=== PATIENT | female | born 1970 | race Two or more races ===

== ENCOUNTER 2020-07-29 14:33 | Outpatient (REF) | payer MEDICARE, SELFPAY ==
--- NOTE | 2020-07-29 | US_ITS ---
EXAMINATION: ULTRASOUND PELVIS CLINICAL INFORMATION: History of fibroids. COMPARISON: Ultrasound pelvis 02/10/2020. TECHNIQUE: Transabdominal and transvaginal ultrasound pelvis is performed. FINDINGS: On transabdominal ultrasound the uterus is anteverted and bulky secondary to multiple fibroids. The uterus measures 12.0 cm in length, 6.0 cm in AP and 8.7 cm in transverse dimension. The fibroids measure as follows. 1. A 0.9 x 0.8 x 0.8 cm fibroid in the left body of uterus. Previously it measured 1.4 x 1.5 x 1.5 cm. 2. A fibroid in the mid body of uterus posteriorly measures 0.9 x 0.7 x 0.8 cm. It is new. 3. A posterior fibroid in the body of uterus measures 1.9 x 1.6 x 1.7 cm. Previously it measured 2.1 x 1.5 x 2.0 cm. 4. A posterior upper body uterus fibroid measures 1.4 x 1.0 x 1.3 cm. Previously it measured 1.2 x 0.8 x 1.0 cm. 5. Right upper body uterus largest measures 3.3 x 3.0 x 4.3 cm. Previously it measured 3.0 x 3.5 x 3.1 cm. 6. Fibroid in the left body of uterus measures 1.4 x 1.1 x 1.3 cm. It is new. The endometrial thickness measures 0.9 cm. The right ovary measures 3.3 x 2.0 x 2.1 cm and volume 6.5 mL. There is an echogenic complex lesion measuring 2.0 x 1.9 x 2.2 cm. Not seen previously. Previously right ovary measured 3.4 x 2.4 x 2.7 cm and volume 11.5 mL. The left ovary measures 3.0 x 1.8 x 2.3 cm and volume 8.85 mL. Previously left ovary measured 3.9 x 1.2 x 3.1 cm and volume 7.6 mL. There is no free fluid in the cul-de-sac. US/US pelvic complete IMPRESSION: Multiple uterine fibroids. There are 2 new fibroids seen. Rest of the fibroids are stable. Complex new cyst right ovary measuring 2.0 cm. Left ovary is unremarkable.
== END 2020-07-29 14:34 | disposition home or self-care (01) ==
LOC: HO.US 14:33
PROVIDERS: PCP Internal Medicine; Visit Provider Obstetrics & Gynecology
DX: D21.9 Benign neoplasm of connective and other soft tissue, unspecified (principal)
CPT/HCPCS: 76830; 76856

== ENCOUNTER 2020-08-19 17:25 | Outpatient (REF) | payer OTHER, SELFPAY ==
[2020-08-21 11:36] LABS: CA-125 10 U/mL (<35)
== END 2020-08-19 17:26 | disposition home or self-care (01) ==
LOC: HO.LAB 17:25
PROVIDERS: PCP Internal Medicine; Visit Provider Obstetrics & Gynecology
DX: D21.9 Benign neoplasm of connective and other soft tissue, unspecified (principal)
CPT/HCPCS: 86304

== ENCOUNTER → 2020-08-26 14:17 | Outpatient (BNVA) | payer MEDICARE, MEDICAID, SELFPAY | PROVIDERS: Visit Provider Obstetrics & Gynecology | DX: Z76.89 Persons encountering health services in other specified circumstances (principal) ==

== ENCOUNTER 2020-09-20 10:40 | Outpatient (REF) | payer OTHER, SELFPAY ==
[2020-09-20 13:25] LABS: Syphilis Screen Nonreactive (Nonreactive)
[2020-09-21 04:20] LABS: ~HepC Num1 0.06 S/CO (0.00-0.79); ~Hepatitis C Antibody Nonreactive (Nonreactive)
[2020-09-21 04:22] LABS: HBsAGNum1 0.21 S/CO (0.00-0.99); HIV AB/AG Nonreactive (Nonreactive); HIV Num 1 0.05 S/CO (0.00-0.99); Hepatitis B Surface Antigen Negative (Negative)
[2020-09-21 09:43] LABS: BV Int Neg Control Negative (Negative); BV Int Pos Control Positive (Positive)
[2020-10-16 09:12] LABS: CT PCR NOT DETECTED (Not Detect.); NG PCR NOT DETECTED (Not Detect.)
== END 2020-09-20 10:41 | disposition home or self-care (01) ==
LOC: HO.LAB 10:40
PROVIDERS: PCP Internal Medicine; Visit Provider Advanced Practice Midwife
DX: Z20.2 Contact with and (suspected) exposure to infections with a predominantly sexual mode of transmission (principal); N89.8 Other specified noninflammatory disorders of vagina
CPT/HCPCS: 86780; 86803; 87340; 87389; 87480; 87491; 87510; 87591; 87660; 99212

== ENCOUNTER → 2020-10-07 15:19 | Outpatient (BNVA) | payer OTHER, SELFPAY | PROVIDERS: PCP Internal Medicine; Visit Provider Nurse Practitioner | DX: K59.00 Constipation, unspecified (principal); K21.9 Gastro-esophageal reflux disease without esophagitis; B37.81 Candidal esophagitis; B37.0 Candidal stomatitis; L29.0 Pruritus ani | CPT/HCPCS: Q3014 ==

== ENCOUNTER → 2020-11-04 12:50 | Outpatient (BNVA) | payer OTHER, SELFPAY | PROVIDERS: PCP Internal Medicine; Visit Provider Nurse Practitioner | DX: Z13.89 Encounter for screening for other disorder (principal) | CPT/HCPCS: Q3014 ==

== ENCOUNTER 2020-11-16 14:33 | Outpatient (REF) | payer OTHER, SELFPAY ==
--- NOTE | ~2020-11-16 | US_ITS ---
EXAMINATION: PELVIC ULTRASOUND CLINICAL INFORMATION: Follow-up ovarian cyst COMPARISON: Previous pelvic ultrasound July 2020 TECHNIQUE: Transabdominal and transvaginal pelvic ultrasound was performed. Transvaginal exam was performed for better visualization of the uterus and ovaries. FINDINGS: The uterus is slightly enlarged, anteverted and measures 12.2 x 5.6 x 7.4 cm in dimension. There are multiple focal uterine lesions seen suggestive of fibroids. These measure 2.1 x 1.5 x 2.3 cm in the intramural posterior uterine body, 1.4 x 1.1 x 1.2 cm in the intramural posterior uterine body, 1.3 x 1.3 x 2.1 cm in the intramural anterior fundus and 3.3 x 3.4 x 3.2 cm in the intramural uterine fundus. Endometrial thickness is normal measuring 1.1 cm. There are nabothian cysts in the cervix. The ovaries are normal-appearing. The right ovary measures 2.7 x 2.5 x 1.8 cm and the left ovary measures 2.8 x 2.3 x 1.6 cm. The previously identified 2 cm complex right ovarian cyst on July 2020 exam is no longer seen. There is no fluid in the pelvis. US/US pelvic complete IMPRESSION: Slightly enlarged fibroid uterus. Normal-appearing ovaries. Previously identified 2 cm complex right ovarian cyst on July 2020 exam is no longer seen.
--- NOTE | ~2020-11-16 | US_ITS ---
EXAMINATION: PELVIC ULTRASOUND CLINICAL INFORMATION: Follow-up ovarian cyst COMPARISON: Previous pelvic ultrasound July 2020 TECHNIQUE: Transabdominal and transvaginal pelvic ultrasound was performed. Transvaginal exam was performed for better visualization of the uterus and ovaries. FINDINGS: The uterus is slightly enlarged, anteverted and measures 12.2 x 5.6 x 7.4 cm in dimension. There are multiple focal uterine lesions seen suggestive of fibroids. These measure 2.1 x 1.5 x 2.3 cm in the intramural posterior uterine body, 1.4 x 1.1 x 1.2 cm in the intramural posterior uterine body, 1.3 x 1.3 x 2.1 cm in the intramural anterior fundus and 3.3 x 3.4 x 3.2 cm in the intramural uterine fundus. Endometrial thickness is normal measuring 1.1 cm. There are nabothian cysts in the cervix. The ovaries are normal-appearing. The right ovary measures 2.7 x 2.5 x 1.8 cm and the left ovary measures 2.8 x 2.3 x 1.6 cm. The previously identified 2 cm complex right ovarian cyst on July 2020 exam is no longer seen. There is no fluid in the pelvis. US/US transvaginal IMPRESSION: Slightly enlarged fibroid uterus. Normal-appearing ovaries. Previously identified 2 cm complex right ovarian cyst on July 2020 exam is no longer seen.
== END 2020-11-16 14:34 | disposition home or self-care (01) ==
LOC: HO.US 14:33
PROVIDERS: Visit Provider Obstetrics & Gynecology
DX: N83.299 Other ovarian cyst, unspecified side (principal)
CPT/HCPCS: 76830; 76856

== ENCOUNTER 2020-11-17 15:02 | Outpatient (REF) | payer OTHER, SELFPAY ==
--- NOTE | ~2020-11-17 | MM_ITS ---
EXAMINATION: MM DIAGNOSTIC DIGITAL BREAST TOMOSYNTHESIS, BILATERAL CLINICAL INFORMATION: Due for yearly. Family history breast cancer, mother, age 50's. Prior bilateral benign biopsies. The lifetime risk of breast cancer based on the Tyrer-Cuzick Model is 11%. COMPARISON: Mammography: 03/12/2020, 10/22/2019, 02/07/2019, 02/08/2019, 10/04/2017, targeted right breast ultrasound and right breast biopsy 03/12/2020, MRI breasts 03/04/2020. TECHNIQUE: Digital breast tomosynthesis is performed in both the craniocaudal and mediolateral oblique views along with computer-aided detection (CAD). Synthesized 2D images are generated from the tomosynthesis. FINDINGS: The breasts are heterogeneously dense, which may obscure small masses (ACR BI-RADS breast composition Category c). There are fibrocystic changes central and upper right breast with waxing and waning smooth oval masses. Neither breast shows architectural abnormality or abnormal calcifications. Left breast has biopsy clip marker mid upper outer quadrant and there are 3 biopsy clip markers right breast, central aspect and 2 clips anteriorly. No significant changes. Results are provided to the patient at time of visit by the technologist. MM/MM tomosynthesis diagnostic BI IMPRESSION: No significant changes from prior studies. Fibrocystic changes central and upper right breast again noted. Bilateral biopsy clip markers. ASSESSMENT: BI-RADS 2: Benign RECOMMENDATION: Routine annual mammography screening. This patient's information was entered into a reminder system with a target due date for their next mammogram.
== END 2020-11-17 15:03 | disposition home or self-care (01) ==
LOC: HO.MAMMO 15:02
PROVIDERS: Visit Provider Surgery
DX: R92.8 Other abnormal and inconclusive findings on diagnostic imaging of breast (principal); Z91.89 Other specified personal risk factors, not elsewhere classified
CPT/HCPCS: 77062; 77066

== ENCOUNTER → 2020-11-18 11:28 | Outpatient (BNVA) | payer OTHER, SELFPAY | PROVIDERS: Visit Provider Obstetrics & Gynecology | DX: R35.0 Frequency of micturition (principal) ==

== ENCOUNTER 2020-11-20 08:27 | Outpatient (REF) | payer OTHER, SELFPAY ==
[2020-11-20 09:36] LABS: Glucose Urine UA NEG (NEG); Leukocyte Esterase Urine NEG (NEG); Nitrite Urine NEG (NEG); Urine Blood 1+ (NEG); Urine Ketones NEG (NEG); Urine Protein NEG (NEG-TRACE)
[2020-11-20 09:39] LABS: Appearance Urine CLEAR; Color Urine YELLOW
[2020-11-20 10:10] LABS: Squamous Epithelial Cell Urine TRACE /LPF; WBC Urine 0-2 /HPF (0-4)
== END 2020-11-20 08:28 | disposition home or self-care (01) ==
LOC: HO.LAB 08:27
PROVIDERS: PCP Internal Medicine; Visit Provider Obstetrics & Gynecology
DX: R35.0 Frequency of micturition (principal)
CPT/HCPCS: 81001

== ENCOUNTER → 2020-11-26 11:50 | Outpatient (BNVA) | payer OTHER, SELFPAY | PROVIDERS: PCP Internal Medicine; Visit Provider Surgery | DX: Z91.89 Other specified personal risk factors, not elsewhere classified (principal) | CPT/HCPCS: 99212 ==

== ENCOUNTER 2020-12-24 08:30 | Outpatient (REF) | payer OTHER, SELFPAY ==
[2020-12-24 10:58] LABS: Glucose Urine UA 100 MG/DL (NEG); Leukocyte Esterase Urine NEG (NEG); Nitrite Urine NEG (NEG); Urine Blood TRACE (NEG); Urine Ketones NEG (NEG); Urine Protein NEG (NEG-TRACE)
[2020-12-24 11:01] LABS: Appearance Urine CLEAR; Color Urine YELLOW
[2020-12-24 11:03] LABS: HBsAGNum1 0.17 S/CO (0.00-0.99); HIV AB/AG Nonreactive (Nonreactive); HIV Num 1 0.04 S/CO (0.00-0.99); Hepatitis B Surface Antigen Negative (Negative)
[2020-12-24 11:05] LABS: ~HepC Num1 0.08 S/CO (0.00-0.79); ~Hepatitis C Antibody Nonreactive (Nonreactive)
[2020-12-24 11:07] LABS: Syphilis Screen Nonreactive (Nonreactive)
[2020-12-24 11:18] LABS: Squamous Epithelial Cell Urine TRACE /LPF; WBC Urine 0 /HPF (0-4)
[2020-12-25 09:20] LABS: CT PCR NOT DETECTED (Not Detect.); NG PCR NOT DETECTED (Not Detect.)
[2020-12-25 11:28] LABS: BV Int Neg Control Negative (Negative); BV Int Pos Control Positive (Positive)
[2020-12-29 23:02] LABS: HPV mRNA E6/E7 rflx Not Detected (Not Detected)
== END 2020-12-24 08:31 | disposition home or self-care (01) ==
LOC: HO.LAB 08:30
PROVIDERS: PCP Internal Medicine; Visit Provider Obstetrics & Gynecology
DX: Z01.411 Encounter for gynecological examination (general) (routine) with abnormal findings (principal); Z11.51 Encounter for screening for human papillomavirus (HPV); Z11.3 Encounter for screening for infections with a predominantly sexual mode of transmission; D21.9 Benign neoplasm of connective and other soft tissue, unspecified; R31.29 Other microscopic hematuria; Z91.89 Other specified personal risk factors, not elsewhere classified
CPT/HCPCS: 36415; 81001; 81003; 86780; 86803; 87086; 87340; 87389; 87480; 87491; 87510; 87591; 87624; 87660; 88142

== ENCOUNTER 2020-12-30 15:30 | Outpatient (REF) | payer OTHER, SELFPAY ==
--- NOTE | ~2020-12-30 | US_ITS ---
EXAMINATION: US PELVIS COMPLETE CLINICAL INFORMATION: Benign neoplasm of connective and other soft tissues COMPARISON: Ultrasound pelvis 11/16/2020 TECHNIQUE: Transabdominal and transvaginal ultrasound the pelvis is performed. FINDINGS: The uterus is anteverted, anteflexed, enlarged measuring 11.1 cm in length, 6.9 cm in AP and 8.9 cm in transverse dimension. The endometrial thickness is 1.4 cm. There are multiple hypoechoic lesions. 1. Lesion in the posterior fundus measures 2.8 x 2.4 x 3.0 cm. Previously measured 3.3 x 3.4 x 3.2 cm. 2. Lesion in the posterior body of uterus measures 2.2 x 1.4 x 2.2 cm. Previously measured 2.1 x 1.5 x 2.3 cm. 3. Lesion in posterior upper body of uterus measures 1.2 x 0.9 x 1.6 cm. Previously it measured 1.4 x 1.1 x 1.2 cm. 4. New lesion in the posterior body of uterus, likely submucosal, measures 0.9 x 0.7 x 1.0 cm. 5. Lesion in the anterior body of uterus measures 0.8 x 0.7 x 0.9 cm. Previously measured 1.3 x 1.3 x 2.1 cm. There are small nabothian cysts seen in the cervix. Right ovary measures 2.0 x 1.9 x 1.3 cm volume 3.9 mL. It is unremarkable. Previously it measured 2.7 x 2.5 x 1.8 cm. Left ovary measures 3.4 x 2.3 x 1.4 cm and volume 5.7 mL. It is unremarkable. Previously measured 2.8 x 2.3 x 1.6 cm. There is no free fluid in the cul-de-sac. US/US pelvic complete IMPRESSION: Multiple uterine fibroids as described above. Small nabothian cyst in the cervix. The ovaries are unremarkable.
--- NOTE | ~2020-12-30 | US_ITS ---
EXAMINATION: US PELVIS COMPLETE CLINICAL INFORMATION: Benign neoplasm of connective and other soft tissues COMPARISON: Ultrasound pelvis 11/16/2020 TECHNIQUE: Transabdominal and transvaginal ultrasound the pelvis is performed. FINDINGS: The uterus is anteverted, anteflexed, enlarged measuring 11.1 cm in length, 6.9 cm in AP and 8.9 cm in transverse dimension. The endometrial thickness is 1.4 cm. There are multiple hypoechoic lesions. 1. Lesion in the posterior fundus measures 2.8 x 2.4 x 3.0 cm. Previously measured 3.3 x 3.4 x 3.2 cm. 2. Lesion in the posterior body of uterus measures 2.2 x 1.4 x 2.2 cm. Previously measured 2.1 x 1.5 x 2.3 cm. 3. Lesion in posterior upper body of uterus measures 1.2 x 0.9 x 1.6 cm. Previously it measured 1.4 x 1.1 x 1.2 cm. 4. New lesion in the posterior body of uterus, likely submucosal, measures 0.9 x 0.7 x 1.0 cm. 5. Lesion in the anterior body of uterus measures 0.8 x 0.7 x 0.9 cm. Previously measured 1.3 x 1.3 x 2.1 cm. There are small nabothian cysts seen in the cervix. Right ovary measures 2.0 x 1.9 x 1.3 cm volume 3.9 mL. It is unremarkable. Previously it measured 2.7 x 2.5 x 1.8 cm. Left ovary measures 3.4 x 2.3 x 1.4 cm and volume 5.7 mL. It is unremarkable. Previously measured 2.8 x 2.3 x 1.6 cm. There is no free fluid in the cul-de-sac. US/US transvaginal IMPRESSION: Multiple uterine fibroids as described above. Small nabothian cyst in the cervix. The ovaries are unremarkable.
== END 2020-12-30 15:31 | disposition home or self-care (01) ==
LOC: HO.US 15:30
PROVIDERS: Visit Provider Obstetrics & Gynecology
DX: D21.9 Benign neoplasm of connective and other soft tissue, unspecified (principal)
CPT/HCPCS: 76830; 76856

== ENCOUNTER 2021-01-01 10:27 | Outpatient (REF) | payer OTHER, SELFPAY ==
[2021-01-01 10:52] LABS: MANUAL DIFF FLAG NO
[2021-01-01 10:59] LABS: Basophils Percent Auto 0.2 % (0-2); Eosinophils Absolute Auto 0.1 X10*3/uL (0.0-0.4); Eosinophils Percent Auto 1.1 % (0-4); Hematocrit 37.4 % (37-47); Hemoglobin 12.4 g/dl (12.0-16.0); Imm Gran Abs Auto 0.01 X10*3/uL (0.00-0.03); Imm Gran Pct Auto 0.2 % (0.0-0.4); Lymphocytes Absolute Auto 1.3 X10*3/uL (1.2-4.9); Lymphocytes Percent Auto 24.1 % (20-40); Mean Corpuscular HGB Conc 33.2 g/dl (31.0-35.0); Mean Corpuscular Hemoglobin 28.4 pg (27.0-33.0); Mean Corpuscular Volume 85.8 fL (80-98); Mean Platelet Volume 10.8 fL (9.4-12.3); Monocytes Absolute Auto 0.5 X10*3/uL (0.1-1.2); Monocytes Percent Auto 8.8 % (2-11); Neutrophils Absolute Auto 3.6 X10*3/uL (2.0-8.3); Neutrophils Percent Auto 65.6 % (45-73); Platelet Count 225 X10*3/uL (160-400); Red Blood Count 4.36 X10*6/uL (4.20-5.50); Red Cell Distribution Width 11.1 % (11.0-16.0); White Blood Count 5.4 X10*3/uL (4.8-10.8)
[2021-01-01 11:18] LABS: Estimated Average Glucose 100 mg/dL; Glucose Urine UA NEG (NEG); Hemoglobin A1c % 5.1 %; Leukocyte Esterase Urine NEG (NEG); Nitrite Urine NEG (NEG); PH 5.5 (5.0-8.0); Specific Gravity - Urine 1.025 (1.005-1.025); Urine Blood TRACE (NEG); Urine Ketones NEG (NEG); Urine Protein NEG (NEG-TRACE)
[2021-01-01 11:23] LABS: Appearance Urine CLEAR; Color Urine YELLOW
[2021-01-01 11:28] LABS: Alanine Aminotransferase 18 U/L (0-31); Albumin Level 3.8 g/dL (3.5-5.0); Alkaline Phosphatase 79 U/L (39-117); Anion Gap 13 (12-20); Aspartate Amino Transferase 13 U/L (5-31); Bilirubin Total 0.5 mg/dL (0.0-1.0); Blood Urea Nitrogen 17 mg/dL (9-16); Calcium 8.9 mg/dL (8.4-10.2); Carbon Dioxide 24 mmol/L (22-29); Chloride 108 mmol/L (96-108); Estimated Glomerular Filt Rate > 60; Glucose Fasting 96 mg/dL (60-99); Potassium 4.3 mmol/L (3.3-5.1); Sodium 141 mmol/L (135-145); Total Protein 6.7 g/dL (6.5-8.0)
[2021-01-01 11:36] LABS: RBC Urine 0-2 /HPF (0); Squamous Epithelial Cell Urine TRACE /LPF; WBC Urine 0-2 /HPF (0-4)
== END 2021-01-01 10:28 | disposition home or self-care (01) ==
LOC: HO.LAB 10:27
PROVIDERS: Obstetrics & Gynecology; PCP Internal Medicine; Visit Provider Internal Medicine
DX: R81 Glycosuria (principal); D64.9 Anemia, unspecified; R35.0 Frequency of micturition
CPT/HCPCS: 36415; 80053; 81001; 81003; 83036; 85025

== ENCOUNTER → 2021-01-17 15:22 | Outpatient (BNVA) | payer OTHER, SELFPAY | PROVIDERS: PCP Internal Medicine; Visit Provider Obstetrics & Gynecology | DX: Z13.89 Encounter for screening for other disorder (principal) | CPT/HCPCS: Q3014 ==

== ENCOUNTER 2021-01-18 15:56 | Outpatient (REF) | payer OTHER, SELFPAY ==
--- NOTE | ~2021-01-18 | XR_ITS ---
EXAMINATION: BILATERAL SHOULDER X-RAY CLINICAL INFORMATION: Unspecified disorder of synovium COMPARISON: Previous left shoulder x-ray July 2015 TECHNIQUE: 4 views of each shoulder FINDINGS: Right: Bone alignment is normal. No fracture or dislocation is seen. The glenohumeral joint is normal. There is arthritis at the acromioclavicular joint. Soft tissues are normal. Left: Bone alignment is normal. No fracture or dislocation is seen. The glenohumeral joint is normal. There is arthritis at the acromioclavicular joint. There is a small osteophyte projecting over the lateral surface of the acromion. Soft tissues are otherwise unremarkable. 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 Small lateral left acromial osteophyte.
--- NOTE | ~2021-01-18 | XR_ITS ---
EXAMINATION: XR LUMBOSACRAL SPINE CLINICAL INFORMATION: Low back pain COMPARISON: None TECHNIQUE: Three views of the lumbosacral spine. FINDINGS: Bone alignment is normal. No fracture or dislocation is seen. Disc spaces are normal. There is lower lumbar spine facet arthritis. There is a 0.5 x 1.5 cm radiopaque density projecting over the soft tissues of the left pelvis. This is partially visualized but appears anterior to the left hip joint on the lateral view. XR/XR lumbar spine 2-3V IMPRESSION: Mild lower lumbar spine facet arthritis. 0.5 x 1.5 cm radiopaque soft tissue density in the left pelvis, question postsurgical. Clinical correlation to exclude foreign body recommended.
--- NOTE | ~2021-01-18 | XR_ITS ---
EXAMINATION: BILATERAL SHOULDER X-RAY CLINICAL INFORMATION: Unspecified disorder of synovium COMPARISON: Previous left shoulder x-ray July 2015 TECHNIQUE: 4 views of each shoulder FINDINGS: Right: Bone alignment is normal. No fracture or dislocation is seen. The glenohumeral joint is normal. There is arthritis at the acromioclavicular joint. Soft tissues are normal. Left: Bone alignment is normal. No fracture or dislocation is seen. The glenohumeral joint is normal. There is arthritis at the acromioclavicular joint. There is a small osteophyte projecting over the lateral surface of the acromion. Soft tissues are otherwise unremarkable. 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 Small lateral left acromial osteophyte.
[2021-01-18 21:25] LABS: Alanine Aminotransferase 30 U/L (0-31); Albumin Level 3.8 g/dL (3.5-5.0); Alkaline Phosphatase 93 U/L (39-117); Anion Gap 16 (12-20); Aspartate Amino Transferase 20 U/L (5-31); Bilirubin Total 0.3 mg/dL (0.0-1.0); Blood Urea Nitrogen 11 mg/dL (9-16); Calcium 8.8 mg/dL (8.4-10.2); Carbon Dioxide 24 mmol/L (22-29); Chloride 104 mmol/L (96-108); Estimated Glomerular Filt Rate > 60; Glucose Random 82 mg/dL (60-115); Potassium 4.3 mmol/L (3.3-5.1); Sodium 140 mmol/L (135-145); Total Protein 6.7 g/dL (6.5-8.0)
== END 2021-01-18 15:57 | disposition home or self-care (01) ==
LOC: HO.XRAY 15:56
PROVIDERS: PCP Internal Medicine; Visit Provider Student in an Organized Health Care Education/Training Program
DX: M75.32 Calcific tendinitis of left shoulder (principal); M67.911 Unspecified disorder of synovium and tendon, right shoulder; M54.5 Low back pain
CPT/HCPCS: 36415; 72100; 73030; 80053; 99212

== ENCOUNTER → 2021-01-27 13:48 | Outpatient (BNVA) | payer OTHER, SELFPAY | PROVIDERS: PCP Internal Medicine; Visit Provider Surgery | DX: N64.4 Mastodynia (principal); Z91.89 Other specified personal risk factors, not elsewhere classified | CPT/HCPCS: 99212 ==

== ENCOUNTER → 2021-03-03 15:16 | Outpatient (BNVA) | payer OTHER, SELFPAY | PROVIDERS: Visit Provider Nurse Practitioner ==

== ENCOUNTER 2021-03-25 16:39 | Outpatient (REF) | payer OTHER, SELFPAY ==
--- NOTE | ~2021-03-25 | MR_ITS ---
EXAMINATION: MR BREAST WITHOUT AND WITH CONTRAST, BILATERAL CLINICAL INFORMATION: Reason for Exam Z91.89 - Other specified personal risk factors, not elsewhere. History of suspicious segmental non-mass enhancement in the right breast 2 o'clock position. Biopsy under ultrasound benign. COMPARISON: MRI 03/04/2020, 01/27/2019. Biopsy 03/12/2020 TECHNIQUE: Imaging was performed with a dedicated breast coil. Prior to the administration of contrast, bilateral axial T1 and bilateral axial T2 weighted sequences were obtained. After the uneventful administration of?6.5 mL of Gadavist, dynamic contrast-enhanced VIBRANT series through the breasts in the axial plane were performed. Subtracted images were performed and reviewed. A delayed sagittal sequence through both breasts was acquired. Additionally, CAD post-processing, including maximum intensity projections, 3-D reconstructions and kinetic analysis, were performed an independent workstation and reviewed by the interpreting radiologist is a portion of this exam. FINDINGS: The patient's fibroglandular tissue demonstrates moderate background enhancement. LEFT BREAST: There is a new short segment of nonmasslike enhancement 3:00 position located 8.6 cm from the nipple measuring 0.8 cm in size in AP length (image 70, series 100). Finding demonstrates plateau or type II enhancement. MRI guided biopsy is recommended. Nonmasslike enhancement in the 9:00 position, 7.4 cm from the nipple with associated cystic change is also noted (image 71, series 100). This is a new finding as well. Recommend attention on follow-up. The imaging appearance is most suggestive of an inflammatory process such as a ruptured cyst. No other suspicious nonmasslike or masslike enhancement. Review of the T2-weighted images demonstrates innumerable high signal intensity structures. The largest is located in the 3:00 position centrally measuring up 1.6M in size. Finding is are consistent with cysts. Review of kinetic images reveals no additional findings. RIGHT BREAST: No persistent nonmasslike enhancement in the 2:00 position. No suspicious masslike or non-masslike enhancement. No abnormal skin thickening or nipple retraction. No abnormal architectural distortion. Review of the T2-weighted images demonstrates innumerable high signal intensity structures. The largest is located in the 1:00 position measuring up to 3.6 cm in size. These findings are consistent with cysts. Review of kinetic images reveals no additional findings. There is no suspicious internal mammary chain or axillary adenopathy. Limited views of the chest and abdomen are unremarkable. MR/MR breast BI wo/w con IMPRESSION: 1. Suspicious nonmasslike enhancement, left breast, 3:00. 2. Probably benign nonmasslike enhancement with associated fibrocystic changes left breast, 9:00. 3. No MR specific evidence of malignancy within the right breast. 4. Severe fibrocystic changes bilaterally. ASSESSMENT: LEFT BREAST: BI-RADS 4 - Suspicious abnormality - Biopsy should be considered. RIGHT BREAST: BI-RADS 2 - Benign Findings. RECOMMENDATIONS: MRI guided biopsy, left breast, 3:00. Recommend follow-up MRI directed at the nonmasslike enhancement at 9:00 position of the left breast in 6-12 months. The report will be called to the referring office.
== END 2021-03-25 16:40 | disposition home or self-care (01) ==
LOC: HO.MRI 16:39
PROVIDERS: Visit Provider Obstetrics & Gynecology
DX: Z91.89 Other specified personal risk factors, not elsewhere classified (principal)
CPT/HCPCS: 77049; A9585

== ENCOUNTER → 2021-04-01 11:32 | Outpatient (BNVA) | payer OTHER, SELFPAY | PROVIDERS: PCP Internal Medicine; Visit Provider Obstetrics & Gynecology | DX: R92.8 Other abnormal and inconclusive findings on diagnostic imaging of breast (principal) | CPT/HCPCS: Q3014 ==

== ENCOUNTER 2021-04-20 07:44 | Outpatient (REF) | payer OTHER, SELFPAY ==
--- NOTE | ~2021-04-20 | MR_ITS ---
EXAMINATION: MR GUIDED VACUUM-ASSISTED CORE BIOPSY BREAST, LEFT MM DIGITAL MAMMOGRAPHY POST BIOPSY, LEFT CLINICAL INFORMATION: New 9 mass enhancement 3:00 position left breast, type II kinetics. COMPARISON: MRI breasts 03/25/2021, mammography 11/17/2020. TECHNIQUE/PROCEDURE: Hospital provided metal building assembler assisted for the consent and throughout the procedure. Informed consent was obtained from the patient after discussion of the benefits, risks, and alternatives to biopsy today. Patient appeared to understand. Gave opportunity for questions. Patient signed consent form. Biopsy is performed under MRI guidance using breast surface coil. Imaging is performed without and with use of 7 mL Gadavist gadolinium contrast. [employer] introducer localization system is used with grid. LESION: None mass enhancement 3:00 position left breast residing posterior superior to prior cylinder shaped left breast biopsy clip marker. LOCAL ANESTHESIA: 7 mL 1% lidocaine; 12 mL 2% lidocaine with epinephrine. NEEDLE: TactoTek 9-gauge vacuum assisted core biopsy device. APPROACH: Lateral medial. CORES: 8. CLIP: TriMark Barbell/spool shape. POSTPROCEDURE UNILATERAL DIGITAL MAMMOGRAM: Mammography is performed using digital mammography in CC and ML views. The breasts are heterogeneously dense, which may obscure small masses (ACR BI-RADS breast composition Category c). The clip marker is in position, residing posterior superior to a prior cylinder shaped left biopsy clip marker. No gross hematoma. The patient tolerated the procedure well. No immediate complications. Home instructions reviewed with the patient. Final pathology results are pending. MR/MR guided breast biopsy LT IMPRESSION: 1. Status post MRI guided vacuum-assisted core biopsy left breast with clip placement. 2. Final pathology results pending. An addendum report will be issued.
--- NOTE | ~2021-04-20 | MM_ITS ---
EXAMINATION: MR GUIDED VACUUM-ASSISTED CORE BIOPSY BREAST, LEFT MM DIGITAL MAMMOGRAPHY POST BIOPSY, LEFT CLINICAL INFORMATION: New 9 mass enhancement 3:00 position left breast, type II kinetics. COMPARISON: MRI breasts 03/25/2021, mammography 11/17/2020. TECHNIQUE/PROCEDURE: Hospital provided paraprofessional interpreter assisted for the consent and throughout the procedure. Informed consent was obtained from the patient after discussion of the benefits, risks, and alternatives to biopsy today. Patient appeared to understand. Gave opportunity for questions. Patient signed consent form. Biopsy is performed under MRI guidance using breast surface coil. Imaging is performed without and with use of 7 mL Gadavist gadolinium contrast. [employer] introducer localization system is used with grid. LESION: None mass enhancement 3:00 position left breast residing posterior superior to prior cylinder shaped left breast biopsy clip marker. LOCAL ANESTHESIA: 7 mL 1% lidocaine; 12 mL 2% lidocaine with epinephrine. NEEDLE: MediSwipe 9-gauge vacuum assisted core biopsy device. APPROACH: Lateral medial. CORES: 8. CLIP: TriMark Barbell/spool shape. POSTPROCEDURE UNILATERAL DIGITAL MAMMOGRAM: Mammography is performed using digital mammography in CC and ML views. The breasts are heterogeneously dense, which may obscure small masses (ACR BI-RADS breast composition Category c). The clip marker is in position, residing posterior superior to a prior cylinder shaped left biopsy clip marker. No gross hematoma. The patient tolerated the procedure well. No immediate complications. Home instructions reviewed with the patient. Final pathology results are pending. MM/MM diagnostic mammo unilat LT IMPRESSION: 1. Status post MRI guided vacuum-assisted core biopsy left breast with clip placement. 2. Final pathology results pending. An addendum report will be issued.
[2021-04-20] MEDS: Lidocaine HCl 1 % MPF 5 ML VIAL SUBCUT ×2 (09:52→09:53)
== END 2021-04-20 07:45 | disposition home or self-care (01) ==
LOC: HO.MRI 07:44
PROVIDERS: Visit Provider Surgery
DX: R92.8 Other abnormal and inconclusive findings on diagnostic imaging of breast (principal)
CPT/HCPCS: 19085; 77065; 88305; A4648; A9585

== ENCOUNTER 2021-05-13 15:02 | Outpatient (REF) | payer OTHER, SELFPAY ==
[2021-05-13 17:01] LABS: Glucose Urine UA NEG (NEG); Leukocyte Esterase Urine NEG (NEG); Nitrite Urine NEG (NEG); Specific Gravity - Urine 1.025 (1.005-1.025); Urine Blood 2+ (NEG); Urine Ketones NEG (NEG); Urine Protein NEG (NEG-TRACE)
[2021-05-13 17:02] LABS: Appearance Urine CLEAR; Color Urine YELLOW
[2021-05-13 17:08] LABS: Bacteria Urine TRACE /LPF; Mucus Urine TRACE /LPF; Renal Epithelial Cells Urine TRACE /LPF; Squamous Epithelial Cell Urine TRACE /LPF; WBC Urine 0 /HPF (0-4)
== END 2021-05-13 15:03 | disposition home or self-care (01) ==
LOC: HO.LNP 15:02
PROVIDERS: Obstetrics & Gynecology; PCP Internal Medicine
DX: R31.9 Hematuria, unspecified (principal)
CPT/HCPCS: 51798; 81001; 81003; 99202

== ENCOUNTER 2021-05-17 15:28 | Outpatient (REF) | payer OTHER, SELFPAY ==
[2021-05-18 10:15] LABS: CT PCR NOT DETECTED (Not Detect.); NG PCR NOT DETECTED (Not Detect.)
== END 2021-05-17 15:29 | disposition home or self-care (01) ==
LOC: HO.LAB 15:28
PROVIDERS: PCP Internal Medicine; Visit Provider Obstetrics & Gynecology
DX: R10.2 Pelvic and perineal pain (principal); R31.9 Hematuria, unspecified
CPT/HCPCS: 87491; 87591; 99212

== ENCOUNTER → 2021-05-24 15:15 | Outpatient (BNVA) | payer OTHER, SELFPAY | PROVIDERS: PCP Internal Medicine; Visit Provider Surgery | DX: Z91.89 Other specified personal risk factors, not elsewhere classified (principal) | CPT/HCPCS: 99212 ==

== ENCOUNTER 2021-05-30 16:42 | Outpatient (REF) | payer OTHER, SELFPAY ==
--- NOTE | ~2021-05-30 | US_ITS ---
EXAMINATION: US RETROPERITONEAL LIMITED (RENAL ONLY) CLINICAL INFORMATION: Hematuria, unspecified. COMPARISON: Renal ultrasound with bladder dated 08/02/2017. Renals only ultrasound dated 07/15/2016. CT abdomen and pelvis without and with contrast dated 11/26/2014. TECHNIQUE: Real-time imaging of the kidneys. FINDINGS: RIGHT KIDNEY: 12.7 x 3.6 x 5.4 cm (SAG x AP x TRV). The kidney is normal in size, contour, and echogenicity. Renal cortical thickness is normal. No calculi or focal parenchymal lesions. No hydronephrosis. LEFT KIDNEY: 11.1 x 6.1 x 4.8 cm (SAG x AP x TRV). The kidney is normal in size, contour, and echogenicity. Renal cortical thickness is normal. No calculi or focal parenchymal lesions. No hydronephrosis. US/US renal BI IMPRESSION: No ultrasound evidence of kidney stones or hydronephrosis. No renal mass. No ultrasound explanation for patient's flank pain or hematuria..
== END 2021-05-30 16:43 | disposition home or self-care (01) ==
LOC: HO.US 16:42
DX: R31.9 Hematuria, unspecified (principal)
CPT/HCPCS: 76775

== ENCOUNTER 2021-06-02 16:08 | Outpatient (REF) | payer OTHER, SELFPAY ==
--- NOTE | ~2021-06-02 | US_ITS ---
EXAMINATION: US PELVIS CLINICAL INFORMATION: Pain COMPARISON: Previous pelvic ultrasounds most recent December 2020 TECHNIQUE: Ultrasound of the pelvis is performed using both transabdominal and transvaginal transducers along with Doppler. Transvaginal imaging is performed due to inadequate visualization transabdominally. FINDINGS: The uterus is anteverted and measures 10.8 x 6.3 x 7.8 cm in dimension. There are multiple, at least 4, uterine fibroids. The largest measures 4.2 x 3.3 3.2 cm in the uterine fundus. These do not appear appreciably changed from previous exams. Endometrial thickness is normal measuring 1.2 cm. the ovaries are normal-appearing. The right ovary measures 2.8 x 1.8 x 1.4 cm. The left ovary measures 2.1 x 1.5 x 1.3 cm. There is a small amount of fluid in the pelvis. US/US pelvic and transvaginal IMPRESSION: Fibroid uterus not appreciably changed from previous exams.
== END 2021-06-02 16:09 | disposition home or self-care (01) ==
LOC: HO.US 16:08
PROVIDERS: Visit Provider Obstetrics & Gynecology
DX: R10.2 Pelvic and perineal pain (principal)
CPT/HCPCS: 76830; 76856

== ENCOUNTER 2021-06-07 14:33 | Outpatient (REF) | payer OTHER, SELFPAY ==
[2021-06-07 17:01] LABS: Urine Cytology See Pathology rpt
== END 2021-06-07 14:34 | disposition home or self-care (01) ==
LOC: HO.LNP 14:33
PROVIDERS: PCP Internal Medicine
DX: R31.9 Hematuria, unspecified (principal)
CPT/HCPCS: 88112; 99212

== ENCOUNTER → 2021-06-16 11:57 | Outpatient (BNVA) | payer OTHER, SELFPAY | PROVIDERS: Visit Provider Obstetrics & Gynecology | DX: R10.2 Pelvic and perineal pain (principal); R31.9 Hematuria, unspecified; D21.9 Benign neoplasm of connective and other soft tissue, unspecified | CPT/HCPCS: 99212 ==

== ENCOUNTER 2021-06-21 15:37 | Outpatient (REF) | payer OTHER, SELFPAY | END 2021-06-21 15:38 | disposition home or self-care (01) | LOC: HO.LNP 15:37 | PROVIDERS: PCP Internal Medicine | DX: R31.9 Hematuria, unspecified (principal) | CPT/HCPCS: 87086; 99212 ==

== ENCOUNTER 2021-07-19 14:47 | Outpatient (REF) | payer OTHER, SELFPAY ==
[2021-07-19 15:43] LABS: MANUAL DIFF FLAG NO
[2021-07-19 16:02] LABS: Basophils Percent Auto 0.3 % (0-2); Eosinophils Absolute Auto 0.1 X10*3/uL (0.0-0.4); Eosinophils Percent Auto 0.6 % (0-4); Hematocrit 38.7 % (37-47); Hemoglobin 13.1 g/dl (12.0-16.0); Imm Gran Abs Auto 0.03 X10*3/uL (0.00-0.03); Imm Gran Pct Auto 0.4 % (0.0-0.4); Lymphocytes Absolute Auto 2.5 X10*3/uL (1.2-4.9); Lymphocytes Percent Auto 32.7 % (20-40); Mean Corpuscular HGB Conc 33.9 g/dl (31.0-35.0); Mean Corpuscular Hemoglobin 29.7 pg (27.0-33.0); Mean Corpuscular Volume 87.8 fL (80-98); Mean Platelet Volume 11.4 fL (9.4-12.3); Monocytes Absolute Auto 0.6 X10*3/uL (0.1-1.2); Monocytes Percent Auto 7.3 % (2-11); Neutrophils Absolute Auto 4.6 X10*3/uL (2.0-8.3); Neutrophils Percent Auto 58.7 % (45-73); Platelet Count 222 X10*3/uL (160-400); Red Blood Count 4.41 X10*6/uL (4.20-5.50); Red Cell Distribution Width 12.4 % (11.0-16.0); White Blood Count 7.8 X10*3/uL (4.8-10.8)
[2021-07-19 16:32] LABS: Alanine Aminotransferase 15 U/L (0-31); Albumin Level 4.1 g/dL (3.5-5.0); Alkaline Phosphatase 86 U/L (39-117); Anion Gap 11 (12-20); Aspartate Amino Transferase 16 U/L (5-31); Bilirubin Total < 0.2 mg/dL (0.0-1.0); Blood Urea Nitrogen 13 mg/dL (9-16); Carbon Dioxide 24 mmol/L (22-29); Chloride 108 mmol/L (96-108); Estimated Glomerular Filt Rate > 60; Glucose Random 88 mg/dL (60-115); Potassium 4.5 mmol/L (3.3-5.1); Sodium 138 mmol/L (135-145); Total Protein 7.5 g/dL (6.5-8.0)
== END 2021-07-19 14:48 | disposition home or self-care (01) ==
LOC: HO.LAB 14:47
PROVIDERS: Absent Provider Nurse Practitioner Family; PCP Internal Medicine; Visit Provider Nurse Practitioner Family
DX: M75.32 Calcific tendinitis of left shoulder (principal); R11.0 Nausea; M67.911 Unspecified disorder of synovium and tendon, right shoulder; M54.50 Low back pain, unspecified
CPT/HCPCS: 36415; 80053; 85025; 99212

== ENCOUNTER → 2021-07-22 13:07 | Outpatient (BNVA) | payer OTHER, SELFPAY | PROVIDERS: PCP Internal Medicine; Visit Provider Urology | DX: R31.9 Hematuria, unspecified (principal) | CPT/HCPCS: 52000; 99212 ==

== ENCOUNTER 2021-08-11 18:09 | Outpatient (REF) | payer OTHER, SELFPAY | END 2021-08-11 18:10 | disposition home or self-care (01) | LOC: HO.LNP 18:09 | PROVIDERS: Visit Provider Nurse Practitioner Family | DX: R30.0 Dysuria (principal); R10.30 Lower abdominal pain, unspecified | CPT/HCPCS: 87086 ==

== ENCOUNTER 2021-09-12 09:36 | Outpatient (REF) | payer OTHER, SELFPAY ==
[2021-09-12 10:58] LABS: Appearance Urine CLEAR; Color Urine YELLOW; Glucose Urine UA NEG (NEG); Leukocyte Esterase Urine NEG (NEG); Nitrite Urine NEG (NEG); Specific Gravity - Urine 1.025 (1.005-1.025); UACC Culture Trigger NO; Urine Blood TRACE (NEG); Urine Ketones NEG (NEG); Urine Protein NEG (NEG-TRACE)
[2021-09-12 11:07] LABS: Squamous Epithelial Cell Urine TRACE /LPF; WBC Urine 0-2 /HPF (0-4)
[2021-09-12 11:08] LABS: RBC Urine 0-2 /HPF (0)
[2021-09-12 11:27] LABS: Creatinine Urine 149.73 mg/dL; Microalbum/Creatinine Ratio Ur 11.3 ug/mg cr; Protein/Creatinine Ratio, Ur 0.07 (<0.2); Total Protein Urine Random 11 mg/dL (<12)
== END 2021-09-12 09:37 | disposition home or self-care (01) ==
LOC: HO.LAB 09:36
PROVIDERS: PCP Internal Medicine; Visit Provider Internal Medicine Nephrology
DX: N02.0 Recurrent and persistent hematuria with minor glomerular abnormality (principal)
CPT/HCPCS: 81001; 82043; 84156

== ENCOUNTER → 2021-10-25 10:09 | Outpatient (REF) | payer OTHER, SELFPAY ==
--- NOTE | 2021-10-25 10:16 | CA_ITS ---
Acquisition Time: 2021-10-25 10:23:41 Total Exercise Time: 00:06:44 Test Indications: CP, PALPITATIONS Medications: SEE CHART Protocol: GAUTAM Max HR: 206 BPM 121% of Pred: 170 BPM Max BP: 176/080 mmHG Max Work Load: 8.1 METS Exercise stress test with exercise 6 min 44 sec of Gautam protocol, without anginal symptoms or report of palpitation, with normotensive response to exercise, without arrythmia, with artifact at peak exercise, without EKG changes meeting criteria for ischemia at 38 sec of recovery and remainder of recovery. Test reviewed with Dr Quiroz. Referred By: Court Singer Overread By: MERCEDES NATHAN
--- NOTE | 2021-10-25 10:16 | HM_ITS ---
Total monitoring time 5 days and 6 hours. Underlying rhythm is sinus. Minimum heart rate 73/Min. Maximum 146/Min. Average 96/Min. No atrial fibrillation or flutter AV blocks or pauses. Very rare supraventricular and ventricular ectopy with minimal burden. No patient events. MTDD
== END ==
LOC: HO.CARD 10:09
PROVIDERS: PCP Internal Medicine; Visit Provider Nurse Practitioner Family
DX: R00.2 Palpitations (principal)
CPT/HCPCS: 93017; 93242

== ENCOUNTER → 2021-11-10 13:11 | Outpatient (BNVA) | payer OTHER, SELFPAY | PROVIDERS: PCP Internal Medicine; Referring Provider Internal Medicine; Visit Provider Surgery | DX: N63.11 Unspecified lump in the right breast, upper outer quadrant (principal); N64.4 Mastodynia; Z91.89 Other specified personal risk factors, not elsewhere classified | CPT/HCPCS: 99212 ==

== ENCOUNTER 2021-11-22 11:06 | Outpatient (REF) | payer OTHER, SELFPAY ==
--- NOTE | ~2021-11-22 | MM_ITS ---
EXAMINATION: MM DIAGNOSTIC DIGITAL BREAST TOMOSYNTHESIS, BILATERAL US DIAGNOSTIC ULTRASOUND BREAST, RIGHT CLINICAL INFORMATION: Due for yearly. Patient notes palpable fullness and tenderness anterior upper right breast. Family history breast cancer, mother age 50s. Prior bilateral benign biopsies. The lifetime risk of breast cancer based on the Tyrer-Cuzick Model is 13%. COMPARISON: Mammography: 04/20/2021, 11/17/2020, 03/12/2020, 10/22/2019, 02/07/2019, 11/11/2018; bilateral breast MRI 03/25/2021; targeted right breast ultrasound 03/12/2020. TECHNIQUE: Digital breast tomosynthesis is performed in both the craniocaudal and mediolateral oblique views along with computer-aided detection (CAD). Synthesized 2D images are generated from the tomosynthesis. Ultrasound right breast is targeted to the area of clinical concern upper right breast. Patient is able to point to the area of concern at time of imaging. Grayscale imaging and color Doppler are performed without and with harmonics. FINDINGS: The breasts are heterogeneously dense, which may obscure small masses (ACR BI-RADS breast composition Category c). Bilateral fibrocystic changes are present with waxing and waning smooth oval masses similar to prior studies. There is no interval architectural abnormality or significant dominant mass. There are no abnormal calcifications. The axilla and skin contours are unremarkable. Left breast has 2 biopsy clip markers mid upper outer quadrant. The right breast has 3 biopsy clip markers, to anterior and 1 central 1:00 position mid depth. Ultrasound right breast demonstrates dominant cyst corresponding to palpable concern 12:00 position 2 cm from nipple measuring 3.6 x 2.0 x 3.6 cm. Prior measurements are 2.3 x 1.4 cm on ultrasound 03/12/2020. There are other scattered simple cysts in the targeted area measuring under 2 cm. There is no solid mass or architectural abnormality or focal duct ectasia. Results are discussed with the patient at time of visit, using an fire extinguisher sprinkler inspector. Patient is interested in therapeutic aspiration for the tenderness in the area of dominant cyst. MM/MM tomosynthesis diagnostic BI IMPRESSION: 1. Bilateral fibrocystic changes greater on right. No significant change from prior studies. 2. Dominant cyst right breast at site of palpable concern measures 3.6 cm. ASSESSMENT: BI-RADS 2: Benign RECOMMENDATION: 1. Patient's right breast tenderness may be managed based on the clinical impression. Dominant cyst would be amenable to therapeutic ultrasound-guided aspiration if clinically indicated. 2. Routine annual screening mammography. Additional adjunct screening breast MRI as clinical risk factors warrant. This patient's information was entered into a reminder system with a target due date for their next mammogram.
== END 2021-11-22 11:07 | disposition home or self-care (01) ==
LOC: HO.MAMMO 11:06
PROVIDERS: PCP Internal Medicine; Visit Provider Surgery
DX: N64.4 Mastodynia (principal); N63.15 Unspecified lump in the right breast, overlapping quadrants
CPT/HCPCS: 76642; 77062; 77066

== ENCOUNTER 2021-11-29 09:53 | Outpatient (REF) | payer OTHER, SELFPAY ==
--- NOTE | ~2021-11-29 | US_ITS ---
EXAMINATION: US ULTRASOUND-GUIDED CYST ASPIRATION BREAST, RIGHT CLINICAL INFORMATION: Fibrocystic changes with dominant cyst and tenderness 12:00 right breast. Therapeutic aspiration. COMPARISON: Mammography and targeted right breast ultrasound 11/22/2021. FINDINGS: Proper informed consent is obtained from the patient after discussion of the procedure, potential risks and complications, and alternatives. Patient was given an opportunity for questions. The patient appeared to understand. The patient consented to the procedure and signed the consent form. LOCATION: 12:00 anterior right breast GUIDANCE: Ultrasound-guided; aseptic technique. LESION: Simple cyst 3.6 cm with 2 smaller adjacent satellite cysts. APPROACH: Lateral medial ANESTHESIA: 5 mL carbonated 1% lidocaine NEEDLE: 18-gauge straight. ASPIRATION: 14 mL watery bass transparent fluid aspirated from the dominant cyst which promptly collapsed without residual. The 2 adjacent small satellite cysts are also aspirated with recovery of the additional 3 mL between the 2 other cysts. Fluid discarded as planned. Patient tolerated procedure well and had no immediate complications. Home instructions discussed. Patient has follow-up appointment with her surgeon. US/US breast cyst asp RT IMPRESSION: Status post aspiration cysts 12:00 right breast, total 17 mL fluid. ASSESSMENT: BI-RADS 2: Benign RECOMMENDATION: Routine annual mammography screening. This patient's information was entered into a reminder system with a target due date for their next mammogram.
[2021-11-29] MEDS: Sodium Bicarbonate 8.4% 50 MEQ/50 ML VIAL SUBCUT (11:03)
[2021-11-29] MEDS: Lidocaine HCl 1 % 20 ML VIAL SUBCUT (11:04)
== END 2021-11-29 09:54 | disposition home or self-care (01) ==
LOC: HO.MAMMO 09:53
PROVIDERS: Visit Provider Surgery
DX: N63.15 Unspecified lump in the right breast, overlapping quadrants (principal)
CPT/HCPCS: 19000

== ENCOUNTER 2021-12-12 08:49 | Outpatient (REF) | payer OTHER, SELFPAY ==
[2021-12-13 00:01] LABS: CT PCR NOT DETECTED (Not Detect.); NG PCR NOT DETECTED (Not Detect.)
== END 2021-12-12 08:50 | disposition home or self-care (01) ==
LOC: HO.LAB 08:49
PROVIDERS: PCP Internal Medicine; Visit Provider Obstetrics & Gynecology
DX: Z01.419 Encounter for gynecological examination (general) (routine) without abnormal findings (principal); R10.2 Pelvic and perineal pain
CPT/HCPCS: 87491; 87591; 99212

== ENCOUNTER → 2021-12-22 13:10 | Outpatient (BNVA) | payer OTHER, SELFPAY | PROVIDERS: PCP Internal Medicine; Referring Provider Internal Medicine; Visit Provider Internal Medicine Cardiovascular Disease | DX: R06.02 Shortness of breath (principal); R00.0 Tachycardia, unspecified | CPT/HCPCS: 93005; 99202 ==

== ENCOUNTER → 2021-12-30 08:30 | Outpatient (REF) | payer OTHER, SELFPAY ==
--- NOTE | 2021-12-30 08:35 | CA_ITS ---
Transthoracic Echocardiogram Patient (Last, First, Middle): Stephani Villalobos, Gender: Female Date of : 1970 Age: 51 Procedure Date: 12/30/2021 Procedure Type: Transthoracic Echocardiogram Location: OP Height: 157.48 cm Weight: 78.47 kg BSA: 1.80 m2 Heart Rate: bpm BP: 128 / 70 mmHg Stretcher Drier Operator: YR /TO Referring MD: Leonel Serrano MD Symptoms: R06.02 - Shortness of breath Study Quality: Fair Conclusions: - Normal left ventricular size and systolic function. There is mildly increased left ventricular wall thickness. The visually estimated ejection fraction is between 60-65%. There is no evidence of regional wall motion abnormalities. Diastolic function is normal for age. - Normal right ventricular cavity size and systolic function. - There is mild dilatation of the ascending aorta measuring 3.40 cm. Findings Left Ventricle Normal left ventricular size and systolic function. There is mildly increased left ventricular wall thickness. The visually estimated ejection fraction is between 60-65%. There is no evidence of regional wall motion abnormalities. Diastolic function is normal for age. Right Ventricle Normal right ventricular cavity size and systolic function. Atria Both atria are normal in size. Aortic Valve Normal aortic valve structure and function. There is no aortic valve stenosis. There is no aortic valve regurgitation. Mitral Valve Normal mitral valve structure and function. There is trace mitral valve regurgitation. There is no mitral valve stenosis. Pulmonic Valve The pulmonic valve is likely normal. Tricuspid Valve Normal tricuspid valve structure and function. There is trace tricuspid valve regurgitation. Normal right atrial pressure. There is no evidence of pulmonary hypertension. Great Vessels There is mild dilatation of the ascending aorta measuring 3.40 cm. The visualized portions of the pulmonary artery and branches are normal. Venous The inferior vena cava is normal in size and collapses greater than 50% with inspiration. Pericardium/Pleural There is no evidence of pericardial effusion. Prior Study Comparison No prior study available for comparison. Measurements 2D Linear Measurements IVSd: 1.00 0.6-0.9/0.6-1.0 cm LVIDd: 4.13 3.9-5.3/4.2-5.9 cm LVIDd Index: 2.29 2.4-3.2/2.2-3.1 cm/m2 LVIDs: 2.95 2.0-3.6 cm LVPWd: 0.93 0.7-1.1 cm LA Diam: 3.50 2.7-3.8/3.0-4.0 cm LAIDs Index: 1.94 1.5-2.3 cm/m2 LV Mass: 158.18 67-162/88-224 g LV Mass Index: 87.88 43-95/49-115 g/m2 LVOT Diam: 2.00 3.0+(-)1.3 cm 2D Systolic Function EF 4C: 66.60 >55% EF 2C: 61.40 >55% EF BiP: 63.60 >55% Mitral Valve MV Pk E: 0.70 MV PK A: 0.73 MV Decel Time: 154.00 E/A: 1.00 E'Lateral: 11.30 E'Medial: 7.18 E/E' Med: 9.80 E/E' Lat: 6.20 PHT: 45.00 MVA PHT: 4.89 Decel Baker: 4.55 Aortic Valve AoV Pk Cheo: 1.59 AoV Mn Cheo: 1.01 AoV VTI: 0.33 AoV Pk Grad: 10.00 Aov Mn Grad: 5.00 BARRY Cont.VTI: 2.08 LVOT LVOT Pk Cheo: 1.01 LVOT Mn Cheo: 0.65 LVOT VTI: 0.22 LVOT Pk Grad: 4.00 LVOT Mn Grad: 2.00 LVOT Diam: 2.00 LVOT Area: 3.14 Diastolic Function MV Pk E: 0.70 MV Pk A: 0.73 E/A: 1.00 E'Medial: 7.18 E/E' Med: 9.80 E' Laterial: 11.30 E/E' Lat: 6.20 Right Ventricle TAPSE (mm): 20.00 TVS' Cheo: 10.20 Tricuspid Valve TR Pk Cheo: 2.61 TR Pk Grad: 27.00 RA Press: 3.00 RVSP: 30.00 Great Vessels Aorta Sinus of Valsalva: 2.88 2.0-3.[address] Ridge: 2.69 1.7-3.4 cm Ao Asc: 3.40 2.1-3.4 cm Ao Arch: 2.80 Updated in Other Vendor System with Status of Final Robles Quiroz MD electronically signed on 12/31/2021 11:03:16 PM with status of Final
== END ==
LOC: HO.CARD 08:30
PROVIDERS: PCP Internal Medicine; Visit Provider Internal Medicine Cardiovascular Disease
DX: R06.02 Shortness of breath (principal)
CPT/HCPCS: 93306

== ENCOUNTER 2022-01-05 12:59 | Outpatient (REF) | payer OTHER, SELFPAY ==
--- NOTE | ~2022-01-05 | US_ITS ---
EXAMINATION: US PELVIS CLINICAL INFORMATION: Pelvic and perineal pain. COMPARISON: 06/02/2021 TECHNIQUE: Ultrasound of the pelvis is performed using both transabdominal and transvaginal transducers along with Doppler. Transvaginal imaging is performed due to inadequate visualization transabdominally. FINDINGS: Uterus: The uterus is anteverted and measures 13.2 x 7.1 x 8 cm. The double wall endometrial thickness is 1.1 centimeter. Multiple fibroids are again noted. Some of these are not previously seen, with the others without significant change. 1. Right fundal measuring 3.8 x 4 x 5.4 cm, similar to prior. 2. Anterior fundal/body measuring 2.1 x 1.7 x 2.2 cm. This is similar to prior. 3. Left uterine body measuring 1.6 x 1.2 x 2 cm. This is not definitively seen on prior. 4. Anterior myometrial body measuring 1.1 x 0.8 x 1.6 cm. This is similar to prior. 5. Lower uterine segment anterior measuring 1.2 x 1.2 x 1.7 cm. This is not previously seen. Adnexa: Both ovaries are visualized. There is normal color flow to the adnexa. There is no ovarian torsion. There is no pelvic ascites or fluid collection. Right ovary measures 3.2 x 1.8 x 2 cm. Left ovary measures 2.1 x 1.8 x 1.8 cm. US/US pelvic and transvaginal IMPRESSION: Multiple uterine fibroids, with the previously seen fibroids not significantly changed. There are 2 small fibroids which are not previously visualized.
== END 2022-01-05 13:00 | disposition home or self-care (01) ==
LOC: HO.US 12:59
PROVIDERS: Visit Provider Obstetrics & Gynecology
DX: R10.2 Pelvic and perineal pain (principal)
CPT/HCPCS: 76830; 76856

== ENCOUNTER → 2022-01-19 12:07 | Outpatient (BNVA) | payer OTHER, SELFPAY | PROVIDERS: PCP Internal Medicine; Visit Provider Obstetrics & Gynecology | DX: R10.2 Pelvic and perineal pain (principal); D25.9 Leiomyoma of uterus, unspecified | CPT/HCPCS: 99212 ==

== ENCOUNTER → 2022-01-20 13:27 | Outpatient (BNVA) | payer OTHER, SELFPAY | PROVIDERS: PCP Internal Medicine; Visit Provider Nurse Practitioner Family | DX: M67.911 Unspecified disorder of synovium and tendon, right shoulder (principal); M75.32 Calcific tendinitis of left shoulder; M54.59 Other low back pain | CPT/HCPCS: 99212 ==

== ENCOUNTER → 2022-01-31 15:52 | Outpatient (BNVA) | payer OTHER, SELFPAY | PROVIDERS: PCP Internal Medicine; Visit Provider Urology | DX: R31.9 Hematuria, unspecified (principal); R35.0 Frequency of micturition | CPT/HCPCS: 99212 ==

== ENCOUNTER → 2022-02-21 09:29 | Outpatient (BNVA) | payer OTHER, SELFPAY | PROVIDERS: PCP Internal Medicine; Referring Provider Internal Medicine; Visit Provider Surgery | DX: N63.10 Unspecified lump in the right breast, unspecified quadrant (principal); Z91.89 Other specified personal risk factors, not elsewhere classified | CPT/HCPCS: 99212 ==

== ENCOUNTER 2022-03-01 08:51 | Day surgery (SDC) | payer OTHER, SELFPAY ==
--- NOTE | 2022-02-28 09:38 | HO.ANESPROP2 ---
Documented by User: Merced Wolfe NP 02/28/22 09:41 HPI - Anesthesia Eval Consult details Narrative: 51yo F for Right Breast Lumpectomy PMFSH Active Problems Active Problems: All Active Problems (Updated 01/03/22 @ 12:06 by SUZANNE Weber) Anxiety (Acute) Neck pain (Acute) Insomnia (Acute) Essential hypertension (Acute) Mastodynia of right breast (Acute) Breast mass, right (Acute) Intermittent palpitations (Acute) Dysuria (Acute) Nausea (Acute) Myoma (Acute) Female pelvic pain (Acute) Hematuria (Acute) Abnormal MRI, breast (Acute) Low back pain (Acute) Tendinopathy of right shoulder (Acute) Calcific tendinitis of left shoulder (Acute) Primary osteoarthritis of hands, bilateral (Acute) Glucosuria (Acute) Screen for STD (sexually transmitted disease) (Acute) Well woman exam (Acute) Microscopic hematuria (Acute) At high risk for breast cancer (Acute) Urinary frequency (Acute) Bleeding hemorrhoids (Acute) Candidiasis of mouth and esophagus (Acute) Vaginal irritation (Acute) Potential exposure to STD (Acute) Tubular adenoma of colon (Acute) Constipation (Acute) Rectal itching (Acute) GERD (gastroesophageal reflux disease) (Acute) Menorrhagia (Acute) Complex ovarian cyst (Acute) Myoma (Acute) Past Medical History Medical History At high risk for breast cancer Calcific tendinitis of left shoulder Essential hypertension Fibromyalgia GERD (gastroesophageal reflux disease) Glucosuria Hematuria HPV test positive Insomnia 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, bilateral Uterine fibroid Vitamin D deficiency Family History Family History Mother Breast cancer, Onset Age: 50 Ovarian cancer Daughter Squamous cell carcinoma of uterus History of thyroid cancer Maternal Grandmother History of stomach cancer Maternal Uncle Family history of prostate cancer, Onset Age: 60 Surgical History Surgical History History of bilateral breast biopsy (2018) History of section History of esophagogastroduodenoscopy (EGD) (08/26/19) History of hemorrhoidectomy History of removal of cyst Hx of colonoscopy Hx of tubal ligation Social History Social History Household Members: Children Housing: House Alcohol intake: current Alcohol intake frequency: holidays/special occasions only Alcohol type: beer and wine Patient Tobacco Use Status: Former Tobacco user Quit Date: 2 yrs ago Tobacco use type: Cigarette e-Cigarette/Vaping Use: Never Used Second Hand Smoke Exposure: No Use of substances other than those prescribed or required for medical reasons: No Are you DNR?: No Advance Directives: No Advance Directives Information Provided: Yes service: No Current occupational status: employed Current occupational exposures/hazards: No Sexual orientation: Straight/Heterosexual Gender identity: Female Cognitive needs: No Hearing needs: No Vision needs: Yes Meds Allergies Allergy/AdvReac Type Severity Reaction Status Date / Time No Known Allergies Allergy Verified 03/01/22 09:26 Home Medications Medication Instructions Recorded Confirmed Last Taken Type duloxetine 30 mg capsule,delayed 30 mg PO DAILY 05/13/21 03/01/22 Unknown History release trazodone 100 mg tablet 100 mg PO BEDTIME 01/03/22 03/01/22 Unknown History zolpidem 5 mg tablet 5 mg PO BEDTIME PRN 01/03/22 03/01/22 Unknown History losartan 100 mg tablet 100 mg PO DAILY 01/31/22 03/01/22 Unknown History Exam Exam Date and Time: February 28, 2022 0938 Pertinent Lab Results Pertinent Lab Results: Laboratory Tests 07/19/21 07/19/21 15:42 15:42 WBC 7.8 Hgb 13.1 Hct 38.7 Plt Count 222 Sodium 138 Potassium 4.5 Chloride 108 Carbon Dioxide 24 BUN 13 Creatinine 0.77 Narrative Narrative: EKG 12/2021 normal sinus rhythm with normal EKG with normal axis ECHO 12/2021 Conclusions: - Normal left ventricular size and systolic function. There is ? mildly increased left ventricular wall thickness.? The visually? estimated ejection fraction is between 60-65%.? There is no? ? ? evidence of regional wall motion abnormalities.? Diastolic ? ? ? function is normal for age.? - Normal right ventricular cavity size and systolic function.? ? - There is mild dilatation of the ascending aorta measuring 3.40 cm.?? Exercise Stress 10/2021 Protocol: JOSÉ LUIS ? Max HR: 206 BPM? 121% of? Pred: 170 BPM Max BP: 176/080 mmHG Max Work Load: 8.1 METS ? Exercise stress test with exercise 6 min 44 sec of José Luis protocol, without ?anginal symptoms or report of palpitation, with normotensive response to ?exercise, without arrythmia, with artifact at peak exercise, without EKG ?changes meeting criteria for ischemia at 38 sec of recovery and remainder of ?recovery. Test reviewed with Dr Quiroz. 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, bilateral Uterine fibroid Vitamin D deficiency Family History Family History Mother Breast cancer, Onset Age: 50 Ovarian cancer Daughter Squamous cell carcinoma of uterus History of thyroid cancer Maternal Grandmother History of stomach cancer Maternal Uncle Family history of prostate cancer, Onset Age: 60 Surgical History Surgical History History of bilateral breast biopsy (2018) History of section History of esophagogastroduodenoscopy (EGD) (08/26/19) History of hemorrhoidectomy History of removal of cyst Hx of colonoscopy Hx of tubal ligation History of Problems with Anesthesia: No Social History Social History Household Members: Children Housing: House Alcohol intake: current Alcohol intake frequency: holidays/special occasions only Alcohol type: beer and wine Patient Tobacco Use Status: Former Tobacco user Quit Date: 2 yrs ago Tobacco use type: Cigarette e-Cigarette/Vaping Use: Never Used Second Hand Smoke Exposure: No Use of substances other than those prescribed or required for medical reasons: No Are you DNR?: No Advance Directives: No Advance Directives Information Provided: Yes service: No Current occupational status: employed Current occupational exposures/hazards: No Sexual orientation: Straight/Heterosexual Gender identity: Female Cognitive needs: No Hearing needs: No Vision needs: Yes Meds Allergies Allergy/AdvReac Type Severity Reaction Status Date / Time No Known Allergies Allergy Verified 03/01/22 09:26 Home Medications Medication Instructions Recorded Confirmed Last Taken Type duloxetine 30 mg capsule,delayed 30 mg PO DAILY 05/13/21 03/01/22 Unknown History release trazodone 100 mg tablet 100 mg PO BEDTIME 01/03/22 03/01/22 Unknown History zolpidem 5 mg tablet 5 mg PO BEDTIME PRN 01/03/22 03/01/22 Unknown History losartan 100 mg tablet 100 mg PO DAILY 01/31/22 03/01/22 Unknown History Exam Airway Mallampati Class: II TM Dist: >3cm Neck ROM: Full Loose/Missing/Broken Teeth: No Heart: RRR Lungs: CTA Assessment and Plan Assessment Anesthesia Assessment: Anesthesia Plan Discussed Final Anesthetic Review History of Problems with Anesthesia: No NPO: Yes ASA Class: II Final Preanesthetic Review: Meds/Allgs Chart Reviewed, Consent Obtained/Reviewed and Anes Risks/Benef Reviewed Patient Risk: Low Procedure Risk: Low Anesthetic Plan Anesthetic Plan: GA Disposition: Standard PACU
[2022-03-01] VITALS (7 sets, daily range): BP systolic 108–153; BP diastolic 70–96; PULSE 65–89; RESP 16–18; TEMP 36.1–36.4; O2SAT 98–100; BMI 31.1
[2022-03-01] MEDS: Lactated Ringers 1,000 ML 100 ML IVCONT (09:51)
--- NOTE | 2022-03-01 10:19 | MHC.SHP ---
Pre-Procedural Eval Section A Date of Service: 03/01/22 The patient is an INPATIENT: No Changes since office visit: Yes Patient answered all questions; No Cold of Flu in the past 2 weeks, No New Medical Problems and No Changes in Medication The History & Physical has been completed within 30 days and I have reviewed it.: Yes Section B Chief Complaint: breast lump Allergies: Allergies Allergy/AdvReac Type Severity Reaction Status Date / Time No Known Allergies Allergy Verified 03/01/22 09:26 Plan Diagnosis/Plan: Unchanged I have reviewed the history and physical and performed a pertinent physical examination on my patient. No changes have occurred unless specified.
--- NOTE | 2022-03-01 11:28 | W.PM.OPN ---
Operative Note Operative Note Date of Service: 03/01/22 Narrative: Preoperative diagnosis:Right breast mass Postoperative diagnosis:same Procedure:Right breast lumpectomy Surgeon: Steve Cano MD Outer Diameter Technician: no physician Anesthesia:General LMA Indications for procedure:51 year old female with a high risk for breast cancer due to family history , found to have a palpable mass in the right breast in the lower inner quadrant below the areola. Patient requests excision of the palpable lesion. Operative findings:Large cystic collection in the site of the palpable breast mass Specimen:Right breast lump Estimated blood loss:5 mls Complications:none Procedure details:The patient was brought to the OR and placed in a supine position. After administering general anesthesia the patient's right breast was prepped with ChloraPrep and draped in a sterile fashion. A surgical time-out was called the consent confirmed. Patient received preoperative antibiotics and Venodyne boots were in place. Local anesthesia consisting of 0.25% Sensorcaine was then infiltrated in a curvilinear fashion below the nipple-areolar complex in the 6 to the 5 o'clock position. Incision was then made around the areola with a 15 blade and carried out through subcutaneous tissue. Superior and inferior skin flaps were then created with electrocautery. The palpable mass was then grasped with an Allis clamp electrocautery used to dissect completely around this lesion. The lesion was found to be a large cystic collection. The cyst was excised sent to pathology for further examination. Wounds were then checked for hemostasis using electrocautery. Deep breast tissue was reapproximated using interrupted 3-0 Polysorb sutures. Superficial breast tissue and dermis reapproximated using interrupted 3-0 Polysorb suture. Skin was then closed using a running subcuticular 4-0 Polysorb suture. Steri-Strips 2 x 2 gauze and Tegaderm were then applied. The patient tolerated the procedure well. Sponge, instrument, and needle counts reported as correct. The patient was transferred to PACU in stable condition.
[2022-03-01] MEDS: ondansetron HCL 4 MG/2 ML VIAL IVPUSH (11:50)
== END 2022-03-01 13:18 | disposition home or self-care (01) ==
PROVIDERS: PCP Internal Medicine; Visit Provider Surgery
PROC: (CPT 19301; principal; 2022-03-01 10:20)
DX: N60.41 Mammary duct ectasia of right breast (principal); Z80.3 Family history of malignant neoplasm of breast; N60.31 Fibrosclerosis of right breast; N60.81 Other benign mammary dysplasias of right breast; I10 Essential (primary) hypertension; M79.7 Fibromyalgia; R81 Glycosuria; E55.9 Vitamin D deficiency, unspecified; K21.9 Gastro-esophageal reflux disease without esophagitis; Z79.1 Long term (current) use of non-steroidal anti-inflammatories (NSAID); Z79.899 Other long term (current) drug therapy; Z87.891 Personal history of nicotine dependence; Z98.51 Tubal ligation status; Z98.890 Other specified postprocedural states
CPT/HCPCS: 19301; 88305; 88307; J0690; J2250; J2405; J3010

== ENCOUNTER → 2022-03-07 11:06 | Outpatient (BNVA) | payer OTHER, SELFPAY | PROVIDERS: PCP Internal Medicine; Referring Provider Internal Medicine; Visit Provider Surgery | DX: Z48.00 Encounter for change or removal of nonsurgical wound dressing (principal) | CPT/HCPCS: 99211 ==

== ENCOUNTER → 2022-03-09 13:17 | Outpatient (BNVA) | payer OTHER, SELFPAY | PROVIDERS: PCP Internal Medicine; Referring Provider Internal Medicine; Visit Provider Surgery | DX: N63.10 Unspecified lump in the right breast, unspecified quadrant (principal); Z98.890 Other specified postprocedural states | CPT/HCPCS: 99212 ==

== ENCOUNTER → 2022-04-26 12:08 | Outpatient (BNVA) | payer OTHER, SELFPAY | PROVIDERS: PCP Internal Medicine; Visit Provider Nurse Practitioner | DX: K58.9 Irritable bowel syndrome, unspecified (principal); K21.9 Gastro-esophageal reflux disease without esophagitis; K59.00 Constipation, unspecified; K64.9 Unspecified hemorrhoids; Z79.899 Other long term (current) drug therapy | CPT/HCPCS: 99212 ==

== ENCOUNTER 2022-05-19 16:40 | Outpatient (REF) | payer OTHER, SELFPAY ==
--- NOTE | ~2022-05-19 | MR_ITS ---
EXAMINATION: MR BREAST WITHOUT AND WITH CONTRAST, BILATERAL CLINICAL INFORMATION: High-risk screening. COMPARISON: MRI biopsy 04/20/2021. MRI 03/25/2021, 03/04/2020. TECHNIQUE: Imaging was performed with a dedicated breast coil. Prior to the administration of contrast, bilateral axial T1 and bilateral axial T2-weighted sequences were obtained. After the uneventful administration of?8 mL of Gadavist, dynamic contrast-enhanced VIBRANT series through the breasts in the axial plane were performed. Subtracted images were performed and reviewed. A delayed sagittal sequence through both breasts was acquired. Additionally, CAD post-processing, including maximum intensity projections, 3-D reconstructions and kinetic analysis, were performed an independent workstation and reviewed by the interpreting radiologist is a portion of this exam. FINDINGS: The patient's fibroglandular tissue demonstrates moderate background enhancement. LEFT BREAST: In the 3 o'clock position of the left breast, 9.5 cm from the nipple, there is an oval enhancing mass measuring 1.2 x 0.6 cm, previously 0.9 x 0.4 cm (image 54, series 105). This is a new finding compared to the 2019 MRI. Most of the mass is low in signal intensity on review of the T2-weighted images. There is a biopsy clip artifact along the anterior edge of the mass. Pathology in 2020 revealed benign results including fibroadenomatoid change. However, given the significant interval increase in size and indeterminate nature of this finding, consider surgical excision (barbell clip). In the 12 o'clock position, 10.5 cm from the nipple, there is a short area of non-mass enhancement measuring 0.8 cm in size which demonstrates progressive or type I enhancement (image 33, series 105). This finding is slightly more prominent on the current study and was not definitely demonstrated in the 2019 and 2020 MRI. Recommend attention on followup. There is diffuse low-level background parenchymal enhancement throughout the left breast in combination with numerous foci of enhancement. No other definite suspicious non-mass or mass enhancement. Review of the T2-weighted images demonstrates numerous high signal intensity structures consistent with cysts. The largest is located in the 12 to 1 o'clock position and measures up to 2.3 cm in size. Review of the kinetic images demonstrates no additional suspicious findings. RIGHT BREAST: In the 3 o'clock position of the right breast, 5.4 cm from the nipple, there is a small focus of enhancement measuring 5 mm in size (image 46, series 105). Finding demonstrates progressive or type I enhancement. A large inflammatory cyst was noted in this location on the prior MRI. The finding is considered probably benign. Recommend attention on followup MRI. Similar to the contralateral side, there is diffuse background parenchymal enhancement in combination with innumerable scattered foci of enhancement. No other definite suspicious non-mass or mass enhancement. Review of the T2-weighted images demonstrates multiple high signal intensity structures. The largest is located in the 9 o'clock position, mid to anterior depth measuring up to 1.6 cm. Biopsy clip artifact noted at 5 o'clock anteriorly. Review of the kinetic images demonstrates no additional suspicious findings. There is no suspicious internal mammary chain or axillary adenopathy. Limited views of the chest and abdomen are unremarkable. MR/MR breast BI wo/w con IMPRESSION: 1. Increasing size of left breast mass, 3 o'clock with associated biopsy clip. Surgical excision is recommended. 2. Probably benign non-mass enhancement, left breast, 12 o'clock. 3. Probably benign focus of enhancement, right breast, 3 o'clock. 4. [id number] fibrocystic changes bilaterally. ASSESSMENT: LEFT BREAST: BI-RADS 4 - Suspicious abnormality - Biopsy should be considered. RIGHT BREAST: BI-RADS 3 - Probably benign finding (s). Short interval followup suggested. RECOMMENDATIONS: 1. Surgical excision, left breast, 3 o'clock. Recommendation called to Naye Vicente, civil preparedness training officer at 9:18 am on 05/23/22. 2. Followup MRI in 1 year.
== END 2022-05-19 16:41 | disposition home or self-care (01) ==
LOC: HO.MRI 16:40
PROVIDERS: Visit Provider Surgery
DX: N63.25 Unspecified lump in the left breast, overlapping quadrants (principal); Z91.89 Other specified personal risk factors, not elsewhere classified
CPT/HCPCS: 77049; A9585

== ENCOUNTER 2022-06-26 08:57 | Emergency (ER) | payer OTHER, SELFPAY ==
--- NOTE | ~2022-06-26 | CT_ITS ---
EXAMINATION: CT ANGIOGRAM OF THE CHEST WITH AND WITHOUT CONTRAST (CT PULMONARY ANGIOGRAM FOR PE) CLINICAL INFORMATION: Reason for Exam pain, palpitations, dizzy, elevated d-dimer COMPARISON: None TECHNIQUE: Prior to contrast administration, noncontrast localization images were obtained. Subsequently, multidetector volumetric imaging was performed from the thoracic inlet to below the diaphragms following the administration of 65 mL Omnipaque 350 intravenous contrast. No contrast reaction reported Sagittal, coronal, and MIP oblique sagittal reformatted images were obtained on the CT workstation, uploaded to PACS, and reviewed. This CT examination was performed using dose optimization techniques as appropriate, variously including the following: *Automated exposure control *Adjustment of mA and/or kV according to patient size (this includes techniques or standardized protocols for targeted exams where dose is matched to indication/reason for exam; i.e. extremities or head) *Use of iterative reconstruction technique Total exam dose-length product 306 mGy-cm FINDINGS: QUALITY OF STUDY/CONTRAST BOLUS: Satisfactory. PULMONARY ARTERIES: No central or segmental pulmonary emboli. THORACIC AORTA: No aneurysm or dissection. LUNG: No focal consolidation or nodule identified. PLEURA: No pleural effusion or pneumothorax. MEDIASTINUM: Normal heart size. No pericardial effusion. No hilar or mediastinal lymphadenopathy by size criteria. No evidence of septal bowing or right heart strain. CHEST WALL/AXILLA: No axillary or internal mammary lymphadenopathy by size criteria. OSSEOUS STRUCTURES: No acute finding. UPPER ABDOMEN: Unremarkable. No reflux of contrast into the hepatic veins to suggest elevated right heart pressures. CT/CT angio chest PE protocol IMPRESSION: No evidence of pulmonary embolism. Essentially unremarkable CT of the chest. VTE: negative
[2022-06-26 09:07] VITALS: BP 159/100; PULSE 92; RESP 17; TEMP 36.6; O2SAT 100; BMI 29.6
--- NOTE | 2022-06-26 09:10 | ECG_ITS ---
Test Reason : cp Blood Pressure : / mmHG Vent. Rate : 081 BPM Atrial Rate : 081 BPM P-R Int : 108 ms QRS Dur : 076 ms QT Int : 360 ms P-R-T Axes : 011 020 018 degrees QTc Int : 418 ms Sinus rhythm with short [place] Otherwise normal ECG When compared with ECG of 27-MAY-2018 13:50, Heart rate has decreased Referred By: Generic ED Physician Electronically Signed By:LINDA SOTELO
[2022-06-26 09:28] LABS: MANUAL DIFF FLAG NO
[2022-06-26 09:31] LABS: Appearance Urine Clear; Color Urine Yellow; Glucose Urine UA Negative (Negative); Leukocyte Esterase Urine Negative (Negative); Nitrite Urine Negative (Negative); PH 6.5 (5.0-9.0); Specific Gravity - Urine 1.015 (1.005-1.025); Urine Blood Negative (Negative); Urine Ketones Negative (Negative); Urine Protein Negative (Neg-Trace)
[2022-06-26 09:32] LABS: UPreg QC Valid YES; Urine Pregnancy NEGATIVE (NEGATIVE)
[2022-06-26 09:34] LABS: Basophils Percent Auto 0.4 % (0-2); Eosinophils Absolute Auto 0.1 X10*3/uL (0.0-0.4); Eosinophils Percent Auto 1.2 % (0-4); Hematocrit 40.4 % (37.0-47.0); Hemoglobin 13.3 g/dl (12.0-16.0); Imm Gran Abs Auto 0.02 X10*3/uL (0.00-0.03); Imm Gran Pct Auto 0.3 % (0.0-0.4); Lymphocytes Absolute Auto 1.6 X10*3/uL (1.2-4.9); Lymphocytes Percent Auto 20.4 % (20-40); Mean Corpuscular HGB Conc 32.9 g/dl (31.0-35.0); Mean Corpuscular Hemoglobin 28.4 pg (27.0-33.0); Mean Corpuscular Volume 86.3 fL (80.0-98.0); Mean Platelet Volume 11.2 fL (9.4-12.3); Monocytes Absolute Auto 0.6 X10*3/uL (0.1-1.2); Monocytes Percent Auto 7.6 % (2-11); Neutrophils Absolute Auto 5.5 x10*3/uL (2.0-8.3); Neutrophils Percent Auto 70.1 % (45-73); Platelet Count 262 X10*3/uL (160-400); Red Blood Count 4.68 X10*6/uL (4.20-5.50); Red Cell Distribution Width 11.9 % (11.0-16.0); White Blood Count 7.8 X10*3/uL (4.8-10.8)
[2022-06-26 09:41] VITALS: BP 148/97; PULSE 82; RESP 14; O2SAT 99
[2022-06-26 09:47] LABS: Anion Gap 17 (12-20); Blood Urea Nitrogen 10 mg/dL (9-16); Calcium 9.3 mg/dL (8.4-10.2); Carbon Dioxide 21 mmol/L (22-29); Chloride 106 mmol/L (96-108); Creatinine Clr Calc Pharmacy 76.2; Estimated Glomerular Filt Rate > 60; Glucose Random 97 mg/dL (60-115); Potassium 3.8 mmol/L (3.3-5.1); Sodium 140 mmol/L (135-145)
[2022-06-26 09:55] LABS: Troponin-I High Sensitivity < 3.5 ng/L (<3.5-17.0)
[2022-06-26 09:57] LABS: Alanine Aminotransferase 11 U/L (0-31); Albumin Level 4.3 g/dL (3.5-5.0); Alkaline Phosphatase 80 U/L (39-117); Aspartate Amino Transferase 14 U/L (5-31); Bilirubin Direct < 0.2 mg/dL (0.0-0.5); Bilirubin Total 0.4 mg/dL (0.0-1.0); Lipase 14 U/L (8-78); Total Protein 7.4 g/dL (6.5-8.0)
--- NOTE | 2022-06-26 10:11 | ED.GENADULT ---
HPI - General Adult General Chief complaint: General Medical Stated complaint: Tachy/Dizzy/HBP/Neck pain Time Seen by Provider: 06/26/22 09:32 Source: patient Mode of arrival: ambulatory Limitations: language barrier (Israeli-speaking medical record retrieval specialist utilized) History of Present Illness HPI narrative: Patient presents emergency department for evaluation of intermittent dizziness, headache, and palpitations that began yesterday evening. She reports that she has had history of similar symptoms in the past, ultrasound to be related to high blood pressure as well as tachycardia. States she has been evaluated by presentation designer as well as her PCP regarding these symptoms. States that the last time she saw Cardiology they gave her a prescription, uncertain of the name, which she took for 30 days, and has not had any follow-up with their office, therefore states that she is not taking this medication currently to her knowledge. She is also reporting various body pain including her neck, back, legs. Reports a history of fibromyalgia which cause her to very similar pain, she is Cymbalta for this. She is also reporting dysuria that has been present for 1 week, denies possibility of , denies hematuria. Denies fevers, chills, chest pain, shortness of breath, difficulty breathing, nausea, vomiting, abdominal pain, abnormal vaginal discharge/bleeding, vaginal/perineal wounds/lesion. Related Data Home Medications Medication Instructions Recorded Confirmed duloxetine 30 mg capsule,delayed 30 mg PO DAILY 05/13/21 03/29/22 release trazodone 100 mg tablet 100 mg PO BEDTIME 01/03/22 03/29/22 zolpidem 5 mg tablet 5 mg PO BEDTIME PRN Insomnia 01/03/22 03/29/22 losartan 100 mg tablet 100 mg PO DAILY 01/31/22 03/29/22 Previous Rx's Medication Instructions Recorded rabeprazole 20 mg tablet,delayed 20 mg PO BID 30 days #60 tabs 02/03/21 release (AcipHex) ibuprofen 800 mg tablet 800 mg PO TID PRN fever or pain 90 10/07/21 days #270 tabs famotidine 20 mg tablet 20 mg PO BEDTIME 90 days #90 tabs 01/03/22 hydroxyzine HCl 10 mg tablet 10 mg PO BID PRN anxiety #10 tabs 01/03/22 terbinafine HCl 250 mg tablet 250 mg PO DAILY 90 days #90 tabs 03/29/22 dicyclomine 10 mg capsule 10 mg PO TID #90 caps 04/26/22 hydrocortisone 2.5 % topical cream 1 appl NE BID PRN hemorrhoids #30 04/26/22 with perineal applicator grams (Proctosol HC) varenicline 1 mg tablet 1 mg PO BID 28 days #56 tabs 04/27/22 simethicone 180 mg capsule 180 mg PO .TIDPC 30 days #90 caps 05/05/22 linaclotide 290 mcg capsule 290 mcg PO DAILY #30 caps 05/24/22 (Linzess) tramadol 50 mg tablet 50 mg PO Q8H PRN pain #90 tabs 06/20/22 cefuroxime axetil 250 mg tablet 250 mg PO Q12H 7 days #14 tabs 06/26/22 Allergies Allergy/AdvReac Type Severity Reaction Status Date / Time No Known Allergies Allergy Verified 04/26/22 12:16 Review of Systems Review of Systems: Constitutional: No weight loss. No fever. No chills. No weakness. No fatigue. Eye: No swelling. No redness. ENT: No sore throat. No rhinorrhea. No nasal congestion. No sore throat. No difficulty swallowing. Skin: No rash. No itching. Cardiovascular: No chest pain. No chest pressure. Positive palpitations. No pedal edema. Respiratory: No shortness of breath. No cough. No sputum production. Gastrointestinal: No anorexia. No nausea. No vomiting. No diarrhea. No abdominal pain. No blood in stool. Genitourinary: Positive burning micturition. No urinary frequency. No incontinence. Neurologic: Positive headache. Positive intermittent dizziness. No pre-syncope/ syncope. No unilateral weakness. No numbness. No tingling. Musculoskeletal: No muscle pain. Positive back pain. No joint pain. No stiffness. Hematologic: No bleeding. No bruising. Lymphatics: No enlarged lymph nodes. Psychiatric:No depression. No anxiety. Endocrine: No polyuria. No polydipsia. Yes all other systems are reviewed and are negative PMFSH Past Medical History Attestation statement: The following information was validated with the patient. Source: old records reviewed Medical History At high risk for breast cancer Calcific tendinitis of left shoulder Essential hypertension GERD (gastroesophageal reflux disease) Glucosuria Hematuria Hemorrhoids HPV test positive Insomnia 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, bilateral Uterine fibroid Vitamin D deficiency Surgical History History of bilateral breast biopsy (2018) History of section History of esophagogastroduodenoscopy (EGD) (08/26/19) History of hemorrhoidectomy History of lumpectomy of right breast (03/01/22) History of removal of cyst Hx of colonoscopy Hx of tubal ligation Family History Family History Mother Breast cancer, Onset Age: 50 Ovarian cancer Daughter Squamous cell carcinoma of uterus History of thyroid cancer Maternal Grandmother History of stomach cancer Maternal Uncle Family history of prostate cancer, Onset Age: 60 Social History Social History Household Members: Children Housing: House Alcohol intake: current Alcohol intake frequency: holidays/special occasions only Alcohol type: beer and wine Patient Tobacco Use Status: Former Tobacco user Quit Date: 2 yrs ago Tobacco use type: Cigarette e-Cigarette/Vaping Use: Never Used Second Hand Smoke Exposure: No Advance Directives: Yes Advance Directives Information Provided: Yes Advance Directives on File: No service: No Current occupational status: employed Current occupational exposures/hazards: No Sexual orientation: Straight/Heterosexual Gender identity: Female Cognitive needs: No Hearing needs: No Vision needs: Yes Physical Exam ED Vital Signs: Vital Signs - 24 hr 06/26/22 09:07 06/26/22 09:41 06/26/22 11:29 Temperature 98 F Pulse Rate 92 82 76 Respiratory Rate 17 14 10 L Blood Pressure 159/100 H 148/97 H 171/99 H Pulse Oximetry 100 99 98 Oxygen Delivery Method Room Air Room Air Room Air 06/26/22 13:08 Temperature Pulse Rate 70 Respiratory Rate 16 Blood Pressure 148/94 H Pulse Oximetry 100 Oxygen Delivery Method Room Air BMI result Body Mass Index 29.6 Appearance: Alert.?Oriented to person, place and time. No acute distress.?Normal affect. Eyes: Pupils equal, round and reactive to light.? EOMI. No nystagmus. ENT: Pharynx normal.?? Neck: Normal inspection.? Neck supple.??No midline cervical spine tenderness, step-offs, deformities CVS: Heart sounds normal. Normal heart rate and rhythm.? Pulses normal.?? Respiratory: No respiratory distress.? Lung sounds clear to auscultation bilaterally?? Abdomen: Soft and non-tender. Normoactive bowel sounds. No pulsatile mass.? Genitourinary: Performed with water resources technical officer; lead based paint technician. No lesions, lumps, or external masses noted. ? Skin: Skin warm and dry.? Normal skin color.? Normal skin turgor.?? Extremities: No lower extremity edema.? No calf ttp? Neuro: Moves all extremities spontaneously. Sensation intact bilaterally. No focal neuro deficits. Ambulates with normal steady gait. Course Course Course Narrative: Patient is a 51-year-old female with a past medical history of hypertension, GERD, hematuria, osteoarthritis, fibromyalgia, tachycardia who presents emergency department for evaluation of dysuria in addition to palpitations, intermittent headache, and various body aches. Patient was last evaluated by Cardiology December 2021 Holter monitor testing which revealed frequent sinus tachycardia thought to be most consistent with inappropriate sinus tachycardia or stress/anxiety driven sinus tachycardia and provided prescription for Inderal. Had echocardiogram which was unremarkable. She is currently prescribed Cymbalta for her fibromyalgia. Per pharmacy records it appears as though she is only taking losartan currently, not the previously recommended Inderal from Cardiology. Discussed this with patient, advised she should follow-up with her primary care provider, to decide whether Inderal can be added to her medication regimen as this may help with the tachycardia and palpitations. She is overall well appearing. Vital signs are overall stable, hypertensive with blood pressure 148/97. Will obtain CBC to evaluate for leukocytosis/ anemia, CMP to evaluate for abnormal electrolytes /abnormal renal function/ abnormal hepatic/biliary function, EKG and troponin to evaluate for ischemia/ACS and Urinalysis. Reevaluation(s) Reevaluation #1: Urinalysis without evidence of infection or microscopic hematuria, genitourinary exam without evidence of alternative cause for dysuria, given the presence of her symptoms over past week will treat as urinary tract infection, and send urine sample for culture. CBC is unremarkable. No evidence of leukocytosis or anemia. CMP is unremarkable. Troponin <3.5, EKG reveals sinus rhythm with short NE interval not previously noted on prior EKG's, no acute ischemic findings. No evidence of delta wave, no known history of Vwels-Dpfhzkzlc-Oqcyc, will obtain repeat EKG for comparison. Time: 10:38 Reevaluation #2: Repeat EKG reveals NE interval of 110, continues to have no presence of delta wave or acute abnormalities. Will refer patient back to cardiology for further evaluation of abnormal EKG. elevated d-dimer 282, CTA chest for PE obtained, no evidence of pulmonary embolism. Discussed all findings with patient. Advised outpatient follow-up with primary care provider within 3 days, provided contact information to follow up again with Cardiology regarding abnormal EKG. Patient is stable at the time of discharge, verbalizes understanding, reviewed worsening signs and symptoms to return back to the emergency department for. All questions were answered, patient discharged home in stable condition. Time: 13:59 Medical Decision Making Medical Records Medical records reviewed: Yes I reviewed the patient's medical records. Lab Data Lab results reviewed: Yes I reviewed the patient's lab results. Result diagrams: 06/26/22 09:24 06/26/22 09:24 Labs: Lab Results 06/26/22 06/26/22 06/26/22 Range/Units 09:24 09:24 09:24 WBC 7.8 (4.8-10.8) X10*3/uL RBC 4.68 (4.20-5.50) X10*6/uL Hgb 13.3 (12.0-16.0) g/dl Hct 40.4 (37.0-47.0) % MCV 86.3 (80.0-98.0) fL MCH 28.4 (27.0-33.0) pg MCHC 32.9 (31.0-35.0) g/dl RDW 11.9 (11.0-16.0) % Plt Count 262 (160-400) X10*3/uL MPV 11.2 (9.4-12.3) fL Immature Gran % (Auto) 0.3 (0.0-0.4) % Neut % (Auto) 70.1 (45-73) % Lymph % (Auto) 20.4 (20-40) % [place] % (Auto) 7.6 (2-11) % Eos % (Auto) 1.2 (0-4) % Baso % (Auto) 0.4 (0-2) % Lymph # (Auto) 1.6 (1.2-4.9) X10*3/uL [place] # (Auto) 0.6 (0.1-1.2) X10*3/uL Eos # (Auto) 0.1 (0.0-0.4) X10*3/uL Baso # (Auto) 0.0 (0.0-0.2) X10*3/uL Abs Immat Gran (auto) 0.02 (0.00-0.03) X10*3/uL Absolute Neuts (auto) 5.5 (2.0-8.3) x10*3/uL Absolute Nucleated RBC 0.000 (0.0-0.012) X10*3/uL Nucleated RBC % (auto) 0.0 (0.0-0.2) /100WBC D-Dimer High Sensitivty NG/ML Sodium 140 (135-145) mmol/L Potassium 3.8 (3.3-5.1) mmol/L Chloride 106 (96-108) mmol/L Carbon Dioxide 21 L (22-29) mmol/L Anion Gap 17 (12-20) BUN 10 (9-16) mg/dL Creatinine 0.82 (0.5-1.4) mg/dL Estim Creat Clear Calc 76.2 Estimated GFR > 60 Random Glucose 97 (60-115) mg/dL Calcium 9.3 (8.4-10.2) mg/dL Total Bilirubin 0.4 (0.0-1.0) mg/dL Direct Bilirubin < 0.2 (0.0-0.5) mg/dL AST 14 (5-31) U/L ALT 11 (0-31) U/L Alkaline Phosphatase 80 (39-117) U/L Troponin I High Sens < 3.5 (<3.5-17.0) ng/L Total Protein 7.4 (6.5-8.0) g/dL Albumin 4.3 (3.5-5.0) g/dL Lipase 14 (8-78) U/L Urine Color Urine Appearance Urine pH (5.0-9.0) Ur Specific [place] (1.005-1.025) Urine Protein (Neg-Trace) mg/dL Urine Glucose (UA) (Negative) mg/dL Urine Ketones (Negative) mg/dL Urine Blood (Negative) Urine Nitrite (Negative) Ur Leukocyte Esterase (Negative) Urine Test (NEGATIVE) 06/26/22 06/26/22 06/26/22 Range/Units 09:24 09:24 11:37 WBC (4.8-10.8) X10*3/uL RBC (4.20-5.50) X10*6/uL Hgb (12.0-16.0) g/dl Hct (37.0-47.0) % MCV (80.0-98.0) fL MCH (27.0-33.0) pg MCHC (31.0-35.0) g/dl RDW (11.0-16.0) % Plt Count (160-400) X10*3/uL MPV (9.4-12.3) fL Immature Gran % (Auto) (0.0-0.4) % Neut % (Auto) (45-73) % Lymph % (Auto) (20-40) % [place] % (Auto) (2-11) % Eos % (Auto) (0-4) % Baso % (Auto) (0-2) % Lymph # (Auto) (1.2-4.9) X10*3/uL [place] # (Auto) (0.1-1.2) X10*3/uL Eos # (Auto) (0.0-0.4) X10*3/uL Baso # (Auto) (0.0-0.2) X10*3/uL Abs Immat Gran (auto) (0.00-0.03) X10*3/uL Absolute Neuts (auto) (2.0-8.3) x10*3/uL Absolute Nucleated RBC (0.0-0.012) X10*3/uL Nucleated RBC % (auto) (0.0-0.2) /100WBC D-Dimer High Sensitivty 282 NG/ML Sodium (135-145) mmol/L Potassium (3.3-5.1) mmol/L Chloride (96-108) mmol/L Carbon Dioxide (22-29) mmol/L Anion Gap (12-20) BUN (9-16) mg/dL Creatinine (0.5-1.4) mg/dL Estim Creat Clear Calc Estimated GFR Random Glucose (60-115) mg/dL Calcium (8.4-10.2) mg/dL Total Bilirubin (0.0-1.0) mg/dL Direct Bilirubin (0.0-0.5) mg/dL AST (5-31) U/L ALT (0-31) U/L Alkaline Phosphatase (39-117) U/L Troponin I High Sens (<3.5-17.0) ng/L Total Protein (6.5-8.0) g/dL Albumin (3.5-5.0) g/dL Lipase (8-78) U/L Urine Color Yellow Urine Appearance Clear Urine pH 6.5 (5.0-9.0) Ur Specific [place] 1.015 (1.005-1.025) Urine Protein Negative (Neg-Trace) mg/dL Urine Glucose (UA) Negative (Negative) mg/dL Urine Ketones Negative (Negative) mg/dL Urine Blood Negative (Negative) Urine Nitrite Negative (Negative) Ur Leukocyte Esterase Negative (Negative) Urine Test NEGATIVE (NEGATIVE) Imaging Data CT scan - chest: Radiologist's impression: CT/CT angio chest PE protocol IMPRESSION: ? No evidence of pulmonary embolism. ? Essentially unremarkable CT of the chest. ECG Data Attestation: I personally reviewed and interpreted this ECG as follows: Prior ECG tracings: available for review Interpretation: Rate: 81 Rhythm:? Sinus rhythm [place]:? Normal Normal P waves.? Short [place], 108.?? Normal QRS complex.?? ST T wave :??No ST elevation, no ST depression qTC: 418 prior studies:?2018 The study has been interpreted contemporaneously by me. Discharge Plan Discharge Clinical Impression: Urinary tract infection, Fibromyalgia, Heart palpitations, Abnormal ECG Patient Disposition: Home, Self-Care Instructions: Heart Palpitations (ED), Fibromyalgia (ED) Additional Instructions: As we discussed your blood work was overall normal today. Palpitations are consistent with your prior episodes. The medication you previously received from Cardiology was propranolol/Inderal, please speak with your primary care provider regarding medication regimen, you are currently prescribed losartan for high blood pressure, but you did report improvement of symptoms while taking Inderal. Please contact cardiology office to arrange for a follow-up visit, as we discussed there is an abnormality in your EKG which should be followed up further outpatient. Since you are having pain with urination you have been given a prescription for an antibiotic to treat urinary tract infection. Please complete the entire course. Return to the emergency department with any new or worsening symptoms or concerns. Prescriptions: New cefuroxime axetil 250 mg tablet 250 mg PO Q12H 7 Days Qty: 14 0RF No Action rabeprazole [AcipHex] 20 mg tablet,delayed release (DR/EC) 20 mg PO BID 30 Days Qty: 60 0RF ibuprofen 800 mg tablet 800 mg PO TID PRN (Reason: fever or pain) 90 Days Qty: 270 3RF famotidine 20 mg tablet 20 mg PO BEDTIME 90 Days Qty: 90 1RF varenicline 1 mg tablet 1 mg PO BID 28 Days Qty: 56 2RF simethicone 180 mg capsule 180 mg PO .TIDPC 30 Days Qty: 90 3RF Rx Instructions: after meals Linzess 290 mcg capsule 290 mcg PO DAILY Qty: 30 6RF tramadol 50 mg tablet 50 mg PO Q8H PRN (Reason: pain) Qty: 90 3RF zolpidem 5 mg tablet 5 mg PO BEDTIME PRN (Reason: Insomnia) trazodone 100 mg tablet 100 mg PO BEDTIME hydroxyzine HCl 10 mg tablet 10 mg PO BID PRN (Reason: anxiety) Qty: 10 0RF terbinafine HCl 250 mg tablet 250 mg PO DAILY 90 Days Qty: 90 1RF duloxetine 30 mg capsule,delayed release(DR/EC) 30 mg PO DAILY losartan 100 mg tablet 100 mg PO DAILY dicyclomine 10 mg capsule 10 mg PO TID Qty: 90 3RF hydrocortisone [Proctosol HC] 2.5 % cream with perineal applicator 1 appl NE BID PRN (Reason: hemorrhoids) Qty: 30 3RF Referrals: Fatmata Villalobos MD [Primary Care Provider] - Leonel Serrano MD [Physician] - (prior PT, abnormal EKG, new short [place]) Stand Alone Forms: Work/School Release Interventions: ED Discharge Assessment Last Done: 06/26/22 14:25 Discharge Date/Time: 06/26/22 14:25 Print Language: Israeli
--- NOTE | 2022-06-26 10:38 | ECG_ITS ---
Test Reason : repeat Blood Pressure : / mmHG Vent. Rate : 083 BPM Atrial Rate : 083 BPM P-R Int : 110 ms QRS Dur : 092 ms QT Int : 364 ms P-R-T Axes : 056 014 021 degrees QTc Int : 427 ms Sinus rhythm with short [place] Otherwise normal ECG When compared with ECG of 26-JUN-2022 09:18, No significant change was found Referred By: Teagan Molina Electronically Signed By:LINDA SOTELO
[2022-06-26 11:29] VITALS: BP 171/99; PULSE 76; RESP 10; O2SAT 98
[2022-06-26 11:57] LABS: D Dimer High Sensitivity 282 NG/ML
[2022-06-26] MEDS: iohexoL 350 MG/ML 100 ML INFUS..BTL IV (12:36)
[2022-06-26 13:08] VITALS: BP 148/94; PULSE 70; RESP 16; O2SAT 100
== END 2022-06-26 14:25 | disposition home or self-care (01) ==
PROVIDERS: Nurse Practitioner Family; Emergency Provider Emergency Medicine; PCP Internal Medicine
DX: R00.2 Palpitations (principal); N39.0 Urinary tract infection, site not specified; M79.7 Fibromyalgia; R94.31 Abnormal electrocardiogram [ECG] [EKG]; I10 Essential (primary) hypertension; Z79.899 Other long term (current) drug therapy
CPT/HCPCS: 36415; 71275; 80048; 80076; 81003; 81025; 83690; 84484; 85025; 85379; 93005; 99284; Q9967

== ENCOUNTER → 2022-07-25 09:24 | Outpatient (BNVA) | payer OTHER, SELFPAY | PROVIDERS: PCP Internal Medicine; Visit Provider Surgery | DX: R92.8 Other abnormal and inconclusive findings on diagnostic imaging of breast (principal) | CPT/HCPCS: 99212 ==

== ENCOUNTER 2022-08-07 16:57 | Emergency (ER) | payer OTHER, SELFPAY ==
--- NOTE | ~2022-08-07 | XR_ITS ---
EXAMINATION: PORTABLE CHEST 1 VIEW CLINICAL INFORMATION: chest pain . COMPARISON: 06/26/2022 CT scan. TECHNIQUE: Portable frontal view of the chest was obtained. FINDINGS: The lungs are mildly hypoexpanded. No focal infiltrate, effusion, edema, or pneumothorax. Cardiac and mediastinal silhouettes are within normal limits for technique. No acute bony abnormality seen. XR/XR chest 1V IMPRESSION: No evidence of acute disease.
--- NOTE | 2022-08-07 17:03 | ECG_ITS ---
Test Reason : cx pain Blood Pressure : / mmHG Vent. Rate : 083 BPM Atrial Rate : 083 BPM P-R Int : 114 ms QRS Dur : 080 ms QT Int : 352 ms P-R-T Axes : 042 024 033 degrees QTc Int : 413 ms Sinus rhythm RSR' or QR pattern in V1 suggests right ventricular conduction delay Otherwise normal ECG When compared with ECG of 26-JUN-2022 11:00, No significant changes seen Referred By: Generic ED Physician Electronically Signed By:TIFFANY HOWE MD
[2022-08-07 17:17] VITALS: BP 170/101; PULSE 99; RESP 18; TEMP 36.4; O2SAT 100; BMI 28.3
[2022-08-07 17:42] LABS: MANUAL DIFF FLAG NO
[2022-08-07 17:45] LABS: Basophils Percent Auto 0.4 % (0-2); Eosinophils Absolute Auto 0.1 X10*3/uL (0.0-0.4); Hematocrit 39.2 % (37.0-47.0); Hemoglobin 12.7 g/dl (12.0-16.0); Imm Gran Abs Auto 0.02 X10*3/uL (0.00-0.03); Imm Gran Pct Auto 0.3 % (0.0-0.4); Lymphocytes Absolute Auto 1.9 X10*3/uL (1.2-4.9); Mean Corpuscular HGB Conc 32.4 g/dl (31.0-35.0); Mean Corpuscular Hemoglobin 27.9 pg (27.0-33.0); Mean Platelet Volume 10.8 fL (9.4-12.3); Monocytes Absolute Auto 0.5 X10*3/uL (0.1-1.2); Neutrophils Absolute Auto 4.5 x10*3/uL (2.0-8.3); Neutrophils Percent Auto 64.3 % (45-73); Platelet Count 274 X10*3/uL (160-400); Red Blood Count 4.56 X10*6/uL (4.20-5.50); Red Cell Distribution Width 12.6 % (11.0-16.0)
[2022-08-07 18:05] LABS: COVID-19 Test Negative (Negative); IDNOW Serial# 55D5AD1C
[2022-08-07 18:08] LABS: Anion Gap 18 (12-20); Blood Urea Nitrogen 17 mg/dL (9-16); Calcium 9.5 mg/dL (8.4-10.2); Carbon Dioxide 22 mmol/L (22-29); Chloride 105 mmol/L (96-108); Creatinine Clr Calc Pharmacy 75.4; Estimated Glomerular Filt Rate > 60; Glucose Random 101 mg/dL (60-115); Potassium 3.8 mmol/L (3.3-5.1); Sodium 141 mmol/L (135-145)
[2022-08-07 18:16] LABS: Troponin-I High Sensitivity < 3.5 ng/L (<3.5-17.0)
--- NOTE | 2022-08-07 21:42 | ED_ITS ---
HPI - Chest Pain General Chief Complaint: Chest Pain Stated Complaint: chest pain, headache , high bp Time Seen by Provider: 08/07/22 21:31 Source: patient Mode of arrival: ambulatory Limitations: no limitations History of Present Illness HPI narrative: Patient's history of recurrent headaches, fibromyalgia comes here for headache started earlier checked her blood pressure was 170/100 patient feels stressed no nausea no vomiting also complaining of mild chest pain earlier none now no diaphoresis no shortness of breath no abdominal pain no cough Related Data Home Medications Medication Instructions Recorded Confirmed duloxetine 30 mg capsule,delayed 30 mg PO DAILY 05/13/21 07/28/22 release trazodone 100 mg tablet 100 mg PO BEDTIME 01/03/22 07/28/22 zolpidem 5 mg tablet 5 mg PO BEDTIME PRN Insomnia 01/03/22 07/28/22 mirabegron 25 mg tablet,extended 25 mg PO DAILY 07/25/22 07/28/22 release 24 hr (Myrbetriq) Previous Rx's Medication Instructions Recorded rabeprazole 20 mg tablet,delayed 20 mg PO BID 30 days #60 tabs 02/03/21 release (AcipHex) ibuprofen 800 mg tablet 800 mg PO TID PRN fever or pain 90 10/07/21 days #270 tabs terbinafine HCl 250 mg tablet 250 mg PO DAILY 90 days #90 tabs 03/29/22 dicyclomine 10 mg capsule 10 mg PO TID #90 caps 04/26/22 hydrocortisone 2.5 % topical cream 1 appl [place] BID PRN hemorrhoids #30 04/26/22 with perineal applicator grams (Proctosol HC) simethicone 180 mg capsule 180 mg PO .TIDPC 30 days #90 caps 05/05/22 linaclotide 290 mcg capsule 290 mcg PO DAILY #30 caps 05/24/22 (Linzess) tramadol 50 mg tablet 50 mg PO Q8H PRN pain #90 tabs 06/20/22 famotidine 20 mg tablet 20 mg PO BEDTIME 90 days #90 tabs 06/28/22 losartan 50 mg tablet 50 mg PO DAILY 90 days #90 tabs 06/28/22 meclizine 25 mg tablet 25 mg PO BID PRN dizziness 30 days 07/13/22 #60 tabs varenicline 1 mg tablet 1 mg PO BID 28 days #56 tabs 07/22/22 dicyclomine 10 mg capsule 10 mg PO TID #270 caps 08/04/22 Allergies Allergy/AdvReac Type Severity Reaction Status Date / Time No Known Allergies Allergy Verified 08/07/22 17:16 Review of Systems Review of Systems: Yes all other systems are reviewed and are negative [facility] Past Medical History Medical History At high risk for breast cancer Calcific tendinitis of left shoulder Essential hypertension GERD (gastroesophageal reflux disease) Glucosuria Hematuria Hemorrhoids HPV test positive Insomnia 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, bilateral Uterine fibroid Vitamin D deficiency Surgical History History of bilateral breast biopsy (2017) History of section History of esophagogastroduodenoscopy (EGD) (08/26/19) History of hemorrhoidectomy History of lumpectomy of right breast (03/01/22) History of removal of cyst Hx of colonoscopy Hx of tubal ligation Family History Family History Mother Breast cancer, Onset Age: 50 Ovarian cancer Daughter Squamous cell carcinoma of uterus History of thyroid cancer Maternal Grandmother History of stomach cancer Maternal Uncle Family history of prostate cancer, Onset Age: 60 Social History Social History Household Members: Children Housing: House Alcohol intake: current Alcohol intake frequency: holidays/special occasions only Alcohol type: beer and wine Patient Tobacco Use Status: Former Tobacco user Quit Date: 2 yrs ago Tobacco use type: Cigarette e-Cigarette/Vaping Use: Never Used Second Hand Smoke Exposure: No Advance Directives: No Advance Directives Information Provided: No service: No Current occupational status: employed Current occupational exposures/hazards: No Sexual orientation: Straight/Heterosexual Gender identity: Female Cognitive needs: No Hearing needs: No Vision needs: Yes Physical Exam Vital Signs: Vital Signs: Last Vital Signs Temp 97.5 F 08/07/22 17:17 Pulse 99 08/07/22 17:17 Resp 18 08/07/22 17:17 BP 170/101 H 08/07/22 17:17 Pulse Ox 100 08/07/22 17:17 O2 Del Method 08/07/22 17:17 BMI result Body Mass Index 28.3 Appearance: Alert. Oriented X3. No acute distress. Eyes: PERRLA, No Nystagmus HEENT: Pharynx normal. Oral Mucosa moist diffuse scalp tenderness Neck: Normal inspection. Neck supple. CVS: Normal heart rate and rhythm. Pulses normal. Respiratory: No respiratory distress. Equal air entry bilateral, no wheezing/rales/rhonchi Abdomen: Soft and nontender. Bowel sounds are present, no mass palpable, no CVA tenderness Skin: Skin warm and dry. Normal skin color. Normal skin turgor. Extremities: No lower extremity edema. No calf tenderness Neuro: Oriented X 3. No motor deficit. No sensory deficit.No cerebellar signs , cranial nerves II-XII intact MDM - Chest Pain MDM Narrative Medical decision making narrative: Patient with chronic recurrent headaches blood pressure improved to 151/96 atypical chest pain normal cardiogram normally high sensitive troponin will discharge patient home Differential Diagnosis Differential diagnosis: Likely atypical chest pain Lab Data Attestation: I reviewed the patient's lab results. Result diagrams: 08/07/22 17:37 08/07/22 17:37 Labs: Lab Results 08/07/22 08/07/22 08/07/22 Range/Units 17:37 17:37 17:37 WBC 7.0 (4.8-10.8) X10*3/uL RBC 4.56 (4.20-5.50) X10*6/uL Hgb 12.7 (12.0-16.0) g/dl Hct 39.2 (37.0-47.0) % MCV 86.0 (80.0-98.0) fL MCH 27.9 (27.0-33.0) pg MCHC 32.4 (31.0-35.0) g/dl RDW 12.6 (11.0-16.0) % Plt Count 274 (160-400) X10*3/uL MPV 10.8 (9.4-12.3) fL Immature Gran % (Auto) 0.3 (0.0-0.4) % Neut % (Auto) 64.3 (45-73) % Lymph % (Auto) 27.0 (20-40) % [place] % (Auto) 7.0 (2-11) % Eos % (Auto) 1.0 (0-4) % Baso % (Auto) 0.4 (0-2) % Lymph # (Auto) 1.9 (1.2-4.9) X10*3/uL [place] # (Auto) 0.5 (0.1-1.2) X10*3/uL Eos # (Auto) 0.1 (0.0-0.4) X10*3/uL Baso # (Auto) 0.0 (0.0-0.2) X10*3/uL Abs Immat Gran (auto) 0.02 (0.00-0.03) X10*3/uL Absolute Neuts (auto) 4.5 (2.0-8.3) x10*3/uL Absolute Nucleated RBC 0.000 (0.0-0.012) X10*3/uL Nucleated RBC % (auto) 0.0 (0.0-0.2) /100WBC Sodium 141 (135-145) mmol/L Potassium 3.8 (3.3-5.1) mmol/L Chloride 105 (96-108) mmol/L Carbon Dioxide 22 (22-29) mmol/L Anion Gap 18 (12-20) BUN 17 H D (9-16) mg/dL Creatinine 0.81 (0.5-1.4) mg/dL Estim Creat Clear Calc 75.4 Estimated GFR > 60 Random Glucose 101 (60-115) mg/dL Calcium 9.5 (8.4-10.2) mg/dL Troponin I High Sens < 3.5 (<3.5-17.0) ng/L COVID-19 (JITENDRA) (Negative) COVID-19 Clin Com 08/07/22 Range/Units 17:37 WBC (4.8-10.8) X10*3/uL RBC (4.20-5.50) X10*6/uL Hgb (12.0-16.0) g/dl Hct (37.0-47.0) % MCV (80.0-98.0) fL MCH (27.0-33.0) pg MCHC (31.0-35.0) g/dl RDW (11.0-16.0) % Plt Count (160-400) X10*3/uL MPV (9.4-12.3) fL Immature Gran % (Auto) (0.0-0.4) % Neut % (Auto) (45-73) % Lymph % (Auto) (20-40) % [place] % (Auto) (2-11) % Eos % (Auto) (0-4) % Baso % (Auto) (0-2) % Lymph # (Auto) (1.2-4.9) X10*3/uL [place] # (Auto) (0.1-1.2) X10*3/uL Eos # (Auto) (0.0-0.4) X10*3/uL Baso # (Auto) (0.0-0.2) X10*3/uL Abs Immat Gran (auto) (0.00-0.03) X10*3/uL Absolute Neuts (auto) (2.0-8.3) x10*3/uL Absolute Nucleated RBC (0.0-0.012) X10*3/uL Nucleated RBC % (auto) (0.0-0.2) /100WBC Sodium (135-145) mmol/L Potassium (3.3-5.1) mmol/L Chloride (96-108) mmol/L Carbon Dioxide (22-29) mmol/L Anion Gap (12-20) BUN (9-16) mg/dL Creatinine (0.5-1.4) mg/dL Estim Creat Clear Calc Estimated GFR Random Glucose (60-115) mg/dL Calcium (8.4-10.2) mg/dL Troponin I High Sens (<3.5-17.0) ng/L COVID-19 (JITENDRA) Negative (Negative) COVID-19 Clin Com See Note ECG Data ECG #1: Attestation: I personally reviewed and interpreted this ECG as follows: Interpretation: Normal sinus rhythm heart rate 83 beats per minute PACs normal interval normal a xis no acute ST changes no acute ischemia Discharge Plan Discharge Clinical Impression: Anxiety, Chronic tension headaches Patient Disposition: Home, Self-Care Instructions: Tension Headache (ED), Anxiety (ED) Additional Instructions: Rest at home Take care anxiety and blood pressure medication Follow with PCP Report to the ER/pcp if blood pressure higher than 160/100 Prescriptions: No Action rabeprazole [AcipHex] 20 mg tablet,delayed release (DR/EC) 20 mg PO BID 30 Days Qty: 60 0RF ibuprofen 800 mg tablet 800 mg PO TID PRN (Reason: fever or pain) 90 Days Qty: 270 3RF Hold Instructions: Doctor's Order simethicone 180 mg capsule 180 mg PO .TIDPC 30 Days Qty: 90 3RF Rx Instructions: after meals Linzess 290 mcg capsule 290 mcg PO DAILY Qty: 30 6RF tramadol 50 mg tablet 50 mg PO Q8H PRN (Reason: pain) Qty: 90 3RF famotidine 20 mg tablet 20 mg PO BEDTIME 90 Days Qty: 90 1RF losartan 50 mg tablet 50 mg PO DAILY 90 Days Qty: 90 1RF varenicline 1 mg tablet 1 mg PO BID 28 Days Qty: 56 2RF dicyclomine 10 mg capsule 10 mg PO TID Qty: 270 1RF zolpidem 5 mg tablet 5 mg PO BEDTIME PRN (Reason: Insomnia) trazodone 100 mg tablet 100 mg PO BEDTIME meclizine 25 mg tablet 25 mg PO BID PRN (Reason: dizziness) 30 Days Qty: 60 0RF terbinafine HCl 250 mg tablet 250 mg PO DAILY 90 Days Qty: 90 1RF duloxetine 30 mg capsule,delayed release(DR/EC) 30 mg PO DAILY dicyclomine 10 mg capsule 10 mg PO TID Qty: 90 3RF hydrocortisone [Proctosol HC] 2.5 % cream with perineal applicator 1 appl AR BID PRN (Reason: hemorrhoids) Qty: 30 3RF Myrbetriq 25 mg tablet extended release 24 hr 25 mg PO DAILY Interventions: ED Discharge Assessment Last Done: 08/07/22 23:25 Discharge Date/Time: 08/07/22 23:25
[2022-08-07] MEDS: Ondansetron ODT 4 MG TAB.RAPDIS TRANSLINGU (22:13)
[2022-08-07] MEDS: Morphine Sulfate 4 MG/ML CARTRIDGE IM (22:13)
[2022-08-07] MEDS: Ketorolac Tromethamine 60 MG/2 ML VIAL IM (23:13)
[2022-08-07] MEDS: LORazepam 1 MG TABLET PO (23:13)
== END 2022-08-07 23:25 | disposition home or self-care (01) ==
PROVIDERS: Emergency Provider Internal Medicine; PCP Internal Medicine
DX: R51.9 Headache, unspecified (principal); R07.89 Other chest pain; F41.1 Generalized anxiety disorder; F43.0 Acute stress reaction; Z79.899 Other long term (current) drug therapy; Z20.822 Contact with and (suspected) exposure to COVID-19
CPT/HCPCS: 36415; 71045; 80048; 84484; 85025; 87635; 93005; 96372; 99283; 99284; J1885; J2270

== ENCOUNTER 2022-08-09 10:31 | Emergency (ER) | payer OTHER, SELFPAY ==
--- NOTE | 2022-08-09 | ECG_ITS ---
Test Reason : chest pain Blood Pressure : / mmHG Vent. Rate : 081 BPM Atrial Rate : 081 BPM P-R Int : 110 ms QRS Dur : 078 ms QT Int : 368 ms P-R-T Axes : 012 019 017 degrees QTc Int : 427 ms Sinus rhythm with short ID RSR' or QR pattern in V1 suggests right ventricular conduction delay Borderline ECG When compared with ECG of 07-AUG-2022 17:27, No significant change was found Referred By: Generic ED Physician Electronically Signed By:TIFFANY HOWE MD
--- NOTE | 2022-08-09 | ECG_ITS ---
Test Reason : CHEST PAIN Blood Pressure : / mmHG Vent. Rate : 070 BPM Atrial Rate : 070 BPM P-R Int : 114 ms QRS Dur : 078 ms QT Int : 394 ms P-R-T Axes : 015 013 014 degrees QTc Int : 425 ms Normal sinus rhythm RSR' or QR pattern in V1 suggests right ventricular conduction delay Otherwise normal ECG When compared with ECG of 09-AUG-2022 12:41, No significant change was found Referred By: Liam Gonzalez Electronically Signed By:TIFFANY HOWE MD
[2022-08-09 10:56] VITALS: BP 144/102; PULSE 89; RESP 18; TEMP 36.2; O2SAT 99; BMI 28.0
[2022-08-09 17:01] VITALS: BP 157/95; PULSE 86; RESP 16; TEMP 36.4; O2SAT 98
[2022-08-09 21:48] VITALS: BP 143/94; PULSE 77; RESP 16; TEMP 36.7; O2SAT 99
--- NOTE | 2022-08-09 22:28 | ED_ITS ---
HPI - Chest Pain General Chief Complaint: Headache Stated Complaint: headache chest pain l wrist pain Time Seen by Provider: 08/09/22 22:11 Source: patient Mode of arrival: ambulatory Limitations: no limitations History of Present Illness HPI narrative: 51-year-old female who presents emergency department for evaluation of chest pain, headache and elevated blood pressure. The patient states that today at 09:00 hours she got in argument with someone in this got her very upset. She states he then had a gradual onset of chest pain. She points to her mid sternum when asked to localize the pain. The pain is a burning/squeezing sensation which is constant but waxes and wanes in intensity. The pain is 8/10 at its worst and currently the pain is 7/10. She states that the pain is associated with dizziness, nausea and shortness of breath. She also had left-sided neck pain and left arm pain associated with her chest pain. She states she has had similar chest pain in the past and she gets this 4 times a week. She states she does have a history of tachycardia and palpitations. The patient was seen by Archie rm on 12/22/2021 and had a stress test which was negative for ischemia and Holter monitor which revealed frequent sinus tachycardia. Patient also is complaining of a headache. She states that the headache is often associated with an elevated blood pressure blood pressure this morning was 172/115. She describes the headache as a constant, tightness around her forehead which is 10/10. MD complaint: chest pain Onset (ago): hour(s) (13 hours prior to evaluation) Timing of current episode: constant Prior episodes: Yes (4 times a week) Onset: during rest (Occurred while she she was arguing with another person) Pain location: substernal Pain radiation: left arm and neck Severity: severe Pain scale (0-10): 8 Quality: burning (And squeezing sensation) Relieving factors: nothing Exacerbating factors: nothing Context: other (Occurred while she was arguing with another person) Associated symptoms: nausea Treatment prior to arrival: none Risk Factors Coronary artery disease risk factors: hypertension Related Data Home Medications Medication Instructions Recorded Confirmed duloxetine 30 mg capsule,delayed 30 mg PO DAILY 05/13/21 07/28/22 release trazodone 100 mg tablet 100 mg PO BEDTIME 01/03/22 07/28/22 zolpidem 5 mg tablet 5 mg PO BEDTIME PRN Insomnia 01/03/22 07/28/22 mirabegron 25 mg tablet,extended 25 mg PO DAILY 07/25/22 07/28/22 release 24 hr (Myrbetriq) Previous Rx's Medication Instructions Recorded rabeprazole 20 mg tablet,delayed 20 mg PO BID 30 days #60 tabs 02/03/21 release (AcipHex) ibuprofen 800 mg tablet 800 mg PO TID PRN fever or pain 90 10/07/21 days #270 tabs terbinafine HCl 250 mg tablet 250 mg PO DAILY 90 days #90 tabs 03/29/22 dicyclomine 10 mg capsule 10 mg PO TID #90 caps 04/26/22 hydrocortisone 2.5 % topical cream 1 appl [place] BID PRN hemorrhoids #30 04/26/22 with perineal applicator grams (Proctosol HC) simethicone 180 mg capsule 180 mg PO .TIDPC 30 days #90 caps 05/05/22 linaclotide 290 mcg capsule 290 mcg PO DAILY #30 caps 05/24/22 (Linzess) tramadol 50 mg tablet 50 mg PO Q8H PRN pain #90 tabs 06/20/22 famotidine 20 mg tablet 20 mg PO BEDTIME 90 days #90 tabs 06/28/22 losartan 50 mg tablet 50 mg PO DAILY 90 days #90 tabs 06/28/22 meclizine 25 mg tablet 25 mg PO BID PRN dizziness 30 days 07/13/22 #60 tabs varenicline 1 mg tablet 1 mg PO BID 28 days #56 tabs 07/22/22 dicyclomine 10 mg capsule 10 mg PO TID #270 caps 08/04/22 Allergies Allergy/AdvReac Type Severity Reaction Status Date / Time No Known Allergies Allergy Verified 08/07/22 17:16 Review of Systems Review of Systems: Yes all other systems are reviewed and are negative [facility] Past Medical History [facility] Narrative: Social history: She smokes 4 cigarettes per day times 10 years. She rarely drinks alcohol. She denies drug use. Medical History At high risk for breast cancer Calcific tendinitis of left shoulder Essential hypertension GERD (gastroesophageal reflux disease) Glucosuria Hematuria Hemorrhoids HPV test positive Insomnia 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, bilateral Uterine fibroid Vitamin D deficiency Surgical History History of bilateral breast biopsy (2017) History of section History of esophagogastroduodenoscopy (EGD) (08/26/19) History of hemorrhoidectomy History of lumpectomy of right breast (03/01/22) History of removal of cyst Hx of colonoscopy Hx of tubal ligation Family History Family History Mother Breast cancer, Onset Age: 50 Ovarian cancer Daughter Squamous cell carcinoma of uterus History of thyroid cancer Maternal Grandmother History of stomach cancer Maternal Uncle Family history of prostate cancer, Onset Age: 60 Social History Social History Household Members: Children Housing: House Alcohol intake: former Patient Tobacco Use Status: Former Tobacco user Quit Date: 2 yrs ago Tobacco use type: Cigarette Smoked in Last 30 Days: Yes e-Cigarette/Vaping Use: Never Used Second Hand Smoke Exposure: No Use of substances other than those prescribed or required for medical reasons: No Advance Directives: No Patient : No service: No Current occupational status: employed Current occupational exposures/hazards: No Sexual orientation: Straight/Heterosexual Gender identity: Female Cognitive needs: No Hearing needs: No Vision needs: Yes Physical Exam Vital Signs: Vital Signs: Last Vital Signs Temp 97.7 F 08/09/22 23:58 Pulse 83 08/09/22 23:58 Resp 12 08/09/22 23:58 BP 116/77 08/09/22 23:58 Pulse Ox 98 08/09/22 23:58 O2 Del Method 08/09/22 23:58 BMI result Body Mass Index 28.0 Const: General: cooperative and no acute distress Orientation/consciousness: oriented to person and oriented to place Limitations: no limitations HEENT: Head: Yes normal to inspection, Yes normocephalic and Yes atraumatic Ears: external ears normal General nose exam: Normal external nose present Face and sinus: Yes normal facial exam Mouth: Normal oral and palatal mucosa present Throat: Yes posterior oropharynx normal Eyes: General: appearance normal, both eyes and all related structures Pupils: Equal, round and reactive pupils present Neck: Neck: Yes normal visual inspection, Yes no lymphadenopathy, Yes trachea midline and Yes supple Chest: Chest palpation & inspection: normal inspection of the chest and tenderness (Mild sternal and left chest wall tenderness) Resp: Effort & Inspection: normal respiratory effort and able to speak in complete sentences Auscultation: clear to auscultation bilaterally Cardio: Rate: regular rate Rhythm: regular rhythm Heart sounds: S1 normal heart sound present, S2 normal heart sound present and no murmurs GI: Inspection: Yes normal to inspection Palpation (GI): Soft to palpation, nontender and no guarding Auscultation: normal bowel sounds : General: Yes no CVA tenderness Back/Spine/Pelvis: Back: no CVA tenderness Skin: General skin exam: no rashes or lesions noted Neuro: General: oriented to person and oriented to place Cranial nerves: Yes CN's II-XII intact bilaterally and Yes Equal, round and reactive pupils present Cognition (Neuro): normal cognition Motor exam (neuro): 5/5 motor strength present throughout Extrem: General: Yes normal to inspection Psych: Appearance: grossly normal Speech and movement: Normal speech and movement present Affect: normal affect Attitude: cooperative Thought process: Normal thought process present Thought content: Normal thought content present Course Course Course Narrative: 51-year-old female who presents emergency department for evaluation of chest pain which came on gradually while she was arguing with another person at 09:00 hours. The pain is been constant since onset but has waxed and waned in intensity. Patient was having chest pain at the time my evaluation. Patient also is complaining of a headache which she attributes to her elevated blood pressure she has had similar headaches in the past. Patient's blood pressure was elevated 144/102 otherwise vital signs were normal. Patient does have essential hypertension. Patient's physical examination did reveal some mild sternal and left-sided chest wall tenderness otherwise was unremarkable. Initial 12 EKG was unremarkable with no ST segment elevation depression. I ordered a cardiac workup to include CBC, CMP, troponin. The patient's chest pain and headache will be treated with Toradol 15 mg IV, Reglan 10 mg IV and Benadryl 50 mg IV. 0105: The patient is feeling better after the above treatment. The patient's laboratory evaluation was unremarkable and her troponin was below detectable limits. At this time I do not think the patient's chest pain is secondary to myocardial infarction and is more consistent with musculoskeletal pain triggered by her anxiety. Patient was advised to take Tylenol ibuprofen for pain she was advised to continue her medications and follow up PCP for re-evaluation. MDM - Chest Pain Lab Data Result diagrams: 08/09/22 22:31 08/09/22 22:31 Labs: Lab Results 08/09/22 08/09/22 08/09/22 Range/Units 22:31 22:31 22:31 WBC 8.6 (4.8-10.8) X10*3/uL RBC 4.73 (4.20-5.50) X10*6/uL Hgb 13.4 (12.0-16.0) g/dl Hct 41.1 (37.0-47.0) % MCV 86.9 (80.0-98.0) fL MCH 28.3 (27.0-33.0) pg MCHC 32.6 (31.0-35.0) g/dl RDW 12.7 (11.0-16.0) % Plt Count 308 (160-400) X10*3/uL MPV 10.8 (9.4-12.3) fL Immature Gran % (Auto) 0.3 (0.0-0.4) % Neut % (Auto) 60.4 (45-73) % Lymph % (Auto) 30.7 (20-40) % [place] % (Auto) 6.9 (2-11) % Eos % (Auto) 1.4 (0-4) % Baso % (Auto) 0.3 (0-2) % Lymph # (Auto) 2.6 (1.2-4.9) X10*3/uL [place] # (Auto) 0.6 (0.1-1.2) X10*3/uL Eos # (Auto) 0.1 (0.0-0.4) X10*3/uL Baso # (Auto) 0.0 (0.0-0.2) X10*3/uL Abs Immat Gran (auto) 0.03 (0.00-0.03) X10*3/uL Absolute Neuts (auto) 5.2 (2.0-8.3) x10*3/uL Absolute Nucleated RBC 0.000 (0.0-0.012) X10*3/uL Nucleated RBC % (auto) 0.0 (0.0-0.2) /100WBC Sodium 142 (135-145) mmol/L Potassium 3.8 (3.3-5.1) mmol/L Chloride 104 (96-108) mmol/L Carbon Dioxide 30 H (22-29) mmol/L Anion Gap 12 (12-20) BUN 12 (9-16) mg/dL Creatinine 0.86 (0.5-1.4) mg/dL Estim Creat Clear Calc 70.6 Estimated GFR > 60 Random Glucose 108 (60-115) mg/dL Calcium 9.9 (8.4-10.2) mg/dL Total Bilirubin 0.3 (0.0-1.0) mg/dL AST 16 (5-31) U/L ALT 14 (0-31) U/L Alkaline Phosphatase 107 D (39-117) U/L Troponin I High Sens < 3.5 (<3.5-17.0) ng/L Total Protein 8.0 (6.5-8.0) g/dL Albumin 4.5 (3.5-5.0) g/dL ECG Data ECG #1: Attestation: I personally reviewed and interpreted this ECG as follows: Interpretation: EKG 1.: 1241: Normal sinus rhythm rate of 81, normal [place] interval, QRS duration QTC interval, no ST segment elevation, no ST segment depression, inverted T-wave in lead 3 and V1, this is a normal EKG. Discharge Plan Discharge Clinical Impression: Chest pain Qualifiers: Chest pain type: unspecified Qualified Code(s): R07.9 - Chest pain, unspecified Headache Qualifiers: Headache type: unspecified Headache chronicity pattern: acute headache Patient Disposition: Home, Self-Care Instructions: Chest Wall Pain (ED) Additional Instructions: Your blood work was normal. Your EKG was unremarkable. Take ibuprofen 200 mg pills, 3 pills every 6 hours as needed for pain. Take Tylenol (acetaminophen) 500 mg pills, 2 pills every 4 to 6 hours as needed for pain. Follow-up with your doctor in 2 days. Please return to the emergency department if your symptoms get worse or if you develop any symptoms that are concerning to you. Please see the work note Prescriptions: No Action rabeprazole [AcipHex] 20 mg tablet,delayed release (DR/EC) 20 mg PO BID 30 Days Qty: 60 0RF ibuprofen 800 mg tablet 800 mg PO TID PRN (Reason: fever or pain) 90 Days Qty: 270 3RF Hold Instructions: Doctor's Order simethicone 180 mg capsule 180 mg PO .TIDPC 30 Days Qty: 90 3RF Rx Instructions: after meals Linzess 290 mcg capsule 290 mcg PO DAILY Qty: 30 6RF tramadol 50 mg tablet 50 mg PO Q8H PRN (Reason: pain) Qty: 90 3RF famotidine 20 mg tablet 20 mg PO BEDTIME 90 Days Qty: 90 1RF losartan 50 mg tablet 50 mg PO DAILY 90 Days Qty: 90 1RF varenicline 1 mg tablet 1 mg PO BID 28 Days Qty: 56 2RF dicyclomine 10 mg capsule 10 mg PO TID Qty: 270 1RF zolpidem 5 mg tablet 5 mg PO BEDTIME PRN (Reason: Insomnia) trazodone 100 mg tablet 100 mg PO BEDTIME meclizine 25 mg tablet 25 mg PO BID PRN (Reason: dizziness) 30 Days Qty: 60 0RF terbinafine HCl 250 mg tablet 250 mg PO DAILY 90 Days Qty: 90 1RF duloxetine 30 mg capsule,delayed release(DR/EC) 30 mg PO DAILY dicyclomine 10 mg capsule 10 mg PO TID Qty: 90 3RF hydrocortisone [Proctosol HC] 2.5 % cream with perineal applicator 1 appl [place] BID PRN (Reason: hemorrhoids) Qty: 30 3RF Myrbetriq 25 mg tablet extended release 24 hr 25 mg PO DAILY Stand Alone Forms: Work/School Release Interventions: LWBS Worksheet Last Done: 08/09/22 20:56
[2022-08-09] MEDS: Metoclopramide HCl 10 MG/2 ML VIAL IVPUSH (22:35)
[2022-08-09] MEDS: diphenhydrAMINE HCL 50 MG/ML VIAL IVPUSH (22:35)
[2022-08-09] MEDS: Ketorolac Tromethamine 15 MG/ML VIAL IVPUSH (22:35)
[2022-08-09 22:38] LABS: MANUAL DIFF FLAG NO
[2022-08-09 22:41] LABS: Basophils Percent Auto 0.3 % (0-2); Eosinophils Absolute Auto 0.1 X10*3/uL (0.0-0.4); Eosinophils Percent Auto 1.4 % (0-4); Hematocrit 41.1 % (37.0-47.0); Hemoglobin 13.4 g/dl (12.0-16.0); Imm Gran Abs Auto 0.03 X10*3/uL (0.00-0.03); Imm Gran Pct Auto 0.3 % (0.0-0.4); Lymphocytes Absolute Auto 2.6 X10*3/uL (1.2-4.9); Lymphocytes Percent Auto 30.7 % (20-40); Mean Corpuscular HGB Conc 32.6 g/dl (31.0-35.0); Mean Corpuscular Hemoglobin 28.3 pg (27.0-33.0); Mean Corpuscular Volume 86.9 fL (80.0-98.0); Mean Platelet Volume 10.8 fL (9.4-12.3); Monocytes Absolute Auto 0.6 X10*3/uL (0.1-1.2); Monocytes Percent Auto 6.9 % (2-11); Neutrophils Absolute Auto 5.2 x10*3/uL (2.0-8.3); Neutrophils Percent Auto 60.4 % (45-73); Platelet Count 308 X10*3/uL (160-400); Red Blood Count 4.73 X10*6/uL (4.20-5.50); Red Cell Distribution Width 12.7 % (11.0-16.0); White Blood Count 8.6 X10*3/uL (4.8-10.8)
[2022-08-09 22:56] LABS: Alanine Aminotransferase 14 U/L (0-31); Albumin Level 4.5 g/dL (3.5-5.0); Alkaline Phosphatase 107 U/L (39-117); Anion Gap 12 (12-20); Aspartate Amino Transferase 16 U/L (5-31); Bilirubin Total 0.3 mg/dL (0.0-1.0); Blood Urea Nitrogen 12 mg/dL (9-16); Calcium 9.9 mg/dL (8.4-10.2); Carbon Dioxide 30 mmol/L (22-29); Chloride 104 mmol/L (96-108); Creatinine Clr Calc Pharmacy 70.6; Estimated Glomerular Filt Rate > 60; Glucose Random 108 mg/dL (60-115); Potassium 3.8 mmol/L (3.3-5.1); Sodium 142 mmol/L (135-145)
[2022-08-09 23:01] LABS: Troponin-I High Sensitivity < 3.5 ng/L (<3.5-17.0)
[2022-08-09 23:58] VITALS: BP 116/77; PULSE 83; RESP 12; TEMP 36.5; O2SAT 98
== END 2022-08-10 02:15 | disposition home or self-care (01) ==
PROVIDERS: Emergency Provider Emergency Medicine Emergency Medical Services; PCP Internal Medicine
DX: R07.89 Other chest pain (principal); R51.9 Headache, unspecified; M25.532 Pain in left wrist; Z87.891 Personal history of nicotine dependence; Z79.899 Other long term (current) drug therapy
CPT/HCPCS: 36415; 80053; 84484; 85025; 93005; 96374; 96375; 99284; 99285; J1200; J1885; J2765

== ENCOUNTER 2022-08-23 07:01 | Day surgery (SDC) | payer OTHER, SELFPAY ==
--- NOTE | 2022-08-22 08:32 | P.CONAN_ITS ---
Documented by User: Merced Wolfe NP 08/22/22 08:35 HPI - Anesthesia Eval Consult details Narrative: 51yo F for Left Breast Lumpectomy/Needle Loc 08/09/22 [facility] - chest wall pain. All cardiac w/u negative. Also 12/2021 cardiac w/u for tachy/palps negative for ischemia PMFSH Active Problems Active Problems: All Active Problems (Updated 08/11/22 @ 00:03 by Bessie William) Fibromyalgia (Acute) Myoma (Acute) Complex ovarian cyst (Acute) Menorrhagia (Acute) GERD (gastroesophageal reflux disease) (Acute) Rectal itching (Acute) Constipation (Acute) Tubular adenoma of colon (Acute) Potential exposure to STD (Acute) Vaginal irritation (Acute) Candidiasis of mouth and esophagus (Acute) Bleeding hemorrhoids (Acute) Urinary frequency (Acute) Microscopic hematuria (Acute) Well woman exam (Acute) Screen for STD (sexually transmitted disease) (Acute) Tendinopathy of right shoulder (Acute) Low back pain (Acute) Abnormal MRI, breast (Acute) Female pelvic pain (Acute) Myoma (Acute) Nausea (Acute) Dysuria (Acute) Intermittent palpitations (Acute) Breast mass, right (Acute) Mastodynia of right breast (Acute) Neck pain (Acute) Anxiety (Acute) Spasm of bowel (Acute) Neck pain (Acute) Dizziness (Acute) Insomnia (Acute) Essential hypertension (Acute) Hematuria (Acute) Calcific tendinitis of left shoulder (Acute) Primary osteoarthritis of hands, bilateral (Acute) Glucosuria (Acute) At high risk for breast cancer (Acute) Past Medical History Medical History (Updated 08/22/22 @ 09:01 by Shiv Troncoso RN) At high risk for breast cancer Calcific tendinitis of left shoulder Essential hypertension GERD (gastroesophageal reflux disease) Glucosuria Hematuria Hemorrhoids HPV test positive Insomnia 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, bilateral Uterine fibroid Vitamin D deficiency Family History Family History Mother Breast cancer, Onset Age: 50 Ovarian cancer Daughter Squamous cell carcinoma of uterus History of thyroid cancer Maternal Grandmother History of stomach cancer Maternal Uncle Family history of prostate cancer, Onset Age: 60 Surgical History Surgical History (Updated 08/16/22 @ 10:33 by Elly Schneider RN) History of bilateral breast biopsy (2018) History of section History of esophagogastroduodenoscopy (EGD) (08/26/19) History of hemorrhoidectomy History of lumpectomy of right breast History of removal of cyst Hx of colonoscopy Hx of tubal ligation History of Problems with Anesthesia: No Social History Social History Household Members: Children Housing: House Alcohol intake: former Patient Tobacco Use Status: Current everyday Tobacco user Tobacco use type: Cigarette e-Cigarette/Vaping Use: Never Used Second Hand Smoke Exposure: No service: No Current occupational status: employed Current occupational exposures/hazards: No Sexual orientation: Straight/Heterosexual Gender identity: Female Cognitive needs: No Hearing needs: No Vision needs: Yes Meds Allergies Allergy/AdvReac Type Severity Reaction Status Date / Time No Known Allergies Allergy Verified 08/16/22 10:59 Home Medications Medication Instructions Recorded Confirmed Last Taken Type duloxetine 30 mg capsule,delayed 30 mg PO DAILY 05/13/21 08/16/22 08/23/22 History release trazodone 100 mg tablet 100 mg PO BEDTIME 01/03/22 08/16/22 Unknown History zolpidem 5 mg tablet 5 mg PO BEDTIME PRN Insomnia 01/03/22 08/16/22 Unknown History mirabegron 25 mg tablet,extended 25 mg PO DAILY 07/25/22 08/16/22 Unknown History release 24 hr (Myrbetriq) Exam Exam Date and Time: August 22, 2022 0832 Pertinent Lab Results Pertinent Lab Results: Laboratory Tests 08/09/22 08/09/22 22:31 22:31 WBC 8.6 Hgb 13.4 Hct 41.1 Plt Count 308 Sodium 142 Potassium 3.8 Chloride 104 Carbon Dioxide 30 H BUN 12 Creatinine 0.86 Narrative Narrative: EKG 08/2022 EKG 1.:? 1241:? Normal sinus rhythm rate of 81, normal OK interval, QRS duration QTC interval, no ST segment elevation, no ST segment depression, inverted T-wave in lead 3 and V1, this is a normal EKG. ECHO 12/2021 Conclusions: - Normal left ventricular size and systolic function. There is ? mildly increased left ventricular wall thickness.? The visually? estimated ejection fraction is between 60-65%.? There is no? ? ? evidence of regional wall motion abnormalities.? Diastolic ? ? ? function is normal for age.? - Normal right ventricular cavity size and systolic function.? ? - There is mild dilatation of the ascending aorta measuring 3.40 cm.? Exercise stress 12/2021 Protocol: JOSÉ LUIS ? Max HR: 206 BPM? 121% of? Pred: 170 BPM Max BP: 176/080 mmHG Max Work Load: 8.1 METS ? Exercise stress test with exercise 6 min 44 sec of José Luis protocol, without ?anginal symptoms or report of palpitation, with normotensive response to ?exercise, without arrythmia, with artifact at peak exercise, without EKG ?changes meeting criteria for ischemia at 38 sec of recovery and remainder of ?recovery. Test reviewed with Dr Quiroz. 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, bilateral Uterine fibroid Vitamin D deficiency Family History Family History Mother Breast cancer, Onset Age: 50 Ovarian cancer Daughter Squamous cell carcinoma of uterus History of thyroid cancer Maternal Grandmother History of stomach cancer Maternal Uncle Family history of prostate cancer, Onset Age: 60 Family history of problems with anesthesia: No Surgical History Surgical History (Updated 08/16/22 @ 10:33 by Elly Schneider, CHERELLE) History of bilateral breast biopsy (2018) History of section History of esophagogastroduodenoscopy (EGD) (08/26/19) History of hemorrhoidectomy History of lumpectomy of right breast History of removal of cyst Hx of colonoscopy Hx of tubal ligation Social History Social History Household Members: Children Housing: House Alcohol intake: former Patient Tobacco Use Status: Current everyday Tobacco user Tobacco use type: Cigarette e-Cigarette/Vaping Use: Never Used Second Hand Smoke Exposure: No service: No Current occupational status: employed Current occupational exposures/hazards: No Sexual orientation: Straight/Heterosexual Gender identity: Female Cognitive needs: No Hearing needs: No Vision needs: Yes Meds Allergies Allergy/AdvReac Type Severity Reaction Status Date / Time No Known Allergies Allergy Verified 08/16/22 10:59 Home Medications Medication Instructions Recorded Confirmed Last Taken Type duloxetine 30 mg capsule,delayed 30 mg PO DAILY 05/13/21 08/16/22 08/23/22 History release trazodone 100 mg tablet 100 mg PO BEDTIME 01/03/22 08/16/22 Unknown History zolpidem 5 mg tablet 5 mg PO BEDTIME PRN Insomnia 01/03/22 08/16/22 Unknown History mirabegron 25 mg tablet,extended 25 mg PO DAILY 07/25/22 08/16/22 Unknown History release 24 hr (Myrbetriq) Exam Airway Mallampati Class: III TM Dist: >3cm Neck ROM: Full Loose/Missing/Broken Teeth: Yes Heart: S1,S2 Lungs: b/l breath sounds Assessment and Plan Assessment Anesthesia Assessment: Anesthesia Plan Discussed Final Anesthetic Review Family History of Problems with Anesthesia: No NPO: Yes ASA Class: II Final Preanesthetic Review: Meds/Allgs Chart Reviewed, Consent Obtained/Reviewed and Anes Risks/Benef Reviewed Patient Risk: Intermediate Procedure Risk: Intermediate Anesthetic Plan Anesthetic Plan: GA Disposition: Standard PACU
[2022-08-23] VITALS (11 sets, daily range): BP systolic 92–143; BP diastolic 64–92; PULSE 68–93; RESP 12–18; TEMP 36.2–36.6; O2SAT 92–100; BMI 28.7
--- NOTE | ~2022-08-23 | MM_ITS ---
EXAMINATION: MM MAMMOGRAM GUIDED NEEDLE LOCALIZATION BREAST, LEFT MM NEEDLE LOCALIZATION SPECIMEN FROM THE LEFT BREAST CLINICAL INFORMATION: Oval enhancing mass on MRI in area of prior MR biopsy adjacent to barbell shaped clip. Excision recommended. Prior biopsy 04/20/2021 (Benign breast tissue with apocrine metaplasia, focal usual ductal hyperplasia, and focal fibroadenomatous change. No atypia or malignancy identified). COMPARISON: MRI knee 05/19/2022, mammography 11/22/2021 TECHNIQUE NEEDLE LOC: Proper informed consent is obtained from the patient after discussion of the procedure, potential risks and complications, and alternatives including declining the procedure today. Patient was given an opportunity for questions. The patient appeared to understand. The patient consented to the procedure and signed the consent form. GUIDANCE: Digital mammography. APPROACH: Lateral Medial. TARGET: Barbell shaped biopsy clip marker. ANESTHESIA: Carbonated lidocaine 1%: 7 mL. LOCALIZATION MARKER: [place] [employer]. 7.5 cm length. The skin is prepped and local anesthesia administered. The needle is positioned and position assessed with mammography. The wire is hooked into position. [place] needle protector placed. The patient tolerated the procedure well and had no immediate complication. Procedure results called to medical staff credentialing coordinator (Merced) for Dr. Cano. TECHNIQUE SPECIMEN RADIOGRAPH: Imaging of the excised specimen is performed using digital mammography in 1 view. FINDINGS SPECIMEN RADIOGRAPH: The specimen shows the distal needle and distal hookwire are delivered intact. Proximal needle and wire sectioned in OR prior to delivery to radiology. The barbell biopsy clip marker is identified in the specimen. Results were called to Dr. Steve Cano in the operating room at the time of imaging. MM/MM needle loc LT IMPRESSION: 1. Status post left breast needle localization with wire hooked into position. 2. Post operative specimen radiograph obtained.
--- NOTE | 2022-08-23 07:33 | MHC.SHP ---
Pre-Procedural Eval Section A Date of Service: 08/23/22 The patient is an INPATIENT: No Changes since office visit: Yes Patient answered all questions; No Cold of Flu in the past 2 weeks, No New Medical Problems and No Changes in Medication The History & Physical has been completed within 30 days and I have reviewed it.: Yes Section B Chief Complaint: Other abnormal and inconclusive findings on diagno Allergies: Allergies Allergy/AdvReac Type Severity Reaction Status Date / Time No Known Allergies Allergy Verified 08/16/22 10:59 Plan Diagnosis/Plan: Unchanged I have reviewed the history and physical and performed a pertinent physical examination on my patient. No changes have occurred unless specified.
[2022-08-23] MEDS: Lactated Ringers 1,000 ML 100 ML IVCONT (07:39)
--- NOTE | 2022-08-23 08:23 | PC.NURSE ---
pt took rad for needle loc at 804
--- NOTE | 2022-08-23 09:05 | PC.NURSE ---
pt back from rad nad
--- NOTE | 2022-08-23 11:21 | W.PM.OPN ---
Operative Note Operative Note Date of Service: 08/23/22 Narrative: Preoperative diagnosis: Enlarging fibroadenoma left breast Postoperative diagnosis: same Procedure: left breast lumpectomy with needle localization Surgeon: Steve Cano MD Customer Support Consultant: Patricia Davidson PA-C, GANGA De Luna Anesthesia: general LMA Indications for procedure: 51-year-old female found to have an enlarging mass on breast MRI previously biopsied as a fibroadenoma. This was felt to be suspicious and excision recommended. Operative findings: Marking clip noted in specimen x-ray Specimen: left breast lumpectomy Estimated blood loss: 5 mL Complications: none Procedure details: patient was brought to the OR placed in a supine position. After administering general anesthesia patient's left breast was prepped with ChloraPrep and draped in a sterile fashion. A surgical time-out was called the consent confirmed. Patient received preoperative antibiotics and Venodyne boots were in place. Local anesthesia consisting 0.5% Sensorcaine with epinephrine was then infiltrated in a circumareolar location in the upper outer quadrant. Incision was then made around the upper outer quadrant areola carried out through subcutaneous tissue. Superior inferior skin flaps were then created. Dissection was continued down to the chest wall just beyond the medial tip of the needle. Dissection was then continued posterior to the needle along the chest wall. Superior inferior margins were then created followed by a lateral margin. The specimen was then completely excised and sent to pathology for further examination. Wounds were then checked for hemostasis. Wounds were irrigated with saline solution and suctioned dry. After confirmation of the specimen x-ray and gross pathology the deep breast tissue was reapproximated using interrupted 3-0 Polysorb sutures. Dermis was also reapproximated using interrupted 3-0 Polysorb sutures. Skin was then closed using a running subcuticular 4-0 Polysorb suture. Steri-Strips and 2 x 2 gauze were then applied. This was followed by Tegaderm dressing. The patient tolerated the procedure well. Sponge, instrument, and needle counts reported as correct. She was transferred to PACU in stable condition.
[2022-08-23] MEDS: oxyCODONE HCl Immed Release 5 MG TABLET PO (11:43)
[2022-08-23] MEDS: fentaNYL citrate/PF 100 MCG/2 ML VIAL 25 MCG IVPUSH ×3 (11:46→12:01)
== END 2022-08-23 14:32 | disposition home or self-care (01) ==
PROVIDERS: PCP Internal Medicine; Visit Provider Surgery
PROC: (CPT 19301; principal; 2022-08-23 09:10)
DX: D24.2 Benign neoplasm of left breast (principal); N62 Hypertrophy of breast; N60.82 Other benign mammary dysplasias of left breast; D25.9 Leiomyoma of uterus, unspecified; E55.9 Vitamin D deficiency, unspecified; I10 Essential (primary) hypertension; Z79.899 Other long term (current) drug therapy; Z98.51 Tubal ligation status; Z98.890 Other specified postprocedural states; Z87.891 Personal history of nicotine dependence
CPT/HCPCS: 19301; 19281; 88307; A4648; J0690; J1100; J2250; J2405; J2795; J3010

== ENCOUNTER → 2022-10-19 13:54 | Outpatient (BNVA) | payer OTHER, SELFPAY | PROVIDERS: PCP Internal Medicine; Referring Provider Internal Medicine; Visit Provider Internal Medicine Cardiovascular Disease | DX: I10 Essential (primary) hypertension (principal); R00.0 Tachycardia, unspecified; Z79.899 Other long term (current) drug therapy | CPT/HCPCS: 99212 ==

== ENCOUNTER → 2022-11-01 14:47 | Outpatient (BNVA) | payer OTHER, SELFPAY | PROVIDERS: PCP Internal Medicine; Visit Provider Nurse Practitioner | DX: K21.9 Gastro-esophageal reflux disease without esophagitis (principal); K59.04 Chronic idiopathic constipation; R11.2 Nausea with vomiting, unspecified; R10.9 Unspecified abdominal pain | CPT/HCPCS: 99212 ==

== ENCOUNTER 2022-11-13 14:46 | Outpatient (REF) | payer OTHER, SELFPAY ==
[2022-11-13 16:34] LABS: Appearance Urine Turbid; Color Urine Yellow; Glucose Urine UA Negative (Negative); Leukocyte Esterase Urine Negative (Negative); Nitrite Urine Negative (Negative); PH 5.5 (5.0-9.0); Specific Gravity - Urine 1.025 (1.005-1.025); Urine Blood Negative (Negative); Urine Ketones Negative (Negative); Urine Protein Negative (Neg-Trace)
[2022-11-13 18:04] LABS: CT PCR NOT DETECTED (Not Detect.); NG PCR NOT DETECTED (Not Detect.)
== END 2022-11-13 14:47 | disposition home or self-care (01) ==
LOC: HO.LNP 14:46
PROVIDERS: Nurse Practitioner Family; PCP Internal Medicine; Visit Provider Obstetrics & Gynecology
DX: R10.2 Pelvic and perineal pain (principal); R30.0 Dysuria; R31.9 Hematuria, unspecified
CPT/HCPCS: 0353U; 81003; 87086; 99212

== ENCOUNTER 2022-11-24 14:32 | Outpatient (REF) | payer OTHER, SELFPAY ==
--- NOTE | ~2022-11-24 | MM_ITS ---
EXAMINATION: MM DIAGNOSTIC DIGITAL BREAST TOMOSYNTHESIS, BILATERAL US DIAGNOSTIC ULTRASOUND BREAST, RIGHT CLINICAL INFORMATION: Due for yearly. Upper right breast pain. Prior history benign bilateral breast biopsies. Benign right excisional biopsy February 2022 and benign left excisional biopsy 08/23/2022. Family history breast cancer, mother. The lifetime risk of breast cancer based on the Tyrer-Cuzick Model is 8%. COMPARISON: Mammography: 08/23/2022, 11/22/2021, 04/20/2021, 11/17/2020, 05/12/2020, 03/22/2020, bilateral breast MR 05/19/2022. TECHNIQUE: Digital breast tomosynthesis is performed in both the craniocaudal and mediolateral oblique views along with computer-aided detection (CAD). Synthesized 2D images are generated from the tomosynthesis. Additional spot right CC and spot right ML x2 views are obtained. Ultrasound right breast is targeted to the areas of clinical concern 9:00 through 3:00 position. Grayscale imaging and color Doppler are performed without and with harmonics. FINDINGS: The breasts are heterogeneously dense, which may obscure small masses (ACR BI-RADS breast composition Category c). There are no suspicious changes from prior studies. No significant mass. No abnormal calcifications. The axilla are unremarkable. Left breast has a single biopsy clip marker mid upper outer quadrant. There is new interval scarring upper outer left breast corresponding to the benign excisional biopsy, August,. The right breast has 2 biopsy clip markers mid central 3:00 position and anterior lower inner quadrant. There is new interval scarring anterior lower inner breast corresponding to the benign excisional biopsy, Feb, 2022. Again, there are fibrocystic changes in the right breast greatest upper quadrants. The fibrocystic changes are decreased from prior mammography. Ultrasound right breast demonstrates no focal skin thickening or edema tracking in soft tissue planes. No focal hyperemia. No solid mass or architectural abnormality. There are multiple simple cysts scattered throughout the upper quadrants, under 2 cm. Results are discussed with the patient at time of visit, using an wood tank builder. Preliminary findings also discussed with Dr. Cano at time of visit. MM/MM tomosynthesis diagnostic BI IMPRESSION: -No mammographic evidence of malignancy or inflammatory changes. -Bilateral post surgical changes since prior mammography. -Chronic fibrocystic changes on right, decreased since prior exam. ASSESSMENT: BI-RADS 2: Benign RECOMMENDATION: 1. Patient's right mastodynia should be managed based on the clinical impression. 2. Routine annual screening mammography. 3. Additional adjunct breast MR screening as per clinical risk factors. This patient's information was entered into a reminder system with a target due date for their next mammogram.
== END 2022-11-24 14:33 | disposition home or self-care (01) ==
LOC: HO.MAMMO 14:32
PROVIDERS: PCP Internal Medicine; Visit Provider Surgery
DX: N64.4 Mastodynia (principal)
CPT/HCPCS: 76642; 77062; 77066

== ENCOUNTER 2022-11-27 06:04 | Emergency (ER) | payer OTHER, SELFPAY ==
--- NOTE | 2022-11-27 | ECG_ITS ---
Test Reason : GENERAL Blood Pressure : / mmHG Vent. Rate : 088 BPM Atrial Rate : 088 BPM P-R Int : 118 ms QRS Dur : 078 ms QT Int : 354 ms P-R-T Axes : 053 022 017 degrees QTc Int : 428 ms Normal sinus rhythm Normal ECG When compared with ECG of 09-AUG-2022 22:38, No significant change was found Referred By: Generic ED Physician Electronically Signed By:SARAH LOPEZ
[2022-11-27 06:22] VITALS: BP 149/97; PULSE 101; RESP 16; TEMP 36.7; O2SAT 100; BMI 28.0
[2022-11-27 06:46] VITALS: BP 146/95; PULSE 87; RESP 16; TEMP 36.7; O2SAT 97
[2022-11-27 06:59] LABS: MANUAL DIFF FLAG NO
[2022-11-27 07:03] LABS: Basophils Percent Auto 0.4 % (0-2); Eosinophils Percent Auto 0.6 % (0-4); Hematocrit 39.4 % (37.0-47.0); Imm Gran Abs Auto 0.02 X10*3/uL (0.00-0.03); Imm Gran Pct Auto 0.3 % (0.0-0.4); Lymphocytes Absolute Auto 1.2 X10*3/uL (1.2-4.9); Lymphocytes Percent Auto 17.9 % (20-40); Mean Corpuscular Hemoglobin 28.8 pg (27.0-33.0); Mean Corpuscular Volume 87.2 fL (80.0-98.0); Mean Platelet Volume 10.8 fL (9.4-12.3); Monocytes Absolute Auto 0.5 X10*3/uL (0.1-1.2); Monocytes Percent Auto 7.3 % (2-11); Neutrophils Absolute Auto 5.1 x10*3/uL (2.0-8.3); Neutrophils Percent Auto 73.5 % (45-73); Platelet Count 229 X10*3/uL (160-400); Red Blood Count 4.52 X10*6/uL (4.20-5.50); Red Cell Distribution Width 12.3 % (11.0-16.0); White Blood Count 6.9 X10*3/uL (4.8-10.8)
[2022-11-27 07:20] LABS: Alanine Aminotransferase 11 U/L (0-31); Alkaline Phosphatase 79 U/L (39-117); Anion Gap 14 (12-20); Aspartate Amino Transferase 12 U/L (5-31); Bilirubin Total 0.2 mg/dL (0.0-1.0); Blood Urea Nitrogen 20 mg/dL (9-16); Calcium 9.1 mg/dL (8.4-10.2); Carbon Dioxide 24 mmol/L (22-29); Chloride 106 mmol/L (96-108); Creatinine Clr Calc Pharmacy 68.3; Estimated Glomerular Filt Rate > 60; Glucose Fasting 96 mg/dL (60-99); Potassium 3.9 mmol/L (3.3-5.1); Sodium 140 mmol/L (135-145); Total Protein 6.9 g/dL (6.5-8.0)
[2022-11-27 07:27] LABS: Troponin-I High Sensitivity < 3.5 ng/L (<3.5-17.0)
--- NOTE | 2022-11-27 07:48 | ED.GENADULT ---
HPI - General Adult General Chief complaint: General Medical Stated complaint: ?High Blood Pressure Time Seen by Provider: 11/27/22 07:37 Source: patient Mode of arrival: ambulatory Limitations: no limitations History of Present Illness HPI narrative: Patient took her blood pressure at 4am and she got 185/112. she has been running high for the past week. She is only on losartan 100mg. In addition patient feeling anxious over the of her nephew Onset (ago): week(s) Related Data Home Medications Medication Instructions Recorded Confirmed duloxetine 30 mg capsule,delayed 30 mg PO DAILY 05/13/21 10/19/22 release trazodone 100 mg tablet 100 mg PO BEDTIME 01/03/22 10/19/22 zolpidem 5 mg tablet 5 mg PO BEDTIME PRN Insomnia 01/03/22 10/19/22 mirabegron 25 mg tablet,extended 25 mg PO DAILY 07/25/22 10/19/22 release 24 hr (Myrbetriq) Previous Rx's Medication Instructions Recorded hydrocortisone 2.5 % topical cream 1 appl [place] BID PRN hemorrhoids #30 04/26/22 with perineal applicator grams (Proctosol HC) linaclotide 290 mcg capsule 290 mcg PO DAILY #30 caps 05/24/22 (Linzess) tramadol 50 mg tablet 50 mg PO Q8H PRN pain #90 tabs 06/20/22 losartan 100 mg tablet 100 mg PO DAILY 90 days #90 tabs 09/26/22 ibuprofen 800 mg tablet 800 mg PO TID PRN fever or pain 90 10/09/22 days #270 tabs varenicline 1 mg tablet 1 mg PO BID 28 days #56 tabs 10/19/22 metoclopramide HCl 5 mg tablet 5 mg PO TID #90 tabs 11/01/22 (Reglan) pantoprazole 40 mg tablet,delayed 40 mg PO BID 30 days #60 tabs 11/01/22 release (Protonix) meclizine 25 mg tablet 25 mg PO BID PRN dizziness 30 days 11/19/22 #60 tabs terbinafine HCl 250 mg tablet 250 mg PO DAILY 90 days #90 tabs 11/20/22 Allergies Allergy/AdvReac Type Severity Reaction Status Date / Time No Known Allergies Allergy Verified 11/13/22 14:53 [facility] Past Medical History Medical History At high risk for breast cancer Calcific tendinitis of left shoulder Essential hypertension GERD (gastroesophageal reflux disease) Glucosuria Hematuria Hemorrhoids HPV test positive Insomnia 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, bilateral Uterine fibroid Vitamin D deficiency Surgical History History of bilateral breast biopsy (2017) History of section History of esophagogastroduodenoscopy (EGD) (08/26/19) History of hemorrhoidectomy History of lumpectomy of left breast (08/23/22) History of lumpectomy of right breast History of removal of cyst Hx of colonoscopy Hx of tubal ligation Family History Family History Mother Breast cancer, Onset Age: 50 Ovarian cancer Daughter Squamous cell carcinoma of uterus History of thyroid cancer Maternal Grandmother History of stomach cancer Maternal Uncle Family history of prostate cancer, Onset Age: 60 Social History Social History Household Members: Children Housing: House Alcohol intake: never Patient Tobacco Use Status: Current everyday Tobacco user Tobacco use type: Cigarette Cigarettes Per Day: 4 Smoked in Last 30 Days: Yes e-Cigarette/Vaping Use: Never Used Second Hand Smoke Exposure: No Use of substances other than those prescribed or required for medical reasons: No Advance Directives: No Advance Directives Information Provided: Yes service: No Current occupational status: employed Current occupational exposures/hazards: No Sexual orientation: Straight/Heterosexual Gender identity: Female Cognitive needs: No Hearing needs: No Vision needs: Yes Physical Exam ED Vital Signs: Vital Signs - 24 hr 11/27/22 06:22 11/27/22 06:46 11/27/22 07:59 Temperature 98.1 F 98.1 F Pulse Rate 101 H 87 90 Respiratory Rate 16 16 16 Blood Pressure 149/97 H 146/95 H 146/95 H Pulse Oximetry 100 97 Oxygen Delivery Method Room Air Room Air BMI result Body Mass Index 28.0 Const Other: anxious General: healthy appearing Nutritional Appearance: average body habitus Orientation/consciousness: oriented to person and patient oriented x3 Limitations: no limitations HENMT Head: Yes normal to inspection Ears: external ears normal General nose exam: Normal external nose present Mouth: Normal oral and palatal mucosa present and oropharynx normal Throat: Yes posterior oropharynx normal Eyes General: appearance normal, both eyes and all related structures Neck Neck: Yes normal visual inspection Chest Chest palpation & inspection: normal inspection of the chest Resp Auscultation: clear to auscultation bilaterally Cardio Jugular venous distension: no JVD Rate: regular rate Rhythm: regular rhythm Heart sounds: S1 normal heart sound present and S2 normal heart sound present GI Inspection: Yes normal to inspection Palpation (GI): Soft to palpation, nontender and No hepatosplenomegaly present Auscultation: normal bowel sounds General: Yes no CVA tenderness Back/Spine/Pelvis Back: no CVA tenderness Skin General skin exam: no rashes or lesions noted Neuro General: oriented to person and patient oriented x3 Cranial nerves: Yes CN's II-XII intact bilaterally Motor exam (neuro): 5/5 motor strength present throughout Extrem General: Yes normal to inspection Psych Other: anxious Course Reevaluation(s) Reevaluation #1: No evidence of HTN urgency, or renal failure will dc home last BP 145/90 Time: 09:27 Medical Decision Making Differential Diagnosis Differential Diagnoses: The differential diagnosis associated with the presentation includes (HTN, HTN urgency, renal failure) Admission/Observation Consideration of admission/observation: Escalation of care including admission/observation considered (Admission was considered in this patient with HTN, and HTN urgency) Lab Data MDM Lab Attestation statement: I reviewed the patient's lab results. 11/27/22 06:52 11/27/22 06:52 Labs: Lab Results 11/27/22 11/27/22 11/27/22 Range/Units 06:52 06:52 06:52 WBC 6.9 (4.8-10.8) X10*3/uL RBC 4.52 (4.20-5.50) X10*6/uL Hgb 13.0 (12.0-16.0) g/dl Hct 39.4 (37.0-47.0) % MCV 87.2 (80.0-98.0) fL MCH 28.8 (27.0-33.0) pg MCHC 33.0 (31.0-35.0) g/dl RDW 12.3 (11.0-16.0) % Plt Count 229 D (160-400) X10*3/uL MPV 10.8 (9.4-12.3) fL Immature Gran % (Auto) 0.3 (0.0-0.4) % Neut % (Auto) 73.5 H (45-73) % Lymph % (Auto) 17.9 L (20-40) % [place] % (Auto) 7.3 (2-11) % Eos % (Auto) 0.6 (0-4) % Baso % (Auto) 0.4 (0-2) % Lymph # (Auto) 1.2 (1.2-4.9) X10*3/uL [place] # (Auto) 0.5 (0.1-1.2) X10*3/uL Eos # (Auto) 0.0 (0.0-0.4) X10*3/uL Baso # (Auto) 0.0 (0.0-0.2) X10*3/uL Abs Immat Gran (auto) 0.02 (0.00-0.03) X10*3/uL Absolute Neuts (auto) 5.1 (2.0-8.3) x10*3/uL Absolute Nucleated RBC 0.000 (0.0-0.012) X10*3/uL Nucleated RBC % (auto) 0.0 (0.0-0.2) /100WBC Sodium 140 (135-145) mmol/L Potassium 3.9 (3.3-5.1) mmol/L Chloride 106 (96-108) mmol/L Carbon Dioxide 24 (22-29) mmol/L Anion Gap 14 (12-20) BUN 20 H (9-16) mg/dL Creatinine 0.88 (0.5-1.4) mg/dL Estim Creat Clear Calc 68.3 Estimated GFR > 60 Fasting Glucose 96 (60-99) mg/dL Calcium 9.1 D (8.4-10.2) mg/dL Total Bilirubin 0.2 (0.0-1.0) mg/dL AST 12 (5-31) U/L ALT 11 (0-31) U/L Alkaline Phosphatase 79 (39-117) U/L Troponin I High Sens < 3.5 (<3.5-17.0) ng/L Total Protein 6.9 (6.5-8.0) g/dL Albumin 4.0 (3.5-5.0) g/dL Urine Color Urine Appearance Urine pH (5.0-9.0) Ur Specific [place] (1.005-1.025) Urine Protein (Neg-Trace) mg/dL Urine Glucose (UA) (Negative) mg/dL Urine Ketones (Negative) mg/dL Urine Blood (Negative) Urine Nitrite (Negative) Ur Leukocyte Esterase (Negative) 11/27/22 Range/Units 09:06 WBC (4.8-10.8) X10*3/uL RBC (4.20-5.50) X10*6/uL Hgb (12.0-16.0) g/dl Hct (37.0-47.0) % MCV (80.0-98.0) fL MCH (27.0-33.0) pg MCHC (31.0-35.0) g/dl RDW (11.0-16.0) % Plt Count (160-400) X10*3/uL MPV (9.4-12.3) fL Immature Gran % (Auto) (0.0-0.4) % Neut % (Auto) (45-73) % Lymph % (Auto) (20-40) % [place] % (Auto) (2-11) % Eos % (Auto) (0-4) % Baso % (Auto) (0-2) % Lymph # (Auto) (1.2-4.9) X10*3/uL [place] # (Auto) (0.1-1.2) X10*3/uL Eos # (Auto) (0.0-0.4) X10*3/uL Baso # (Auto) (0.0-0.2) X10*3/uL Abs Immat Gran (auto) (0.00-0.03) X10*3/uL Absolute Neuts (auto) (2.0-8.3) x10*3/uL Absolute Nucleated RBC (0.0-0.012) X10*3/uL Nucleated RBC % (auto) (0.0-0.2) /100WBC Sodium (135-145) mmol/L Potassium (3.3-5.1) mmol/L Chloride (96-108) mmol/L Carbon Dioxide (22-29) mmol/L Anion Gap (12-20) BUN (9-16) mg/dL Creatinine (0.5-1.4) mg/dL Estim Creat Clear Calc Estimated GFR Fasting Glucose (60-99) mg/dL Calcium (8.4-10.2) mg/dL Total Bilirubin (0.0-1.0) mg/dL AST (5-31) U/L ALT (0-31) U/L Alkaline Phosphatase (39-117) U/L Troponin I High Sens (<3.5-17.0) ng/L Total Protein (6.5-8.0) g/dL Albumin (3.5-5.0) g/dL Urine Color Yellow Urine Appearance Clear Urine pH 6.5 (5.0-9.0) Ur Specific [place] 1.020 (1.005-1.025) Urine Protein Negative (Neg-Trace) mg/dL Urine Glucose (UA) Negative (Negative) mg/dL Urine Ketones Negative (Negative) mg/dL Urine Blood Negative (Negative) Urine Nitrite Negative (Negative) Ur Leukocyte Esterase Negative (Negative) Independent Interpretation I performed an independent interpretation of an: EKG (sinus 86, no st or twave changes) 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 Patient?s care impacted by: Hypertension Discharge Plan Discharge Clinical Impression: Hypertension, Anxiety Patient Disposition: Home, Self-Care Instructions: Hypertension (ED), Anxiety (ED) Prescriptions: No Action Linzess 290 mcg capsule 290 mcg PO DAILY Qty: 30 6RF Hold Instructions: Doctor's Order tramadol 50 mg tablet 50 mg PO Q8H PRN (Reason: pain) Qty: 90 3RF losartan 100 mg tablet 100 mg PO DAILY 90 Days Qty: 90 1RF ibuprofen 800 mg tablet 800 mg PO TID PRN (Reason: fever or pain) 90 Days Qty: 270 3RF Hold Instructions: Doctor's Order varenicline 1 mg tablet 1 mg PO BID 28 Days Qty: 56 2RF meclizine 25 mg tablet 25 mg PO BID PRN (Reason: dizziness) 30 Days Qty: 60 0RF terbinafine HCl 250 mg tablet 250 mg PO DAILY 90 Days Qty: 90 0RF zolpidem 5 mg tablet 5 mg PO BEDTIME PRN (Reason: Insomnia) trazodone 100 mg tablet 100 mg PO BEDTIME duloxetine 30 mg capsule,delayed release(DR/EC) 30 mg PO DAILY hydrocortisone [Proctosol HC] 2.5 % cream with perineal applicator 1 appl [place] BID PRN (Reason: hemorrhoids) Qty: 30 3RF pantoprazole [Protonix] 40 mg tablet,delayed release (DR/EC) 40 mg PO BID 30 Days Qty: 60 6RF metoclopramide HCl [Reglan] 5 mg tablet 5 mg PO TID Qty: 90 3RF Rx Instructions: provider aware of possible interaction with cymbalta and is monitoring Myrbetriq 25 mg tablet extended release 24 hr 25 mg PO DAILY
[2022-11-27 07:59] VITALS: BP 146/95; PULSE 90; RESP 16
--- NOTE | 2022-11-27 07:59 | PC.NURSE ---
Pt reports increasing BP over past week. States early this AM when getting up for work approx 0400 received SBP 190 and yesterday BP high all day. Did not take BP meds today because instructed to take with food and unable. Skin PWD. NSR on tele. Breathing even/unlabored. Plan for UA at this time.
[2022-11-27 09:15] LABS: Appearance Urine Clear; Color Urine Yellow; Glucose Urine UA Negative (Negative); Leukocyte Esterase Urine Negative (Negative); Nitrite Urine Negative (Negative); PH 6.5 (5.0-9.0); Urine Blood Negative (Negative); Urine Ketones Negative (Negative); Urine Protein Negative (Neg-Trace)
== END 2022-11-27 09:57 | disposition home or self-care (01) ==
PROVIDERS: Emergency Provider Emergency Medicine; PCP Internal Medicine
DX: F41.1 Generalized anxiety disorder (principal); I10 Essential (primary) hypertension; F17.210 Nicotine dependence, cigarettes, uncomplicated; Z71.6 Tobacco abuse counseling; Z79.899 Other long term (current) drug therapy
CPT/HCPCS: 36415; 80053; 81003; 84484; 85025; 93005; 99283; 99284

== ENCOUNTER 2022-11-29 14:43 | Outpatient (REF) | payer OTHER, SELFPAY ==
--- NOTE | ~2022-11-29 | US_ITS ---
EXAMINATION: US PELVIS CLINICAL INFORMATION: Myoma; the last menstrual period was one week prior. COMPARISON: Pelvic ultrasound dated 01/05/2022. TECHNIQUE: Ultrasound of the pelvis is performed using both transabdominal and transvaginal transducers along with Doppler. Transvaginal imaging is performed due to inadequate visualization transabdominally. FINDINGS: Uterus: The uterus is anteverted and anteflexed. A regular, homogeneous endometrium is identified measuring 1.2 cm. Nabothian cysts are seen within the cervix. FIBROIDS: There are 5 fibroids seen. 1. Location: Anterior fundus, myometrial. Size: 4.5 x 3.9 x 4.4 cm. Prior: 3.8 x 4.0 x 5.4 cm. Fibroid characteristics: Heterogeneous echotexture. 2. Location: Mid fundus, subendometrial. Size: 1.6 x 1.3 x 1.6 cm. Prior: 1.8 x 1.9 x 1.7 cm. Fibroid characteristics: Heterogeneous echotexture. 3. Location: Leftward mid body, myometrial. Size: 2.4 x 1.8 x 2.3 cm. Prior: 2.4 x 1.6 x 1.8 cm. Fibroid characteristics: Heterogeneously hypoechoic. 4. Location: Posterior lower body myometrial,. Size: 1.2 x 1.1 x 1.2 cm. Prior: 1.4 x 1.3 x 1.4 cm. Fibroid characteristics: Heterogeneously hypoechoic 5. Location: Posterior upper body, subendometrial. Size: 1.4 x 1.1 x 1.2 cm. Prior: Not seen. Fibroid characteristics: Allergies echotexture. Adnexa: Both ovaries are visualized. There is normal color flow to the adnexa. There is no ovarian torsion. There is no pelvic ascites or fluid collection. Right ovary measures 1.7 x 1.2 x 1.2 cm, volume 1.3 mL. Left ovary measures 2.9 x 2.5 x 2.2 cm, volume 8.4 mL. The left ovary contains a 1.8 x 2.2 x 1.9 cm simple cyst. This is a benign finding, for which no imaging follow-up is recommended. US/US pelvic and transvaginal IMPRESSION: 1. Multiple uterine fibroids are seen, as detailed. 2. Nabothian cysts are seen within the cervix. 3. A 2.2 cm in maximal diameter benign, simple left ovarian cyst is seen, for which no imaging follow-up is recommended.
== END 2022-11-29 14:44 | disposition home or self-care (01) ==
LOC: HO.US 14:43
PROVIDERS: PCP Internal Medicine; Visit Provider Obstetrics & Gynecology
DX: D21.9 Benign neoplasm of connective and other soft tissue, unspecified (principal)
CPT/HCPCS: 76830; 76856

== ENCOUNTER → 2022-12-13 14:48 | Outpatient (BNVA) | payer OTHER, SELFPAY | PROVIDERS: PCP Internal Medicine; Visit Provider Obstetrics & Gynecology | DX: Z13.89 Encounter for screening for other disorder (principal) ==

== ENCOUNTER 2023-01-02 14:33 | Outpatient (REF) | payer OTHER, SELFPAY ==
[2023-01-02 15:27] LABS: Alanine Aminotransferase 10 U/L (0-31); Alkaline Phosphatase 73 U/L (39-117); Anion Gap 12 (12-20); Aspartate Amino Transferase 12 U/L (5-31); Bilirubin Total 0.2 mg/dL (0.0-1.0); Blood Urea Nitrogen 19 mg/dL (9-16); Calcium 9.3 mg/dL (8.4-10.2); Carbon Dioxide 26 mmol/L (22-29); Chloride 109 mmol/L (96-108); Estimated Glomerular Filt Rate 51; Glucose Random 84 mg/dL (60-115); Potassium 4.7 mmol/L (3.3-5.1); Sodium 142 mmol/L (135-145); Total Protein 6.7 g/dL (6.5-8.0)
== END 2023-01-02 14:34 | disposition home or self-care (01) ==
LOC: HO.LAB 14:33
PROVIDERS: PCP Internal Medicine; Visit Provider Nurse Practitioner Family
DX: M54.50 Low back pain, unspecified (principal)
CPT/HCPCS: 36415; 80053

== ENCOUNTER → 2023-01-03 16:08 | Outpatient (BNVA) | payer OTHER, SELFPAY | PROVIDERS: PCP Internal Medicine; Visit Provider Nurse Practitioner Family | DX: M54.59 Other low back pain (principal); M19.041 Primary osteoarthritis, right hand; M19.042 Primary osteoarthritis, left hand | CPT/HCPCS: 99212 ==

== ENCOUNTER 2023-01-12 08:37 | Outpatient (REF) | payer OTHER, SELFPAY ==
--- NOTE | ~2023-01-12 | US_ITS ---
EXAMINATION: US ABDOMEN COMPLETE CLINICAL INFORMATION: Nausea with vomiting, unspecified. COMPARISON: Renal ultrasound 05/30/2021 and 08/02/2017. CT abdomen and pelvis 11/26/2014. TECHNIQUE: Real-time imaging of the abdominal viscera. FINDINGS: PANCREAS: Normal. ABDOMINAL AORTA: The proximal, mid, and distal segments are normal in caliber. INFERIOR VENA CAVA: Visualized portions are normal. LIVER: Normal. The liver is normal in size. The liver contour is normal. Parenchymal echogenicity is normal. No focal hepatic lesion. There is no intrahepatic biliary duct dilatation seen. GALLBLADDER: Normal. The gallbladder is physiologically distended without evidence of stones, sludge, polyps, wall thickening or pericholecystic fluid. COMMON BILE DUCT: Normal in caliber measuring 0.4 cm in diameter. RIGHT KIDNEY: Normal. No hydronephrosis. No renal calculi or focal parenchymal lesions. The kidney measures 13.0 cm in maximum dimension. LEFT KIDNEY: Normal. No hydronephrosis. No renal calculi or focal parenchymal lesions. The kidney measures 10.4 cm in maximum dimension. SPLEEN: Normal. The spleen measures 8.2 cm in maximum dimension. FREE FLUID: None. US/US abdomen complete IMPRESSION: Unremarkable exam.
== END 2023-01-12 08:38 | disposition home or self-care (01) ==
LOC: HO.US 08:37
PROVIDERS: PCP Internal Medicine; Visit Provider Nurse Practitioner
DX: R11.12 Projectile vomiting (principal); R10.9 Unspecified abdominal pain
CPT/HCPCS: 76700

== ENCOUNTER → 2023-01-24 15:26 | Outpatient (BNVA) | payer OTHER, SELFPAY | PROVIDERS: PCP Internal Medicine; Visit Provider Nurse Practitioner | DX: K21.9 Gastro-esophageal reflux disease without esophagitis (principal); K59.04 Chronic idiopathic constipation; R11.2 Nausea with vomiting, unspecified; R10.33 Periumbilical pain | CPT/HCPCS: 99212 ==

== ENCOUNTER → 2023-02-14 07:37 | Outpatient (REF) | payer OTHER, SELFPAY ==
--- NOTE | ~2023-02-14 | NM_ITS ---
EXAMINATION: RADIONUCLIDE SOLID FOOD GASTRIC EMPTYING 4-HOUR STUDY CLINICAL INFORMATION: Nausea with vomiting, unspecified. COMPARISON: No previous gastric emptying study is available for comparison. TECHNIQUE: A standard meal consisting of 4 oz of Egg Beaters brand tagged with 930 microcuries Tc-99m Sulfur Colloid, 8 oz water and 2 slices of toast with jelly was administered orally to the patient. Images were obtained using a dual head gamma camera in the anterior and posterior projections over of the stomach immediately post ingestion and at hourly intervals up to 3 hours post ingestion. Images were not obtained at 4 hours due to the minimal retention at 3 hours. The anterior and posterior counts at each time interval were averaged using the geometric mean and expressed as percentage of the immediate post ingestion counts. FINDINGS: There is good visualization of activity in the stomach immediately post ingestion. As the study progresses, there is good clearance of activity from the stomach and visualization of progressively increasing small bowel activity. By the end of the study, there is almost no retention noted in the stomach. Retention in the stomach at each time interval was: 1 hour 77% (normal 37%-90%) 2 hours 34% (normal 30%-60%) 3 hours 4% 4 hours (Not Obtained) (normal 0%-10%) NM/NM gastric emptying study IMPRESSION: Normal solid food gastric emptying study.
== END ==
LOC: HO.NUCMED 07:37
PROVIDERS: PCP Internal Medicine; Visit Provider Nurse Practitioner
DX: R10.9 Unspecified abdominal pain (principal); R11.2 Nausea with vomiting, unspecified
CPT/HCPCS: 78264; A9541

== ENCOUNTER → 2023-02-27 13:04 | Outpatient (BNVA) | payer OTHER, SELFPAY | PROVIDERS: PCP Internal Medicine; Visit Provider Urology | DX: R31.9 Hematuria, unspecified (principal); N30.10 Interstitial cystitis (chronic) without hematuria; R35.0 Frequency of micturition; R39.15 Urgency of urination | CPT/HCPCS: 51798; 99212 ==

== ENCOUNTER → 2023-03-01 13:34 | Outpatient (BNVA) | payer OTHER, SELFPAY | PROVIDERS: PCP Internal Medicine; Referring Provider Internal Medicine; Visit Provider Surgery | DX: N64.4 Mastodynia (principal); R92.8 Other abnormal and inconclusive findings on diagnostic imaging of breast; Z91.89 Other specified personal risk factors, not elsewhere classified; F17.210 Nicotine dependence, cigarettes, uncomplicated | CPT/HCPCS: 99212 ==

== ENCOUNTER → 2023-03-07 15:31 | Outpatient (BNVA) | payer OTHER, SELFPAY | PROVIDERS: PCP Internal Medicine; Visit Provider Nurse Practitioner | DX: K59.04 Chronic idiopathic constipation (principal); K21.9 Gastro-esophageal reflux disease without esophagitis; M54.6 Pain in thoracic spine | CPT/HCPCS: 99212 ==

== ENCOUNTER 2023-04-02 08:14 | Outpatient (REF) | payer OTHER, SELFPAY ==
--- NOTE | ~2023-04-02 | XR_ITS ---
EXAMINATION: XR THORACIC SPINE XR CLAVICLE, RIGHT CLINICAL INFORMATION: Pain in thoracic spine and right clavicle, no injury. COMPARISON: Chest x-ray 08/07/2022. TECHNIQUE: 2 views of the right clavicle. 3 views of the thoracic spine. FINDINGS: Right Clavicle: Moderate degenerative changes with joint space narrowing and hypertrophic change acromioclavicular joint. Prominent bony exostosis along the superior lateral aspect of the acromion. Thoracic Spine: Moderate levoscoliosis of the thoracic spine. No thoracic vertebral body compression fractures are appreciated. Multilevel degenerative changes in the thoracic spine with hypertrophic change most notable in the midthoracic spine. XR/XR thoracic spine 2V IMPRESSION: 1. Moderate degenerative changes right acromioclavicular joint. 2. No displaced fracture of the right clavicle appreciated. 3. Multilevel degenerative changes in the thoracic spine. Additional imaging with CT scan or MRI should be considered for better visualization as these modalities are much more sensitive for detection of fracture or other underlying pathology.
--- NOTE | ~2023-04-02 | XR_ITS ---
EXAMINATION: XR THORACIC SPINE XR CLAVICLE, RIGHT CLINICAL INFORMATION: Pain in thoracic spine and right clavicle, no injury. COMPARISON: Chest x-ray 08/07/2022. TECHNIQUE: 2 views of the right clavicle. 3 views of the thoracic spine. FINDINGS: Right Clavicle: Moderate degenerative changes with joint space narrowing and hypertrophic change acromioclavicular joint. Prominent bony exostosis along the superior lateral aspect of the acromion. Thoracic Spine: Moderate levoscoliosis of the thoracic spine. No thoracic vertebral body compression fractures are appreciated. Multilevel degenerative changes in the thoracic spine with hypertrophic change most notable in the midthoracic spine. XR/XR clavicle RT IMPRESSION: 1. Moderate degenerative changes right acromioclavicular joint. 2. No displaced fracture of the right clavicle appreciated. 3. Multilevel degenerative changes in the thoracic spine. Additional imaging with CT scan or MRI should be considered for better visualization as these modalities are much more sensitive for detection of fracture or other underlying pathology.
[2023-04-02 10:10] LABS: Alanine Aminotransferase 9 U/L (0-31); Albumin Level 3.9 g/dL (3.5-5.0); Alkaline Phosphatase 66 U/L (39-117); Anion Gap 13 (12-20); Aspartate Amino Transferase 13 U/L (5-31); Bilirubin Total 0.3 mg/dL (0.0-1.0); Blood Urea Nitrogen 16 mg/dL (9-16); Calcium 9.4 mg/dL (8.4-10.2); Carbon Dioxide 22 mmol/L (22-29); Chloride 109 mmol/L (96-108); Cholesterol 141 mg/dL; Estimated Glomerular Filt Rate > 60; Glucose Fasting 90 mg/dL (60-99); HDL Cholesterol 47 mg/dL; LDL Cholesterol Calculated 80 mg/dl; Potassium 3.7 mmol/L (3.3-5.1); Sodium 140 mmol/L (135-145); Triglycerides 70 mg/dL
[2023-04-02 10:24] LABS: Amphetamine Screen Urine Not Detected (Not Detect); Barbiturates, Urine Not Detected (Not Detect); Benzodiazepines Screen Urine Not Detected (Not Detect); Cannabinoid Screen Urine Not Detected (Not Detect); Cocaine Screen Urine Not Detected (Not Detect); Fentanyl, urine Not Detected (Not Detect); Opiate Screen Urine Not Detected (Not Detect); Phencyclidine Screen Urine Not Detected (Not Detect)
[2023-04-17 08:30] LABS: Desmethyltramadol, Ur NEGATIVE; Tramadol, Ur NEGATIVE
== END 2023-04-02 08:15 | disposition home or self-care (01) ==
LOC: HO.LAB 08:14
PROVIDERS: Absent Provider Nurse Practitioner Family; PCP Internal Medicine; Visit Provider Internal Medicine
DX: I10 Essential (primary) hypertension (principal); R30.0 Dysuria; M54.6 Pain in thoracic spine; M89.8X1 Other specified disorders of bone, shoulder; Z79.899 Other long term (current) drug therapy
CPT/HCPCS: 36415; 72070; 73000; 80053; 80061; 80307; 80373; 87086; 87147

== ENCOUNTER 2023-04-24 14:05 | Outpatient (AMB) | payer OTHER, SELFPAY ==
--- NOTE | 2023-04-24 14:08 | A.OFFVIS_ITS ---
Intake Vital Signs 04/24/23 14:16 Height 5 ft 2 in Weight 154 lb 2 oz BMI 28.2 BP 123/78 Blood Pressure Location Lt brachial Position Sitting Pulse 77 Intake Visit Reasons: skin lesion Intake Note: Patient is seen in office for evaluation of skin lesion. Patient c/o; back mass, onset one year, has increase in size, discomfort specia lly when lining back, has a black dot, denies discharge, redness or other concerns Injury Prevention Coordinator Required: Yes Injury Prevention Coordinator Language: Formula Room Worker Name: Adeola YUAN Accompanied by: Self / Same As Patient Allergies No Known Allergies Allergy (Verified 04/02/23 08:04) Medication List - Last Reconciled 04/24/23 by Steve Cano MD buspirone 5 mg PO TID dicyclomine 10 mg PO TID duloxetine 20 mg PO BID famotidine 40 mg PO BEDTIME 30 days hydrocortisone 2.5% (Proctosol HC) 1 appl FL BID PRN hydroxyzine HCl 10 mg PO TID ibuprofen 800 mg PO TID PRN 90 days linaclotide (Linzess) 290 mcg PO DAILY losartan 100 mg PO DAILY 90 days meclizine 25 mg PO BID PRN 30 days metoclopramide HCl (Reglan) 10 mg PO .qacsupper and qhs mirabegron ER (Myrbetriq) 25 mg PO DAILY nitrofurantoin macrocrystal 100 mg PO BID 7 days pantoprazole (Protonix) 40 mg PO BID 30 days peg 3350-electrolytes 236-22.74-6.74 -5.86 gram (Golytely) 240 mL PO Q10M 1 day phenazopyridine (Pyridium) 200 mg PO TID PRN 2 days tadalafil 5 mg PO DAILY 30 days terbinafine HCl 250 mg PO DAILY 90 days tramadol 50 mg PO Q8H PRN trazodone 50 mg PO BEDTIME varenicline 1 mg PO BID zolpidem 5 mg PO BEDTIME PRN HPI HPI Comments History of Present Illness Details 52-year-old female returning for high risk breast cancer evaluation. She was determined to be at high risk for breast cancer with Emily model lifetime risk of breast cancer 24% and placed on a high risk protocol including twice yearly breast examinations, yearly mammogram and MRIs. MR guided biopsy was performed on 03/27/2019 which revealed intraductal papilloma.? Subsequent mammogram and ultrasound on 10/22/2019 revealed no suspicious changes only bilateral cyst.? Follow-up MRI of 01/26/2020 revealed a non mass enhancement in the 2 o'clock position this was identified by focused ultrasound of the right breast.? She subsequently underwent an ultrasound-guided core biopsy on 03/12/2020.? Pathology revealed benign breast tissue with no evidence of malignancy. MRI of 03/25/2021 revealed a suspicious non-mass enhancement in the left breast in the 3 o'clock position felt to be suspicious for malignancy; biopsy was recommended.? MR guided core biopsy on 04/20/2021 revealed? benign breast tissue with apocrine metaplasia, focal usual ductal hyperplasia, and focal fibroadenomatous change.? No atypia or malignancy was identified. A mammogram of 11/22/2021 revealed bilateral fibrocystic changes greater on the right with no significant change from the prior study. A dominant cyst in the right breast at the site of palpable concern measures 3.6 cm. Findings were considered benign ( BI-RADS 2) and yearly mammography recommended. MRI of 05/19/2022 revealed an increasing left breast mass, 03:00 o'clock with associated biopsy clip. The surgical excision was recommended. She underwent excision of this mass on 08/23/2022. Pathology revealed benign breast tissue with fibrocystic changes, stromal fibrosis, usual ductal hyperplasia, apocrine metaplasia and ductal ectasia. No atypia or malignancy was identified. Her latest mammogram of 11/24/2022 revealed no mammographic evidence of malignancy (BI-RADS 2). Her Tyrer-Cuzick remaining lifetime risk of breast cancer was calculated at 8%. A density score was determined to be category C. patient is due for a breast MRI in May 2023. She returns today for evaluation of a skin cyst in the mid back which has gradually increased in size and is now causing discomfort especially when she leans back against a chair. She denies any history of bleeding or discharge denies a previous infection at the site. She is requesting excision of this lesion. [facility] Medical History At high risk for breast cancer Calcific tendinitis of left shoulder Essential hypertension GERD (gastroesophageal reflux disease) Glucosuria Hematuria Hemorrhoids HPV test positive Insomnia 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, bilateral Uterine fibroid Vitamin D deficiency Surgical History History of bilateral breast biopsy (2018) History of section History of esophagogastroduodenoscopy (EGD) (08/26/19) History of hemorrhoidectomy History of lumpectomy of left breast (08/23/22) History of lumpectomy of right breast History of removal of cyst Hx of colonoscopy Hx of tubal ligation Family History Mother Breast cancer, Onset Age: 50 Ovarian cancer Daughter Squamous cell carcinoma of uterus History of thyroid cancer Maternal Grandmother History of stomach cancer Maternal Uncle Family history of prostate cancer, Onset Age: 60 Social History Household Members: Children Housing: House Alcohol intake: current Alcohol intake frequency: holidays/special occasions only Alcohol type: beer and wine Patient Tobacco Use Status: Current everyday Tobacco user Tobacco use type: Cigarette Cigarettes Per Day: 4 e-Cigarette/Vaping Use: Never Used Second Hand Smoke Exposure: No service: No Current occupational status: employed Current occupational exposures/hazards: No Sexual orientation: Straight/Heterosexual Gender identity: Female Cognitive needs: No Hearing needs: No Vision needs: Yes Female Reproductive History Menstrual Age of Menarche: 12 Review of Systems Const All systems reviewed & are unremarkable except as noted in HPI and below Denies body aches, Denies chills, Denies fatigue and Denies fever(s) Eyes Denies change in vision Card Reports as per HPI, Denies chest pain, Reports chest pain with activity (Intermittent), Reports rapid heart rate (Intermittent), Denies leg edema, Denies lightheadedness and Denies dyspnea Resp Denies chest congestion, Denies cough, Denies dyspnea and Denies wheezing GI Denies abdominal pain, Denies constipation, Denies diarrhea, Reports nausea (Intermittent) and Denies vomiting Denies nipple discharge and Denies dysuria Musc Denies myalgias, Denies numbness and Denies tingling Skin/Breast Reports as per HPI, Denies breast swelling, Denies breast skin changes, Reports breast pain, Denies breast mass, Denies lesions, Denies nipple discharge and Denies rash Neuro Denies numbness and Denies tingling Endo Denies fatigue Aller/Immun Denies wheezing Physical Exam Const General: no acute distress Nutritional Appearance: well nourished Orientation/consciousness: patient oriented x3 Limitations: no limitations Eyes Sclerae: sclerae normal EOM: EOMs intact bilaterally Chest Other: Left breast: Well-healed incision in the upper inner quadrant left breast. No skin change, no nipple retraction, no nipple discharge, no palpable mass, no enlarged lymph nodes. Breast is diffusely tender especially in the upper outer quadrant but also the lower outer quadrant and lower inner quadrant. No corresponding density is palpable. Right breast: No skin change, no nipple retraction, no nipple discharge, no palpable mass, no enlarged lymph nodes. Diffuse tenderness is also noted in multiple quadrants with no corresponding density palpable. Breast/axilla palpation: axillary lymphadenopathy not noted Resp Effort & Inspection: normal respiratory effort Back/Spine/Pelvis Back/spine/pelvis image: 1. 2 cm epidermal inclusion cyst/sebaceous cyst of the midback. Lesion is mildly tender to palpation but no fluctuance or erythema is identified. Skin General skin exam: no rashes or lesions noted Neuro General: patient oriented x3 Extrem General: Yes no clubbing, cyanosis or edema Assessment & Plan Assessment & Plan (1) At high risk for breast cancer: Code(s): Z91.89 - Other specified personal risk factors, not elsewhere classified (2) Epidermal inclusion cyst: Code(s): L72.0 - Epidermal cyst Plan 52-year-old female patient determined to be a high risk for breast cancer presenting with a palpable mass in the mid back. Lesion is been gradually increasing in size and causing discomfort. On examination the patient has a 2 cm round epidermal inclusion cyst without evidence of infection. I recommended an excision under local anesthesia as a minor surgery. After discussion of the procedure, risks, and alternatives, she consents to the surgery. Coding Level of Care Code Est Pt Level 4 (08278) Diagnoses At high risk for breast cancer Z91.89 Epidermal inclusion cyst L72.0
[2023-04-24 14:16] VITALS: BP 123/78; PULSE 77; BMI 28.2
== END 2023-04-24 14:25 | disposition home or self-care (01) ==
PROVIDERS: PCP Internal Medicine; Visit Provider Surgery
DX: L72.0 Epidermal cyst (principal); Z91.89 Other specified personal risk factors, not elsewhere classified
CPT/HCPCS: 99214

== ENCOUNTER → 2023-04-24 14:05 | Outpatient (BNVA) | payer OTHER, SELFPAY | PROVIDERS: PCP Internal Medicine; Visit Provider Surgery | DX: L72.0 Epidermal cyst (principal); N64.4 Mastodynia; Z91.89 Other specified personal risk factors, not elsewhere classified | CPT/HCPCS: 99212 ==

== ENCOUNTER 2023-05-03 15:27 | Outpatient (AMB) | payer OTHER, SELFPAY ==
--- NOTE | 2023-05-03 15:34 | MHC.OFFVIS ---
Intake Intake Visit Reasons: 2m follow up Intake Note: Patient presents for follow up interstitial cystitis, urinary frequency Urology Medications: tadalafil, famotidine, myrbetriq Blood Thinner: none PVR:10ml's Weed Science Research Technician Required: Yes Weed Science Research Technician Name: parker Accompanied by: Self / Same As Patient Allergies No Known Allergies Allergy (Verified 05/03/23 22:25) Medication List - Last Reconciled 05/03/23 by DEYSI CarreonP- buspirone 5 mg PO TID dicyclomine 10 mg PO TID duloxetine 20 mg PO BID famotidine 40 mg PO BEDTIME 30 days hydrocortisone 2.5% (Proctosol HC) 1 appl HI BID PRN hydroxyzine HCl 10 mg PO TID ibuprofen 800 mg PO TID PRN 90 days linaclotide (Linzess) 290 mcg PO DAILY losartan 100 mg PO DAILY 90 days meclizine 25 mg PO BID PRN 30 days metoclopramide HCl (Reglan) 10 mg PO .qacsupper and qhs mirabegron ER (Myrbetriq) 25 mg PO DAILY nitrofurantoin macrocrystal 50 mg PO BEDTIME 90 days pantoprazole (Protonix) 40 mg PO BID 30 days tadalafil 5 mg PO DAILY 30 days terbinafine HCl 250 mg PO DAILY 90 days tramadol 50 mg PO Q8H PRN trazodone 50 mg PO BEDTIME varenicline 1 mg PO BID zolpidem 5 mg PO BEDTIME PRN HPI HPI Comments History of Present Illness Details Stephani is a very pleasant 52 year old female patient of Dr. Espinosa. she has a past medical history of hypertension, GERD, hematuria, hemorrhoids, insomnia, uterine fibroids, Fibromyalgia, and vitamin-D deficiency. She presents to the office today for follow-up of her hematuria and interstitial cystitis. In discussion with the patient today she reports ongoing lower bladder pressure and episodes of dysuria at times. She does report urinary urgency and frequency however states symptoms are intermittent. she discusses following up with her PCP at which time recommendations were made for Pyridium. She does report relief of urinary symptoms with p.r.n. Pyridium. Discussed at length interstitial cystitis, bladder triggers/ irritants, and potential causes for interstitial cystitis. She reports low-dose Cialis 5 mg daily to have had no improvement in urinary symptoms. Dietary information provided. She otherwise offers no issues or concerns at this time. In office urinalysis results reviewed with the patient today. PVR 10 mLs. 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, bilateral Uterine fibroid Vitamin D deficiency Surgical History History of bilateral breast biopsy (2017) History of section History of esophagogastroduodenoscopy (EGD) (08/26/19) History of hemorrhoidectomy History of lumpectomy of left breast (08/23/22) History of lumpectomy of right breast History of removal of cyst Hx of colonoscopy Hx of tubal ligation Family History Mother Breast cancer, Onset Age: 50 Ovarian cancer Daughter Squamous cell carcinoma of uterus History of thyroid cancer Maternal Grandmother History of stomach cancer Maternal Uncle Family history of prostate cancer, Onset Age: 60 Social History Household Members: Children Housing: House Alcohol intake: current Alcohol intake frequency: holidays/special occasions only Alcohol type: beer and wine Patient Tobacco Use Status: Current everyday Tobacco user Tobacco use type: Cigarette Cigarettes Per Day: 4 e-Cigarette/Vaping Use: Never Used Second Hand Smoke Exposure: No service: No Current occupational status: employed Current occupational exposures/hazards: No Sexual orientation: Straight/Heterosexual Gender identity: Female Cognitive needs: No Hearing needs: No Vision needs: Yes Female Reproductive History Menstrual Age of Menarche: 12 Review of Systems Const Reports as per HPI Eyes Reports no additional complaints ENT Reports no additional complaints Card Reports as per HPI Resp Reports no additional complaints GI Reports as per HPI Reports as per HPI Musc Reports as per HPI Neuro Reports no additional complaints Psych Reports as per HPI Physical Exam Const General: cooperative, healthy appearing, comfortable, no acute distress, well developed, alert and awake Orientation/consciousness: patient oriented x3 Limitations: no limitations HEENT Head: Yes normal to inspection, Yes normocephalic and Yes atraumatic Ears: hearing grossly normal bilaterally Eyes General: appearance normal, both eyes and all related structures Neck Neck: Yes normal visual inspection and Yes trachea midline Chest Chest palpation & inspection: normal inspection of the chest Resp Effort & Inspection: normal respiratory effort and able to speak in complete sentences Cardio Rate: regular rate GI Inspection: Yes normal to inspection General: Yes no CVA tenderness Back/Spine/Pelvis Back: no CVA tenderness Skin General skin exam: no rashes or lesions noted Neuro General: patient oriented x3 Extrem General: Yes normal to inspection Psych Appearance: grossly normal and well kempt Mental Status: mental status grossly normal Speech and movement: Normal speech and movement present and Clear speech present Affect: normal affect Attitude: cooperative Thought process: Normal thought process present Thought content: Normal thought content present Insight: Good insight present (Psych) Judgement: Good judgement present (Psych) Office Procedures Post Void Residual Post Residual Void Post Void Residual (PVR): 10 [id number] Void Residual by ultrasound Results AMB Urinalysis, Automated UA Leukoctes 0 Venita/uL Last Edit by [employer] on 05/03/23 16:09 UA Nitrite Last Edit by [employer] on 05/03/23 16:09 UA Urobilinogen 0.2 mg/dL Last Edit by [employer] on 05/03/23 16:09 UA Protein 15 mg/dL Last Edit by [employer] on 05/03/23 16:09 UA pH 6.0 Last Edit by [employer] on 05/03/23 16:09 UA Blood 25 Vernon/uL Last Edit by [employer] on 05/03/23 16:09 UA Specific Leo 1.025 Last Edit by [employer] on 05/03/23 16:09 UA Ketone Negative Last Edit by [employer] on 05/03/23 16:09 UA Bilirubin 0 mg/dL Last Edit by [employer] on 05/03/23 16:09 UA Glucose 0 mg/dL Last Edit by [employer] on 05/03/23 16:09 Results Reviewed Results Reviewed: Laboratory Last Values Urine pH (Auto) 6.0 05/03/23 15:37 Specific Leo (Auto) 1.025 05/03/23 15:37 Urine Protein (Auto) 15 mg/dL 05/03/23 15:37 Glucose (UA)(Auto) 0 mg/dL 05/03/23 15:37 Urine Ketones (Auto) Negative 05/03/23 15:37 Urine Blood (Auto) 25 Vernon/uL 05/03/23 15:37 Urine Bilirubin (Auto) 0 mg/dL 05/03/23 15:37 Urine Urobilinogen (Auto) 0.2 mg/dL 05/03/23 15:37 Leukocyte Esterase (Auto) 0 Venita/uL 05/03/23 15:37 Assessment & Plan Assessment & Plan (1) Microscopic hematuria: Code(s): R31.29 - Other microscopic hematuria (2) Interstitial cystitis: Code(s): N30.10 - Interstitial cystitis (chronic) without hematuria (3) Lower urinary tract symptoms (LUTS): Code(s): R39.9 - Unspecified symptoms and signs involving the genitourinary system Plan In office urinalysis results reviewed with the patient today; as noted above. PVR 10 mL. Discussed at length treatment options for interstitial cystitis as well as rescue treatment options. Will trial low-dose antibiotic at this time. Stop Cialis. Continue Myrbetriq as discussed and prescribed Discussed bladder triggers/irritants at length. Educated at length importance of drinking plenty of water daily Follow up in 3 months if not sooner with any questions, concerns, and or issues. Orders: Orders AMB Urinalysis Automated Today Z13.9 - Encounter for screening, unspecified AMB Post Void Residual by ultrasound Today R35.0 - Frequency of micturition Medications: New nitrofurantoin macrocrystal must administer with a meal/food 50 mg PO BEDTIME 90 days 90 caps 1RF N39.0 - Urinary tract infection, site not specified Discontinued nitrofurantoin macrocrystal must administer with a meal/food Discontinued Reason: Patient Completed Course 100 mg PO BID 7 days 14 caps 0RF Coding Level of Care Code Est Pt Level 4 (90909) Diagnoses Microscopic hematuria R31.29 Interstitial cystitis N30.10 Lower urinary tract symptoms (LUTS) R39.9 CPT Codes Post Residual Void - PVR CPT Code: 73739-Swyt Void Residual by ultrasound ([id number])
== END 2023-05-03 16:20 | disposition home or self-care (01) ==
PROVIDERS: Visit Provider Nurse Practitioner Family
DX: R31.29 Other microscopic hematuria (principal); N30.10 Interstitial cystitis (chronic) without hematuria; R39.9 Unspecified symptoms and signs involving the genitourinary system
CPT/HCPCS: 99214

== ENCOUNTER → 2023-05-03 15:27 | Outpatient (BNVA) | payer OTHER, SELFPAY | PROVIDERS: Visit Provider Nurse Practitioner Family | DX: R31.29 Other microscopic hematuria (principal); R39.9 Unspecified symptoms and signs involving the genitourinary system; N30.10 Interstitial cystitis (chronic) without hematuria | CPT/HCPCS: 51798; 99212 ==

== ENCOUNTER 2023-05-07 07:16 | Day surgery (SDC) | payer OTHER, SELFPAY ==
[2023-05-02 15:14] VITALS: BMI 27.8
--- NOTE | 2023-05-04 10:34 | P.CONAN_ITS ---
Documented by User: Merced Wolfe NP 05/04/23 10:35 HPI - Anesthesia Eval Consult details Narrative: 52yo F for Upper Endoscopy and Colonoscopy [facility] Active Problems Active Problems: All Active Problems (Updated 05/03/23 @ 22:37 by JOHNNIE Carreon) Lower urinary tract symptoms (LUTS) (Acute) Fibromyalgia (Acute) Myoma (Acute) Complex ovarian cyst (Acute) Menorrhagia (Acute) GERD (gastroesophageal reflux disease) (Acute) Rectal itching (Acute) Tubular adenoma of colon (Acute) Potential exposure to STD (Acute) Vaginal irritation (Acute) Candidiasis of mouth and esophagus (Acute) Bleeding hemorrhoids (Acute) Urinary frequency (Acute) Microscopic hematuria (Acute) Well woman exam (Acute) Screen for STD (sexually transmitted disease) (Acute) Tendinopathy of right shoulder (Acute) Low back pain (Acute) Abnormal MRI, breast (Acute) Female pelvic pain (Acute) Myoma (Acute) Nausea (Acute) Dysuria (Acute) Intermittent palpitations (Acute) Breast mass, right (Acute) Mastodynia of right breast (Acute) Neck pain (Acute) Anxiety (Acute) Spasm of bowel (Acute) Neck pain (Acute) Dizziness (Acute) Breast mass, left (Acute) Chronic idiopathic constipation (Acute) Nausea and vomiting in adult (Acute) Abdominal pain (Acute) Medication monitoring encounter (Acute) Periumbilical abdominal cramping (Acute) Pre-op examination (Acute) Interstitial cystitis (Acute) Mastodynia of left breast (Acute) Thoracic back pain (Acute) Pain of right clavicle (Acute) Skin lesion (Acute) Epidermal inclusion cyst (Acute) Insomnia (Acute) Essential hypertension (Acute) Hematuria (Acute) Calcific tendinitis of left shoulder (Acute) Primary osteoarthritis of hands, bilateral (Acute) Glucosuria (Acute) At high risk for breast cancer (Acute) Past Medical History Medical History At high risk for breast cancer Calcific tendinitis of left shoulder Essential hypertension GERD (gastroesophageal reflux disease) Glucosuria Hematuria Hemorrhoids HPV test positive Insomnia 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, bilateral Uterine fibroid Vitamin D deficiency Family History Family History Mother Breast cancer, Onset Age: 50 Ovarian cancer Daughter Squamous cell carcinoma of uterus History of thyroid cancer Maternal Grandmother History of stomach cancer Maternal Uncle Family history of prostate cancer, Onset Age: 60 Family history of problems with anesthesia: No Surgical History Surgical History History of bilateral breast biopsy (2018) History of section History of esophagogastroduodenoscopy (EGD) (08/26/19) History of hemorrhoidectomy History of lumpectomy of left breast (08/23/22) History of lumpectomy of right breast History of removal of cyst Hx of colonoscopy Hx of tubal ligation History of Problems with Anesthesia: No Social History Social History Household Members: Children Housing: House Alcohol intake: current Alcohol intake frequency: holidays/special occasions only Alcohol type: beer and wine Patient Tobacco Use Status: Current everyday Tobacco user Tobacco use type: Cigarette Cigarettes Per Day: 4 Smoked in Last 30 Days: Yes e-Cigarette/Vaping Use: Never Used Patient Interested in Nicotine Replacement: No Second Hand Smoke Exposure: No Are you DNR?: No Advance Directives: No Advance Directives Information Provided: Yes Nutrition Risks: No Nutritional Risk service: No Current occupational status: employed Current occupational exposures/hazards: No Sexual orientation: Straight/Heterosexual Gender identity: Female Cognitive needs: No Hearing needs: No Vision needs: Yes Meds Allergies Allergy/AdvReac Type Severity Reaction Status Date / Time No Known Allergies Allergy Verified 05/07/23 07:47 Home Medications Medication Instructions Recorded Confirmed Last Taken Type zolpidem 5 mg tablet 5 mg PO BEDTIME PRN Insomnia 01/03/22 05/02/23 Unknown History mirabegron 25 mg tablet,extended 25 mg PO DAILY 07/25/22 05/02/23 Unknown History release 24 hr (Myrbetriq) varenicline 1 mg tablet 1 mg PO BID 01/24/23 05/02/23 Unknown History buspirone 5 mg tablet 5 mg PO TID 03/07/23 05/02/23 Unknown History duloxetine 20 mg capsule,delayed 20 mg PO BID 03/07/23 05/02/23 Unknown History release hydroxyzine HCl 10 mg tablet 10 mg PO TID 03/07/23 05/02/23 Unknown History trazodone 50 mg tablet 50 mg PO BEDTIME 03/07/23 05/02/23 Unknown History Exam Exam Date and Time: May 04, 2023 1034 Height,Weight and Vital Signs: Height 5 ft 2 in Weight 68.946 kg Pertinent Lab Results Pertinent Lab Results: Laboratory Tests 11/27/22 04/02/23 06:52 08:48 WBC 6.9 Hgb 13.0 Hct 39.4 Plt Count 229 D Sodium 140 Potassium 3.7 D Chloride 109 H Carbon Dioxide 22 BUN 16 Creatinine 0.88 Narrative Narrative: EKG 11/2022 Vent. Rate : 088 BPM ? ? Atrial Rate : 088 BPM ?? P-R Int : 118 ms? QRS Dur : 078 ms ? ? QT Int : 354 ms ? ? ? P-R-T Axes : 053 022 017 degrees ?? QTc Int : 428 ms ? Normal sinus rhythm Normal ECG When compared with ECG of 09-AUG-2022 22:38, No significant change was found Assessment and Plan Assessment Anesthesia Assessment: Chart Reviewed Final Anesthetic Review Family History of Problems with Anesthesia: No History of Problems with Anesthesia: No Documented by User: Saray Arndt MD 05/07/23 09:21 [facility] Past Medical History Medical History At high risk for breast cancer Calcific tendinitis of left shoulder Essential hypertension GERD (gastroesophageal reflux disease) Glucosuria Hematuria Hemorrhoids HPV test positive Insomnia 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, bilateral Uterine fibroid Vitamin D deficiency Family History Family History Mother Breast cancer, Onset Age: 50 Ovarian cancer Daughter Squamous cell carcinoma of uterus History of thyroid cancer Maternal Grandmother History of stomach cancer Maternal Uncle Family history of prostate cancer, Onset Age: 60 Surgical History Surgical History History of bilateral breast biopsy (2018) History of section History of esophagogastroduodenoscopy (EGD) (08/26/19) History of hemorrhoidectomy History of lumpectomy of left breast (08/23/22) History of lumpectomy of right breast History of removal of cyst Hx of colonoscopy Hx of tubal ligation Social History Social History Household Members: Children Housing: House Alcohol intake: current Alcohol intake frequency: holidays/special occasions only Alcohol type: beer and wine Patient Tobacco Use Status: Current everyday Tobacco user Tobacco use type: Cigarette Cigarettes Per Day: 4 Smoked in Last 30 Days: Yes e-Cigarette/Vaping Use: Never Used Patient Interested in Nicotine Replacement: No Second Hand Smoke Exposure: No Are you DNR?: No Advance Directives: No Advance Directives Information Provided: Yes Nutrition Risks: No Nutritional Risk service: No Current occupational status: employed Current occupational exposures/hazards: No Sexual orientation: Straight/Heterosexual Gender identity: Female Cognitive needs: No Hearing needs: No Vision needs: Yes Meds Allergies Allergy/AdvReac Type Severity Reaction Status Date / Time No Known Allergies Allergy Verified 05/07/23 07:47 Home Medications Medication Instructions Recorded Confirmed Last Taken Type zolpidem 5 mg tablet 5 mg PO BEDTIME PRN Insomnia 01/03/22 05/02/23 Unknown History mirabegron 25 mg tablet,extended 25 mg PO DAILY 07/25/22 05/02/23 Unknown History release 24 hr (Myrbetriq) varenicline 1 mg tablet 1 mg PO BID 01/24/23 05/02/23 Unknown History buspirone 5 mg tablet 5 mg PO TID 03/07/23 05/02/23 Unknown History duloxetine 20 mg capsule,delayed 20 mg PO BID 03/07/23 05/02/23 Unknown History release hydroxyzine HCl 10 mg tablet 10 mg PO TID 03/07/23 05/02/23 Unknown History trazodone 50 mg tablet 50 mg PO BEDTIME 03/07/23 05/02/23 Unknown History Exam Airway Mallampati Class: II TM Dist: >3cm Neck ROM: Full Heart: rrr Lungs: cta Assessment and Plan Assessment Anesthesia Assessment: Anesthesia Plan Discussed Final Anesthetic Review NPO: Yes ASA Class: II Final Preanesthetic Review: No Changes in Pt Med Stat, Meds/Allgs Chart Reviewed and Consent Obtained/Reviewed Patient Risk: Intermediate Procedure Risk: Intermediate Anesthetic Plan Anesthetic Plan: MAC: Disposition: Standard PACU
[2023-05-07] MEDS: Lactated Ringers 1,000 ML 100 ML IVCONT (07:58)
[2023-05-07 08:08] VITALS: BP 120/83; PULSE 73; RESP 18; TEMP 36.6; O2SAT 98
--- NOTE | 2023-05-07 08:29 | MHC.SHP ---
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, bilateral Uterine fibroid Vitamin D deficiency) History of Previous Operations: Relevant previous surgery/procedure and date(s) (History of section History of esophagogastroduodenoscopy (EGD) (08/26/19) History of hemorrhoidectomy History of lumpectomy of left breast (08/23/22) History of lumpectomy of right breast History of removal of cyst Hx of colonoscopy Hx of tubal ligation) Allergies: Allergies Allergy/AdvReac Type Severity Reaction Status Date / Time No Known Allergies Allergy Verified 05/07/23 07:47 Review of Systems Sugical H&P ROS: Negative: Constitution, Cardiovascular, Respiratory and Gastrointestinal Exam Surgical H&P Exam: Normal: Heart, Normal: Lungs, Normal: Extremities and Normal: Abdomen Plan Diagnosis/Plan: Unchanged I have reviewed the history and physical and performed a pertinent physical examination on my patient. No changes have occurred unless specified. Time Spent With Patient Time: Total time managing care of this patient today ____ minutes.
--- NOTE | 2023-05-07 09:18 | P.OP_ITS ---
Operative Note Operative Note Date of Service: 05/07/23 Narrative: FLEXIBLE TRANSORAL UPPER GASTROINTESTINAL ENDOSCOPY WITH BIOPSIES AND COLONOSCOPY TILL CECUM WITH Pre-op diagnosis: screening, hx of colon polyps, GERD, nausea, abd bloating Post-op diagnosis: GERD, Gastritis, diverticulosis, hemorrhoids Endoscopist:Preet Abraham MD Anesthesia:?MAC UPPER ENDOSCOPY Consent: Indications for the procedure and potential complications of bleeding, perforation, reaction to medications and missed diagnosis were discussed with the patient with the help of a [place] vice president marketing & development and informed consent was obtained. Instrument: Olympus GIF H 190 mid size upper endoscope Monitoring: Vital signs and clinical assessment, continuous EKG monitoring, Pulse oximetry, Carbon Dioxide monitoring and blood pressure monitoring were done throughout the procedure. Procedure: The patient was placed in the left lateral decubitis position and pre-procedure medications were administered and a bite block was placed. The endoscope was inserted into the mouth and advanced under direct vision to the third part of duodenum. A careful inspection was made as the upper endoscope was withdrawn including a retroflexed examination of the proximal stomach; Findings and interventions are described below. Findings: Larynx: Normal Esophagus: GE junction at 35 cms. A 10-12 mm nodule/?[place] - biopsied. No esophagitis. Stomach: Mild diffuse gastric erythema. Biopsies were obtained from the antrum and gastric body. Grade 2 flap valve on retroflexed examination of the cardia. Duodenum: Normal bulb and descending duodenum. Biopsies were obtained from 3rd part of the duodenum to check for celiac sprue. Intervention: Biopsies as noted above COLONOSCOPY PROCEDURE NOTE Consent: Indications for the procedure and potential complications of bleeding, perforation, reaction to medications and missed diagnosis were discussed with the patient and informed consent was obtained. Instrument: Olympus PCF H 190 L variable stiffness pediatric colonoscope Monitoring: Vital signs and clinical assessment, intermittent blood pressure monitoring, continuous EKG monitoring, Pulse oximetry and Carbon Dioxide monitoring were done throughout the procedure. Colon withdrawl time was 14 minutes. Procedure: The patient was placed in the left lateral decubitis position and pre-procedure medications were administered. After a digital rectal examination of the ano-rectum, the video colonoscope was inserted into the rectum and advanced through the colon to the cecum. The colonoscope was slowly withdrawn in a retrograde panoramic fashion and the colon mucosa was carefully examined including a retroflexed view of the rectum. Findings and interventions are described below. Procedure Difficulty: : Without difficulty Findings: Terminal Ileum: Not evaluated Cecum: Normal Ascending Colon: Normal Transverse Colon: Normal Descending Colon: Normal Sigmoid Colon: Moderate diverticulosis Rectum: Normal Ano-rectum: Moderate internal hemorrhoids Colon preparation: Excellent Impression and Post Procedure Diagnosis: Endoscopy Findings: ESOPHAGUS: GE junction at 35 cms. A 10-12 mm nodule/?[place] - biopsied. STOMACH: Mild diffuse gastric erythema. Biopsies were obtained from the antrum and gastric body. DUODENUM: Normal - biopsied to check for celiac sprue Colonoscopy Findings: No polyps were detected Moderate diverticulosis seen in the sigmoid colon Moderate hemorrhoids on retroflexed exam. Plan: Await pathology results Patient has an appointment on 05/22/23 in the GI [facility] with Wendy Duckworth NP. Repeat Colonoscopy interval based on path results - in 5 years (due to a hx of adenomatous colon polyps). GERD and diverticulosis handouts were given in the discharge area
[2023-05-07 10:15] VITALS: BP 110/63; PULSE 75; RESP 16; TEMP 36.2; O2SAT 98
[2023-05-07 10:30] VITALS: BP 120/83; PULSE 77; RESP 16; TEMP 36.2; O2SAT 99
== END 2023-05-07 10:59 | disposition home or self-care (01) ==
PROVIDERS: PCP Internal Medicine; Visit Provider Internal Medicine Gastroenterology
PROC: (CPT 43239; principal; 2023-05-07 09:20)
DX: K57.30 Diverticulosis of large intestine without perforation or abscess without bleeding (principal); K64.8 Other hemorrhoids; K29.70 Gastritis, unspecified, without bleeding; K21.9 Gastro-esophageal reflux disease without esophagitis; K22.89 Other specified disease of esophagus; Z86.010 Personal history of colon polyps; K59.04 Chronic idiopathic constipation; R10.30 Lower abdominal pain, unspecified; I10 Essential (primary) hypertension; F17.210 Nicotine dependence, cigarettes, uncomplicated
CPT/HCPCS: 43239; G0105; 88305; 88342

== ENCOUNTER → 2023-05-07 07:16 | Outpatient (BNV) | payer OTHER, SELFPAY | PROVIDERS: PCP Internal Medicine; Visit Provider Internal Medicine Gastroenterology | DX: Z12.11 Encounter for screening for malignant neoplasm of colon (principal); Z86.010 Personal history of colon polyps; K29.70 Gastritis, unspecified, without bleeding; K57.30 Diverticulosis of large intestine without perforation or abscess without bleeding; K64.8 Other hemorrhoids; K21.9 Gastro-esophageal reflux disease without esophagitis | CPT/HCPCS: 43239; G0105 ==

== ENCOUNTER 2023-05-21 15:11 | Outpatient (REF) | payer OTHER, SELFPAY ==
--- NOTE | ~2023-05-21 | MR_ITS ---
EXAMINATION: MR BREAST WITHOUT AND WITH CONTRAST, BILATERAL CLINICAL INFORMATION: High-risk screening. Family history of breast cancer, mother. Dense breast parenchyma. Bilateral benign excisional biopsies 2021. COMPARISON: 05/23/2022 and selected images from priors. Mammography from 11/24/2022. TECHNIQUE: Imaging was performed with a dedicated breast coil. Prior to the administration of contrast, bilateral axial T1 and bilateral axial T2 weighted sequences were obtained. After the uneventful administration of?7 mL of Gadavist, dynamic contrast-enhanced VIBRANT series through the breasts in the axial plane were performed. Subtracted images were performed and reviewed. A delayed sagittal sequence through both breasts was acquired. Additionally, CAD post-processing, including maximum intensity projections, 3-D reconstructions and kinetic analysis, were performed an independent workstation and reviewed by the interpreting radiologist is a portion of this exam. FINDINGS: The breasts are comprised of heterogeneous, dense fibroglandular parenchyma. The tissue undergoes mild background enhancement. LEFT BREAST: An oval 12 mm heterogeneously enhancing solid mass is present at 3:00 (series 100 image 53/108) projecting 7.5 cm from the nipple. It is unclear whether this represents a new left breast mass or residual/recurrent lesion following prior biopsy and subsequent excision. Tissue characterization is advised. Recommend MR directed diagnostic second look ultrasound and biopsy under ultrasound or MR guidance as indicated. Scattered foci of nonmass enhancement throughout the remainder of the left breast are otherwise unchanged. Dominant, central T2 bright nonenhancing cyst again noted. There is architectural distortion in the left breast 2/3 o'clock posterior position from prior excision. Correlate with surgical pathology following localization and resection of barbell clip. Bar clip artifact at 3:00 (series 8 image 24/100) without associated enhancement. RIGHT BREAST: No suspicious mass, dominant nonmass enhancement or architectural distortion. Multiple small similar scattered foci of nonmass enhancement unchanged. Multiple T2 bright nonenhancing cysts again noted. Clip artifact and postoperative architectural distortion in the 6:00 retroareolar right breast. No abnormal associated enhancement. There is no suspicious internal mammary chain or axillary adenopathy. Limited views of the chest and abdomen are unremarkable. MR/MR breast BI wo/w con IMPRESSION: 1. A 12 mm left breast mass at 3:00, 7.5 cm from the nipple. 2. Postsurgical changes in both breasts. ASSESSMENT: LEFT BREAST: BI-RADS 4, suspicious finding. RIGHT BREAST: BI-RADS 2, benign finding. RECOMMENDATIONS: Recommend left breast biopsy 3:00. MR directed diagnostic second look ultrasound followed by ultrasound or MR biopsy as indicated.
[2023-05-21] MEDS: gadobutroL 7.5 ML VIAL IVPUSH (16:29)
== END 2023-05-21 15:12 | disposition home or self-care (01) ==
LOC: HO.MRI 15:11
PROVIDERS: PCP Internal Medicine; Visit Provider Surgery
DX: N64.4 Mastodynia (principal); Z91.89 Other specified personal risk factors, not elsewhere classified
CPT/HCPCS: 77049; A9585

== ENCOUNTER 2023-05-22 12:55 | Outpatient (REF) | payer OTHER, SELFPAY ==
[2023-05-22 13:01] VITALS: BP 132/81; PULSE 72; RESP 16; TEMP 36.3; O2SAT 98
[2023-05-22 13:02] VITALS: BMI 27.8
[2023-05-22 13:40] VITALS: BP 156/88; PULSE 65; RESP 16
--- NOTE | 2023-05-22 13:54 | W.PM.OPN ---
Operative Note Operative Note Date of Service: 05/22/23 Narrative: Preoperative diagnosis: Epidermal inclusion cyst midback Postoperative diagnosis: Same Procedure: Excision of epidermal inclusion cyst midback Surgeon: Steve Cano MD Field Support Representative: None Anesthesia: Local Indications for procedure: 52-year-old female patient with a epidermal inclusion cyst midback measuring approximately 2 cm in diameter Operative findings: Epidermal inclusion cyst Specimen: Epidermal inclusion cyst midback Estimated blood loss: 5 mL Complications: None Procedure details: Patient was brought to the minor surgery suite placed in a prone position. The site of surgery was confirmed by the patient in the mid back. After assuring informed consent, the skin was prepped with Betadine and draped in a sterile fashion. Local anesthesia was then infiltrated around the lesion oriented in a longitudinal fashion. A longitudinal elliptical incision was then created with a scalpel. This was carried out through subcutaneous tissue and around the cyst wall. The lesion was completely excised and sent to pathology for further examination. Hemostasis was assured using light pressure and suture of 3-0 Polysorb. The dermis was reapproximated using interrupted 3-0 Polysorb sutures. Skin was then closed using interrupted 3-0 nylon sutures. Sterile dressings consisting of 2 x 2 gauze and Tegaderm were then applied. The patient tolerated the procedure well. The patient was discharged home in stable condition.
== END 2023-05-22 12:56 | disposition home or self-care (01) ==
LOC: HO.MS 12:55
PROVIDERS: PCP Internal Medicine; Visit Provider Surgery
PROC: (CPT 11402; principal; 2023-05-22 13:00)
DX: L72.0 Epidermal cyst (principal)
CPT/HCPCS: 11402; 88304; 99212

== ENCOUNTER → 2023-05-22 12:55 | Outpatient (BNV) | payer OTHER, SELFPAY | PROVIDERS: PCP Internal Medicine; Visit Provider Surgery | DX: L72.0 Epidermal cyst (principal) | CPT/HCPCS: 11402 ==

== ENCOUNTER 2023-05-22 14:23 | Outpatient (AMB) | payer OTHER, SELFPAY ==
--- NOTE | 2023-05-22 14:26 | MHC.OFFVIS ---
Intake Vital Signs 05/22/23 14:30 Height 5 ft 2 in Weight 152 lb BMI 27.8 BP 135/88 Blood Pressure Location Rt brachial Position Sitting Intake Visit Reasons: S/p Egd/colon-Jarad Intake Note: Stephani presents in office today in follow up of colonoscopy and endoscopy. CC: Pt continues to experience epigastric pain,burning, bloating, nausea, constipation, blood in stool, and lower abdominal pain. Denies other GI symptoms. Community Development Aide Required: Yes Community Development Aide Name: Lenin vazquez dictaphone transcriber Accompanied by: Self / Same As Patient Allergies No Known Allergies Allergy (Verified 06/06/23 11:10) HPI S/p Egd/colon-Jarad HPI Details Assessment & Plan (1) Chronic idiopathic constipation: ?Code(s): K59.04 - Chronic idiopathic constipation ?Plan: I review the US and GES which are unremarkable. She received the reglan at 10mg and the bentyl, but she has a pain just above the umbilicus midline. This is worse with eating both foods and liquids. At times the pain is unbearable, and I have to change how I sleep. It happens more in the afternoon but will last through the night. It is described as burning, and it occurs nearly every day. At times she holds or rubs it to help, and I suggest that she try heat (? muscular). She DOES have chronic back OA and some radiation to her shoulders. I think an XR of the thoracic spine is worthwhile to see if there is any reason to suspect racicular thoracic pain. The relgan has helped with the nausea. She is moving her bowels well on Linzess and daily. Her SAMPLE COORDINATOR suggested she try TUMS. She also continues on protonix bid. We may need to await EGD for further dx/tx. ROV 4 weeks. (2) GERD (gastroesophageal reflux disease): ?Code(s): K21.9 - Gastro-esophageal reflux disease without esophagitis (3) Thoracic back pain: ?Code(s): M54.6 - Pain in thoracic spine ? ? ? Orders: Orders XR thoracic spine 2V 03/07/23 M54.6 - Pain in th oracic spine ? EGD/COLONOSCOPY 04/17/23? Findings: Larynx:? Normal Esophagus:?GE junction at 35 cms.? A 10-12 mm nodule/?[place] - biopsied. No esophagitis. Stomach:?Mild diffuse gastric erythema. Biopsies were obtained from the antrum and gastric body. Grade 2 flap valve on retroflexed examination of the cardia. Duodenum:?Normal bulb and descending duodenum.? Biopsies were obtained from 3rd part of the duodenum to check for celiac sprue THE Findings: Terminal Ileum: Not evaluated Cecum:? Normal Ascending Colon:??Normal Transverse Colon:??Normal Descending Colon:? Normal Sigmoid Colon:??Moderate diverticulosis Rectum:??Normal Ano-rectum:??Moderate internal hemorrhoids Colon preparation: Excellent ? Impression and Post Procedure Diagnosis: Endoscopy Findings: ESOPHAGUS:? GE junction at 35 cms.? A 10-12 mm nodule/?[place] - biopsied. STOMACH: Mild diffuse gastric erythema. Biopsies were obtained from the antrum and gastric body. DUODENUM: Normal - biopsied to check for celiac sprue Colonoscopy Findings: No polyps were detected Moderate diverticulosis seen in the sigmoid colon Moderate hemorrhoids on retroflexed exam. Plan: Await pathology results Patient has an appointment on 05/22/23 in the GI Clinic with? Wendy Duckworth NP. Repeat Colonoscopy interval based on path results - in 5 years (due to a hx of adenomatous colon polyps). BIOPSY Received: 05/07/23 Diagnosis A.? Small bowel, biopsy:? Small intestinal mucosa within normal limits. B.? Stomach, antrum, biopsy:? Antral-type mucosa within normal limits; no Helicobacter organisms seen. C.? Stomach, body, biopsy:? Oxyntic mucosa within normal limits; no Helicobacter organisms seen. D.? Esophagus, distal, biopsy:? Squamocolumnar junction mucosa within normal limits; negative for intestinal metaplasia. X-RAY OF THORACIC SPINE 04/17/23? FINDINGS: Right Clavicle: Moderate degenerative changes with joint space narrowing and hypertrophic change acromioclavicular joint. Prominent bony exostosis along the superior lateral aspect of the acromion. Thoracic Spine: Moderate levoscoliosis of the thoracic spine. No thoracic vertebral body compression fractures are appreciated. Multilevel degenerative changes in the thoracic spine with hypertrophic change most notable in the midthoracic spine. XR/XR thoracic spine 2V IMPRESSION: 1. Moderate degenerative changes right acromioclavicular joint. 2. No displaced fracture of the right clavicle appreciated. 3. Multilevel degenerative changes in the thoracic spine. ? Additional imaging with CT scan or MRI should be considered for better visualization as these modalities are much more sensitive for detection of fracture or other underlying pathology. TODAYS VISIT .[place] #Lenin Vazquez . With the EGD fairly unremarkable, oleg when considering biopsies, we have not real good GI indication for her pain. BUT she has significant OA of the thoracic spine and of the rt ac joint. I will order MRI of these. THe colonoscopy needs to be repeated in 5 years. The procedure was well tolerated. The results were explained and the patient is agreeable to the follow-up interval as stated. The bowel pattern has returned to normal. Education was provided to tell any 1st degree relatives about their findings to be sure that they are screened by age 45. Educated that they will be put on a recall list when it is time for their repeat scope but should they move out of state or away from the hospital they will need to remember along with their primary to repeat the procedure in a timely fashion to avoid any adverse complications. ROV 6 mos. 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, bilateral Uterine fibroid Vitamin D deficiency Surgical History H/O excision of epidermal inclusion cyst (05/22/23) History of bilateral breast biopsy (2018) History of section History of esophagogastroduodenoscopy (EGD) (08/26/19) History of hemorrhoidectomy History of lumpectomy of left breast (08/23/22) History of lumpectomy of right breast History of removal of cyst Hx of colonoscopy Hx of tubal ligation Family History Mother Breast cancer, Onset Age: 50 Ovarian cancer Daughter Squamous cell carcinoma of uterus History of thyroid cancer Maternal Grandmother History of stomach cancer Maternal Uncle Family history of prostate cancer, Onset Age: 60 Social History Household Members: Children Housing: House Alcohol intake: current Alcohol intake frequency: holidays/special occasions only Alcohol type: beer and wine Patient Tobacco Use Status: Current everyday Tobacco user Tobacco use type: Cigarette Cigarettes Per Day: 4 e-Cigarette/Vaping Use: Never Used Second Hand Smoke Exposure: No service: No Current occupational status: employed Current occupational exposures/hazards: No Sexual orientation: Straight/Heterosexual Gender identity: Female Cognitive needs: No Hearing needs: No Vision needs: Yes Female Reproductive History Menstrual Age of Menarche: 12 Review of Systems Const Denies fatigue, Denies fever(s), Denies night sweats, Denies poor appetite and Denies weight loss Eyes Details: glasses Reports requires corrective lenses ENT Reports Normal hearing present, Denies dental pain, Denies dysphagia, Denies hearing loss, Denies mouth pain, Denies odynophagia, Denies throat swelling, Denies tongue swelling and Reports other (Dentition adequate) Card Reports no additional complaints Resp Reports no additional complaints GI Denies abdominal pain, Denies melena, Denies bloating, Denies hematochezia, Reports constipation, Denies GI cramping, Denies dysphagia, Denies excessive flatus, Denies early satiety, Reports heartburn, Denies diarrhea, Reports nausea, Denies odynophagia, Denies vomiting and Denies hematemesis Musc Reports back pain and Reports arthralgias Skin/Breast Denies pruritus, Denies lesions, Denies rash and Denies jaundice Neuro Reports Normal hearing present and Denies Abnormal speech present Endo Denies fatigue Aller/Immun Denies throat swelling and Denies tongue swelling Physical Exam Vital Signs: Last Vital Signs BP 135/88 05/22/23 14:30 BMI result Body Mass Index 27.8 Const General: cooperative, no acute distress, well developed and well groomed Nutritional Appearance: average body habitus and well nourished Orientation/consciousness: oriented to person, oriented to place and oriented to time Limitations: No language barrier HEENT Head: Yes normocephalic and Yes atraumatic Eyes General: appearance normal, both eyes and all related structures Pupils: Equal, round and reactive pupils present Neck Neck: Yes normal visual inspection and Yes no lymphadenopathy Thyroid: Thyroid normal Resp Effort & Inspection: normal respiratory effort and able to speak in complete sentences Auscultation: clear to auscultation bilaterally Cardio Rate: regular rate Rhythm: regular rhythm Heart sounds: Normal, physiologic split S2 sound present Peripheral pulses: radial pulses present and posterior tibial pulses present GI Inspection: No distended and No Abdominal panniculus present Palpation (GI): Soft to palpation, nontender, no guarding, not rigid and No hepatosplenomegaly present Percussion: Yes normal to percussion Auscultation: normal bowel sounds Rectal Exam - Female: deferred Skin General skin exam: no rashes or lesions noted, turgor normal, skin not dry, no jaundice, No spider nevi and no striae Rashes: no rashes Nails: normal Neuro General: oriented to person, oriented to place and oriented to time Cranial nerves: Yes Equal, round and reactive pupils present and Yes Normal hearing present Speech: No Abnormal speech present Extrem General: Yes normal to inspection, No clubbing, No cyanosis and No edema Psych Appearance: grossly normal and well kempt Mental Status: mental status grossly normal Speech and movement: Normal speech and movement present Affect: normal affect Attitude: cooperative Thought process: Normal thought process present and not confabulating Thought content: Normal thought content present Insight: Limited insight present (Psych) Judgement: Limited judgement present (Psych) Assessment & Plan Assessment & Plan (1) GERD (gastroesophageal reflux disease): Code(s): K21.9 - Gastro-esophageal reflux disease without esophagitis Plan: [place] #Lenin Vazquez . With the EGD fairly unremarkable, oleg when considering biopsies, we have not real good GI indication for her pain. BUT she has significant OA of the thoracic spine and of the rt ac joint. I will order MRI of these. THe colonoscopy needs to be repeated in 5 years. The procedure was well tolerated. The results were explained and the patient is agreeable to the follow-up interval as stated. The bowel pattern has returned to normal. Education was provided to tell any 1st degree relatives about their findings to be sure that they are screened by age 45. Educated that they will be put on a recall list when it is time for their repeat scope but should they move out of state or away from the hospital they will need to remember along with their primary to repeat the procedure in a timely fashion to avoid any adverse complications. She continues on her Reglan, Linzess, and pantoprazole and is now satisfied with her GI regimen. ROV 6 mos. AFTER mri'S ORDERED TODAY (2) Tubular adenoma of colon: Comment: 08/27/2019 last scope Code(s): D12.6 - Benign neoplasm of colon, unspecified (3) Bleeding hemorrhoids: Code(s): K64.9 - Unspecified hemorrhoids (4) Chronic idiopathic constipation: Code(s): K59.04 - Chronic idiopathic constipation (5) Thoracic back pain: Comment: multi level OA on xray Code(s): M54.6 - Pain in thoracic spine (6) Pain of right clavicle: Comment: OA of AC joint on xray Code(s): M89.8X1 - Other specified disorders of bone, shoulder Orders: Orders MR shoulder RT wo con 05/22/23 M54.6 - Pain in thoracic spine, M89.8X1 - Other specified disorders of bone, shoulder MR thoracic spine wo con 05/22/23 M54.6 - Pain in thoracic spine, M89.8X1 - Other specified disorders of bone, shoulder Coding Level of Care Code Est Pt Level 4 (64157) Diagnoses GERD (gastroesophageal reflux disease) K21.9 Tubular adenoma of colon D12.6 Bleeding hemorrhoids K64.9 Chronic idiopathic constipation K59.04 Thoracic back pain M54.6 Pain of right clavicle M89.8X1
[2023-05-22 14:30] VITALS: BP 135/88; BMI 27.8
== END 2023-05-22 14:47 | disposition home or self-care (01) ==
PROVIDERS: PCP Internal Medicine; Visit Provider Nurse Practitioner
DX: K21.9 Gastro-esophageal reflux disease without esophagitis (principal); D12.6 Benign neoplasm of colon, unspecified; K64.9 Unspecified hemorrhoids; K59.04 Chronic idiopathic constipation; M89.8X1 Other specified disorders of bone, shoulder; M54.6 Pain in thoracic spine
CPT/HCPCS: 99214

== ENCOUNTER 2023-05-31 15:30 | Outpatient (AMB) | payer OTHER, SELFPAY ==
--- NOTE | 2023-05-31 15:35 | A.OFFVIS_ITS ---
Intake Intake Visit Reasons: S/P excision sebaceous cyst mid back Intake Note: Patient is seen in office for post op assessment post sebaceous cyst of the mid back. Patient c/o: admits to fever for the past 2 days usually during the night time, incision is healing as expected Workforce Specialist Required: Yes Workforce Specialist Language: Serbian Accompanied by: Self / Same As Patient Allergies No Known Allergies Allergy (Verified 05/31/23 15:50) Medication List - Last Reconciled 06/01/23 by Steve Cano MD buspirone 5 mg PO TID dicyclomine 10 mg PO TID duloxetine 20 mg PO BID famotidine 40 mg PO BEDTIME 30 days hydrocortisone 2.5% (Proctosol HC) 1 appl RI BID PRN hydroxyzine HCl 10 mg PO TID ibuprofen 800 mg PO TID PRN 90 days linaclotide (Linzess) 290 mcg PO DAILY losartan 100 mg PO DAILY 90 days meclizine 25 mg PO BID PRN 30 days metoclopramide HCl (Reglan) 10 mg PO .qacsupper and qhs mirabegron ER (Myrbetriq) 25 mg PO DAILY pantoprazole 40 mg PO BID tadalafil 5 mg PO DAILY 30 days terbinafine HCl 250 mg PO DAILY 90 days tramadol 50 mg PO Q8H PRN trazodone 50 mg PO BEDTIME varenicline 1 mg PO BID zolpidem 5 mg PO BEDTIME PRN HPI HPI Comments History of Present Illness Details 52-year-old female returning for high risk breast cancer evaluation. She was determined to be at high risk for breast cancer with Emily model lifetime risk of breast cancer 24% and placed on a high risk protocol including twice yearly breast examinations, yearly mammogram and MRIs. MR guided biopsy was performed on 03/27/2019 which revealed intraductal papilloma.? Subsequent mammogram and ultrasound on 10/22/2019 revealed no suspicious changes only bilateral cyst.? Follow-up MRI of 01/26/2020 revealed a non mass enhancement in the 2 o'clock position this was identified by focused ultrasound of the right breast.? She subsequently underwent an ultrasound-guided core biopsy on 03/12/2020.? Pathology revealed benign breast tissue with no evidence of malignan cy. MRI of 03/25/2021 revealed a suspicious non-mass enhancement in the left breast in the 3 o'clock position felt to be suspicious for malignancy and MR guided core biopsy on 04/20/2021 revealed? benign breast tissue with apocrine metaplasia, focal usual ductal hyperplasia, and focal fibroadenomatous change.? No atypia or malignancy was identified. A mammogram of 11/22/2021 revealed bilateral fibrocystic changes greater on the right with no significant change from the prior study. A dominant cyst in the right breast at the site of palpable concern measures 3.6 cm. Findings were considered benign ( BI-RADS 2) and yearly mammography recommended. MRI of 05/19/2022 revealed an increasing left breast mass, 03:00 o'clock with associated biopsy clip. The surgical excision was recommended. She underwent excision of this mass on 08/23/2022. Pathology revealed benign breast tissue with fibrocystic changes, stromal fibrosis, usual ductal hyperplasia, apocrine metaplasia and ductal ectasia. No atypia or malignancy was identified. Her latest mammogram of 11/24/2022 revealed no mammographic evidence of malignancy (BI-RADS 2). Her Tyrer-Cuzick remaining lifetime risk of breast cancer was calculated at 8%. A density score was determined to be category C. patient is due for a breast MRI in May 2023. She returns today for evaluation of a skin cyst in the mid back which has gradu ally increased in size and is now causing discomfort especially when she leans back against a chair. She underwent excision 1 week ago and tolerated the procedure well. She returns today for suture removal. She also underwent MRI on 05/21/2023. This revealed a 12 mm mass on the left breast at 03:00 o'clock position 7.5 cm from the nipple. An MR guided ultrasound of the left breast was recommended with possible biopsy. If no explanation is noted by ultrasound then MR guided biopsy is recommended. Findings were discussed in detail with the patient today. 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, bilateral Uterine fibroid Vitamin D deficiency Surgical History H/O excision of epidermal inclusion cyst (05/22/23) History of bilateral breast biopsy (2018) History of section History of esophagogastroduodenoscopy (EGD) (08/26/19) History of hemorrhoidectomy History of lumpectomy of left breast (08/23/22) History of lumpectomy of right breast History of removal of cyst Hx of colonoscopy Hx of tubal ligation Family History Mother Breast cancer, Onset Age: 50 Ovarian cancer Daughter Squamous cell carcinoma of uterus History of thyroid cancer Maternal Grandmother History of stomach cancer Maternal Uncle Family history of prostate cancer, Onset Age: 60 Social History Household Members: Children Housing: House Alcohol intake: current Alcohol intake frequency: holidays/special occasions only Alcohol type: beer and wine Patient Tobacco Use Status: Current everyday Tobacco user Tobacco use type: Cigarette Cigarettes Per Day: 4 e-Cigarette/Vaping Use: Never Used Second Hand Smoke Exposure: No service: No Current occupational status: employed Current occupational exposures/hazards: No Sexual orientation: Straight/Heterosexual Gender identity: Female Cognitive needs: No Hearing needs: No Vision needs: Yes Female Reproductive History Menstrual Age of Menarche: 12 Review of Systems Const All systems reviewed & are unremarkable except as noted in HPI and below Denies body aches, Denies chills, Denies fatigue and Denies fever(s) Eyes Denies change in vision Card Reports as per HPI, Denies chest pain, Reports chest pain with activity (Intermittent), Reports rapid heart rate (Intermittent), Denies leg edema, Denies lightheadedness and Denies dyspnea Resp Denies chest congestion, Denies cough, Denies dyspnea and Denies wheezing GI Denies abdominal pain, Denies constipation, Denies diarrhea, Reports nausea (Intermittent) and Denies vomiting Denies nipple discharge and Denies dysuria Musc Denies myalgias, Denies numbness and Denies tingling Skin/Breast Reports as per HPI, Denies breast swelling, Denies breast skin changes, Reports breast pain, Denies breast mass, Denies lesions, Denies nipple discharge and Denies rash Neuro Denies numbness and Denies tingling Endo Denies fatigue Aller/Immun Denies wheezing Physical Exam Const General: no acute distress Nutritional Appearance: well nourished Orientation/consciousness: patient oriented x3 Limitations: no limitations Eyes Sclerae: sclerae normal EOM: EOMs intact bilaterally Chest Other: Left breast: Well-healed incision in the upper inner quadrant left breast. No skin change, no nipple retraction, no nipple discharge, no palpable mass, no enlarged lymph nodes. Breast is diffusely tender especially in the upper outer quadrant but also the lower outer quadrant and lower inner quadrant. No corresponding density is palpable. Right breast: No skin change, no nipple retraction, no nipple discharge, no palpable mass, no enlarged lymph nodes. Diffuse tenderness is also noted in multiple quadrants with no corresponding density palpable. Breast/axilla palpation: axillary lymphadenopathy not noted Resp Effort & Inspection: normal respiratory effort Back/Spine/Pelvis Other: Excision site in the posterior right shoulder is clean, dry, and intact. Sutures removed and wounds found to be well healed. Skin General skin exam: no rashes or lesions noted Neuro General: patient oriented x3 Extrem General: Yes no clubbing, cyanosis or edema Assessment & Plan Assessment & Plan (1) Abnormal magnetic resonance imaging of left breast: Code(s): R92.8 - Other abnormal and inconclusive findings on diagnostic imaging of breast Plan: Results of the MRI of the breast were reviewed with the patient. Ultrasound with possible biopsy was recommended. Has been requested. Patient will return following this procedure to review the results. (2) Epidermal inclusion cyst: Code(s): L72.0 - Epidermal cyst Plan: Patient tolerated the procedure well and returns today for suture removal. Wounds were found to be well healed. Coding Level of Care Code Global (63319) Diagnoses Abnormal magnetic resonance imaging of left breast R92.8 Epidermal inclusion cyst L72.0
== END 2023-05-31 15:54 | disposition home or self-care (01) ==
PROVIDERS: PCP Internal Medicine; Visit Provider Surgery
DX: R92.8 Other abnormal and inconclusive findings on diagnostic imaging of breast (principal); L72.0 Epidermal cyst
CPT/HCPCS: 99024

== ENCOUNTER → 2023-05-31 15:30 | Outpatient (BNVA) | payer OTHER, SELFPAY | PROVIDERS: PCP Internal Medicine; Visit Provider Surgery ==

== ENCOUNTER 2023-06-05 12:42 | Outpatient (REF) | payer OTHER, SELFPAY ==
--- NOTE | ~2023-06-05 | MM_ITS ---
PROCEDURE: US GUIDED BREAST BIOPSY, LEFT CLINICAL INFORMATION: Suspicious hypoechoic mass identified in the left breast at 2:00 axis, 7 cm from the nipple, believed to correlate with a focus of abnormal enhancement on patient's breast MRI dated 05/21/2023. COMPARISON: Left breast ultrasound 06/05/2023. MRI of the breasts dated 05/21/2023. PROCEDURAL DETAILS: The details of the procedure, as well as the risks, benefits, and alternatives to the procedure were explained to the patient in detail and all of her questions were answered, after which written informed consent was obtained. Site and side were confirmed. Prior to the procedure, sonography revealed a lobular hypoechoic mass in the left breast at the 2:00 axis, 7 cm from the nipple, with no internal color Doppler flow, and good through transmission, measuring 1.1 x 0.5 x 1.2 cm.. A time-out was performed, the lesion intended for biopsy was targeted, and the overlying skin of the left breast was then prepped and draped in the usual sterile fashion. Using sonographic guidance, sterile technique, and 1% lidocaine without epinephrine for local anesthesia, multiple automated core biopsies were obtained through the targeted area with a 14G spring loaded Achieve core biopsy device. There was real-time confirmation of appropriate needle passage. Sampling was documented. At the completion of tissue sampling, a single butterfly-shaped metallic clip was deposited at the biopsy site. There was no evidence of immediate complication. SPECIMEN: 3 appropriate core samples were obtained. DIGITAL POST-PROCEDURE MAMMOGRAPHY: Breast density: The tissue is heterogeneously dense which may obscure small masses. BI-RADS version 5, category C. There are no new mammographic findings demonstrated. The postprocedure 2-view direct digital mammogram reveals expected positioning of the biopsy clip. The patient tolerated the procedure well and, after assuring adequate hemostasis, was discharged in good condition after reviewing postbiopsy breast care instructions. Final pathology results are pending. MM/MM tomosynthesis diagnostic LT IMPRESSION: 1. No immediate complication from ultrasound-guided percutaneous biopsy left breast. 2. Ultrasound was used to localize and guide marker clip placement. 3. The 2-view direct digital postprocedure mammogram reveals satisfactory and expected positioning of the biopsy clip. 4. Final pathology results are pending. A separate report with final recommendations will be issued once these results are made available.
--- NOTE | ~2023-06-05 | US_ITS ---
EXAMINATION: US DIAGNOSTIC ULTRASOUND BREAST, LEFT CLINICAL INFORMATION: Suspicious masslike enhancement (measuring approximately 12 mm) seen on MRI 05/21/2023 within the left breast at the 3:00 axis, approximately 7.5 cm from the nipple, for which biopsy is recommended.. COMPARISON: Mammography dated 11/24/2022. MRI breast dated 05/21/2023. TECHNIQUE: Ultrasound of the left breast is performed with real-time osei scale imaging and color Doppler. FINDINGS: Within the approximate 2:00 axis of the left breast, 7 cm from the nipple, there is a 1.2 x 1.1 x 0.5 cm oval hypoechoic mass, without internal color Doppler flow, with good through transmission, and slightly lobulated margins. This likely represents the masslike enhancement seen on the recent MRI, and decision to proceed with biopsy was made. US/US breast LT limited IMPRESSION: 1.2 x 1.1 x 0.5 cm oval hypoechoic mass within the 2:00 axis of the left breast, 7 cm from the nipple, likely correlating with the masslike enhancement seen on MRI 05/11/2023 within the left breast. Decision to proceed with biopsy was made. ASSESSMENT: BI-RADS 4: Suspicious RECOMMENDATION: Ultrasound-guided biopsy with clip placement left breast. This patient's information was entered into a reminder system with a target due date for their next mammogram.
[2023-06-05] MEDS: Sodium Bicarbonate 8.4% 50 MEQ/50 ML VIAL SUBCUT (14:42)
[2023-06-05] MEDS: Lidocaine HCl 1 % 20 ML VIAL 9 ML SUBCUT (14:43)
== END 2023-06-05 12:43 | disposition home or self-care (01) ==
LOC: HO.MAMMO 12:42
PROVIDERS: PCP Internal Medicine; Visit Provider Surgery
DX: R92.8 Other abnormal and inconclusive findings on diagnostic imaging of breast (principal)
CPT/HCPCS: 19083; 76642; 77061; 77065; 88305

== ENCOUNTER → 2023-06-05 13:30 | Outpatient (BNV) | payer OTHER, SELFPAY | PROVIDERS: PCP Internal Medicine; Visit Provider Radiology Diagnostic Radiology | DX: N63.21 Unspecified lump in the left breast, upper outer quadrant (principal) | CPT/HCPCS: 19083; 77061; 77065 ==

== ENCOUNTER 2023-06-06 10:57 | Outpatient (REF) | payer OTHER, SELFPAY ==
[2023-06-06 13:19] LABS: Syphilis Screen Nonreactive (Nonreactive)
[2023-06-06 17:59] LABS: CT PCR NOT DETECTED (Not Detect.); NG PCR NOT DETECTED (Not Detect.)
[2023-06-07 08:07] LABS: HBc Num1 0.07 S/CO (0.00-0.79); HIV AB/AG Nonreactive (Nonreactive); HIV Num 1 0.05 S/CO (0.00-0.99); Hepatitis B Core Antibody Nonreactive (Nonreactive); ~HepC Num1 0.04 S/CO (0.00-0.79); ~Hepatitis C Antibody Nonreactive (Nonreactive)
[2023-06-07 13:09] LABS: BV Int Neg Control Negative (Negative); BV Int Pos Control Positive (Positive)
== END 2023-06-06 10:58 | disposition home or self-care (01) ==
LOC: HO.LAB 10:57
PROVIDERS: PCP Internal Medicine; Visit Provider Advanced Practice Midwife
DX: R10.2 Pelvic and perineal pain (principal); D21.9 Benign neoplasm of connective and other soft tissue, unspecified; R31.9 Hematuria, unspecified; R10.9 Unspecified abdominal pain; Z20.2 Contact with and (suspected) exposure to infections with a predominantly sexual mode of transmission
CPT/HCPCS: 0353U; 81003; 86704; 86780; 86803; 87086; 87389; 87480; 87510; 87660; 99212

== ENCOUNTER 2023-06-06 10:57 | Outpatient (AMB) | payer OTHER, SELFPAY ==
[2023-06-06 11:08] VITALS: BP 128/74; BMI 27.2
--- NOTE | 2023-06-06 11:08 | A.OFFVIS_ITS ---
Intake Vital Signs 06/06/23 11:08 Height 5 ft 2 in Weight 149 lb BMI 27.2 BP 128/74 Intake Visit Reasons: Pelvic pain Intake Note: having pain in lower left abdomin The patient agreed to use of a director of graduate medical education during this encounter. Scribed for SAMREEN Tamayo by Kaia Partida director of graduate medical education, on 06/06/2023 at 11:17 am EST. Breast Buffer Required: Yes Breast Buffer Language: Woodworking Machine Feeder Name: Marlene YUAN Information Interpreted: non-clinical & clinical Machine Farmworker: Machine Farmworker Present (Marlene) Allergies No Known Allergies Allergy (Verified 06/06/23 11:10) Is last menstrual period known: Yes Last menstrual period: 05/13/23 Post menopausal: No HPI HPI Comments History of Present Illness Details She is here today with complaints of low pelvic pain left sided for two months. Reports regular monthly menses. Currently sexually active; denies pain with intimacy. History of bladder issues, hematuria. She denies any GI changes, no constipation/diarrhea. She request STD testing and blood work. Hx of fibroids. [facility] Medical History At high risk for breast cancer Calcific tendinitis of left shoulder Essential hypertension GERD (gastroesophageal reflux disease) Glucosuria Hematuria Hemorrhoids HPV test positive Insomnia 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, bilateral Uterine fibroid Vitamin D deficiency Surgical History H/O excision of epidermal inclusion cyst (05/22/23) History of bilateral breast biopsy (2017) History of section History of esophagogastroduodenoscopy (EGD) (08/26/19) History of hemorrhoidectomy History of lumpectomy of left breast (08/23/22) History of lumpectomy of right breast History of removal of cyst Hx of colonoscopy Hx of tubal ligation Family History Mother Breast cancer, Onset Age: 50 Ovarian cancer Daughter Squamous cell carcinoma of uterus History of thyroid cancer Maternal Grandmother History of stomach cancer Maternal Uncle Family history of prostate cancer, Onset Age: 60 Social History Household Members: Children Housing: House Alcohol intake: current Alcohol intake frequency: holidays/special occasions only Alcohol type: beer and wine Patient Tobacco Use Status: Current everyday Tobacco user Tobacco use type: Cigarette Cigarettes Per Day: 4 e-Cigarette/Vaping Use: Never Used Second Hand Smoke Exposure: No service: No Current occupational status: employed Current occupational exposures/hazards: No Sexual orientation: Straight/Heterosexual Gender identity: Female Cognitive needs: No Hearing needs: No Vision needs: Yes Female Reproductive History Menstrual Age of Menarche: 12 Duration of menses: 6-7 days Date of last menstrual period: 05/13/23 control method: permanent sterilization Total pregnancies: 6 Full term: 6 Number of Living Children: 6 Date of last pap smear: 12/27/20 (negative) Date of Mammogram: 06/05/23 (negative) Physical Exam Vital Signs: Last Vital Signs BP 128/74 06/06/23 11:08 BMI result Body Mass Index 27.2 Const General: cooperative, healthy appearing, comfortable, no acute distress, well developed, alert and awake Other: left sided tenderness General: Yes bladder normal to palpation External Female Exam: normal external appearance and normal appearance of the urethra Speculum Exam - Vagina: normal appearance of the vagina, normal palpation and normal vaginal discharge Speculum Exam - Cervix: normal appearance of the cervix and normal palpation Bimanual exam- vagina & uterus: normal bimanual exam, normal palpation, bladder normal to palpation, normal palpation and enlarged Bimanual Exam- Adnexa, other: normal adnexae and no masses Results AMB Urinalysis, Automated UA Leukoctes 0 Venita/uL Last Edit by LISSY Dawson on 06/06/23 11:19 UA Nitrite Negative Last Edit by LISSY Dawson on 06/06/23 11:19 UA Urobilinogen 0 mg/dL Last Edit by LISSY Dawson on 06/06/23 11:19 UA Protein 0 mg/dL Last Edit by LISSY Dawson on 06/06/23 11:19 UA pH 6 Last Edit by LISSY Dawson on 06/06/23 11:19 UA Blood 0.5 Vernon/uL Last Edit by Pepe Alexandre LISSY on 06/06/23 11:19 UA Specific [place] 1.010 Last Edit by LISSY Dawson on 06/06/23 11: 19 UA Ketone Negative Last Edit by LISSY Dawson on 06/06/23 11:19 UA Bilirubin 0 mg/dL Last Edit by LISSY Dawson on 06/06/23 11:19 UA Glucose 0 mg/dL Last Edit by Pepe Alexandre LISSY on 06/06/23 11:19 Results Reviewed Results Reviewed: Laboratory Last Values Urine pH (Auto) 6 06/06/23 11:15 Specific [place] (Auto) 1.010 06/06/23 11:15 Urine Protein (Auto) 0 mg/dL 06/06/23 11:15 Glucose (UA)(Auto) 0 mg/dL 06/06/23 11:15 Urine Ketones (Auto) Negative 06/06/23 11:15 Urine Blood (Auto) 0.5 Vernon/uL 06/06/23 11:15 Urine Nitrite (Auto) Negative 06/06/23 11:15 Urine Bilirubin (Auto) 0 mg/dL 06/06/23 11:15 Urine Urobilinogen (Auto) 0 mg/dL 06/06/23 11:15 Leukocyte Esterase (Auto) 0 Venita/uL 06/06/23 11:15 EXAMINATION:? US PELVIS CLINICAL INFORMATION:? Myoma; the last menstrual period was one week prior. COMPARISON: Pelvic ultrasound dated 01/05/2022. TECHNIQUE: Ultrasound of the pelvis is performed using both transabdominal and transvaginal transducers along with Doppler. Transvaginal imaging is performed due to inadequate visualization transabdominally. FINDINGS: Uterus: The uterus is anteverted and anteflexed. A regular, homogeneous endometrium is identified measuring 1.2 cm. Nabothian cysts are seen within the cervix. FIBROIDS: There are 5 fibroids seen. ?1. Location: Anterior fundus, myometrial. ?? ? Size: 4.5 x 3.9 x 4.4 cm. Prior: 3.8 x 4.0 x 5.4 cm. ?? ? Fibroid characteristics: Heterogeneous echotexture. ?2. Location: Mid fundus, subendometrial. ?? ? Size: 1.6 x 1.3 x 1.6 cm. Prior: 1.8 x 1.9 x 1.7 cm. ?? ? Fibroid characteristics: Heterogeneous echotexture. ?3. Location: Leftward mid body, myometrial. ?? ? Size: 2.4 x 1.8 x 2.3 cm. Prior: 2.4 x 1.6 x 1.8 cm. ?? ? Fibroid characteristics: Heterogeneously hypoechoic. ?4. Location: Posterior lower body myometrial,. ?? ? Size: 1.2 x 1.1 x 1.2 cm. Prior: 1.4 x 1.3 x 1.4 cm. ?? ? Fibroid characteristics: Heterogeneously hypoechoic ?5. Location: Posterior upper body, subendometrial. ?? ? Size: 1.4 x 1.1 x 1.2 cm. Prior: Not seen. ?? ? Fibroid characteristics: Allergies echotexture. Adnexa: Both ovaries are visualized. There is normal color flow to the adnexa. There is no ovarian torsion. There is no pelvic ascites or fluid collection. Right ovary measures 1.7 x 1.2 x 1.2 cm, volume 1.3 mL. Left ovary measures 2.9 x 2.5 x 2.2 cm, volume 8.4 mL. The left ovary contains a 1.8 x 2.2 x 1.9 cm simple cyst. This is a benign finding, for which no imaging follow-up is recommended. US/US pelvic and transvaginal IMPRESSION: ? 1. Multiple uterine fibroids are seen, as detailed. ? 2. Nabothian cysts are seen within the cervix. ? 3. A 2.2 cm in maximal diameter benign, simple left ovarian cyst is seen, for which no imaging follow-up is recommended. Assessment & Plan Assessment & Plan (1) Pelvic pain: Code(s): R10.2 - Pelvic and perineal pain Plan: Discussed: Pelvic US ordered. Follow up in person for results. BV testing and GC/CT panel today. STD blood work ordered. Await results and treat accordingly. Monitor periods, report any unscheduled bleeding, bleeding episodes less than 21 days apart or heavy prolonged menstrual bleeding. Advised to use ibuprofen or Tylenol with food or heating pad for pain management. If experience severe pain report to ED. All of her questions and concerns were addressed to the best of my ability and shared decision making. She is agreeable to plan of care. Orders: Orders Urine Culture Today D21.9 - Benign neoplasm of connective and other soft tissue, unspecified, R10.2 - Pelvic and perineal pain, R31.9 - Hematuria, unspecified US pelvic and transvaginal Today D21.9 - Benign neoplasm of connective and other soft tissue, unspecified, R10.2 - Pelvic and perineal pain Hepatitis B Core Antibody Today Z20.2 - Contact with and (suspected) exposure to infections with a predominantly sexual mode of transmission Hepatitis C Antibody Today Z20.2 - Contact with and (suspected) exposure to infections with a predominantly sexual mode of transmission HIV Ab/Ag Today Z20.2 - Contact with and (suspected) exposure to infections with a predominantly sexual mode of transmission Syphilis Screen Today Z20.2 - Contact with and (suspected) exposure to infections with a predominantly sexual mode of transmission Bacterial Vaginosis Panel Today R10.2 - Pelvic and perineal pain CT NG by PCR Today R10.2 - Pelvic and perineal pain AMB Urinalysis Automated Today R10.2 - Pelvic and perineal pain Coding Level of Care Code Est Pt Level 4 (54650) Diagnoses Pelvic pain R10.2
== END 2023-06-06 12:41 | disposition home or self-care (01) ==
PROVIDERS: PCP Internal Medicine; Visit Provider Advanced Practice Midwife
DX: R10.2 Pelvic and perineal pain (principal)
CPT/HCPCS: 99214

== ENCOUNTER 2023-06-28 15:45 | Outpatient (AMB) | payer OTHER, SELFPAY ==
--- NOTE | 2023-06-28 15:46 | A.OFFVIS_ITS ---
Intake Vital Signs 06/28/23 15:48 Height 5 ft 2 in Weight 145 lb 15.136 oz BMI 26.7 BP 122/82 Blood Pressure Location Lt brachial Position Sitting Pulse 62 Intake Visit Reasons: results lt breast us & usbx for 3 0'clock mass Intake Note: Patient is seen in office for ultrasound and us bx results, following left breast 3 o'clock mass. Patient c/o: no concerns at the time of visit her for results. Still Cleaner Tube Required: Yes Still Cleaner Tube Language: Hazardous Waste Remover Name: Adeola YUAN Information Interpreted: non-clinical & clinical Professor Of Vegetable Science: Professor Of Vegetable Science Present Accompanied by: Self / Same As Patient Allergies No Known Allergies Allergy (Verified 06/28/23 15:53) Medication List - Last Reconciled 06/29/23 by Steve Cano MD buspirone 5 mg PO TID dicyclomine 10 mg PO TID duloxetine 20 mg PO BID famotidine 40 mg PO BEDTIME 30 days hydrocortisone 2.5% (Proctosol HC) 1 appl ID BID PRN hydroxyzine HCl 10 mg PO TID ibuprofen 800 mg PO TID PRN 90 days linaclotide (Linzess) 290 mcg PO DAILY losartan 100 mg PO DAILY 90 days meclizine 25 mg PO BID PRN 30 days metoclopramide HCl (Reglan) 10 mg PO .qacsupper and qhs mirabegron ER (Myrbetriq) 25 mg PO DAILY nirmatrelvir-ritonavir 300 mg (150 mg x 2)-100 mg (Paxlovid) 3 ea PO PER PKG DIR 5 days pantoprazole 40 mg PO BID tadalafil 5 mg PO DAILY 30 days terbinafine HCl 250 mg PO DAILY 90 days tramadol 50 mg PO Q8H PRN trazodone 50 mg PO BEDTIME varenicline 1 mg PO BID zolpidem 5 mg PO BEDTIME PRN HPI HPI Comments History of Present Illness Details 52-year-old female returns reviewed resu lts of a recent. She was determined to be at high risk for breast cancer with Emily model lifetime risk of breast cancer 24% and placed on a high risk protocol including twice yearly breast examinations, yearly mammogram and MRIs. MR guided biopsy was performed on 03/27/2019 which revealed intraductal papilloma.? Subsequent mammogram and ultrasound on 10/22/2019 revealed no suspicious changes only bilateral cyst.? Follow-up MRI of 01/26/2020 revealed a non mass enhancement in the 2 o'clock position this was identified by focused ultrasound of the right breast.? She subsequently underwent an ultrasound-guided core biopsy on 03/12/2020.? Pathology revealed benign breast tissue with no evidence of malignancy. MRI of 03/25/2021 revealed a suspicious non-mass enhancement in the left breast in the 3 o'clock position felt to be suspicious for malignancy and MR guided core biopsy on 04/20/2021 revealed? benign breast tissue with apocrine metaplasia, focal usual ductal hyperplasia, and focal fibroadenomatous change.? No atypia or malignancy was identified. A mammogram of 11/22/2021 revealed bilateral fibrocystic changes greater on the right with no significant change from the prior study. A dominant cyst in the right breast at the site of palpable concern measures 3.6 cm. Findings were considered benign ( BI-RADS 2) and yearly mammography recommended. MRI of 05/19/2022 revealed an increasing left breast mass, 03:00 o'clock with associated biopsy clip. The surgical excision was recommended. She underwent excision of this mass on 08/23/2022. Pathology revealed benign breast tissue with fibrocystic changes, stromal fibrosis, usual ductal hyperplasia, apocrine metaplasia and ductal ectasia. No atypia or malignancy was identified. Her latest mammogram of 11/24/2022 revealed no mammographic evidence of malignancy (BI-RADS 2). Her Tyrer-Cuzick remaining lifetime risk of breast cancer was calculated at 8%. A density score was determined to be category C. Breast MRI performed on 05/21/2023 revealed a 12 mm left breast mass at 3:00, 7.5 cm from the nipple. This was felt to be high suspicion for malignancy and subsequent focused ultrasound revealed a suspicious density. She underwent ultrasound-guided core biopsy on 06/05/2023. She tolerated the procedure well and returns today to review the pathology results. Pathology revealed a fibroadenoma without evidence of atypia or malignancy. 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, bilateral Glucosuria HPV test positive At high risk for breast cancer Insomnia secondary to situational depression GERD (gastroesophageal reflux disease) Vitamin D deficiency Surgical History H/O excision of epidermal inclusion cyst (05/22/23) History of lumpectomy of left breast (08/23/22) History of lumpectomy of right breast Hx of tubal ligation History of bilateral breast biopsy (2018) History of section History of removal of cyst History of hemorrhoidectomy History of esophagogastroduodenoscopy (EGD) (08/26/19) Hx of colonoscopy Family History Mother Breast cancer, Onset Age: 50 Ovarian cancer Daughter Squamous cell carcinoma of uterus History of thyroid cancer Maternal Grandmother History of stomach cancer Maternal Uncle Family history of prostate cancer, Onset Age: 60 Social History Household Members: Children Housing: House Alcohol intake: current Alcohol intake frequency: holidays/special occasions only Alcohol type: beer and wine Patient Tobacco Use Status: Current everyday Tobacco user Tobacco use type: Cigarette Cigarettes Per Day: 4 e-Cigarette/Vaping Use: Never Used Second Hand Smoke Exposure: No service: No Current occupational status: employed Current occupational exposures/hazards: No Sexual orientation: Straight/Heterosexual Gender identity: Female Cognitive needs: No Hearing needs: No Vision needs: Yes Female Reproductive History Menstrual Age of Menarche: 12 Review of Systems Const All systems reviewed & are unremarkable except as noted in HPI and below Denies body aches, Denies chills, Denies fatigue and Denies fever(s) Eyes Denies change in vision Card Reports as per HPI, Denies chest pain, Reports chest pain with activity (Intermittent), Reports rapid heart rate (Intermittent), Denies leg edema, Denies lightheadedness and Denies dyspnea Resp Denies chest congestion, Denies cough, Denies dyspnea and Denies wheezing GI Denies abdominal pain, Denies constipation, Denies diarrhea, Reports nausea (Intermittent) and Denies vomiting Denies nipple discharge and Denies dysuria Musc Denies myalgias, Denies numbness and Denies tingling Skin/Breast Reports as per HPI, Denies breast swelling, Denies breast skin changes, Reports breast pain, Denies breast mass, Denies lesions, Denies nipple discharge and Denies rash Neuro Denies numbness and Denies tingling Endo Denies fatigue Aller/Immun Denies wheezing Physical Exam Vital Signs: Last Vital Signs Pulse 62 06/28/23 15:48 BP 122/82 06/28/23 15:48 BMI result Body Mass Index 26.7 Const General: no acute distress Nutritional Appearance: well nourished Orientation/consciousness: patient oriented x3 Limitations: no limitations Eyes Sclerae: sclerae normal EOM: EOMs intact bilaterally Chest Other: Exam deferred Breast/axilla palpation: axillary lymphadenopathy not noted Resp Effort & Inspection: normal respiratory effort Back/Spine/Pelvis Other: Excision site in the posterior right shoulder is clean, dry, and intact. Sutures removed and wounds found to be well healed. Skin General skin exam: no rashes or lesions noted Neuro General: patient oriented x3 Extrem General: Yes no clubbing, cyanosis or edema Assessment & Plan Assessment & Plan (1) Abnormal magnetic resonance imaging of left breast: Code(s): R92.8 - Other abnormal and inconclusive findings on diagnostic imaging of breast Plan: Results of the MRI of the breast were reviewed with the patient. Ultrasound with possible biopsy was recommended. Has been requested. Patient will return following this procedure to review the results. (2) Epidermal inclusion cyst: Code(s): L72.0 - Epidermal cyst Plan: Patient tolerated the procedure well and returns today for suture removal. Wounds were found to be well healed. Plan 52-year-old female patient determined to be at high risk for breast cancer returning today following an ultrasound-guided core biopsy for lesion identified by breast MRI on 05/21/2023. Pathology revealed a fibroadenoma with no evidence of atypia or malignancy. She tolerated the procedure well and her wounds are healing nicely. She will follow-up on 09/04/2023 for routine breast examination. She is welcome to call sooner for any new concerns. Coding Level of Care Code Est Pt Level 3 (51638) Diagnoses Abnormal magnetic resonance imaging of left breast R92.8 Epidermal inclusion cyst L72.0
[2023-06-28 15:48] VITALS: BP 122/82; PULSE 62; BMI 26.7
== END 2023-06-28 15:58 | disposition home or self-care (01) ==
PROVIDERS: PCP Internal Medicine; Visit Provider Surgery
DX: R92.8 Other abnormal and inconclusive findings on diagnostic imaging of breast (principal); L72.0 Epidermal cyst; Z48.02 Encounter for removal of sutures
CPT/HCPCS: 99213

== ENCOUNTER → 2023-06-28 15:45 | Outpatient (BNVA) | payer OTHER, SELFPAY | PROVIDERS: PCP Internal Medicine; Visit Provider Surgery | DX: R92.8 Other abnormal and inconclusive findings on diagnostic imaging of breast (principal); L72.0 Epidermal cyst | CPT/HCPCS: 99212 ==

== ENCOUNTER 2023-06-29 15:41 | Outpatient (REF) | payer OTHER, SELFPAY ==
--- NOTE | ~2023-06-29 | US_ITS ---
EXAMINATION: ULTRASOUND PELVIC, COMPLETE CLINICAL INFORMATION: Left-sided pelvic pain. COMPARISON: Pelvic ultrasound 11/29/2022. TECHNIQUE: Pelvic ultrasound was performed using transvaginal and transabdominal technique without spectral doppler. FINDINGS: Uterus is enlarged measuring 12.5 x 6.1 x 8.0 cm, 320 mL. The uterus is anteverted and anteflexed. Multiple uterine fibroids are seen measuring 4.2 x 4.3 x 4.1 cm in the right fundus, 2.1 x 1.8 x 2.1 cm in the right fundus,, 1.1 x 0.8 x 1.0 cm in the posterior body, 2.4 x 1.9 x 1.7 cm in the left uterine body, 1.3 x 1.0 x 1.2 cm in the left posterior uterine body. There has been no significant change in size allowing for differences in technique when compared to the prior study. A regular homogeneous endometrium is identified measuring 0.8 cm in thickness. The right ovary measures 2.1 x 1.2 x 1.0 cm, volume 1.3 mL. The right ovary appears normal. The left ovary measures 1.7 x 1.5 x 1.7 cm, volume 2.3 mL. The left ovary appears normal. There is no pelvic free fluid. US/US pelvic and transvaginal IMPRESSION: Stable fibroid uterus.
== END 2023-06-29 15:42 | disposition home or self-care (01) ==
LOC: HO.US 15:41
PROVIDERS: PCP Internal Medicine; Visit Provider Advanced Practice Midwife
DX: D21.9 Benign neoplasm of connective and other soft tissue, unspecified (principal); R10.2 Pelvic and perineal pain
CPT/HCPCS: 76830; 76856

== ENCOUNTER 2023-07-09 08:46 | Outpatient (AMB) | payer OTHER, SELFPAY ==
--- NOTE | 2023-07-09 08:50 | MHC.OFFVIS ---
Intake Vital Signs 07/09/23 08:59 Height 5 ft 2 in Weight 146 lb 9.718 oz BMI 26.8 BP 96/64 Blood Pressure Location Lt brachial Position Sitting Pulse 68 Pulse Source Pulse Oximeter Temp 97.7 F Temp Source Skin Pulse Oximetry (%) 98 Oxygen Delivery Method Room Air Intake Visit Reasons: osteoarthritis Intake Note: Patient presents today to follow up on OA. c/o left great toe pain x 2 weeks, right shoulder limited ROM x 3+ months Terra Cotta Setter Required: Yes Terra Cotta Setter Language: Visual Manager Name: Jero [id number] Information Interpreted: clinical only Accompanied by: Self / Same As Patient Allergies No Known Allergies Allergy (Verified 07/09/23 08:58) Medication List - Last Reconciled 07/09/23 by Salo Yates MD buspirone 5 mg PO TID dicyclomine 10 mg PO TID duloxetine 20 mg PO BID famotidine 40 mg PO BEDTIME 30 days hydrocortisone 2.5% (Proctosol HC) 1 appl NM BID PRN hydroxyzine HCl 10 mg PO TID ibuprofen 800 mg PO TID PRN 90 days linaclotide (Linzess) 290 mcg PO DAILY losartan 100 mg PO DAILY 90 days meclizine 25 mg PO BID PRN 30 days metoclopramide HCl (Reglan) 10 mg PO .qacsupper and qhs mirabegron ER (Myrbetriq) 25 mg PO DAILY pantoprazole 40 mg PO BID tadalafil 5 mg PO DAILY 30 days terbinafine HCl 250 mg PO DAILY 90 days tramadol 50 mg PO Q8H PRN trazodone 50 mg PO BEDTIME varenicline 1 mg PO BID zolpidem 5 mg PO BEDTIME PRN HPI HPI Comments History of Present Illness Details The patient returns today for evaluation of her osteoarthritis and fibromyalgia. She was last seen back in December. She seems to be having a bit more pain in the left 1st toe, the bases of the thumbs, and in the shoulders. The chronic back pain continues. She remains on ibuprofen 800 t.i.d., tramadol 50 mg 3 times a day, duloxetine 20 mg b.i.d., bupropion p.r.n., and trazodone at night. She does not seem to have any daytime sedation with her medications. The right shoulder has been painful in the past. It is more painful for her frequently at night. She recalls that physical therapy was not helpful for the shoulder pain and an MRI has been scheduled. [facility] Medical History (Updated 07/09/23 @ 19:36 by Salo Yates MD) Hemorrhoids Uterine fibroid Insomnia Essential hypertension Hematuria Calcific tendinitis of left shoulder Primary osteoarthritis of hands, bilateral Glucosuria HPV test positive At high risk for breast cancer Insomnia secondary to situational depression GERD (gastroesophageal reflux disease) Vitamin D deficiency Surgical History H/O excision of epidermal inclusion cyst (05/22/23) History of lumpectomy of left breast (08/23/22) History of lumpectomy of right breast Hx of tubal ligation History of bilateral breast biopsy (2017) History of section History of removal of cyst History of hemorrhoidectomy History of esophagogastroduodenoscopy (EGD) (08/26/19) Hx of colonoscopy Family History Mother Breast cancer, Onset Age: 50 Ovarian cancer Daughter Squamous cell carcinoma of uterus History of thyroid cancer Maternal Grandmother History of stomach cancer Maternal Uncle Family history of prostate cancer, Onset Age: 60 Social History (Updated 07/09/23 @ 08:58 by LISSY Krause) Household Members: Children Housing: House Alcohol intake: current Alcohol intake frequency: holidays/special occasions only Alcohol type: beer and wine Patient Tobacco Use Status: Current everyday Tobacco user Tobacco use type: Cigarette Cigarettes Per Day: 6 e-Cigarette/Vaping Use: Never Used Second Hand Smoke Exposure: No service: No Current occupational status: employed Current occupational exposures/hazards: No Sexual orientation: Straight/Heterosexual Gender identity: Female Cognitive needs: No Hearing needs: No Vision needs: Yes Female Reproductive History Menstrual Age of Menarche: 12 Review of Systems Const Details: low energy during the daytime. Some disruption of sleep. Negative for appetite change, weight change, fever, chills , malaise Eyes Details: Occasional headaches.Negative for vision change, dry eyes, and dizziness Skin/Breast Details: Negative for itching, rash, hives, Raynaud's symptoms, sun sensitivity, and skin cancer Psych Details: Negative for anxiety, depression and stress Endo Details: Negative for polyuria and polydypsia Lavell/Lymph Details: Negative for excessive bruising or bleeding. Physical Exam Vital Signs: Last Vital Signs Temp 97.7 F 07/09/23 08:59 Pulse 68 07/09/23 08:59 BP 96/64 07/09/23 08:59 Pulse Ox 98 07/09/23 08:59 Oxygen Delivery Method Room Air 07/09/23 08:59 BMI result Body Mass Index 26.8 APPEARANCE: Patient in no acute distress EYES no redness, pupils equal and reactive to light, eyelids normal . No temporal artery tenderness, redness or swelling. EXTREMITIES: No edema, no calf tenderness, normal peripheral pulses. SKIN: No inflammatory or neoplastic lesions. Normal color and turgor JOINT EXAM: Cervical Spine: Full range of motion with Mild pain at the extremes. There is some cervical muscle tenderness. Thoracic Spine:No scoliosis.? No tenderness on palpation. Lumbar Spine: Alignment normal.? mild to moderate pain with full flexion, tenderness to palpation of the lumbar spine. The Froilan test normal. Hands:? Normal pain-free range of motion with mild to moderate bony enlargement and tenderness at the base of the thumbs. There is some slight tenderness without swelling at the 2nd and 3rd MCP joints. Elsewhere there is no tenderness, swelling, increased warmth or erythema. Able to make a full fist and has a good vp customer development strength. Wrists:? Normal pain-free range of motion without tenderness, swelling, increased warmth or erythema. Elbows: Normal pain-free range of motion without tenderness, swelling, increased warmth or erythema. Shoulders:?? right: There is pain with abduction at 100 degrees or with extremes of internal or external rotation. There is adwo-gw-vxpyouib anterior tenderness without swelling. No abductor weakness or adenopathy. Left: Full range of motion with Slight pains at the extremes of normal range of motion. There is some minimal anterior tenderness without adenopathy, weakness, increased warmth or erythema. Hips: Full range of motion without pain. Hip bursa: No tenderness. Knees: Normal pain-free range of motion without tenderness, swelling, increased warmth or erythema.? There is no effusion or crepitation Ankles:? Normal pain-free range of motion without tenderness, swelling, increased warmth or erythema. Feet: left: Mild 1st MTP bony enlargement and tenderness. Elsewhere there is slight tenderness in the instep but no soft tissue swelling. Right: Normal pain-free range of motion without tenderness, swelling, increased warmth or erythema. Tender points: Tenderness to digital palpation at the occiput, trapezius, second rib,greater trochanter and gluteal area bilaterally. Results Reviewed Results Reviewed: [address] [address] XRay Report Signed Patient: Stephani Villalobos MR#: [id number] : 1970 Acct:[id number] Age/Sex: 50 / F ADM Date: 01/18/[address]: Leslie Cabrera MD Ordering Physician: Leslie Cabrera MD Date of Service: 01/18/21 Procedure(s): XR shoulder RT min 2V Accession Number(s): [id number] cc: Leslie Cabrera MD~ EXAMINATION: BILATERAL SHOULDER X-RAY CLINICAL INFORMATION: Unspecified disorder of synovium COMPARISON: Previous left shoulder x-ray July 2015 TECHNIQUE: 4 views of each shoulder FINDINGS: Right: Bone alignment is normal. No fracture or dislocation is seen. The glenohumeral joint is normal. There is arthritis at the acromioclavicular joint. Soft tissues are normal. Left: Bone alignment is normal. No fracture or dislocation is seen. The glenohumeral joint is normal. There is arthritis at the acromioclavicular joint. There is a small osteophyte projecting over the lateral surface of the acromion. Soft tissues are otherwise unremarkable. 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 Small lateral left acromial osteophyte. Dictated By: ASHUTOSH BROWNE MD Signed By: <Electronically signed by ASHUTOSH BROWNE MD in OV> 01/19/21 0802 Assessment & Plan Assessment & Plan (1) Fibromyalgia: Code(s): M79.7 - Fibromyalgia (2) Bilateral foot pain: Code(s): M79.671 - Pain in right foot; M79.672 - Pain in left foot (3) Tendinitis of left rotator cuff: Code(s): M75.82 - Other shoulder lesions, left shoulder (4) Osteoarthritis of hands, bilateral: Code(s): M19.041 - Primary osteoarthritis, right hand; M19.042 - Primary osteoarthritis, left hand Plan The patient has many tender points so probably does have some underlying fibromyalgia. I do not see any signs of an active inflammatory arthritis but she has signs of osteoarthritis in the thumbs, left foot, cervical spine and lumbar spine. I would assume she has also some rotator cuff tendinitis, rotator cuff impingement or rotator cuff attrition so MRI scanning for that is appropriate. She will probably need orthopedic evaluation subsequent to that. Xrays of the hands and feet are ordered. She seems to be using the tramadol in a responsible fashion so it can be continued. We will plan follow-up in 6 months. Orders: Orders XR hand LT min 3V Today M19.041 - Primary osteoarthritis, right hand, M19.042 - Primary osteoarthritis, left hand XR foot LT min 3V Today M79.671 - Pain in right foot, M79.672 - Pain in left foot XR foot RT min 3V Today M79.671 - Pain in right foot, M79.672 - Pain in left foot XR hand RT min 3V Today M19.041 - Primary osteoarthritis, right hand, M19.042 - Primary osteoarthritis, left hand Coding Level of Care Code Est Pt Level 4 (59917) Diagnoses Fibromyalgia M79.7 Bilateral foot pain M79.671; M79.672 Tendinitis of left rotator cuff M75.82 Osteoarthritis of hands, bilateral M19.041; M19.042
[2023-07-09 08:59] VITALS: BP 96/64; PULSE 68; TEMP 36.5; O2SAT 98; BMI 26.8
== END 2023-07-09 09:30 | disposition home or self-care (01) ==
PROVIDERS: PCP Internal Medicine; Visit Provider Internal Medicine Rheumatology
DX: M79.7 Fibromyalgia (principal); M79.671 Pain in right foot; M79.672 Pain in left foot; M75.82 Other shoulder lesions, left shoulder; M19.041 Primary osteoarthritis, right hand; M19.042 Primary osteoarthritis, left hand
CPT/HCPCS: 99214

== ENCOUNTER 2023-07-09 08:46 | Outpatient (REF) | payer OTHER, SELFPAY ==
--- NOTE | ~2023-07-09 | XR_ITS ---
EXAMINATION: XR foot RT min 3V, XR foot LT min 3V CLINICAL INFORMATION: Pain COMPARISON: None TECHNIQUE: 3 views of the bilateral feet FINDINGS: RIGHT FOOT: No acute fracture or dislocation. Minimal degenerative changes of the first metatarsophalangeal and the first tarsometatarsal joint with degenerative spurring. No cortical erosion. No joint effusion. Soft tissues are unremarkable. LEFT FOOT: No fracture or dislocation. Moderate degenerative changes of the first metacarpophalangeal joint with loss of joint space and degenerative spurring. Achilles tendon enthesopathy. No cortical erosion. No joint effusion. Soft tissues are unremarkable. XR/XR foot RT min 3V IMPRESSION: RIGHT FOOT: Mild degenerative changes of the first metatarsophalangeal joint with degenerative spurring. LEFT FOOT: Moderate degenerative changes of the first metacarpophalangeal joint with loss of joint space and degenerative spurring.
--- NOTE | ~2023-07-09 | XR_ITS ---
EXAMINATION: XR foot RT min 3V, XR foot LT min 3V CLINICAL INFORMATION: Pain COMPARISON: None TECHNIQUE: 3 views of the bilateral feet FINDINGS: RIGHT FOOT: No acute fracture or dislocation. Minimal degenerative changes of the first metatarsophalangeal and the first tarsometatarsal joint with degenerative spurring. No cortical erosion. No joint effusion. Soft tissues are unremarkable. LEFT FOOT: No fracture or dislocation. Moderate degenerative changes of the first metacarpophalangeal joint with loss of joint space and degenerative spurring. Achilles tendon enthesopathy. No cortical erosion. No joint effusion. Soft tissues are unremarkable. XR/XR foot LT min 3V IMPRESSION: RIGHT FOOT: Mild degenerative changes of the first metatarsophalangeal joint with degenerative spurring. LEFT FOOT: Moderate degenerative changes of the first metacarpophalangeal joint with loss of joint space and degenerative spurring.
--- NOTE | ~2023-07-09 | XR_ITS ---
EXAMINATION: XR hand RT min 3V, XR hand LT min 3V CLINICAL INFORMATION: Osteoarthritis COMPARISON: Radiographs 11/13/2014 and 11/13/2014 TECHNIQUE: 3 views of the bilateral hands FINDINGS: RIGHT HAND: No fracture or dislocation. Degenerative changes of the hand and wrist worst involving the and wrist progressed from prior with advanced loss of first carpometacarpal joint space and bulky osteophytes and to a lesser extent involving the distal interphalangeal joints where there is minimal degenerative spurring progressed from prior. No cortical erosion. Soft tissues are unremarkable. LEFT HAND: No fracture or dislocation. Degenerative changes of the hand and wrist similar to prior worst involving the first carpometacarpal joint where there is advanced loss of joint space and bulky osteophytes and to a lesser extent involving the distal interphalangeal joints where there is minimal degenerative spurring progressed from prior. No cortical erosion. Soft tissues are unremarkable. XR/XR hand RT min 3V IMPRESSION: 1. Degenerative changes of the hands and wrists progressed from prior worst involving the first carpometacarpal joints bilaterally where it is advanced.
--- NOTE | ~2023-07-09 | XR_ITS ---
EXAMINATION: XR hand RT min 3V, XR hand LT min 3V CLINICAL INFORMATION: Osteoarthritis COMPARISON: Radiographs 11/13/2014 and 11/13/2014 TECHNIQUE: 3 views of the bilateral hands FINDINGS: RIGHT HAND: No fracture or dislocation. Degenerative changes of the hand and wrist worst involving the and wrist progressed from prior with advanced loss of first carpometacarpal joint space and bulky osteophytes and to a lesser extent involving the distal interphalangeal joints where there is minimal degenerative spurring progressed from prior. No cortical erosion. Soft tissues are unremarkable. LEFT HAND: No fracture or dislocation. Degenerative changes of the hand and wrist similar to prior worst involving the first carpometacarpal joint where there is advanced loss of joint space and bulky osteophytes and to a lesser extent involving the distal interphalangeal joints where there is minimal degenerative spurring progressed from prior. No cortical erosion. Soft tissues are unremarkable. XR/XR hand LT min 3V IMPRESSION: 1. Degenerative changes of the hands and wrists progressed from prior worst involving the first carpometacarpal joints bilaterally where it is advanced.
== END 2023-07-09 08:47 | disposition home or self-care (01) ==
LOC: HO.XRAY 08:46
PROVIDERS: PCP Internal Medicine; Visit Provider Internal Medicine Rheumatology
DX: M79.671 Pain in right foot (principal); M79.672 Pain in left foot; M19.041 Primary osteoarthritis, right hand; M19.042 Primary osteoarthritis, left hand; M79.641 Pain in right hand; M79.7 Fibromyalgia; M75.82 Other shoulder lesions, left shoulder
CPT/HCPCS: 73130; 73630; 99212

== ENCOUNTER 2023-07-12 15:48 | Outpatient (AMB) | payer OTHER, SELFPAY ==
[2023-07-12 15:52] VITALS: BP 116/66; BMI 26.7
--- NOTE | 2023-07-12 15:52 | MHC.OFFVIS ---
Intake Vital Signs 07/12/23 15:52 Height 5 ft 2 in Weight 146 lb BMI 26.7 BP 116/66 Intake Visit Reasons: US Follow up/30 mins Intake Note: The patient agreed to use of a medical librarian during this encounter. Scribed for SAMREEN Tamayo by Kaia Partida medical librarian, on 07/12/2023. Flood Control Engineer Required: Yes Flood Control Engineer Language: Sheet Metal Layout Mechanic Name: Marlene Lewis Information Interpreted: non-clinical & clinical Dehydrogenation Supervisor: Dehydrogenation Supervisor Present (Marlene) Allergies No Known Allergies Allergy (Verified 07/12/23 15:56) Is last menstrual period known: Yes Last menstrual period: 06/13/23 Post menopausal: No HPI HPI Comments History of Present Illness Details She is here to discuss US results regarding; hx of multiple fibroids. She reports she is still experiencing pelvic pain. She completed treated for BV in May. [facility], [facility] Medical History Uterine fibroid Hemorrhoids Uterine fibroid Insomnia Essential hypertension Hematuria Calcific tendinitis of left shoulder Primary osteoarthritis of hands, bilateral Glucosuria HPV test positive At high risk for breast cancer Insomnia secondary to situational depression GERD (gastroesophageal reflux disease) Vitamin D deficiency Surgical History H/O excision of epidermal inclusion cyst (05/22/23) History of lumpectomy of left breast (08/23/22) History of lumpectomy of right breast Hx of tubal ligation History of bilateral breast biopsy (2017) History of section History of removal of cyst History of hemorrhoidectomy History of esophagogastroduodenoscopy (EGD) (08/26/19) Hx of colonoscopy Family History Mother Breast cancer, Onset Age: 50 Ovarian cancer Daughter Squamous cell carcinoma of uterus History of thyroid cancer Maternal Grandmother History of stomach cancer Maternal Uncle Family history of prostate cancer, Onset Age: 60 Social History Household Members: Children Housing: House Alcohol intake: current Alcohol intake frequency: holidays/special occasions only Alcohol type: beer and wine Patient Tobacco Use Status: Current everyday Tobacco user Tobacco use type: Cigarette Cigarettes Per Day: 6 e-Cigarette/Vaping Use: Never Used Second Hand Smoke Exposure: No service: No Current occupational status: employed Current occupational exposures/hazards: No Sexual orientation: Straight/Heterosexual Gender identity: Female Cognitive needs: No Hearing needs: No Vision needs: Yes Female Reproductive History Menstrual Age of Menarche: 12 Date of last menstrual period: 06/13/23 Date of last pap smear: 12/27/20 (negative) Physical Exam Vital Signs: Last Vital Signs BP 116/66 07/12/23 15:52 BMI result Body Mass Index 26.7 Const General: cooperative, healthy appearing, comfortable, no acute distress, well developed, alert and awake Results Reviewed Results Reviewed: EXAMINATION: ULTRASOUND PELVIC, COMPLETE CLINICAL INFORMATION: Left-sided pelvic pain. COMPARISON: Pelvic ultrasound 11/29/2022. TECHNIQUE: Pelvic ultrasound was performed using transvaginal and transabdominal technique without spectral doppler. FINDINGS: Uterus is enlarged measuring 12.5 x 6.1 x 8.0 cm, 320 mL. The uterus is anteverted and anteflexed. Multiple uterine fibroids are seen measuring 4.2 x 4.3 x 4.1 cm in the right fundus, 2.1 x 1.8 x 2.1 cm in the right fundus,, 1.1 x 0.8 x 1.0 cm in the posterior body, 2.4 x 1.9 x 1.7 cm in the left uterine body, 1.3 x 1.0 x 1.2 cm in the left posterior uterine body. There has been no significant change in size allowing for differences in technique when compared to the prior study. A regular homogeneous endometrium is identified measuring 0.8 cm in thickness. The right ovary measures 2.1 x 1.2 x 1.0 cm, volume 1.3 mL. The right ovary appears normal. The left ovary measures 1.7 x 1.5 x 1.7 cm, volume 2.3 mL. The left ovary appears normal. There is no pelvic free fluid. US/US pelvic and transvaginal IMPRESSION: Stable fibroid uterus. Laboratory Tests 06/06/23 06/06/23 11:48 11:50 Chlam trachomat DNA PCR NOT DETECTED Hep B Core Total Ab Nonreactive Hepatitis C Ab (EIA) Nonreactive HIV 1&2 Ab/P24 Ag 4thGn Nonreactive N.gonorrhoeae DNA (PCR) NOT DETECTED Assessment & Plan Assessment & Plan (1) Encounter to discuss test results: Code(s): Z71.2 - Person consulting for explanation of examination or test findings Plan: Discussed: Us findings of: Stable fibroid uterus. All of her questions and concerns were addressed to the best of my ability and shared decision making. She is agreeable to plan of care. (2) Uterine fibroid: Comment: multiple Code(s): D25.9 - Leiomyoma of uterus, unspecified Plan: Leiomyoma: common pelvic neoplasm. Differential diagnosis-may include leiomyosarcoma which is a rare uterine sarcoma 3-7/100,000, difficult to distinguish from fibroids on ultrasound from uterine sarcoma's. Unlikely any single test will have a highly positive predictive value. Hysterectomy is not recommended for sole purpose of excluding malignant neoplasm. Report any PMB. Consult for surgical exploration verses expectant management offered. Patient prefers surgical exploration/removal of fibroid. Referral to DIRECTOR OF INSTITUTIONAL RESEARCH at [facility]. (3) Pelvic pain: Code(s): R10.2 - Pelvic and perineal pain Plan: Referral to specialist sent. Orders: Referrals AGILE PROJECT MANAGER Referral D21.9 - Benign neoplasm of connective and other soft tissue, unspecified, R10.2 - Pelvic and perineal pain Coding Level of Care Code Est Pt Level 3 (19722) Diagnoses Encounter to discuss test results Z71.2 Uterine fibroid D25.9 Pelvic pain R10.2
== END 2023-07-12 16:24 | disposition home or self-care (01) ==
PROVIDERS: PCP Internal Medicine; Visit Provider Advanced Practice Midwife
DX: Z71.2 Person consulting for explanation of examination or test findings (principal); D25.9 Leiomyoma of uterus, unspecified; R10.2 Pelvic and perineal pain
CPT/HCPCS: 99213

== ENCOUNTER → 2023-07-12 15:48 | Outpatient (BNVA) | payer OTHER, SELFPAY | PROVIDERS: PCP Internal Medicine; Visit Provider Advanced Practice Midwife | DX: Z71.2 Person consulting for explanation of examination or test findings (principal); D25.9 Leiomyoma of uterus, unspecified; R10.2 Pelvic and perineal pain | CPT/HCPCS: 99212 ==

== ENCOUNTER 2023-07-23 17:15 | Outpatient (REF) | payer OTHER, SELFPAY ==
--- NOTE | ~2023-07-23 | MR_ITS ---
EXAMINATION: MR SHOULDER WITHOUT CONTRAST, RIGHT CLINICAL INFORMATION: Right shoulder pain and decreased range of motion. COMPARISON: Right clavicle radiographs dated 04/02/2023 and right shoulder radiographs dated 01/18/2021. TECHNIQUE: MRI of the shoulder without contrast was performed on a high-field scanner. FINDINGS: ROTATOR CUFF: Mild supraspinatus tendinosis with minimal insertional intrasubstance partial tearing measuring up to 0.3 cm. Subscapularis tendinosis with distal articular surface partial tearing measuring up to 2.3 cm in ML dimension. No full-thickness rotator cuff tendon tear. No muscle atrophy or fatty infiltration. BICEPS: Fluid within the proximal long head biceps tendon sheath, consistent with mild tenosynovitis. No transverse tendon tear or tendon retraction. CORACOACROMIAL ARCH: The undersurface of the acromion is flat with no subacromial spur. Mild acromioclavicular osteoarthritis. LABRUM/CAPSULE: No displaced labral tear. Intact inferior joint capsule. GLENOHUMERAL JOINT/MARROW: Unremarkable. MR/MR shoulder RT wo con IMPRESSION: 1. Mild supraspinatus tendinosis with minimal insertional intrasubstance partial tearing. Subscapularis tendinosis with distal articular surface partial tearing measuring 2.3 cm in ML dimension. No full-thickness rotator cuff tendon tear. 2. Mild proximal long head biceps tenosynovitis without a measurable tendon tear. 3. Mild acromioclavicular osteoarthritis.
== END 2023-07-23 17:16 | disposition home or self-care (01) ==
LOC: HO.MRI 17:15
PROVIDERS: PCP Internal Medicine; Visit Provider Nurse Practitioner
DX: M54.6 Pain in thoracic spine (principal); M89.8X1 Other specified disorders of bone, shoulder
CPT/HCPCS: 73221

== ENCOUNTER 2023-07-31 13:05 | Outpatient (AMB) | payer OTHER, SELFPAY ==
--- NOTE | 2023-07-31 13:24 | A.OFFVIS_ITS ---
Intake Intake Visit Reasons: 3m/PVR Intake Note: Patient presents for follow up interstitial cystitis, urinary frequency Urology Medications: D/C tadalafil, myrbetriq Blood Thinner: none PVR: 86ml's Sewer Builder Required: Yes Accompanied by: Self / Same As Patient Allergies No Known Allergies Allergy (Verified 07/31/23 20:35) Medication List - Last Reconciled 07/31/23 by DEYSI CarreonP- amitriptyline 25 mg PO BEDTIME 30 days buspirone 5 mg PO TID dicyclomine 10 mg PO TID duloxetine 20 mg PO BID famotidine 40 mg PO BEDTIME 30 days hydrocortisone 2.5% (Proctosol HC) 1 appl [place] BID PRN hydroxyzine HCl 10 mg PO TID ibuprofen 800 mg PO TID PRN 90 days linaclotide (Linzess) 290 mcg PO DAILY losartan 100 mg PO DAILY 90 days meclizine 25 mg PO BID PRN 30 days metoclopramide HCl (Reglan) 10 mg PO .qacsupper and qhs mirabegron ER (Myrbetriq) 25 mg PO DAILY pantoprazole 40 mg PO BID terbinafine HCl 250 mg PO DAILY 90 days tramadol 50 mg PO Q8H PRN trazodone 50 mg PO BEDTIME varenicline 1 mg PO BID zolpidem 5 mg PO BEDTIME PRN HPI HPI Comments History of Present Illness Details Stephani is a very pleasant 52 year old female patient of Dr. Espinosa. She has a past medical history of hypertension, GERD, hematuria, hemorrhoids, insomnia, uterine fibroids, fibromyalgia, and vitamin-D deficiency. She presents to the office today for follow-up of her hematuria and interstitial cystitis. In discussion with the patient today she reports ongoing lower bladder pressure and episodes of nocturia. She does report urinary urgency and frequency however states symptoms are intermittent. During patient's last office visit here approximately 3 months ago she was started on low-dose antibiotic therapy. She does report symptoms slightly improved however continues with lower urinary tract symptoms. Discussed at length interstitial cystitis, bladder triggers/ irritants, and potential causes for interstitial cystitis. She has also previously trialed low-dose Cialis with no improvement in lower urinary tract symptoms. Dietary information provided. She otherwise offers no issues or concerns at this time. In office urinalysis results reviewed with the patient today. PVR 86mLs. Discussed at length trial of rescue bladder instillations. However, patient feels most bothersome issue is nocturia. When asked she does endorse to not be drinking water daily. Discussed, educated, encouraged on the importance drinking plenty of water daily. 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, bilateral Glucosuria HPV test positive At high risk for breast cancer Insomnia secondary to situational depression GERD (gastroesophageal reflux disease) Vitamin D deficiency Surgical History H/O excision of epidermal inclusion cyst (05/22/23) History of lumpectomy of left breast (08/23/22) History of lumpectomy of right breast Hx of tubal ligation History of bilateral breast biopsy (2017) History of section History of removal of cyst History of hemorrhoidectomy History of esophagogastroduodenoscopy (EGD) (08/26/19) Hx of colonoscopy Family History Mother Breast cancer, Onset Age: 50 Ovarian cancer Daughter Squamous cell carcinoma of uterus History of thyroid cancer Maternal Grandmother History of stomach cancer Maternal Uncle Family history of prostate cancer, Onset Age: 60 Social History Household Members: Children Housing: House Alcohol intake: current Alcohol intake frequency: holidays/special occasions only Alcohol type: beer and wine Patient Tobacco Use Status: Current everyday Tobacco user Tobacco use type: Cigarette Cigarettes Per Day: 6 e-Cigarette/Vaping Use: Never Used Second Hand Smoke Exposure: No service: No Current occupational status: employed Current occupational exposures/hazards: No Sexual orientation: Straight/Heterosexual Gender identity: Female Cognitive needs: No Hearing needs: No Vision needs: Yes Female Reproductive History Menstrual Age of Menarche: 12 Review of Systems Const Reports as per HPI Eyes Reports no additional complaints ENT Reports no additional complaints Card Reports as per [facility] Resp Reports no additional complaints GI Reports as per [facility] Reports as per [facility] Musc Reports as per [facility] Neuro Reports no additional complaints Psych Reports as per [facility] Physical Exam Const General: cooperative, healthy appearing, comfortable, no acute distress, well developed, alert, awake and tired appearing Orientation/consciousness: patient oriented x3 Limitations: no limitations HEENT Head: Yes normal to inspection, Yes normocephalic and Yes atraumatic Ears: hearing grossly normal bilaterally Eyes General: appearance normal, both eyes and all related structures Neck Neck: Yes normal visual inspection and Yes trachea midline Chest Chest palpation & inspection: normal inspection of the chest Resp Effort & Inspection: normal respiratory effort and able to speak in complete sentences Cardio Rate: regular rate GI Inspection: Yes normal to inspection General: Yes no CVA tenderness Back/Spine/Pelvis Back: no CVA tenderness Skin General skin exam: no rashes or lesions noted Neuro General: patient oriented x3 Extrem General: Yes normal to inspection Psych Appearance: grossly normal and well kempt Mental Status: mental status grossly normal Speech and movement: Normal speech and movement present and Clear speech present Affect: normal affect Attitude: cooperative Thought process: Normal thought process present Thought content: Normal thought content present Insight: Fair insight present (Psych) Judgement: Fair judgement present (Psych) Office Procedures Post Void Residual Post Residual Void Post Void Residual (PVR): 86 [id number] Void Residual by ultrasound Results AMB Urinalysis, Automated UA Leukoctes 0 Venita/uL Last Edit by [employer] on 07/31/23 13:43 UA Nitrite Negative Last Edit by [employer] on 07/31/23 13:43 UA Urobilinogen 0.2 mg/dL Last Edit by [employer] on 07/31/23 13:43 UA Protein 0 mg/dL Last Edit by [employer] on 07/31/23 13:43 UA pH 6.0 Last Edit by [employer] on 07/31/23 13:43 UA Blood 80 Vernon/uL Last Edit by [employer] on 07/31/23 13:43 UA Specific Bowlegs 1.025 Last Edit by [employer] on 07/31/23 13:43 UA Ketone Negative Last Edit by [employer] on 07/31/23 13:43 UA Bilirubin 0 mg/dL Last Edit by Andrew Solorio on 07/31/23 13:43 UA Glucose 0 mg/dL Last Edit by Andrew Solorio on 07/31/23 13:43 Results Reviewed Results Reviewed: Laboratory Last Values Urine pH (Auto) 6.0 07/31/23 13:34 Specific Bowlegs (Auto) 1.025 07/31/23 13:34 Urine Protein (Auto) 0 mg/dL 07/31/23 13:34 Glucose (UA)(Auto) 0 mg/dL 07/31/23 13:34 Urine Ketones (Auto) Negative 07/31/23 13:34 Urine Blood (Auto) 80 Vernon/uL 07/31/23 13:34 Urine Nitrite (Auto) Negative 07/31/23 13:34 Urine Bilirubin (Auto) 0 mg/dL 07/31/23 13:34 Urine Urobilinogen (Auto) 0.2 mg/dL 07/31/23 13:34 Leukocyte Esterase (Auto) 0 Venita/uL 07/31/23 13:34 Assessment & Plan Assessment & Plan (1) Microscopic hematuria: Code(s): R31.29 - Other microscopic hematuria (2) Interstitial cystitis: Code(s): N30.10 - Interstitial cystitis (chronic) without hematuria (3) Lower urinary tract symptoms (LUTS): Code(s): R39.9 - Unspecified symptoms and signs involving the genitourinary system Plan In office urinalysis results reviewed with the patient today; as noted above. PVR 86 mL. Discussed at length treatment options for interstitial cystitis as well as rescue treatment options. Continue Myrbetriq as discussed and prescribed Discussed bladder triggers/irritants at length. Will trial amitriptylin and gabapentin at bedtime. Patient is currently already on ibuprofen. Educated at length importance of drinking plenty of water daily. Discussed possible repeat in office cystoscopy for further assessment evaluation. Follow up in 3 months if not sooner with any questions, concerns, and or issues. Orders: Orders AMB Urinalysis Automated Today Z13.9 - Encounter for screening, unspecified AMB Post Void Residual by ultrasound Today R35.0 - Frequency of micturition Medications: New amitriptyline 25 mg PO BEDTIME 30 days 30 tabs 3RF N30.10 - Interstitial cystitis (chronic) without hematuria gabapentin 300 mg PO BEDTIME 30 caps 0RF 30 days R23.2 - Flushing, T50.905A - Adverse effect of unspecified drugs, medicaments and biological substances, initial encounter Patient Instructions: The patient had an opportunity to ask questions regarding the treatment plan. All questions were answered. Physical exam, labs, and imaging were discussed and reviewed in detail. As well as risks, benefits, and discussion of treatment choices. No major barriers to understanding were identified. The patient expressed understanding and agreement with the above treatment plan. The patient was made aware they should contact our office by phone for worsening of their current condition, the appearance of new symptoms, or with any questions or concerns. Compliance is encouraged with any medications and follow up testing that is ordered. It is a privilege to be allowed the opportunity to participate in? your urological care.? Again, if you have any questions or concerns If you have any questions or concerns please do not hesitate to contact me. The office is [phone]. This note is constructed using voice recognition software. While every effort has been made to ensure accuracy rubber mold maker errors may have been included. Yours sincerely, CRISTELA Carreon Coding Level of Care Code Est Pt Level 4 (26316) Diagnoses Microscopic hematuria R31.29 Interstitial cystitis N30.10 Lower urinary tract symptoms (LUTS) R39.9 CPT Codes Post Residual Void - PVR CPT Code: 03936-[id number] Void Residual by ultrasound ([id number])
== END 2023-07-31 15:20 | disposition home or self-care (01) ==
PROVIDERS: PCP Internal Medicine; Visit Provider Nurse Practitioner Family
DX: R31.29 Other microscopic hematuria (principal); N30.10 Interstitial cystitis (chronic) without hematuria; R39.9 Unspecified symptoms and signs involving the genitourinary system
CPT/HCPCS: 99214

== ENCOUNTER → 2023-07-31 13:05 | Outpatient (BNVA) | payer OTHER, SELFPAY | PROVIDERS: PCP Internal Medicine; Visit Provider Nurse Practitioner Family | DX: N30.10 Interstitial cystitis (chronic) without hematuria (principal); R31.29 Other microscopic hematuria; R39.9 Unspecified symptoms and signs involving the genitourinary system | CPT/HCPCS: 51798; 81003; 99212 ==

== ENCOUNTER 2023-09-04 13:45 | Outpatient (AMB) | payer OTHER, SELFPAY ==
--- NOTE | 2023-09-04 13:47 | MHC.OFFVIS ---
Intake Vital Signs 09/04/23 13:54 BP 130/80 Blood Pressure Location Lt brachial Position Sitting Intake Visit Reasons: 6 mth breast exam Intake Note: Patient is seen in office for 6 month follow up visit, breast exam. Patient c/o: admits to bilateral breast pain near the axilla for the past week, denies any other concerns or changes mm: 06/05/23 Chemical Laboratory Assistant Required: Yes Chemical Laboratory Assistant Language: Real Estate Office Supervisor Name: Adeola YUAN Information Interpreted: non-clinical & clinical Human Resource Professional: Human Resource Professional Present Accompanied by: Self / Same As Patient Allergies No Known Allergies Allergy (Verified 09/04/23 13:48) HPI HPI Comments History of Present Illness Details 52-year-old female returns reviewed results of a recent. She was determined to be at high risk for breast cancer with Emily model lifetime risk of breast cancer 24% and placed on a high risk protocol including twice yearly breast examinations, yearly mammogram and MRIs. MR guided biopsy was performed on 03/27/2019 which revealed intraductal papilloma.? Subsequent mammogram and ultrasound on 10/22/2019 revealed no suspicious changes only bilateral cyst.? Follow-up MRI of 01/26/2020 revealed a non mass enhancement in the 2 o'clock position this was identified by focused ultrasound of the right breast.? She subsequently underwent an ultrasound-guided core biopsy on 03/12/2020.? Pathology revealed benign breast tissue with no evidence of malignancy. MRI of 03/25/2021 revealed a suspicious non-mass enhancement in the left breast in the 3 o'clock position felt to be suspicious for malignancy and MR guided core biopsy on 04/20/2021 revealed? benign breast tissue with apocrine metaplasia, focal usual ductal hyperplasia, and focal fibroadenomatous change.? No atypia or malignancy was identified. A mammogram of 11/22/2021 revealed bilateral fibrocystic changes greater on the right with no significant change from the prior study. A dominant cyst in the right breast at the site of palpable concern measures 3.6 cm. Findings were considered benign ( BI-RADS 2) and yearly mammography recommended. MRI of 05/19/2022 revealed an increasing left breast mass, 03:00 o'clock with associated biopsy clip. The surgical excision was recommended. She underwent excision of this mass on 08/23/2022. Pathology revealed benign breast tissue with fibrocystic changes, stromal fibrosis, usual ductal hyperplasia, apocrine metaplasia and ductal ectasia. No atypia or malignancy was identified. Her latest mammogram of 11/24/2022 revealed no mammographic evidence of malignancy (BI-RADS 2). Her Tyrer-Cuzick remaining lifetime risk of breast cancer was calculated at 8%. A density score was determined to be category C. Breast MRI performed on 05/21/2023 revealed a 12 mm left breast mass at 3:00, 7.5 cm from the nipple. This was felt to be high suspicion for malignancy and subsequent focused ultrasound revealed a suspicious density. She underwent ultrasound-guided core biopsy on 06/05/2023. She tolerated the procedure well and returns today to review the pathology results. Pathology revealed a fibroadenoma without evidence of atypia or malignancy. She returns today for 6 month follow-up examination. She reports some tenderness in the upper outer quadrants bilaterally. She denies any palpable mass. 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, bilateral Glucosuria HPV test positive At high risk for breast cancer Insomnia secondary to situational depression GERD (gastroesophageal reflux disease) Vitamin D deficiency Surgical History H/O excision of epidermal inclusion cyst (05/22/23) History of lumpectomy of left breast (08/23/22) History of lumpectomy of right breast Hx of tubal ligation History of bilateral breast biopsy (2017) History of section History of removal of cyst History of hemorrhoidectomy History of esophagogastroduodenoscopy (EGD) (08/26/19) Hx of colonoscopy Family History Mother Breast cancer, Onset Age: 50 Ovarian cancer Daughter Squamous cell carcinoma of uterus History of thyroid cancer Maternal Grandmother History of stomach cancer Maternal Uncle Family history of prostate cancer, Onset Age: 60 Social History Household Members: Children Housing: House Alcohol intake: current Alcohol intake frequency: holidays/special occasions only Alcohol type: beer and wine Patient Tobacco Use Status: Current everyday Tobacco user Tobacco use type: Cigarette Cigarettes Per Day: 6 e-Cigarette/Vaping Use: Never Used Second Hand Smoke Exposure: No service: No Current occupational status: employed Current occupational exposures/hazards: No Sexual orientation: Straight/Heterosexual Gender identity: Female Cognitive needs: No Hearing needs: No Vision needs: Yes Female Reproductive History Menstrual Age of Menarche: 12 Review of Systems Const All systems reviewed & are unremarkable except as noted in HPI and below Denies body aches, Denies chills, Denies fatigue and Denies fever(s) Eyes Denies change in vision Card Reports as per HPI, Denies chest pain, Reports chest pain with activity (Intermittent), Reports rapid heart rate (Intermittent), Denies leg edema, Denies lightheadedness and Denies dyspnea Resp Denies chest congestion, Denies cough, Denies dyspnea and Denies wheezing GI Denies abdominal pain, Denies constipation, Denies diarrhea, Reports nausea (Intermittent) and Denies vomiting Denies nipple discharge and Denies dysuria Musc Denies myalgias, Denies numbness and Denies tingling Skin/Breast Reports as per HPI, Denies breast swelling, Denies breast skin changes, Reports breast pain, Denies breast mass, Denies lesions, Denies nipple discharge and Denies rash Neuro Denies numbness and Denies tingling Endo Denies fatigue Aller/Immun Denies wheezing Physical Exam Vital Signs: Last Vital Signs BP 130/80 09/04/23 13:54 Const General: no acute distress Nutritional Appearance: well nourished Orientation/consciousness: patient oriented x3 Limitations: no limitations Eyes Sclerae: sclerae normal EOM: EOMs intact bilaterally Chest Other: Left breast: No skin change, no nipple retraction, no nipple discharge, no palpable mass, tender in the upper outer quadrant, and no enlarged lymph nodes. Right breast: No skin change, no nipple retraction, no nipple discharge, no palpable mass, tender in the upper outer quadrant, and no enlarged lymph nodes Chest/axillae images: 1. Incision right breast 2. Incision left breast Resp Effort & Inspection: normal respiratory effort Skin General skin exam: no rashes or lesions noted Neuro General: patient oriented x3 Extrem General: Yes no clubbing, cyanosis or edema Assessment & Plan Assessment & Plan (1) At high risk for breast cancer: Code(s): Z91.89 - Other specified personal risk factors, not elsewhere classified (2) Abnormal magnetic resonance imaging of left breast: Code(s): R92.8 - Other abnormal and inconclusive findings on diagnostic imaging of breast Plan: Results of the MRI of the breast were reviewed with the patient. Ultrasound with possible biopsy was recommended. Has been requested. Patient will return following this procedure to review the results. Plan 52-year-old female patient determined to be at high risk for breast cancer returning for a high risk breast assessment. Examination today revealed no suspicious findings in either breast with well-healed incisions and mild fibrocystic change in the upper outer quadrant. She will be due for bilateral screening mammography in November 2022. I have asked her to return approximately 6 months for follow-up examination. She is welcome to call sooner for any new concerns. Orders: Orders MM screening mammo BI 11/26/23 Z91.89 - Other specified personal risk factors, not elsewhere classified Coding Level of Care Code Est Pt Level 3 (60091) Diagnoses At high risk for breast cancer Z91.89 Abnormal magnetic resonance imaging of left breast R92.8
[2023-09-04 13:54] VITALS: BP 130/80
== END 2023-09-04 14:05 | disposition home or self-care (01) ==
PROVIDERS: PCP Internal Medicine; Visit Provider Surgery
DX: R92.8 Other abnormal and inconclusive findings on diagnostic imaging of breast (principal); Z91.89 Other specified personal risk factors, not elsewhere classified
CPT/HCPCS: 99213

== ENCOUNTER → 2023-09-04 13:45 | Outpatient (BNVA) | payer OTHER, SELFPAY | PROVIDERS: PCP Internal Medicine; Visit Provider Surgery | DX: R92.8 Other abnormal and inconclusive findings on diagnostic imaging of breast (principal); Z91.89 Other specified personal risk factors, not elsewhere classified | CPT/HCPCS: 99212 ==

== ENCOUNTER 2023-09-06 13:39 | Outpatient (AMB) | payer OTHER, SELFPAY ==
[2023-09-06 14:32] VITALS: BP 150/90; PULSE 76; TEMP 36.4; O2SAT 98; BMI 26.7
--- NOTE | 2023-09-06 14:32 | AM.OFFWIN_ITS ---
Intake Vital Signs 09/06/23 14:32 Height 5 ft 2 in Weight 146 lb BMI 26.7 BP 150/90 H Blood Pressure Location Lt brachial Position Sitting Pulse 76 Pulse Source Pulse Oximeter Temp 97.6 F Temp Source Temporal Artery Scan Pulse Oximetry (%) 98 Oxygen Delivery Method Room Air Intake Visit Reasons: EP, cough, congestion, body aches (masked) Intake Note: pt is here today for cough,congestion,body aches started Patient Tobacco Use Status: Current everyday Tobacco user Allergies No Known Allergies Allergy (Verified 09/06/23 14:32) Do you need a note to return to daycare/school/sports/work: No HPI HPI Comments History of Present Illness Details The patient presents to urgent care for evaluation of cold symptoms starting on Sunday. She has sore throat cough congestion and fever and chills. Patient also reports eye redness and itchiness and stinging to both eyes. As a secondary complaint, patient complains of pain to the top of her left foot with swelling from the great toe up the dorsum of the foot and into the ankle. It has been going on for about 2 weeks or so. Patient has a history of osteoporosis and osteoarthritis. She has been intermittently using ibuprofen for this without much help. 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, bilateral Glucosuria HPV test positive At high risk for breast cancer Insomnia secondary to situational depression GERD (gastroesophageal reflux disease) Vitamin D deficiency Surgical History H/O excision of epidermal inclusion cyst (05/22/23) History of lumpectomy of left breast (08/23/22) History of lumpectomy of right breast Hx of tubal ligation History of bilateral breast biopsy (2018) History of section History of removal of cyst History of hemorrhoidectomy History of esophagogastroduodenoscopy (EGD) (08/26/19) Hx of colonoscopy Family History Mother Breast cancer, Onset Age: 50 Ovarian cancer Daughter Squamous cell carcinoma of uterus History of thyroid cancer Maternal Grandmother History of stomach cancer Maternal Uncle Family history of prostate cancer, Onset Age: 60 Social History Household Members: Children Housing: House Alcohol intake: current Alcohol intake frequency: holidays/special occasions only Alcohol type: beer and wine Patient Tobacco Use Status: Current everyday Tobacco user Tobacco use type: Cigarette Cigarettes Per Day: 6 e-Cigarette/Vaping Use: Never Used Second Hand Smoke Exposure: No service: No Current occupational status: employed Current occupational exposures/hazards: No Sexual orientation: Straight/Heterosexual Gender identity: Female Cognitive needs: No Hearing needs: No Vision needs: Yes Female Reproductive History Menstrual Age of Menarche: 12 Review of Systems Const Reports body aches, Reports chills, Reports fatigue, Reports fever(s), Reports headache(s) and Reports malaise ENT Denies dizziness, Reports headache(s), Reports nasal congestion and Reports sore throat Card Denies rapid heart rate, Denies dyspnea and Denies dyspnea on exertion Resp Denies dyspnea and Denies dyspnea on exertion GI Denies dyspepsia and Denies heartburn Musc Denies arthralgias and Denies muscle cramps Neuro Denies dizziness, Reports headache(s), Denies focal weakness and Denies Other visual disturbances Endo Reports fatigue Physical Exam Vital Signs: Last Vital Signs Temp 97.6 F 09/06/23 14:32 Pulse 76 09/06/23 14:32 BP 150/90 H 09/06/23 14:32 Pulse Ox 98 09/06/23 14:32 Oxygen Delivery Method Room Air 09/06/23 14:32 BMI result Body Mass Index 26.7 Const General: healthy appearing and no acute distress HEENT Mouth: Normal oral and palatal mucosa present Eyes Other: Bilateral conjunctival injection no discharge no lid edema Resp Effort & Inspection: normal respiratory effort and able to speak in complete sentences Auscultation: clear to auscultation bilaterally Cardio Rate: regular rate Rhythm: regular rhythm Extrem Other: Left foot: Mild swelling appreciated to the dorsum of the cutting machine tender to palpation at the dorsal aspect of the great toe dorsum of the foot overlying the 1st metatarsal and proximal ankle. No erythema induration or abrasions Assessment & Plan Assessment & Plan (1) Left foot pain: Code(s): M79.672 - Pain in left foot (2) URI (upper respiratory infection): Code(s): J06.9 - Acute upper respiratory infection, unspecified Plan 1. Viral syndrome.-recommend OTC medications patient interested in eyedrops for her itchy red eyes. Recommended antihistamine eye drops for symptomatic relief. 2. Foot pain-there is some mild swelling to the dorsum of the foot is tenderness to palpation patient with underlying history of arthritis. This could be an arthritis flare . No sign of infection. Patient reports no improvement after 2 weeks of intermittent use of ibuprofen. Will give short course steroids. Medications: New prednisone Take 4 tabs p.o. daily x 3 days, take 2 tab x 2 days 10 mg PO DAILY 16 tabs 0RF Coding Level of Care Code Est Pt Level 3 (85323) Diagnoses Left foot pain M79.672 URI (upper respiratory infection) J06.9
== END 2023-09-06 15:55 | disposition home or self-care (01) ==
PROVIDERS: PCP Internal Medicine; Visit Provider Emergency Medicine
DX: M79.672 Pain in left foot (principal); J06.9 Acute upper respiratory infection, unspecified
CPT/HCPCS: 99213

== ENCOUNTER 2023-09-11 08:40 | Outpatient (AMB) | payer OTHER, SELFPAY ==
--- NOTE | 2023-09-11 08:46 | MHC.OFFVIS ---
Intake Vital Signs 09/11/23 08:56 Height 5 ft 2 in Weight 149 lb 11.102 oz BMI 27.4 BP 118/84 Blood Pressure Location Rt brachial Position Sitting Pulse 89 Pulse Source Pulse Oximeter Temp 97.6 F Temp Source Skin Pulse Oximetry (%) 98 Oxygen Delivery Method Room Air Intake Visit Reasons: Left Foot Pain Intake Note: Patient presents today for left foot pain. Reports pain and swelling x 3 weeks. Would like script for shoe. Composition Tile Layer Required: Yes Composition Tile Layer Language: University Demonstrator Name: Charity [id number] Information Interpreted: clinical only Allergies No Known Allergies Allergy (Verified 09/11/23 08:47) Medication List - Last Reconciled 09/11/23 by Salo Yates MD amitriptyline 25 mg PO BEDTIME 30 days buspirone 5 mg PO TID dicyclomine 10 mg PO TID duloxetine 20 mg PO BID famotidine 40 mg PO BEDTIME 30 days gabapentin 300 mg PO BEDTIME 30 days hydrocortisone 2.5% (Proctosol HC) 1 appl AR BID PRN hydroxyzine HCl 10 mg PO TID ibuprofen 800 mg PO TID PRN 90 days linaclotide (Linzess) 290 mcg PO DAILY losartan 100 mg PO DAILY 90 days meclizine 25 mg PO BID PRN 30 days metoclopramide HCl (Reglan) 10 mg PO .qacsupper and qhs mirabegron ER (Myrbetriq) 25 mg PO DAILY pantoprazole 40 mg PO BID terbinafine HCl 250 mg PO DAILY 90 days tramadol 50 mg PO Q8H PRN trazodone 50 mg PO BEDTIME varenicline 1 mg PO BID zolpidem 5 mg PO BEDTIME PRN HPI HPI Comments History of Present Illness Details The patient returns for evaluation of her joint pains. The visit is facilitated through the use of the [employer] translating system. She complains of pain in the left foot and left 1st toe. She thinks there is occasional swelling at the end of the day. This is worse with more weight-bearing activities. She also still has pain in the right shoulder. She had her MRI done a few months ago but there has not been any follow-up. She does recall physical therapy for the shoulders in the past that was not helpful. Her other less severe pains include the lower back, lateral hips, knees and hands. Her record with Dr. Cabrera was reviewed. She had normal sed rate, rheumatoid factor and CCP antibody studies about 5 years ago. 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, bilateral Glucosuria HPV test positive At high risk for breast cancer Insomnia secondary to situational depression GERD (gastroesophageal reflux disease) Vitamin D deficiency Surgical History H/O excision of epidermal inclusion cyst (05/22/23) History of lumpectomy of left breast (08/23/22) History of lumpectomy of right breast Hx of tubal ligation History of bilateral breast biopsy (2017) History of section History of removal of cyst History of hemorrhoidectomy History of esophagogastroduodenoscopy (EGD) (08/26/19) Hx of colonoscopy Family History Mother Breast cancer, Onset Age: 50 Ovarian cancer Daughter Squamous cell carcinoma of uterus History of thyroid cancer Maternal Grandmother History of stomach cancer Maternal Uncle Family history of prostate cancer, Onset Age: 60 Social History Household Members: Children Housing: House Alcohol intake: current Alcohol intake frequency: holidays/special occasions only Alcohol type: beer and wine Patient Tobacco Use Status: Current everyday Tobacco user Tobacco use type: Cigarette Cigarettes Per Day: 6 e-Cigarette/Vaping Use: Never Used Second Hand Smoke Exposure: No service: No Current occupational status: employed Current occupational exposures/hazards: No Sexual orientation: Straight/Heterosexual Gender identity: Female Cognitive needs: No Hearing needs: No Vision needs: Yes Female Reproductive History Menstrual Age of Menarche: 12 Review of Systems Const Details: Negative for appetite change, weight change, fever, chills, malaise and fatigue Eyes Details: Negative for vision change, dry eyes,headaches and dizziness GI Details: Negative indigestion/heartburn, nausea, abdominal pain, bowel changes, diarrhea, constipation and bloody stool. Skin/Breast Details: Negative for itching, rash, hives, Raynaud's symptoms, sun sensitivity, and skin cancer Psych Details: anxiety, depression stable on current medications Endo Details: Negative for polyuria and polydypsia Lavell/Lymph Details: Negative for excessive bruising or bleeding. Physical Exam Vital Signs: Last Vital Signs Temp 97.6 F 09/11/23 08:56 Pulse 89 09/11/23 08:56 BP 118/84 09/11/23 08:56 Pulse Ox 98 09/11/23 08:56 Oxygen Delivery Method Room Air 09/11/23 08:56 BMI result Body Mass Index 27.4 APPEARANCE: Patient in no acute distress EYES no redness, pupils equal and reactive to light, eyelids normal EXTREMITIES: No edema, no calf tenderness, normal peripheral pulses. SKIN: No inflammatory or neoplastic lesions. Normal color and turgor JOINT EXAM: Cervical Spine: Full range of motion with Mild pain at the extremes. There is some cervical muscle tenderness. Thoracic Spine:No scoliosis.? No tenderness on palpation. Lumbar Spine: Alignment normal.? mild pain with full flexion, tenderness to palpation of the lumbar spine. The Froilan test normal. Hands:? Normal pain-free range of motion with mild to moderate bony enlargement and tenderness at the base of the thumbs. There is some slight nontender thickening at the thumb IP and 2nd PIP on the right. In other joints there is no tenderness, swelling, increased warmth or erythema. There is no flexor tendon triggering, thenar atrophy or sensory loss. Wrists:? Normal pain-free range of motion without tenderness, swelling, increased warmth or erythema. Elbows: Normal pain-free range of motion without tenderness, swelling, increased warmth or erythema. Shoulders:?? right: There is pain with abduction at 120 degrees or with extremes of internal or external rotation. There is mild anterior tenderness without swelling. No abductor weakness or adenopathy. Left: Full range of motion with Slight pains at the extremes of normal range of motion. There is some minimal anterior tenderness without adenopathy, weakness, increased warmth or erythema. Hips: Full range of motion without pain. Hip bursa: No tenderness. Knees: Normal pain-free range of motion without tenderness, swelling, increased warmth or erythema.? There is no effusion or crepitation Ankles:? Left: There is normal, pain-free range of motion but she does have some tenderness anteriorly along the tibia. No redness or swelling is appreciated. Right: Normal pain-free range of motion without tenderness, swelling, increased warmth or erythema. Feet: left: Mild 1st MTP bony enlargement and mild to moderate tenderness. There is some tenderness in the instep with some bony prominence. No redness or warmth. The toes are not painful pressure. Other MTP joints are not tender. Right: Normal pain-free range of motion without tenderness, swelling, increased warmth or erythema. Tender points: Tenderness to digital palpation at the occiput, trapezius, second rib,greater trochanter and gluteal area bilaterally. Results Reviewed Results Reviewed: [address] [address] Magnetic Resonance Report Signed Patient: Stephani Villalobos MR#: [id number] : 1970 Acct:[id number] Age/Sex: 52 / F Date: 07/23/23 Ordering Physician: Wendy DuckworthC Date of Service: 07/23/23 Procedure(s): MR shoulder RT wo con Accession Number(s): [id number] cc: Wendy Duckworth; Fatmata Villalobos MD~ EXAMINATION: MR SHOULDER WITHOUT CONTRAST, RIGHT CLINICAL INFORMATION: Right shoulder pain and decreased range of motion. COMPARISON: Right clavicle radiographs dated 04/02/2023 and right shoulder radiographs dated 01/18/2021. TECHNIQUE: MRI of the shoulder without contrast was performed on a high-field scanner. FINDINGS: ROTATOR CUFF: Mild supraspinatus tendinosis with minimal insertional intrasubstance partial tearing measuring up to 0.3 cm. Subscapularis tendinosis with distal articular surface partial tearing measuring up to 2.3 cm in ML dimension. No full-thickness rotator cuff tendon tear. No muscle atrophy or fatty infiltration. BICEPS: Fluid within the proximal long head biceps tendon sheath, consistent with mild tenosynovitis. No transverse tendon tear or tendon retraction. CORACOACROMIAL ARCH: The undersurface of the acromion is flat with no subacromial spur. Mild acromioclavicular osteoarthritis. LABRUM/CAPSULE: No displaced labral tear. Intact inferior joint capsule. GLENOHUMERAL JOINT/MARROW: Unremarkable. MR/MR shoulder RT wo con IMPRESSION: 1. Mild supraspinatus tendinosis with minimal insertional intrasubstance partial tearing. Subscapularis tendinosis with distal articular surface partial tearing measuring 2.3 cm in ML dimension. No full-thickness rotator cuff tendon tear. 2. Mild proximal long head biceps tenosynovitis without a measurable tendon tear. 3. Mild acromioclavicular osteoarthritis. Dictated By: Ritesh Horne MD Signed By: <Electronically signed by Ritesh Horne MD in OV> 07/25/[address] [address] XRay Report Signed Patient: Stephani Villalobos MR#: [id number] : 1970 Acct:[id number] Age/Sex: 52 / F ADM Date: 07/09/23 Ordering Physician: Salo Yates MD Date of Service: 07/09/23 Procedure(s): XR hand LT min 3V Accession Number(s): [id number] cc: Fatmata Villalobos MD; Salo Yates MD~ EXAMINATION: XR hand RT min 3V, XR hand LT min 3V CLINICAL INFORMATION: Osteoarthritis COMPARISON: Radiographs 11/13/2014 and 11/13/2014 TECHNIQUE: 3 views of the bilateral hands FINDINGS: RIGHT HAND: No fracture or dislocation. Degenerative changes of the hand and wrist worst involving the and wrist progressed from prior with advanced loss of first carpometacarpal joint space and bulky osteophytes and to a lesser extent involving the distal interphalangeal joints where there is minimal degenerative spurring progressed from prior. No cortical erosion. Soft tissues are unremarkable. LEFT HAND: No fracture or dislocation. Degenerative changes of the hand and wrist similar to prior worst involving the first carpometacarpal joint where there is advanced loss of joint space and bulky osteophytes and to a lesser extent involving the distal interphalangeal joints where there is minimal degenerative spurring progressed from prior. No cortical erosion. Soft tissues are unremarkable. XR/XR hand LT min 3V IMPRESSION: 1. Degenerative changes of the hands and wrists progressed from prior worst involving the first carpometacarpal joints bilaterally where it is advanced. Dictated By: Joceline Olguin MD [address] [address] XRay Report Signed Patient: Stephani Villalobos MR#: [id number] : 1970 Acct:[id number] Age/Sex: 52 / F ADM Date: 07/09/23 Ordering Physician: Salo Yates MD Date of Service: 07/09/23 Procedure(s): XR foot RT min 3V Accession Number(s): [id number] cc: Famtata Villalobos MD; Salo Yates MD~ EXAMINATION: XR foot RT min 3V, XR foot LT min 3V CLINICAL INFORMATION: Pain COMPARISON: None TECHNIQUE: 3 views of the bilateral feet FINDINGS: RIGHT FOOT: No acute fracture or dislocation. Minimal degenerative changes of the first metatarsophalangeal and the first tarsometatarsal joint with degenerative spurring. No cortical erosion. No joint effusion. Soft tissues are unremarkable. LEFT FOOT: No fracture or dislocation. Moderate degenerative changes of the first metacarpophalangeal joint with loss of joint space and degenerative spurring. Achilles tendon enthesopathy. No cortical erosion. No joint effusion. Soft tissues are unremarkable. XR/XR foot RT min 3V IMPRESSION: RIGHT FOOT: Mild degenerative changes of the first metatarsophalangeal joint with degenerative spurring. LEFT FOOT: Moderate degenerative changes of the first metacarpophalangeal joint with loss of joint space and degenerative spurring. Dictated By: Joceline Olguin MD Today's labs: Laboratory Tests 09/11/23 10:31 WBC 8.4 Hgb 13.6 ESR 19 C-Reactive Protein 0.19 Rheumatoid Factor < 13.0 Assessment & Plan Assessment & Plan (1) Right rotator cuff tendonitis: Code(s): M75.81 - Other shoulder lesions, right shoulder (2) Osteoarthritis of left foot: Code(s): M19.072 - Primary osteoarthritis, left ankle and foot (3) Osteoarthritis of hands, bilateral: Code(s): M19.041 - Primary osteoarthritis, right hand; M19.042 - Primary osteoarthritis, left hand (4) Fibromyalgia: Code(s): M79.7 - Fibromyalgia Plan The patient has many areas of pain but the left foot and right shoulder seem to be the area of greatest concern. Radiographs of the left foot do document some osteoarthritis at the area where she is tender so I think mostly that is the cause of her pain there. There is some instep pain as well which could be a secondary symptom. I think we need further input from Podiatry about this. We will try to set up a consultation. I did today recheck some inflammatory markers, CBC and rheumatoid factor to try to evaluate for potential inflammatory disease but those remain normal. They were done years ago and were negative. The right shoulder pain continues. She has had physical therapy for it. The MRI shows a questionable partial tear. I think that should be further evaluated in Orthopedics and I will request a consultation. She was given the refill on the tramadol since it does seem to help her pain. She also takes the ibuprofen for the foot pain at times and that seems to be tolerable and she takes it intermittently. Follow-up in 3 months seems reasonable. Review of her old chart, today's history, the x-rays and lab work took 33 minutes. Orders: Orders Rheumatoid Factor Today M79.672 - Pain in left foot Erythrocyte Sedimentation Rate Today M79.672 - Pain in left foot Complete Blood Count Auto Diff Today M79.672 - Pain in left foot C Reactive Protein Today M79.672 - Pain in left foot Cyclic Citrullinated Peptide Today M79.672 - Pain in left foot Referrals Orthopedics Referral M75.81 - Other shoulder lesions, right shoulder Podiatry Referral M19.072 - Primary osteoarthritis, left ankle and foot, M79.672 - Pain in left foot Medications: Refilled tramadol 50 mg PO Q8H PRN 90 tabs 3RF pain M19.072 - Primary osteoarthritis, left ankle and foot Coding Level of Care Code Est Pt Level 4 (36541) Diagnoses Right rotator cuff tendonitis M75.81 Osteoarthritis of left foot M19.072 Osteoarthritis of hands, bilateral M19.041; M19.042 Fibromyalgia M79.7
[2023-09-11 08:56] VITALS: BP 118/84; PULSE 89; TEMP 36.4; O2SAT 98; BMI 27.4
== END 2023-09-11 09:29 | disposition home or self-care (01) ==
PROVIDERS: PCP Internal Medicine; Visit Provider Internal Medicine Rheumatology
DX: M75.81 Other shoulder lesions, right shoulder (principal); M19.072 Primary osteoarthritis, left ankle and foot; M19.041 Primary osteoarthritis, right hand; M19.042 Primary osteoarthritis, left hand; M79.7 Fibromyalgia
CPT/HCPCS: 99214

== ENCOUNTER 2023-09-11 08:40 | Outpatient (REF) | payer OTHER, SELFPAY ==
[2023-09-11 10:33] LABS: MANUAL DIFF FLAG NO
[2023-09-11 11:33] LABS: Basophils Percent Auto 0.4 % (0-2); Eosinophils Absolute Auto 0.1 X10*3/uL (0.0-0.4); Eosinophils Percent Auto 1.3 % (0-4); Hematocrit 41.2 % (37.0-47.0); Hemoglobin 13.6 g/dl (12.0-16.0); Imm Gran Abs Auto 0.03 X10*3/uL (0.00-0.03); Imm Gran Pct Auto 0.4 % (0.0-0.4); Lymphocytes Absolute Auto 2.1 X10*3/uL (1.2-4.9); Lymphocytes Percent Auto 25.1 % (20-40); Mean Corpuscular Hemoglobin 29.6 pg (27.0-33.0); Mean Corpuscular Volume 89.6 fL (80.0-98.0); Mean Platelet Volume 11.5 fL (9.4-12.3); Monocytes Absolute Auto 0.6 X10*3/uL (0.1-1.2); Monocytes Percent Auto 7.5 % (2-11); Neutrophils Absolute Auto 5.5 x10*3/uL (2.0-8.3); Neutrophils Percent Auto 65.3 % (45-73); Platelet Count 260 X10*3/uL (160-400); Red Cell Distribution Width 12.6 % (11.0-16.0); White Blood Count 8.4 X10*3/uL (4.8-10.8)
[2023-09-11 12:05] LABS: Erythrocyte Sedimentation Rate 19 MM/HR (0-20)
[2023-09-11 12:28] LABS: Rheumatoid Factor < 13.0 IU/mL (<15.0)
[2023-09-11 13:09] LABS: C Reactive Protein 0.19 mg/dL (< or = 0.50)
[2023-09-13 15:04] LABS: Cyclic Citrullinated Peptide <16 UNITS
== END 2023-09-11 08:41 | disposition home or self-care (01) ==
LOC: HO.LAB 08:40
PROVIDERS: PCP Internal Medicine; Visit Provider Internal Medicine Rheumatology
DX: M75.81 Other shoulder lesions, right shoulder (principal); M19.072 Primary osteoarthritis, left ankle and foot; M79.7 Fibromyalgia; M19.041 Primary osteoarthritis, right hand; M19.042 Primary osteoarthritis, left hand
CPT/HCPCS: 36415; 85025; 85652; 86140; 86200; 86431; 99212

== ENCOUNTER 2023-09-17 14:53 | Outpatient (AMB) | payer OTHER, SELFPAY ==
[2023-09-17 14:54] VITALS: BMI 27.2
--- NOTE | 2023-09-17 14:54 | A.OFFVIS_ITS ---
Intake Vital Signs 09/17/23 14:54 Height 5 ft 2 in Weight 149 lb BMI 27.2 Intake Visit Reasons: ECHOCARDIOLOGIST- RT Rotator cuff tear Intake Note: Stephani is a 52 year old right hand dominant female who presents today as a new patient with complaints of right shoulder pain. Patient reports that she has had pain ongoing for about 1 year now. Has tried PT with no relief. No injection history. Allergies No Known Allergies Allergy (Verified 09/11/23 08:47) HPI ECHOCARDIOLOGIST- RT Rotator cuff tear HPI Details Stephani is a 52 year old woman who presents for an MRI review of her right shoulder pain. She reports having shoulder pain for ~1 year now, worse with overhead & lifting activities. She found some relief from PT in the past, and denies any prior injections. She follows with Rheumatology for Fibromyalgia. [facility] Medical History (Updated 09/11/23 @ 10:25 by Salo Yates MD) Uterine fibroid Hemorrhoids Uterine fibroid Insomnia Essential hypertension Hematuria Calcific tendinitis of left shoulder Primary osteoarthritis of hands, bilateral Glucosuria HPV test positive At high risk for breast cancer Insomnia secondary to situational depression GERD (gastroesophageal reflux disease) Vitamin D deficiency Surgical History H/O excision of epidermal inclusion cyst (05/22/23) History of lumpectomy of left breast (08/23/22) History of lumpectomy of right breast Hx of tubal ligation History of bilateral breast biopsy (2017) History of section History of removal of cyst History of hemorrhoidectomy History of esophagogastroduodenoscopy (EGD) (08/26/19) Hx of colonoscopy Family History Mother Breast cancer, Onset Age: 50 Ovarian cancer Daughter Squamous cell carcinoma of uterus History of thyroid cancer Maternal Grandmother History of stomach cancer Maternal Uncle Family history of prostate cancer, Onset Age: 60 Social History Household Members: Children Housing: House Alcohol intake: current Alcohol intake frequency: holidays/special occasions only Alcohol type: beer and wine Patient Tobacco Use Status: Current everyday Tobacco user Tobacco use type: Cigarette Cigarettes Per Day: 6 e-Cigarette/Vaping Use: Never Used Second Hand Smoke Exposure: No service: No Current occupational status: employed Current occupational exposures/hazards: No Sexual orientation: Straight/Heterosexual Gender identity: Female Cognitive needs: No Hearing needs: No Vision needs: Yes Female Reproductive History Menstrual Age of Menarche: 12 Review of Systems Const All systems reviewed & are unremarkable except as noted in HPI and below Physical Exam Vital Signs: BMI result Body Mass Index 27.2 Const General: no acute distress, alert and awake Orientation/consciousness: patient oriented x3 HEENT Head: Yes normocephalic and Yes atraumatic Eyes EOM: EOMs intact bilaterally Resp Effort & Inspection: normal respiratory effort and able to speak in complete sentences Cardio Jugular venous distension: no JVD Skin General skin exam: turgor normal Rashes: no rashes Neuro General: patient oriented x3 Extrem Other: Right shoulder with full ROM ( rafael julio mid arc of abdcution). 40/90/130/L5 neg lift off 4+/5 EC bilaterally +H/N Psych Appearance: grossly normal Affect: normal affect Attitude: cooperative Results Reviewed Results Reviewed: I personally reviewed relevant MR images 1. Mild supraspinatus tendinosis with minimal insertional intrasubstance partial tearing. Subscapularis tendinosis with distal articular surface partial tearing measuring 2.3 cm in ML dimension. No full-thickness rotator cuff tendon tear. 2. Mild proximal long head biceps tenosynovitis without a measurable tendon tear. 3. Mild acromioclavicular osteoarthritis. Assessment & Plan Assessment & Plan (1) Right rotator cuff tendonitis: Code(s): M75.81 - Other shoulder lesions, right shoulder Plan: Partial thickness rtc tear with intermittant pain. Reviewed MRI findings No intervetion at this time. Injections and/or PT is pain worsens. Plan Scribed for Suraj Lara MD by Noé Calixto certified medical transcriptionist, on 09/17/23 at 3:15 PM, EST. Coding Level of Care Code New Pt Level 4 (88805) Diagnoses Right rotator cuff tendonitis M75.81
== END 2023-09-17 15:12 | disposition home or self-care (01) ==
PROVIDERS: PCP Internal Medicine; Visit Provider Orthopaedic Surgery
DX: M75.81 Other shoulder lesions, right shoulder (principal)
CPT/HCPCS: 99204

== ENCOUNTER → 2023-09-17 14:53 | Outpatient (BNVA) | payer OTHER, SELFPAY | PROVIDERS: PCP Internal Medicine; Visit Provider Orthopaedic Surgery | DX: M75.81 Other shoulder lesions, right shoulder (principal) | CPT/HCPCS: 99202 ==

== ENCOUNTER 2023-10-09 14:29 | Outpatient (AMB) | payer OTHER, SELFPAY ==
--- NOTE | 2023-10-09 14:46 | MHC.OFFVIS ---
Intake Vital Signs 10/09/23 15:06 Height 5 ft 2 in Weight 149 lb 6 oz BMI 27.3 BP 137/85 Blood Pressure Location Lt brachial Position Sitting Pulse 78 Intake Visit Reasons: large left breast mass Intake Note: Patient is seen in office for evaluation of a left breast mass. Pt c/o: upper left breast lump, onset 2 weeks, painful when breathing, denies discharge, redness or discoloration Building Certifier Required: Yes Building Certifier Language: Department Clinician Name: Adeola YUAN Information Interpreted: non-clinical & clinical Marketing Assistant Manager: Marketing Assistant Manager Present Accompanied by: Self / Same As Patient Allergies No Known Allergies Allergy (Verified 10/09/23 15:07) Medication List - Last Reconciled 10/09/23 by Steve Cano MD amitriptyline 25 mg PO BEDTIME 30 days buspirone 5 mg PO TID dicyclomine 10 mg PO TID duloxetine 20 mg PO BID famotidine 40 mg PO BEDTIME 30 days gabapentin 300 mg PO BEDTIME 30 days hydrocortisone 2.5% (Proctosol HC) 1 appl [place] BID PRN hydroxyzine HCl 10 mg PO TID ibuprofen 800 mg PO TID PRN 90 days linaclotide (Linzess) 290 mcg PO DAILY losartan 100 mg PO DAILY 90 days meclizine 25 mg PO BID PRN 30 days metoclopramide HCl (Reglan) 10 mg PO .qacsupper and qhs mirabegron ER (Myrbetriq) 25 mg PO DAILY pantoprazole 40 mg PO BID terbinafine HCl 250 mg PO DAILY 90 days tramadol 50 mg PO Q8H PRN trazodone 50 mg PO BEDTIME varenicline 1 mg PO BID zolpidem 5 mg PO BEDTIME PRN HPI HPI Comments History of Present Illness Details 52-year-old female returns reviewed results of a recent. She was determined to be at high risk for breast cancer with Emily model lifetime risk of breast cancer 24% and placed on a high risk protocol including twice yearly breast examinations, yearly mammogram and MRIs. MR guided biopsy was performed on 03/27/2019 which revealed intraductal papilloma.? Subsequent mammogram and ultrasound on 10/22/2019 revealed no suspicious changes only bilateral cyst.? Follow-up MRI of 01/26/2020 revealed a non mass enhancement in the 2 o'clock position this was identified by focused ultrasound of the right breast.? She subsequently underwent an ultrasound-guided core biopsy on 03/12/2020.? Pathology revealed benign breast tissue with no evidence of malignancy. MRI of 03/25/2021 revealed a suspicious non-mass enhancement in the left breast in the 3 o'clock position felt to be suspicious for malignancy and MR guided core biopsy on 04/20/2021 revealed? benign breast tissue with apocrine metaplasia, focal usual ductal hyperplasia, and focal fibroadenomatous change.? No atypia or malignancy was identified. A mammogram of 11/22/2021 revealed bilateral fibrocystic changes greater on the right with no significant change from the prior study. A dominant cyst in the right breast at the site of palpable concern measures 3.6 cm. Findings were considered benign ( BI-RADS 2) and yearly mammography recommended. MRI of 05/19/2022 revealed an increasing left breast mass, 03:00 o'clock with associated biopsy clip. The surgical excision was recommended. She underwent excision of this mass on 08/23/2022. Pathology revealed benign breast tissue with fibrocystic changes, stromal fibrosis, usual ductal hyperplasia, apocrine metaplasia and ductal ectasia. No atypia or malignancy was identified. Her latest mammogram of 11/24/2022 revealed no mammographic evidence of malignancy (BI-RADS 2). Her Tyrer-Cuzick remaining lifetime risk of breast cancer was calculated at 8%. A density score was determined to be category C. Breast MRI performed on 05/21/2023 revealed a 12 mm left breast mass at 3:00, 7.5 cm from the nipple. This was felt to be high suspicion for malignancy and subsequent focused ultrasound revealed a suspicious density. She underwent ultrasound-guided core biopsy on 06/05/2023. Pathology revealed a fibroadenoma without evidence of atypia or malignancy. She now feels the lump in the upper outer quadrant left breast has increased in size as become more noticeable in the standing position. She also reports pain across the chest on the left side. 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, bilateral Glucosuria HPV test positive At high risk for breast cancer Insomnia secondary to situational depression GERD (gastroesophageal reflux disease) Vitamin D deficiency Surgical History H/O excision of epidermal inclusion cyst (05/22/23) History of lumpectomy of left breast (08/23/22) History of lumpectomy of right breast Hx of tubal ligation History of bilateral breast biopsy (2018) History of section History of removal of cyst History of hemorrhoidectomy History of esophagogastroduodenoscopy (EGD) (08/26/19) Hx of colonoscopy Family History Mother Breast cancer, Onset Age: 50 Ovarian cancer Daughter Squamous cell carcinoma of uterus History of thyroid cancer Maternal Grandmother History of stomach cancer Maternal Uncle Family history of prostate cancer, Onset Age: 60 Social History Household Members: Children Housing: House Alcohol intake: current Alcohol intake frequency: holidays/special occasions only Alcohol type: beer and wine Patient Tobacco Use Status: Current everyday Tobacco user Tobacco use type: Cigarette Cigarettes Per Day: 6 e-Cigarette/Vaping Use: Never Used Second Hand Smoke Exposure: No service: No Current occupational status: employed Current occupational exposures/hazards: No Sexual orientation: Straight/Heterosexual Gender identity: Female Cognitive needs: No Hearing needs: No Vision needs: Yes Female Reproductive History Menstrual Age of Menarche: 12 Review of Systems Const All systems reviewed & are unremarkable except as noted in HPI and below Denies body aches, Denies chills, Denies fatigue and Denies fever(s) Eyes Denies change in vision Card Reports as per HPI, Denies chest pain, Reports chest pain with activity (Intermittent), Reports rapid heart rate (Intermittent), Denies leg edema, Denies lightheadedness and Denies dyspnea Resp Denies chest congestion, Denies cough, Denies dyspnea and Denies wheezing GI Denies abdominal pain, Denies constipation, Denies diarrhea, Reports nausea (Intermittent) and Denies vomiting Denies nipple discharge and Denies dysuria Musc Denies myalgias, Denies numbness and Denies tingling Skin/Breast Reports as per HPI, Denies breast swelling, Denies breast skin changes, Reports breast pain, Denies breast mass, Denies lesions, Denies nipple discharge and Denies rash Neuro Denies numbness and Denies tingling Endo Denies fatigue Aller/Immun Denies wheezing Physical Exam Vital Signs: Last Vital Signs Pulse 78 10/09/23 15:06 BP 137/85 10/09/23 15:06 BMI result Body Mass Index 27.3 Const General: no acute distress Nutritional Appearance: well nourished Orientation/consciousness: patient oriented x3 Limitations: no limitations Eyes Sclerae: sclerae normal EOM: EOMs intact bilaterally Chest Other: Left breast: No skin change, no nipple retraction, no nipple discharge, palpable mass noted in the sitting position below the previous incision in the upper outer quadrant, nontender to palpation, not definitely fluctuant, and no enlarged lymph nodes. Right breast: No skin change, no nipple retraction, no nipple discharge, palpable fibroadenoma noted in the central portion of the breast towards the upper outer quadrant, tender in the upper outer quadrant, and no enlarged lymph nodes Chest/axillae images: 1. Previous incision upper outer quadrant with underlying palpable mass Resp Effort & Inspection: normal respiratory effort Skin General skin exam: no rashes or lesions noted Neuro General: patient oriented x3 Extrem General: Yes no clubbing, cyanosis or edema Assessment & Plan Assessment & Plan (1) Breast mass, left: Code(s): N63.20 - Unspecified lump in the left breast, unspecified quadrant (2) At high risk for breast cancer: Code(s): Z91.89 - Other specified personal risk factors, not elsewhere classified Plan Patient returns with an increasing mass in the left breast as noted above. This may be residual fibroadenoma, seroma or hematoma. I recommended repeating the ultrasound in this location and if seroma, aspiration will be performed. She will return following the ultrasound to review the results. Orders: Orders US breast LT limited Today N63.20 - Unspecified lump in the left breast, unspecified quadrant, Z91.89 - Other specified personal risk factors, not elsewhere classified Coding Level of Care Code Est Pt Level 3 (45167) Diagnoses Breast mass, left N63.20 At high risk for breast cancer Z91.89
[2023-10-09 15:06] VITALS: BP 137/85; PULSE 78; BMI 27.3
== END 2023-10-09 15:41 | disposition home or self-care (01) ==
PROVIDERS: PCP Internal Medicine; Visit Provider Surgery
DX: N63.20 Unspecified lump in the left breast, unspecified quadrant (principal); Z80.3 Family history of malignant neoplasm of breast
CPT/HCPCS: 99213

== ENCOUNTER → 2023-10-09 14:29 | Outpatient (BNVA) | payer OTHER, SELFPAY | PROVIDERS: PCP Internal Medicine; Visit Provider Surgery | DX: N63.25 Unspecified lump in the left breast, overlapping quadrants (principal); Z91.89 Other specified personal risk factors, not elsewhere classified | CPT/HCPCS: 99212 ==

== ENCOUNTER → 2023-10-11 14:03 | Outpatient (BNVA) | payer OTHER, SELFPAY | PROVIDERS: PCP Internal Medicine; Visit Provider Surgery | DX: N63.20 Unspecified lump in the left breast, unspecified quadrant (principal) | CPT/HCPCS: 10160; 99212 ==

== ENCOUNTER 2023-10-25 10:58 | Outpatient (REF) | payer OTHER, SELFPAY ==
--- NOTE | ~2023-10-25 | US_ITS ---
EXAMINATION: MM DIAGNOSTIC DIGITAL BREAST TOMOSYNTHESIS, BILATERAL US BREAST LIMITED, LEFT MAMMOGRAPHY: CLINICAL INFORMATION: High risk patient, complaining of palpable lump 11:00 axis left breast in the region of excisional biopsy 08/23/2022. Patient has history of bilateral benign excisional biopsies and bilateral benign needle biopsies. COMPARISON: Mammography: 06/05/2023 left, 11/24/2022 bilateral, 11/22/2021 bilateral, to 07/09/2021 bilateral, 10/22/2019 bilateral. MRI: 05/21/2023, 05/19/2022, 03/25/2021. Recent benign left ultrasound guided biopsy 06/05/2023. TECHNIQUE: Digital breast tomosynthesis is performed in both the craniocaudal and mediolateral oblique views along with computer-aided detection (CAD). Synthesized 2D images are generated from the tomosynthesis. In addition a full-field left mediolateral view was added. FINDINGS: There are scattered areas of fibroglandular density (ACR BI-RADS breast composition Category b). There are bilateral post benign biopsy clips, 2 in each breast, and one abutting the right lower axillary lymph node. Right breast demonstrates multiple circumscribed masses, in keeping with waxing and waning cysts, which are known from prior ultrasounds. No suspicious masses or areas of architectural distortion. No suspicious calcifications. Left breast demonstrates stable and evolving post excisional biopsy scarring in the upper outer region, less pronounced than previously. Redemonstration of the small mass at 2:00 which was consistent with a fibroadenoma with abutting butterfly shaped biopsy clip. No definite mammographic correlate to the region of palpable concern 11:00 left breast, although given the complexity of the appearance of the postoperative left breast, mass could easily be obscured. No suspicious calcifications noted. 2 lateral and upper post benign biopsy clips present. ULTRASOUND: CLINICAL INFORMATION: High risk patient, complaining of palpable lump 11:00 axis left breast in the region of excisional biopsy 08/23/2022. Patient has history of bilateral benign excisional biopsies and bilateral benign needle biopsies. COMPARISON: Most recently 06/05/2023. TECHNIQUE: Targeted sonographic evaluation was performed using a high frequency linear transducer. Attention was given to the 11:00 to 2:00 axis left breast, to cover the 11:00 region of palpable concern. Selected archived documentation. FINDINGS: LEFT BREAST: The patient's palpable focus of concern appears to lie directly on the biopsy scar, where there are 2 simple cysts at the 11:00 axis, 3 cm from the nipple, the larger cyst measuring 1.8 cm and the smaller measuring 0.7 cm. These are benign findings. There are numerous additional cysts within the left breast in the areas scanned consistent with fibrocystic changes. There is a scar at the 11:00 to 12:00 axis II cm from the nipple, with an abutting oval-shaped hypoechoic possible fibroadenoma or complex seroma just medial to the scar measuring 0.7 x 0.3 x 0.7 cm. This is indeterminate although likely benign, and six-month interval follow-up targeted left breast ultrasound recommended to ensure stability. US/US breast LT limited mamm only IMPRESSION: There are no findings in either breast suspicious for malignancy. Palpable focus of concern left breast 11:00 axis appears related to be 2 abutting simple cysts just adjacent to the 12:00 scar at the 11:00 axis. These are benign. There are waxing and waning cysts in both breasts, in particular the right breast. There are post benign needle biopsy and excisional biopsy changes bilaterally, evolving in the left breast. There is a mildly complex seroma or possibly solid oval mass just medial to the scar in the left breast at the 12:00 axis, 2 cm from the nipple, as detailed measuring up to 7 mm. Dedicated six-month interval follow-up targeted left breast ultrasound recommended to ensure stability. Alternatively, this could be assessed on upcoming screening MRI. OVERALL ASSESSMENT: Mammography: BI-RADS 3 - Probably benign finding(s) - 6 month follow-up suggested Ultrasound: BI-RADS 3 - Probably benign finding(s) - 6 month follow-up suggested RECOMMENDATION: 6 Month F/U This patient's information was entered into a reminder system with a target due date for their next mammogram.
== END 2023-10-25 10:59 | disposition home or self-care (01) ==
LOC: HO.MAMMO 10:58
PROVIDERS: PCP Internal Medicine; Visit Provider Surgery
DX: R92.8 Other abnormal and inconclusive findings on diagnostic imaging of breast (principal)
CPT/HCPCS: 76642; 77062; 77066

== ENCOUNTER → 2023-10-25 11:01 | Outpatient (BNV) | payer OTHER, SELFPAY | PROVIDERS: PCP Internal Medicine; Visit Provider Radiology Diagnostic Radiology | DX: D24.2 Benign neoplasm of left breast (principal); N60.01 Solitary cyst of right breast; N60.02 Solitary cyst of left breast | CPT/HCPCS: 76642; 77062; 77066 ==

== ENCOUNTER 2023-11-01 14:45 | Outpatient (AMB) | payer OTHER, SELFPAY ==
--- NOTE | 2023-11-01 14:48 | A.OFFVIS_ITS ---
Intake Vital Signs 11/01/23 14:58 Height 5 ft 2 in Weight 150 lb BMI 27.4 BP 127/75 Blood Pressure Location Lt brachial Position Sitting Pulse 80 Intake Visit Reasons: Left breast palpable lump, US/Mammo results Intake Note: Patient is seen in office for ultrasound & mammogram results, following left breast mass. Pt c/o: denies any changes continued pain in the left breast when taking a deep breath, here for results u/s & mm: 10/25/23 Chief Controller Center Required: Yes Chief Controller Center Language: Microfabrication Engineer Manager Name: Adeola YUAN Information Interpreted: non-clinical & clinical Dye Boarding Machine Operator: Dye Boarding Machine Operator Present Accompanied by: Self / Same As Patient Allergies No Known Allergies Allergy (Verified 11/01/23 14:58) HPI HPI Comments History of Present Illness Details 52-year-old female patient with a high r isk for breast cancer, placed on high risk breast protocol due to a Emily model lifetime risk of breast cancer of 24%. A previous MR guided biopsy on 03/27/2019 revealed intraductal papilloma. Subsequent mammogram and ultrasound on 10/22/2019 revealed no suspicious changes only bilateral cysts. A follow-up MRI of 01/26/2020 revealed a non mass enhancement and 2 o'clock position of the right breast. She subsequently underwent ultrasound-guided core biopsy on 03/12/2020. Pathology revealed benign breast tissue with no evidence of malignancy. MRI of 03/25/2021 revealed a suspicious non-mass enhancement of the left breast at the 3 o'clock position felt to be suspicious for malignancy. An MR guided core biopsy on 04/20/2021 revealed benign breast tissue with no malignancy. Apocrine metaplasia, focal usual ductal hyperplasia and focal fibroadenomatoid change was identified. Her most recent Tyrer-Cuzick remaining lifetime risk of breast cancer was calculated 8%. Breast MRI obtained 05/21/2023 revealed a 12 mm left breast mass in the 3 o'clock position, 7.5 cm from the nipple. She subsequently underwent an ultrasound-guided core biopsy on 06/05/2023. Pathology revealed a fibroadenoma without evidence of atypia or malignancy. She reported a painful lump in the left breast in the region of the previous biopsy. Subsequent mammogram and ultrasound was performed on 10/25/2023. She returns today to review the results. This revealed no findings suspicious for malignancy in either breast. Palpable focus of concern in the 11:00 o'clock axis of the left breast appeared consistent with 2 abutting cysts adjacent to the 12:00 o'clock scar. These were felt to be benign. Waxing and waning cysts were noted in the right breast as well. Findings were felt to be low suspicion for malignancy and a six-month follow-up left breast ultrasound was recommended (BI-RADS 3). Patient continues to report pain in the left chest with pain on deep inspiration. The pain is mainly on the left side. 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, bilateral Glucosuria HPV test positive At high risk for breast cancer Insomnia secondary to situational depression GERD (gastroesophageal reflux disease) Vitamin D deficiency Surgical History H/O excision of epidermal inclusion cyst (05/22/23) History of lumpectomy of left breast (08/23/22) History of lumpectomy of right breast Hx of tubal ligation History of bilateral breast biopsy (2017) History of section History of removal of cyst History of hemorrhoidectomy History of esophagogastroduodenoscopy (EGD) (08/26/19) Hx of colonoscopy Family History Mother Breast cancer, Onset Age: 50 Ovarian cancer Daughter Squamous cell carcinoma of uterus History of thyroid cancer Maternal Grandmother History of stomach cancer Maternal Uncle Family history of prostate cancer, Onset Age: 60 Social History Household Members: Children Housing: House Alcohol intake: current Alcohol intake frequency: holidays/special occasions only Alcohol type: beer and wine Patient Tobacco Use Status: Current everyday Tobacco user Tobacco use type: Cigarette Cigarettes Per Day: 6 e-Cigarette/Vaping Use: Never Used Second Hand Smoke Exposure: No service: No Current occupational status: employed Current occupational exposures/hazards: No Sexual orientation: Straight/Heterosexual Gender identity: Female Cognitive needs: No Hearing needs: No Vision needs: Yes Female Reproductive History Menstrual Age of Menarche: 12 Review of Systems Const All systems reviewed & are unremarkable except as noted in HPI and below Denies body aches, Denies chills, Denies fatigue and Denies fever(s) Eyes Denies change in vision Card Reports as per HPI, Denies chest pain, Reports chest pain with activity (Intermittent), Reports rapid heart rate (Intermittent), Denies leg edema, Denies lightheadedness and Denies dyspnea Resp Denies chest congestion, Denies cough, Reports pain on inspiration, Reports pain with cough, Denies dyspnea and Denies wheezing GI Denies abdominal pain, Denies constipation, Denies diarrhea, Reports nausea ( Intermittent) and Denies vomiting Denies nipple discharge and Denies dysuria Musc Denies myalgias, Denies numbness and Denies tingling Skin/Breast Reports as per HPI, Denies breast swelling, Denies breast skin changes, Reports breast pain, Denies breast mass, Denies lesions, Denies nipple discharge and Denies rash Neuro Denies numbness and Denies tingling Endo Denies fatigue Aller/Immun Denies wheezing Physical Exam Vital Signs: Last Vital Signs Pulse 80 11/01/23 14:58 BP 127/75 11/01/23 14:58 BMI result Body Mass Index 27.4 Const General: no acute distress Nutritional Appearance: well nourished Orientation/consciousness: patient oriented x3 Limitations: no limitations Eyes Sclerae: sclerae normal EOM: EOMs intact bilaterally Chest Other: Exam deferred Resp Effort & Inspection: normal respiratory effort Skin General skin exam: no rashes or lesions noted Neuro General: patient oriented x3 Extrem General: Yes no clubbing, cyanosis or edema Assessment & Plan Assessment & Plan (1) Pleuritic chest pain: Code(s): R07.81 - Pleurodynia (2) At high risk for breast cancer: Code(s): Z91.89 - Other specified personal risk factors, not elsewhere classified (3) Breast mass, left: Code(s): N63.20 - Unspecified lump in the left breast, unspecified quadrant Plan Patient is palpable lump appears to be associated with 2 adjacent cysts in the left breast at the 12 to 11 o'clock position. Mammogram and ultrasound were low suspicion (BI-RADS 3) and six-month follow-up study has been ordered. Patient also complains of pleuritic pain which I can not explain by the breast lesion. I recommended further evaluation with chest CT. She will return following the study to review the results. Orders: Orders CT chest wo IV con Today R07.81 - Pleurodynia, Z91.89 - Other specified personal risk factors, not elsewhere classified US breast LT complete 04/25/24 N63.20 - Unspecified lump in the left breast, unspecified quadrant, Z91.89 - Other specified personal risk factors, not elsewhere classified Coding Level of Care Code Est Pt Level 3 (41832) Diagnoses Pleuritic chest pain R07.81 At high risk for breast cancer Z91.89 Breast mass, left N63.20
[2023-11-01 14:58] VITALS: BP 127/75; PULSE 80; BMI 27.4
== END 2023-11-01 15:01 | disposition home or self-care (01) ==
PROVIDERS: PCP Internal Medicine; Visit Provider Surgery
DX: R07.81 Pleurodynia (principal); Z91.89 Other specified personal risk factors, not elsewhere classified; N63.20 Unspecified lump in the left breast, unspecified quadrant
CPT/HCPCS: 99213

== ENCOUNTER → 2023-11-01 14:45 | Outpatient (BNVA) | payer OTHER, SELFPAY | PROVIDERS: PCP Internal Medicine; Visit Provider Surgery | DX: R07.81 Pleurodynia (principal); N63.20 Unspecified lump in the left breast, unspecified quadrant; Z91.89 Other specified personal risk factors, not elsewhere classified | CPT/HCPCS: 99212 ==

== ENCOUNTER 2023-11-29 14:36 | Outpatient (AMB) | payer MEDICARE, SELFPAY ==
--- NOTE | 2023-11-29 14:46 | A.OFFVIS_ITS ---
Intake Vital Signs 3 11/29/23 14:49 Height 5 ft 2 in Weight 153 lb 2 oz BMI 28.0 BP 115/72 Blood Pressure Location Lt brachial Position Sitting Pulse 87 Intake Visit Reasons: right breast mass Intake Note: Patient is seen in office for evaluation of a right breast cyst. 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 Name: Adeola YUAN Information Interpreted: non-clinical & clinical Case Coordinator: Case Coordinator Present Accompanied by: Self / Same As Patient Allergies No Known Allergies Allergy (Verified 11/29/23 14:49) Medication List - Last Reconciled 11/29/23 by Steve Cano MD amitriptyline 25 mg PO BEDTIME 30 days buspirone 5 mg PO TID dicyclomine 10 mg PO TID duloxetine 20 mg PO BID famotidine 40 mg PO BEDTIME 30 days gabapentin 300 mg PO BEDTIME 30 days hydrocortisone 2.5% (Proctosol HC) 1 appl [place] BID PRN hydroxyzine HCl 10 mg PO TID ibuprofen 800 mg PO TID PRN 90 days linaclotide (Linzess) 290 mcg PO DAILY losartan 100 mg PO DAILY 90 days meclizine 25 mg PO BID PRN 30 days metoclopramide HCl (Reglan) 10 mg PO .qacsupper and qhs mirabegron ER (Myrbetriq) 25 mg PO DAILY pantoprazole 40 mg PO BID terbinafine HCl 250 mg PO DAILY 90 days tramadol 50 mg PO Q8H PRN trazodone 50 mg PO BEDTIME varenicline 1 mg PO BID 30 days zolpidem 5 mg PO BEDTIME PRN HPI HPI Comments 2 History of Present Illness0 Details 52-year-old female patient with a high r isk for breast cancer, placed on high risk breast protocol due to a Emily model lifetime risk of breast cancer of 24%. A previous MR guided biopsy on 03/27/2019 revealed intraductal papilloma. Subsequent mammogram and ultrasound on 10/22/2019 revealed no suspicious changes only bilateral cysts. A follow-up MRI of 01/26/2020 revealed a non mass enhancement and 2 o'clock position of the right breast. She subsequently underwent ultrasound-guided core biopsy on 03/12/2020. Pathology revealed benign breast tissue with no evidence of malignancy. MRI of 03/25/2021 revealed a suspicious non-mass enhancement of the left breast at the 3 o'clock position felt to be suspicious for malignancy. An MR guided core biopsy on 04/20/2021 revealed benign breast tissue with no malignancy. Apocrine metaplasia, focal usual ductal hyperplasia and focal fibroadenomatoid change was identified. Her most recent Tyrer-Cuzick remaining lifetime risk of breast cancer was calculated 8%. Breast MRI obtained 05/21/2023 revealed a 12 mm left breast mass in the 3 o'clock position, 7.5 cm from the nipple. She subsequently underwent an ultrasound-guided core biopsy on 06/05/2023. Pathology revealed a fibroadenoma without evidence of atypia or malignancy. She reported a painful lump in the left breast in the region of the previous biopsy. Subsequent mammogram and ultrasound was performed on 10/25/2023. She returns today to review the results. This revealed no findings suspicious for malignancy in either breast. Palpable focus of concern in the 11:00 o'clock axis of the left breast appeared consistent with 2 abutting cysts adjacent to the 12:00 o'clock scar. These were felt to be benign. Waxing and waning cysts were noted in the right breast as well. Findings were felt to be low suspicion for malignancy and a six-month follow-up left breast ultrasound was recommended (BI-RADS 3). Patient continues to report pain in the left chest with pain on deep inspiration. The pain is mainly on the left side. She has awaiting a chest CT on 12/07/2023. Since her last visit she noted a painful lump in the right breast and presents today for further evaluation. This began approximately 10 days ago and has remained painful to the touch. 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, bilateral Glucosuria HPV test positive At high risk for breast cancer Insomnia secondary to situational depression GERD (gastroesophageal reflux disease) Vitamin D deficiency Surgical History H/O excision of epidermal inclusion cyst (05/22/23) History of lumpectomy of left breast (08/23/22) History of lumpectomy of right breast Hx of tubal ligation History of bilateral breast biopsy (2018) History of section History of removal of cyst History of hemorrhoidectomy History of esophagogastroduodenoscopy (EGD) (08/26/19) Hx of colonoscopy Family History Mother Breast cancer, Onset Age: 50 Ovarian cancer Daughter Squamous cell carcinoma of uterus History of thyroid cancer Maternal Grandmother History of stomach cancer Maternal Uncle Family history of prostate cancer, Onset Age: 60 Social History Household Members: Children Housing: House Alcohol intake: current Alcohol intake frequency: holidays/special occasions only Alcohol type: beer and wine Patient Tobacco Use Status: Current everyday Tobacco user Tobacco use type: Cigarette Cigarettes Per Day: 6 e-Cigarette/Vaping Use: Never Used Second Hand Smoke Exposure: No service: No Current occupational status: employed Current occupational exposures/hazards: No Sexual orientation: Straight/Heterosexual Gender identity: Female Cognitive needs: No Hearing needs: No Vision needs: Yes Female Reproductive History Menstrual Age of Menarche: 12 Review of Systems Const All systems reviewed & are unremarkable except as noted in HPI and below Denies body aches, Denies chills, Denies fatigue and Denies fever(s) Eyes Denies change in vision Card Reports as per HPI, Denies chest pain, Reports chest pain with activity (Intermittent), Reports rapid heart rate (Intermittent), Denies leg edema, Denies lightheadedness and Denies dyspnea Resp Denies chest congestion, Denies cough, Reports pain on inspiration, Reports pain with cough, Denies dyspnea and Denies wheezing GI Denies abdominal pain, Denies constipation, Denies diarrhea, Reports nausea (Intermittent) and Denies vomiting Denies nipple discharge and Denies dysuria Musc Denies myalgias, Denies numbness and Denies tingling Skin/Breast Reports as per HPI, Denies breast swelling, Denies breast skin changes, Reports breast pain, Denies breast mass, Denies lesions, Denies nipple discharge and Denies rash Neuro Denies numbness and Denies tingling Endo Denies fatigue Aller/Immun Denies wheezing Physical Exam Vital Signs: Last Vital Signs Pulse 87 11/29/23 14:49 BP 115/72 11/29/23 14:49 BMI result Body Mass Index 28.0 Const General: no acute distress Nutritional Appearance: well nourished Orientation/consciousness: patient oriented x3 Limitations: no limitations Eyes Sclerae: sclerae normal EOM: EOMs intact bilaterally Chest Other: New palpable masses noted below, no lymphadenopathy, no skin change. Chest/axillae images: 2 1. New palpable mass in the right breast at the 9 o'clock position lateral breast, tender to palpation, mobile within the breast tissue, suggestive of a new breast cyst Resp Effort & Inspection: normal respiratory effort Skin General skin exam: no rashes or lesions noted Neuro General: patient oriented x3 Extrem General: Yes no clubbing, cyanosis or edema Assessment & Plan Assessment & Plan (1) Breast mass, right: Code(s): N63.10 - Unspecified lump in the right breast, unspecified quadrant Qualifiers: Breast mass location: upper outer quadrant Qualified Code(s): N63.11 - Unspecified lump in the right breast, upper outer quadrant Plan 53-year-old female patient determined to be at high risk for breast cancer now with a new palpable mass in the right breast at the 9 o'clock position which developed recently. She has awaiting a CT chest evaluate her pleuritic chest pain. I recommended adding an ultrasound of the right breast to further evaluate this new palpable mass which may actually be a cyst. She expressed understanding and agrees with the plan. Orders: Orders 2 US breast RT limited Today N63.10 - Unspecified lump in the right breast, unspecified quadrant Coding Level of Care Code Est Pt Level 3 (42638) Diagnoses Mass of upper outer quadrant of right breast N63.11 Breast mass location: upper outer quadrant
[2023-11-29 14:49] VITALS: BP 115/72; PULSE 87; BMI 28.0
== END 2023-11-29 15:08 | disposition home or self-care (01) ==
PROVIDERS: PCP Internal Medicine; Visit Provider Surgery
DX: N63.11 Unspecified lump in the right breast, upper outer quadrant (principal)
CPT/HCPCS: 99213

== ENCOUNTER → 2023-11-29 14:36 | Outpatient (BNVA) | payer MEDICARE, MEDICAID, SELFPAY | PROVIDERS: PCP Internal Medicine; Visit Provider Surgery | DX: N63.11 Unspecified lump in the right breast, upper outer quadrant (principal) | CPT/HCPCS: 99212 ==

== ENCOUNTER 2023-12-03 13:19 | Outpatient (REF) | payer MEDICARE, MEDICAID, SELFPAY ==
--- NOTE | ~2023-12-03 | US_ITS ---
EXAMINATION: US DIAGNOSTIC ULTRASOUND BREAST, RIGHT CLINICAL INFORMATION: Patient complaining of palpable focus of concern right breast 9:00 axis, approximately 9 cm from the nipple.. COMPARISON: Mammography 10/25/2023, and left breast ultrasound 10/25/2023. TECHNIQUE: Ultrasound of the right breast is performed with real-time osei scale imaging and color Doppler. FINDINGS: There is no focal suspicious finding. There is no solid mass, architectural abnormality, duct ectasia, or edema in the soft tissue planes. Comparison 3 abutting simple cysts at the 9:00 axis, 9 cm from the nipple, the largest measuring 1.0 x 0.6 x 1.0 cm. This correlates well with the foci of palpable concern. Results are provided to the patient at time of visit by the technologist. US/US breast RT limited mamm only IMPRESSION: Right breast palpable foci relate to 3 abutting simple cysts at the 9:00 axis, largest measuring 1.0 x 0.6 x 1.0 cm. Findings are benign. There are no findings suspicious for malignancy. ASSESSMENT: BI-RADS 2 - Benign Findings RECOMMENDATION: 1 year F/U This patient's information was entered into a reminder system with a target due date for their next mammogram.
== END 2023-12-03 13:20 | disposition home or self-care (01) ==
LOC: HO.MAMMO 13:19
PROVIDERS: PCP Internal Medicine; Visit Provider Surgery
DX: N63.15 Unspecified lump in the right breast, overlapping quadrants (principal)
CPT/HCPCS: 76642

== ENCOUNTER → 2023-12-03 13:30 | Outpatient (BNV) | payer MEDICARE, MEDICAID, SELFPAY | PROVIDERS: PCP Internal Medicine; Visit Provider Radiology Diagnostic Radiology | DX: N63.15 Unspecified lump in the right breast, overlapping quadrants (principal) | CPT/HCPCS: 76642 ==

== ENCOUNTER 2023-12-07 14:04 | Outpatient (REF) | payer OTHER, SELFPAY ==
--- NOTE | ~2023-12-07 | CT_ITS ---
EXAMINATION: CT CHEST WITHOUT CONTRAST CLINICAL INFORMATION: Pleurodynia COMPARISON: Chest CTA from 06/26/2022 TECHNIQUE: Multidetector volumetric CT imaging of the chest was done. Axial MIP volume rendering provided. Sagittal and coronal reformatted images were obtained. This CT examination was performed using dose optimization techniques as appropriate, variously including the following: *Automated exposure control *Adjustment of mA and/or kV according to patient size (this includes techniques or standardized protocols for targeted exams where dose is matched to indication/reason for exam; i.e. 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 MEDIASTINUM: The mediastinum is normal. CORONARY ARTERY CALCIFICATION: None visualized on this study. PLEURA: There is no pleural effusion. No pleural mass or thickening. AXILLA: No lymphadenopathy. UPPER ABDOMEN: Unremarkable. OSSEOUS STRUCTURES: Unremarkable. CT/CT chest wo IV con IMPRESSION: Unremarkable examination. Fleischner guidelines were followed.
== END 2023-12-07 14:05 | disposition home or self-care (01) ==
LOC: HO.CT 14:04
PROVIDERS: PCP Internal Medicine; Visit Provider Surgery
DX: R07.81 Pleurodynia (principal); Z91.89 Other specified personal risk factors, not elsewhere classified
CPT/HCPCS: 71250

== ENCOUNTER 2023-12-13 13:57 | Outpatient (AMB) | payer OTHER, SELFPAY ==
--- NOTE | 2023-12-13 14:05 | MHC.OFFVIS ---
Intake Vital Signs 12/13/23 14:10 Height 5 ft 2 in Weight 154 lb BMI 28.2 BP 134/78 Blood Pressure Location Rt brachial Position Sitting Pulse 74 Intake Visit Reasons: Pleuritic chest pain, R Br pain, CT and US results Intake Note: Patient is seen in office for CT scan results, following right breast and chest pain. Pt c/o: reports no changes. 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 Builder Language: Coagulant Dipper Name: Maria Elena Information Interpreted: non-clinical & clinical Accompanied by: Self / Same As Patient Allergies No Known Allergies Allergy (Verified 12/14/23 14:19) Medication List - Last Reconciled 12/17/23 by Steve Cano MD amitriptyline 25 mg PO BEDTIME 30 days buspirone 5 mg PO TID colchicine 0.6 mg PO DAILY dicyclomine 10 mg PO TID duloxetine 20 mg PO BID famotidine 40 mg PO BEDTIME 30 days gabapentin 300 mg PO BEDTIME 30 days hydrocortisone 2.5% (Proctosol HC) 1 appl [place] BID PRN hydroxyzine HCl 10 mg PO TID ibuprofen 800 mg PO TID PRN 90 days linaclotide (Linzess) 290 mcg PO DAILY losartan 100 mg PO DAILY 90 days meclizine 25 mg PO BID PRN 30 days metoclopramide HCl (Reglan) 10 mg PO .qacsupper and qhs mirabegron ER (Myrbetriq) 25 mg PO DAILY pantoprazole 40 mg PO BID terbinafine HCl 250 mg PO DAILY 90 days tramadol 50 mg PO Q8H PRN trazodone 50 mg PO BEDTIME varenicline 1 mg PO BID 30 days zolpidem 5 mg PO BEDTIME PRN HPI HPI Comments History of Present Illness Details 52-year-old female patient with a high risk for breast cancer, placed on high risk breast protocol due to a Emily model lifetime risk of breast cancer of 24%. A previous MR guided biopsy on 03/27/2019 revealed intraductal papilloma. Subsequent mammogram and ultrasound on 10/22/2019 revealed no suspicious changes only bilateral cysts. A follow-up MRI of 01/26/2020 revealed a non mass enhancement and 2 o'clock position of the right breast. She subsequently underwent ultrasound-guided core biopsy on 03/12/2020. Pathology revealed benign breast tissue with no evidence of malignancy. MRI of 03/25/2021 revealed a suspicious non-mass enhancement of the left breast at the 3 o'clock position felt to be suspicious for malignancy. An MR guided core biopsy on 04/20/2021 revealed benign breast tissue with no malignancy. Apocrine metaplasia, focal usual ductal hyperplasia and focal fibroadenomatoid change was identified. Her most recent Tyrer-Cuzick remaining lifetime risk of breast cancer was calculated 8%. Breast MRI obtained 05/21/2023 revealed a 12 mm left breast mass in the 3 o'clock position, 7.5 cm from the nipple. She subsequently underwent an ultrasound-guided core biopsy on 06/05/2023. Pathology revealed a fibroadenoma without evidence of atypia or malignancy. She reported a painful lump in the left breast in the region of the previous biopsy. Subsequent mammogram and ultrasound was performed on 10/25/2023 which revealed no findings suspicious for malignancy in either breast. Palpable focus of concern in the 11:00 o'clock axis of the left breast appeared consistent with 2 abutting cysts adjacent to the 12:00 o'clock scar. These were felt to be benign. Waxing and waning cysts were noted in the right breast as well. Findings were felt to be low suspicion for malignancy and a six-month follow-up left breast ultrasound was recommended (BI-RADS 3). Ultrasound of the right breast performed on 12/03/2023 revealed adjacent cysts at the site of a palpable focus felt to be benign in appearance (BI-RADS 2). Patient continues to report pain in the left chest with pain on deep inspiration. The pain is mainly on the left side. CT of the chest on 12/07/2023 revealed an unremarkable examination. 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, bilateral Glucosuria HPV test positive At high risk for breast cancer Insomnia secondary to situational depression GERD (gastroesophageal reflux disease) Vitamin D deficiency Surgical History H/O excision of epidermal inclusion cyst (05/22/23) History of lumpectomy of left breast (08/23/22) History of lumpectomy of right breast Hx of tubal ligation History of bilateral breast biopsy (2018) History of section History of removal of cyst History of hemorrhoidectomy History of esophagogastroduodenoscopy (EGD) (08/26/19) Hx of colonoscopy Family History Mother Breast cancer, Onset Age: 50 Ovarian cancer Daughter Squamous cell carcinoma of uterus History of thyroid cancer Maternal Grandmother History of stomach cancer Maternal Uncle Family history of prostate cancer, Onset Age: 60 Social History Household Members: Children Housing: House Alcohol intake: current Alcohol intake frequency: holidays/special occasions only Alcohol type: beer and wine Patient Tobacco Use Status: Current everyday Tobacco user Tobacco use type: Cigarette Cigarettes Per Day: 6 e-Cigarette/Vaping Use: Never Used Second Hand Smoke Exposure: No service: No Current occupational status: employed Current occupational exposures/hazards: No Sexual orientation: Straight/Heterosexual Gender identity: Female Cognitive needs: No Hearing needs: No Vision needs: Yes Female Reproductive History Menstrual Age of Menarche: 12 Review of Systems Const All systems reviewed & are unremarkable except as noted in HPI and below Denies body aches, Denies chills, Denies fatigue and Denies fever(s) Eyes Denies change in vision Card Reports as per HPI, Denies chest pain, Reports chest pain with activity (Intermittent), Reports rapid heart rate (Intermittent), Denies leg edema, Denies lightheadedness and Denies dyspnea Resp Denies chest congestion, Denies cough, Reports pain on inspiration, Reports pain with cough, Denies dyspnea and Denies wheezing GI Denies abdominal pain, Denies constipation, Denies diarrhea, Reports nausea (Intermittent) and Denies vomiting Denies nipple discharge and Denies dysuria Musc Denies myalgias, Denies numbness and Denies tingling Skin/Breast Reports as per HPI, Denies breast swelling, Denies breast skin changes, Reports breast pain, Denies breast mass, Denies lesions, Denies nipple discharge and Denies rash Neuro Denies numbness and Denies tingling Endo Denies fatigue Aller/Immun Denies wheezing Physical Exam Vital Signs: Last Vital Signs Pulse 74 12/13/23 14:10 BP 134/78 12/13/23 14:10 BMI result Body Mass Index 28.2 Const General: no acute distress Nutritional Appearance: well nourished Orientation/consciousness: patient oriented x3 Limitations: no limitations Eyes Sclerae: sclerae normal EOM: EOMs intact bilaterally Chest Other: Exam deferred Resp Effort & Inspection: normal respiratory effort Skin General skin exam: no rashes or lesions noted Neuro General: patient oriented x3 Extrem General: Yes no clubbing, cyanosis or edema Assessment & Plan Assessment & Plan (1) Breast mass, left: Code(s): N63.20 - Unspecified lump in the left breast, unspecified quadrant Qualifiers: Breast mass location: overlapping quadrants Qualified Code(s): N63.25 - Unspecified lump in the left breast, overlapping quadrants (2) At high risk for breast cancer: Code(s): Z91.89 - Other specified personal risk factors, not elsewhere classified Plan 53-year-old female felt to be high risk for breast cancer returning to review the CT chest and ultrasound right breast. Both studies revealed benign findings and no new suspicious findings were identified. Patient will continue with self examination on a monthly basis and return approximately 6 months for follow-up examination. Six-month follow-up ultrasound of the left breast is scheduled for 04/25/2024. Bilateral mammogram will be due in November 2024. Orders: Orders US breast LT complete 04/24/24 N63.20 - Unspecified lump in the left breast, unspecified quadrant, Z91.89 - Other specified personal risk factors, not elsewhere classified Coding Level of Care Code Est Pt Level 3 (44843) Diagnoses Mass overlapping multiple quadrants of left breast N63.25 Breast mass location: overlapping quadrants At high risk for breast cancer Z91.89
[2023-12-13 14:10] VITALS: BP 134/78; PULSE 74; BMI 28.2
== END 2023-12-13 14:20 | disposition home or self-care (01) ==
PROVIDERS: PCP Internal Medicine; Visit Provider Surgery
DX: N63.25 Unspecified lump in the left breast, overlapping quadrants (principal); Z91.89 Other specified personal risk factors, not elsewhere classified
CPT/HCPCS: 99213

== ENCOUNTER → 2023-12-13 13:57 | Outpatient (BNVA) | payer OTHER, SELFPAY | PROVIDERS: PCP Internal Medicine; Visit Provider Surgery | DX: N63.25 Unspecified lump in the left breast, overlapping quadrants (principal); Z71.89 Other specified counseling | CPT/HCPCS: 99212 ==

== ENCOUNTER 2023-12-14 14:10 | Outpatient (AMB) | payer OTHER, SELFPAY ==
--- NOTE | 2023-12-14 14:11 | MHC.OFFVIS ---
Intake Intake Visit Reasons: OA Intake Note: Pt presents today for OA follow up. 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 Styles 53 yoF returns for follow-up of her joint pains, OA and FM. The visit is facilitated through the use of the iPad translating system. She continues to complain of pain in the left foot and left 1st toe that has been bothering her for over 6 months. This is worse with more weight-bearing activities. She also continues with pain in the right shoulder. She had Right shoulder MRI done a few months ago which showed OA and Tendinitis with partial tear.. She does recall physical therapy for the shoulders in the past that was not helpful. Her other pains include the lower back, lateral hips, knees and hands. Prior Visit Assessment 07/2023 Dr. Mcgrath The patient has many areas of pain but the left foot and right shoulder seem to be the area of greatest concern. Radiographs of the left foot do document some osteoarthritis at the area where she is tender so I think mostly that is the cause of her pain there. There is some instep pain as well which could be a secondary symptom. I think we need further input from Podiatry about this. We will try to set up a consultation. I did today recheck some inflammatory markers, CBC and rheumatoid factor to try to evaluate for potential inflammatory disease but those remain normal. They were done years ago and were negative. The right shoulder pain continues. She has had physical therapy for it. The MRI shows a questionable partial tear. I think that should be further evaluated in Orthopedics and I will request a consultation. She was given the refill on the tramadol since it does seem to help her pain. She also takes the ibuprofen for the foot pain at times and that seems to be tolerable and she takes it intermittently. Follow-up in 3 months seems reasonable. Review of her old chart, today's history, the x-rays and lab work took 33 minutes [facility] Medical History (Updated 12/19/23 @ 08:59 by SUZANNE Briseno-ADAM) Achilles tendinosis of both lower extremities CMC (carpometacarpal) synovitis Localized swelling of toe of left foot Breast mass, right Uterine fibroid Hemorrhoids Uterine fibroid Insomnia Essential hypertension Hematuria Calcific tendinitis of left shoulder Primary osteoarthritis of hands, bilateral Glucosuria HPV test positive At high risk for breast cancer Insomnia secondary to situational depression GERD (gastroesophageal reflux disease) Vitamin D deficiency Surgical History H/O excision of epidermal inclusion cyst (05/22/23) History of lumpectomy of left breast (08/23/22) History of lumpectomy of right breast Hx of tubal ligation History of bilateral breast biopsy (2018) History of section History of removal of cyst History of hemorrhoidectomy History of esophagogastroduodenoscopy (EGD) (08/26/19) Hx of colonoscopy Family History Mother Breast cancer, Onset Age: 50 Ovarian cancer Daughter Squamous cell carcinoma of uterus History of thyroid cancer Maternal Grandmother History of stomach cancer Maternal Uncle Family history of prostate cancer, Onset Age: 60 Social History Household Members: Children Housing: House Alcohol intake: current Alcohol intake frequency: holidays/special occasions only Alcohol type: beer and wine Patient Tobacco Use Status: Current everyday Tobacco user Tobacco use type: Cigarette Cigarettes Per Day: 6 e-Cigarette/Vaping Use: Never Used Second Hand Smoke Exposure: No service: No Current occupational status: employed Current occupational exposures/hazards: No Sexual orientation: Straight/Heterosexual Gender identity: Female Cognitive needs: No Hearing needs: No Vision needs: Yes Female Reproductive History Menstrual Age of Menarche: 12 Review of Systems Const All systems reviewed & are unremarkable except as noted in HPI and below Physical Exam APPEARANCE: Patient in no acute distress, groomed, nourished EYES no redness, eyelids normal HEART:? Regular rhythm, S1-S2 heard, no murmurs, rubs or gallops. LUNG:? Clear to percussion and auscultation EXTREMITIES: No edema, no calf tenderness, normal peripheral pulses. SKIN: No inflammatory or neoplastic lesions. Normal color and turgor JOINT EXAM: Cervical Spine: Full range of motion with Mild pain at the extremes. There is some cervical muscle tenderness. Thoracic Spine:No scoliosis.? No tenderness on palpation. Lumbar Spine: Alignment normal.? mild pain with full flexion, tenderness to palpation of the lumbar spine. The Froilan test normal. Hands:? Normal range of motion with mild to moderate bony enlargement and moderate tenderness and swelling at the bases of the thumbs. Tenderness and redness at the 2nd and 3rd MCP R>L. There is some nontender thickening at the thumb IP and 2nd PIP on the right. In other joints there is no tenderness, swelling, increased warmth or erythema. There is no flexor tendon triggering, thenar atrophy or sensory loss. Wrists:? Normal pain-free range of motion without tenderness, swelling, increased warmth or erythema. Elbows: Normal pain-free range of motion without tenderness, swelling, increased warmth or erythema. Shoulders:?? right: There is pain with abduction at 120 degrees or with extremes of internal or external rotation. There is mild anterior tenderness without swelling. No abductor weakness or adenopathy. Left: Full range of motion with mild pains at the extremes of normal range of motion. There is some minimal anterior tenderness without adenopathy, weakness, increased warmth or erythema. Hips: Full range of motion without pain. Hip bursa: No tenderness. Knees: Normal pain-free range of motion without tenderness, swelling, increased warmth or erythema.? There is no effusion or crepitation Ankles:? Left: There is normal, pain-free range of motion but she does have some tenderness anteriorly along the tibia. No redness or swelling is appreciated. Right: Normal pain-free range of motion without tenderness, swelling, increased warmth or erythema. Feet: left: Mild 1st MTP and 2nd toe bony enlargement and mild to moderate tenderness, erythema and swelling. There is some tenderness in the instep with some bony prominence. No redness or warmth. The toes are not painful to pressure. Other MTP joints are not tender. Right: Normal pain-free range of motion without tenderness, swelling, increased warmth or erythema. Tender points: Tenderness to digital palpation at the occiput, trapezius, second rib,greater trochanter and gluteal area bilaterally. Results Reviewed Results Reviewed: 01/08/2021 XR/XR lumbar spine 2-3V IMPRESSION: Mild lower lumbar spine facet arthritis. 0.5 x 1.5 cm radiopaque soft tissue density in the left pelvis, question postsurgical. Clinical correlation to exclude foreign body recommended. 07/2023 RIGHT HAND: No fracture or dislocation. Degenerative changes of the hand and wrist worst involving the and wrist progressed from prior with advanced loss of first carpometacarpal joint space and bulky osteophytes and to a lesser extent involving the distal interphalangeal joints where there is minimal degenerative spurring progressed from prior. No cortical erosion. Soft tissues are unremarkable. LEFT HAND: No fracture or dislocation. Degenerative changes of the hand and wrist similar to prior worst involving the first carpometacarpal joint where there is advanced loss of joint space and bulky osteophytes and to a lesser extent involving the distal interphalangeal joints where there is minimal degenerative spurring progressed from prior. No cortical erosion. Soft tissues are unremarkable. XR/XR hand LT min 3V IMPRESSION: 1. Degenerative changes of the hands and wrists progressed from prior worst involving the first carpometacarpal joints bilaterally where it is advanced. XR/XR foot RT min 3V IMPRESSION: RIGHT FOOT: Mild degenerative changes of the first metatarsophalangeal joint with degenerative spurring. LEFT FOOT: Moderate degenerative changes of the first metacarpophalangeal joint with loss of joint space and degenerative spurring. I personally reviewed relevant 2022 Right Shoulder MRI images 1. Mild supraspinatus tendinosis with minimal insertional intrasubstance partial tearing. Subscapularis tendinosis with distal articular surface partial tearing measuring 2.3 cm in ML dimension. No full-thickness rotator cuff tendon tear. 2. Mild proximal long head biceps tenosynovitis without a measurable tendon tear. 3. Mild acromioclavicular osteoarthritis. Assessment & Plan Assessment & Plan (1) Right rotator cuff tendonitis: Code(s): M75.81 - Other shoulder lesions, right shoulder (2) Osteoarthritis of left foot: Code(s): M19.072 - Primary osteoarthritis, left ankle and foot Qualifiers: Osteoarthritis type: primary Qualified Code(s): M19.072 - Primary osteoarthritis, left ankle and foot (3) Osteoarthritis of hands, bilateral: Code(s): M19.041 - Primary osteoarthritis, right hand; M19.042 - Primary osteoarthritis, left hand Qualifiers: Osteoarthritis type: primary Qualified Code(s): M19.041 - Primary osteoarthritis, right hand; M19.042 - Primary osteoarthritis, left hand (4) Localized swelling of toe of left foot: Code(s): R22.42 - Localized swelling, mass and lump, left lower limb (5) Achilles tendinosis of both lower extremities: Code(s): M67.88 - Other specified disorders of synovium and tendon, other site Plan #Left Great Toe/OA/Tendonitis: Ms. Villalobos, 53 yoF is continues with pain and swelling to the left great toe MTP and 2nd toe. I suspect the patient may have gout in this area. I will prescribe colchicine for 10 days and reassess. I discussed with patient that if this is not resolved with colchicine we will try prednisone . I do think it is an inflammatory process but because prednisone is non-specific we will try colchicne first. On PE, there are other areas of moderate tenderness and joint remodeling such as to her hands. We will see what colchicine will address. There is tendinopathy to her shoulders and a 07/30/2023 xray shows achilles enthesopthy. This picture of Tenidinitis and enthesopathy, swelling and tenderness to the DIP and CMC joints can be seen in the context of AxSpa which would require immunomodulator therapy. Let us see first what colchicine will address and then proceed from there as the patient may have a new diagnosis for gout. I spent 40 minutes reviewing history, evaluating patient and evaluating patient. f/u 1 month Orders: Orders Erythrocyte Sedimentation Rate 12/14/23 M65.9 - Synovitis and tenosynovitis, unspecified, R22.42 - Localized swelling, mass and lump, left lower limb C Reactive Protein 12/14/23 M65.9 - Synovitis and tenosynovitis, unspecified, R22.42 - Localized swelling, mass and lump, left lower limb Comprehensive Met. Panel 12/14/23 M65.9 - Synovitis and tenosynovitis, unspecified, R22.42 - Localized swelling, mass and lump, left lower limb Complete Blood Count Auto Diff 12/14/23 M65.9 - Synovitis and tenosynovitis, unspecified, R22.42 - Localized swelling, mass and lump, left lower limb Uric Acid 12/14/23 M65.9 - Synovitis and tenosynovitis, unspecified, R22.42 - Localized swelling, mass and lump, left lower limb Immunoglobulins,IgG IgA IgM 12/14/23 M65.9 - Synovitis and tenosynovitis, unspecified, R22.42 - Localized swelling, mass and lump, left lower limb Medications: New colchicine 0.6 mg PO DAILY 10 tabs 0RF R22.42 - Localized swelling, mass and lump, left lower limb Coding Level of Care Code Est Pt Level 4 (57816) Diagnoses Right rotator cuff tendonitis M75.81 Primary osteoarthritis of left foot M19.072 Osteoarthritis type: primary Primary osteoarthritis of both hands M19.041; M19.042 Osteoarthritis type: primary Localized swelling of toe of left foot R22.42 Achilles tendinosis of both lower extremities M67.88
== END 2023-12-14 14:56 | disposition home or self-care (01) ==
PROVIDERS: PCP Internal Medicine; Visit Provider Nurse Practitioner Family
DX: M75.81 Other shoulder lesions, right shoulder (principal); M19.072 Primary osteoarthritis, left ankle and foot; M19.041 Primary osteoarthritis, right hand; M19.042 Primary osteoarthritis, left hand; R22.42 Localized swelling, mass and lump, left lower limb; M67.88 Other specified disorders of synovium and tendon, other site
CPT/HCPCS: 99214

== ENCOUNTER → 2023-12-14 14:10 | Outpatient (BNVA) | payer OTHER, SELFPAY | PROVIDERS: PCP Internal Medicine; Visit Provider Nurse Practitioner Family | DX: M75.81 Other shoulder lesions, right shoulder (principal); M19.072 Primary osteoarthritis, left ankle and foot; M19.041 Primary osteoarthritis, right hand; M19.042 Primary osteoarthritis, left hand; M67.88 Other specified disorders of synovium and tendon, other site; R22.42 Localized swelling, mass and lump, left lower limb | CPT/HCPCS: 99212 ==

== ENCOUNTER 2023-12-18 13:26 | Outpatient (AMB) | payer OTHER, SELFPAY ==
--- NOTE | 2023-12-18 13:52 | A.OFFVIS_ITS ---
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 No complaints. Last Pap/HPV was negative in 12/26 Last Mammogram was BI-RADS 3 in 10/31, the recommendation was to repeat in six- months Last Colonoscopy in 04/29, the recommendation was to repeat in 5 years [facility] Medical History CMC (carpometacarpal) synovitis Localized swelling of toe of left foot Breast mass, right Uterine fibroid Hemorrhoids Uterine fibroid Insomnia Essential hypertension Hematuria Calcific tendinitis of left shoulder Primary osteoarthritis of hands, bilateral Glucosuria HPV test positive At high risk for breast cancer Insomnia secondary to situational depression GERD (gastroesophageal reflux disease) Vitamin D deficiency Surgical History H/O excision of epidermal inclusion cyst (05/22/23) History of lumpectomy of left breast (08/23/22) History of lumpectomy of right breast Hx of tubal ligation History of bilateral breast biopsy (2017) History of section History of removal of cyst History of hemorrhoidectomy History of esophagogastroduodenoscopy (EGD) (08/26/19) Hx of colonoscopy Family History Mother Breast cancer, Onset Age: 50 Ovarian cancer Daughter Squamous cell carcinoma of uterus History of thyroid cancer Maternal Grandmother History of stomach cancer Maternal Uncle Family history of prostate cancer, Onset Age: 60 Social History Household Members: Children Housing: House Alcohol intake: current Alcohol intake frequency: holidays/special occasions only Alcohol type: beer and wine Patient Tobacco Use Status: Current everyday Tobacco user Tobacco use type: Cigarette Cigarettes Per Day: 6 e-Cigarette/Vaping Use: Never Used Second Hand Smoke Exposure: No service: No Current occupational status: employed Current occupational exposures/hazards: No Sexual orientation: Straight/Heterosexual Gender identity: Female Cognitive needs: No Hearing needs: No Vision needs: Yes Female Reproductive History Menstrual Age of Menarche: 12 Menopause type: natural Total pregnancies: 6 Full term: 6 Number of Living Children: 6 Date of last pap smear: 12/27/20 Date of Mammogram: 10/25/23 Review of Systems Const All systems reviewed & are unremarkable except as noted in HPI and below Card Reports as per HPI Resp Reports as per HPI GI Reports as per HPI and Reports no additional complaints Reports as per HPI Physical Exam Vital Signs: Last Vital Signs BP 110/70 12/18/23 13:53 BMI result Body Mass Index 27.8 Const General: cooperative, healthy appearing and comfortable Chest Chest palpation & inspection: normal inspection of the chest and normal palpat ion of entire chest wall Breast/axilla inspection: normal inspection of the breasts and normal inspection of the axillae Breast/axilla palpation: normal palpation of the breasts, normal palpation of the axillae and no axillary lymphadenopathy Resp Effort & Inspection: normal respiratory effort Auscultation: clear to auscultation bilaterally Percussion: percussion normal Cardio Palpation: normal PMI Rate: regular rate Rhythm: regular rhythm Heart sounds: no murmurs and no rubs Peripheral pulses: Peripheral pulses 2+ throughout GI Inspection: Yes normal to inspection Palpation (GI): Soft to palpation, nontender, no guarding, not rigid and No hepatosplenomegaly present Percussion: Yes normal to percussion Auscultation: normal bowel sounds Rectal Exam - Female: deferred General: Yes bladder normal to palpation External Female Exam: No lesion Speculum Exam - Vagina: normal appearance of the vagina, normal palpation, normal vaginal discharge and not erythematous Speculum Exam - Cervix: normal appearance of the cervix and normal palpation Bimanual exam- vagina & uterus: normal bimanual exam, normal palpation, uterine size normal, bladder normal to palpation, consistency normal and normal palpation Bimanual Exam- Adnexa, other: normal adnexae, no masses and no tenderness Assessment & Plan Assessment & Plan (1) Well woman exam: Comment: History of HPV positive in 2018 followed by a negative biopsy and negative co testing Code(s): Z01.419 - Encounter for gynecological examination (general) (routine) without abnormal findings Plan: Co testing not indicated this year. Counseled the patient about the recommended dietary allowance of 1200 mg of Calcium & 600 IU of vitamin D. Instructions given the patient to schedule next Mammogram in 04/30. The patient was instructed to perform monthly self-breast exams and schedule annual exam in a year. All questions answered and the patient verbalized understanding. Coding Level of Care Code Est Pt Prev Care 40-64y(34547) Diagnoses Well woman exam Z01.419
[2023-12-18 13:53] VITALS: BP 110/70; BMI 27.8
== END 2023-12-18 14:26 | disposition home or self-care (01) ==
LOC: HO.HWS 13:26
PROVIDERS: PCP Internal Medicine; Visit Provider Obstetrics & Gynecology
DX: Z01.419 Encounter for gynecological examination (general) (routine) without abnormal findings (principal)
CPT/HCPCS: 99396

== ENCOUNTER → 2023-12-18 13:26 | Outpatient (BNVA) | payer OTHER, SELFPAY | PROVIDERS: PCP Internal Medicine; Visit Provider Obstetrics & Gynecology ==

== ENCOUNTER 2023-12-19 14:40 | Outpatient (AMB) | payer OTHER, SELFPAY ==
[2023-12-19 14:49] VITALS: BP 118/71; PULSE 84; BMI 28.8
--- NOTE | 2023-12-19 14:49 | A.OFFVIS_ITS ---
Intake Vital Signs 12/19/23 14:49 Height 5 ft 2 in Weight 157 lb 6.561 oz BMI 28.8 BP 118/71 Blood Pressure Location Lt brachial Position Sitting Pulse 84 Pulse Source Pulse Oximeter Intake Visit Reasons: Follow up MRI results Intake Note: Pt presents to the office today for a follow up to go over MRI results. Project Controller Required: Yes Project Controller Language: Video Clerk Name: Frances([id number]) Allergies No Known Allergies Allergy (Verified 12/19/23 14:50) HPI Follow up MRI results HPI Details Assessment & Plan (1) GERD (gastroesophageal reflux diseas e): Code(s): K21.9 - Gastro-esophageal reflux disease without esophagitis Plan: VINCENTIAN #[employer] . With the EGD fairly unremarkable, oleg when considering biopsies, we have not real good GI indication for her pain. BUT she has significant OA of the thoracic spine and of the rt ac joint. I will order MRI of these. The colonoscopy needs to be repeated in 5 years. The procedure was well tolerated. The results were explained and the patient is agreeable to the follow-up interval as stated. The bowel pattern has returned to normal. Education was provided to tell any 1st degree relatives about their findings to be sure that they are screened by age 45. Educated that they will be put on a recall list when it is time for their repeat scope but should they move out of state or away from the hospital they will need to remember along with their primary to repeat the procedure in a timely fashion to avoid any adverse complications. She continues on her Reglan, Linzess, and pantoprazole and is now satisfied with her GI regimen. ROV 6 mos. AFTER mri'S ORDERED TODAY (2) Tubular adenoma of colon: Comment: 08/27/2019 last scope Code(s): D12.6 - Benign neoplasm of colon, unspecified (3) Bleeding hemorrhoids: Code(s): K64.9 - Unspecified hemorrhoids (4) Chronic idiopathic constipation: Code(s): K59.04 - Chronic idiopathic constipation (5) Thoracic back pain: Comment: multi level OA on xray Code(s): M54.6 - Pain in thoracic spine (6) Pain of right clavicle: Comment: OA of AC joint on xray Code(s): M89.8X1 - Other specified disorders of bone, shoulder Orders: Orders MR shoulder RT wo con 05/22/23 M54.6 - Pain in th oracic spine, M89. 8X1 - Other specif ied disorders of b one, shoulder MR thoracic spine wo con 05/22/23 M54.6 - Pain in th oracic spine, M89. 8X1 - Other specif ied disorders of b one, shoulder MRI OF THE RIGHT SHOULDER 07/25/23 FINDINGS: ROTATOR CUFF: Mild supraspinatus tendinosis with minimal insertional intrasubstance partial tearing measuring up to 0.3 cm. Subscapularis tendinosis with distal articular surface partial tearing measuring up to 2.3 cm in ML dimension. No full-thickness rotator cuff tendon tear. No muscle atrophy or fatty infiltration. BICEPS: Fluid within the proximal long head biceps tendon sheath, consistent with mild tenosynovitis. No transverse tendon tear or tendon retraction. CORACOACROMIAL ARCH: The undersurface of the acromion is flat with no subacromial spur. Mild acromioclavicular osteoarthritis. LABRUM/CAPSULE: No displaced labral tear. Intact inferior joint capsule. GLENOHUMERAL JOINT/MARROW: Unremarkable. MR/MR shoulder RT wo con IMPRESSION: 1. Mild supraspinatus tendinosis with mi nimal insertional intrasubstance partial tearing. Subscapularis tendinosis with distal articular surface partial tearing measuring 2.3 cm in ML dimension. No full-thickness rotator cuff tendon tear. 2. Mild proximal long head biceps tenosy novitis without a measurable tendon tear. 3. Mild acromioclavicular osteoarthritis . MRI OF THE THORACIC SPINE not obtained TODAYS VISIT VINCENTIAN #[id number] She continues on her Reglan, Linzess, and pantoprazole and is now satisfied with her GI regimen. I go over the MRI of her shoulder which does show tendinopathy of the supraspinatus with some minor tearing so I am going to refer her to pain management. I still think that her abdominal pain that has been unexplained by any GI tests and workup is likely related to thoracic spine pathology. I am going to leave it to pain management to see if they can get an MRI thoracic spine ordered since I really do not know what would be required to get this study. I already did an x-ray which did show significant osteoarthritis of the thoracic spine. Return office visit in 6 months. [facility] Medical History Achilles tendinosis of both lower extremities CMC (carpometacarpal) synovitis Localized swelling of toe of left foot Breast mass, right Uterine fibroid Hemorrhoids Uterine fibroid Insomnia Essential hypertension Hematuria Calcific tendinitis of left shoulder Primary osteoarthritis of hands, bilateral Glucosuria HPV test positive At high risk for breast cancer Insomnia secondary to situational depression GERD (gastroesophageal reflux disease) Vitamin D deficiency Surgical History H/O excision of epidermal inclusion cyst (05/22/23) History of lumpectomy of left breast (08/23/22) History of lumpectomy of right breast Hx of tubal ligation History of bilateral breast biopsy (2017) History of section History of removal of cyst History of hemorrhoidectomy History of esophagogastroduodenoscopy (EGD) (08/26/19) Hx of colonoscopy Family History Mother Breast cancer, Onset Age: 50 Ovarian cancer Daughter Squamous cell carcinoma of uterus History of thyroid cancer Maternal Grandmother History of stomach cancer Maternal Uncle Family history of prostate cancer, Onset Age: 60 Social History Household Members: Children Housing: House Alcohol intake: current Alcohol intake frequency: holidays/special occasions only Alcohol type: beer and wine Patient Tobacco Use Status: Former Tobacco user Quit Date: 2 yrs ago Tobacco use type: Cigarette e-Cigarette/Vaping Use: Never Used Second Hand Smoke Exposure: No service: No Current occupational status: employed Current occupational exposures/hazards: No Sexual orientation: Straight/Heterosexual Gender identity: Female Cognitive needs: No Hearing needs: No Vision needs: Yes Female Reproductive History Menstrual Age of Menarche: 12 Review of Systems Const Denies fatigue, Denies fever(s), Denies night sweats, Denies poor appetite and Denies weight loss Eyes Details: glasses Reports requires corrective lenses ENT Reports Normal hearing present, Denies dental pain, Denies dysphagia, Denies hearing loss, Denies mouth pain, Denies odynophagia, Denies throat swelling, Denies tongue swelling and Reports other (Dentition adequate) Card Reports no additional complaints Resp Reports no additional complaints GI Details: Reports abdominal pain, Denies melena, Denies bloating, Denies hematochezia, Reports constipation, Denies GI cramping, Denies dysphagia, Denies excessive flatus, Denies early satiety, Reports heartburn, Denies diarrhea, Denies nausea, Denies odynophagia, Denies vomiting and Denies hematemesis Musc Reports back pain, Reports myalgias, Reports arthralgias and Reports stiffness Skin/Breast Denies pruritus, Denies lesions, Denies rash and Denies jaundice Neuro Reports Normal hearing present and Denies Abnormal speech present Endo Denies fatigue Aller/Immun Denies throat swelling and Denies tongue swelling Physical Exam Vital Signs: Last Vital Signs Pulse 84 12/19/23 14:49 BP 118/71 12/19/23 14:49 BMI result Body Mass Index 28.8 Const General: cooperative, no acute distress, well developed and well groomed Nutritional Appearance: average body habitus and well nourished Orientation/consciousness: oriented to person, oriented to place and oriented to time Limitations: language barrier HEENT Head: Yes normocephalic and Yes atraumatic Eyes General: appearance normal, both eyes and all related structures Pupils: Equal, round and reactive pupils present Neck Neck: Yes normal visual inspection and Yes no lymphadenopathy Thyroid: Thyroid normal Resp Effort & Inspection: normal respiratory effort and able to speak in complete sentences Auscultation: clear to auscultation bilaterally Cardio Rate: regular rate Rhythm: regular rhythm Heart sounds: Normal, physiologic split S2 sound present Peripheral pulses: radial pulses present and posterior tibial pulses present GI Inspection: No distended and No Abdominal panniculus present Palpation (GI): Soft to palpation, nontender, no guarding, not rigid and No hepatosplenomegaly present Percussion: Yes normal to percussion Auscultation: normal bowel sounds Rectal Exam - Female: deferred Skin General skin exam: no rashes or lesions noted, turgor normal, skin not dry, no jaundice, No spider nevi and no striae Rashes: no rashes Nails: normal Neuro General: oriented to person, oriented to place and oriented to time Cranial nerves: Yes Equal, round and reactive pupils present and Yes Normal hearing present Speech: No Abnormal speech present Extrem General: Yes normal to inspection, No clubbing, No cyanosis and No edema Psych Appearance: grossly normal and well kempt Mental Status: mental status grossly normal Speech and movement: Normal speech and movement present Affect: normal affect Attitude: cooperative Thought process: Normal thought process present and not confabulating Thought content: Normal thought content present Insight: Limited insight present (Psych) Judgement: Limited judgement present (Psych) Assessment & Plan Assessment & Plan (1) GERD (gastroesophageal reflux disease): Code(s): K21.9 - Gastro-esophageal reflux disease without esophagitis (2) Chronic idiopathic constipation: Code(s): K59.04 - Chronic idiopathic constipation (3) Thoracic back pain: Comment: multi level OA on xray Code(s): M54.6 - Pain in thoracic spine (4) Tendinopathy of right shoulder: Code(s): M67.911 - Unspecified disorder of synovium and tendon, right shoulder (5) Supraspinatus syndrome of right shoulder: Code(s): M75.101 - Unspecified rotator cuff tear or rupture of right shoulder, not specified as traumatic Plan VINCENTIAN #[id number] She continues on her Reglan, Linzess, and pantoprazole and is now satisfied with her GI regimen. I go over the MRI of her shoulder which does show tendinopathy of the supraspinatus with some minor tearing so I am going to refer her to pain management. I still think that her abdominal pain that has been unexplained by any GI tests and workup is likely related to thoracic spine pathology. I am going to leave it to pain management to see if they can get an MRI thoracic spine ordered since I really do not know what would be required to get this study. I already did an x-ray which did show significant osteoarthritis of the thoracic spine. Return office visit in 6 months. Orders: Referrals Pain Management Referral M54.6 - Pain in thoracic spine, M67.911 - Unspecified disorder of synovium and tendon, right shoulder, M75.101 - Unspecified rotator cuff tear or rupture of right shoulder, not specified as traumatic Coding Level of Care Code Est Pt Level 3 (12752) Diagnoses GERD (gastroesophageal reflux disease) K21.9 Chronic idiopathic constipation K59.04 Thoracic back pain M54.6 Tendinopathy of right shoulder M67.911 Supraspinatus syndrome of right shoulder M75.101
== END 2023-12-19 15:05 | disposition home or self-care (01) ==
PROVIDERS: PCP Internal Medicine; Visit Provider Nurse Practitioner
DX: K21.9 Gastro-esophageal reflux disease without esophagitis (principal); K59.04 Chronic idiopathic constipation; M54.6 Pain in thoracic spine; M67.911 Unspecified disorder of synovium and tendon, right shoulder; M75.101 Unspecified rotator cuff tear or rupture of right shoulder, not specified as traumatic
CPT/HCPCS: 99213

== ENCOUNTER → 2023-12-19 14:40 | Outpatient (BNVA) | payer OTHER, SELFPAY | PROVIDERS: PCP Internal Medicine; Visit Provider Nurse Practitioner | DX: K21.9 Gastro-esophageal reflux disease without esophagitis (principal); K59.04 Chronic idiopathic constipation | CPT/HCPCS: 99212 ==

== ENCOUNTER 2024-01-14 12:20 | Outpatient (REF) | payer OTHER, SELFPAY ==
[2024-01-14 12:31] LABS: MANUAL DIFF FLAG NO
[2024-01-14 12:41] LABS: Basophils Percent Auto 0.4 % (0-2); Eosinophils Absolute Auto 0.1 X10*3/uL (0.0-0.4); Hematocrit 40.3 % (37.0-47.0); Hemoglobin 13.4 g/dl (12.0-16.0); Imm Gran Abs Auto 0.01 X10*3/uL (0.00-0.03); Imm Gran Pct Auto 0.1 % (0.0-0.4); Lymphocytes Percent Auto 27.6 % (20-40); Mean Corpuscular HGB Conc 33.3 g/dl (31.0-35.0); Mean Corpuscular Hemoglobin 29.6 pg (27.0-33.0); Mean Platelet Volume 10.6 fL (9.4-12.3); Monocytes Absolute Auto 0.6 X10*3/uL (0.1-1.2); Monocytes Percent Auto 7.7 % (2-11); Neutrophils Absolute Auto 4.6 x10*3/uL (2.0-8.3); Neutrophils Percent Auto 63.2 % (45-73); Platelet Count 242 X10*3/uL (160-400); Red Blood Count 4.53 X10*6/uL (4.20-5.50); Red Cell Distribution Width 12.1 % (11.0-16.0); White Blood Count 7.3 X10*3/uL (4.8-10.8)
[2024-01-14 13:12] LABS: Alanine Aminotransferase 12 U/L (0-31); Alkaline Phosphatase 70 U/L (39-117); Anion Gap 9 (12-20); Aspartate Amino Transferase 14 U/L (5-31); Bilirubin Total 0.2 mg/dL (0.0-1.0); Blood Urea Nitrogen 18 mg/dL (9-16); Carbon Dioxide 28 mmol/L (22-29); Chloride 105 mmol/L (96-108); Estimated Glomerular Filt Rate > 60; Glucose Random 86 mg/dL (60-115); Potassium 4.3 mmol/L (3.3-5.1); Sodium 138 mmol/L (135-145); Total Protein 7.4 g/dL (6.5-8.0); Uric Acid 4.6 mg/dL (2.4-5.7)
[2024-01-14 13:25] LABS: Erythrocyte Sedimentation Rate 12 MM/HR (0-20)
[2024-01-15 19:12] LABS: IgA 302 mg/dL (47-310); IgG 1304 mg/dL (600-1640); IgM 81 mg/dL (50-300)
== END 2024-01-14 12:21 | disposition home or self-care (01) ==
LOC: HO.LAB 12:20
PROVIDERS: PCP Internal Medicine; Visit Provider Nurse Practitioner Family
DX: R22.42 Localized swelling, mass and lump, left lower limb (principal); M65.9 Synovitis and tenosynovitis, unspecified
CPT/HCPCS: 36415; 80053; 82784; 84550; 85025; 85652; 86140

== ENCOUNTER 2024-01-16 13:47 | Outpatient (AMB) | payer OTHER, SELFPAY ==
--- NOTE | 2024-01-16 13:50 | A.OFFVIS_ITS ---
Intake Vital Signs 01/16/24 14:02 Height 5 ft 2 in Weight 158 lb 15.253 oz BMI 29.1 BP 106/70 Blood Pressure Location Rt brachial Position Sitting Pulse 82 Pulse Source Pulse Oximeter Pulse Oximetry (%) 98 Oxygen Delivery Method Room Air Intake Visit Reasons: Swollen Left Toe and Thumbs Intake Note: Patient last seen 12/14/23 by Ayesha, presents today for follow up and test results. c/o low back pain since this morning Film Technician Required: Yes Film Technician Name: Melvin [id number] Accompanied by: Self / Same As Patient Allergies No Known Allergies Allergy (Verified 01/16/24 13:59) HPI HPI Comments History of Present Illness Details Ms. Stephani Garcia yoElizabeth returns for follow-up of to assess if colchicine helped swelling in hand an feet. She did not feel improved on the Colchicine for 8 days. She says she did call to report but the message was not received She continues with hand IP and thumb and left ankle swelling. 12/14/2023: Ms. Stepahni Tsang returns for fo llow-up of her joint pains, OA and FM. The visit is facilitated through the use of the [employer] system. She continues to complain of pain in the left foot and left 1st toe that has been bothering her for over 6 months. This is worse with more weight-bearing activities. She also continues with pain in the right shoulder. She had Right shoulder MRI done a few months ago which showed OA and Tendinitis with partial tear.. She does recall physical therapy for the shoulders in the past that was not helpful. Her other pains include the lower back, lateral hips, knees and hands. Prior Visit Assessment 07/2023 Dr. Mcgrath The patient has many areas of pain but the left foot and right shoulder seem to be the area of greatest concern. Radiographs of the left foot do document some osteoarthritis at the area where she is tender so I think mostly that is the cause of her pain there. There is some instep pain as well which could be a secondary symptom. I think we need further input from Podiatry about this. We will try to set up a consultation. I did today recheck some inflammatory markers, CBC and rheumatoid factor to try to evaluate for potential inflammatory disease but those remain normal. They were done years ago and were negative. The right shoulder pain continues. She has had physical therapy for it. The MRI shows a questionable partial tear. I think that should be further evaluated in Orthopedics and I will request a consultation. She was given the refill on the tramadol since it does seem to help her pain. She also takes the ibuprofen for the foot pain at times and that seems to be tolerable and she takes it intermittently. Follow-up in 3 months seems reasonable. Review of her old chart, today's history, the x-rays and lab work took 33 minutes [facility] Medical History Achilles tendinosis of both lower extremities CMC (carpometacarpal) synovitis Localized swelling of toe of left foot Breast mass, right Uterine fibroid Hemorrhoids Uterine fibroid Insomnia Essential hypertension Hematuria Calcific tendinitis of left shoulder Primary osteoarthritis of hands, bilateral Glucosuria HPV test positive At high risk for breast cancer Insomnia secondary to situational depression GERD (gastroesophageal reflux disease) Vitamin D deficiency Surgical History H/O excision of epidermal inclusion cyst (05/22/23) History of lumpectomy of left breast (08/23/22) History of lumpectomy of right breast Hx of tubal ligation History of bilateral breast biopsy (2017) History of section History of removal of cyst History of hemorrhoidectomy History of esophagogastroduodenoscopy (EGD) (08/26/19) Hx of colonoscopy Family History Mother Breast cancer, Onset Age: 50 Ovarian cancer Daughter Squamous cell carcinoma of uterus History of thyroid cancer Maternal Grandmother History of stomach cancer Maternal Uncle Family history of prostate cancer, Onset Age: 60 Social History (Updated 01/16/24 @ 14:00 by LISSY Monique) Household Members: Children Housing: House Alcohol intake: current Alcohol intake frequency: holidays/special occasions only Alcohol type: beer and wine Patient Tobacco Use Status: Former Tobacco user Quit Date: December 2023 Tobacco use type: Cigarette e-Cigarette/Vaping Use: Never Used Second Hand Smoke Exposure: No service: No Current occupational status: employed Current occupational exposures/hazards: No Sexual orientation: Straight/Heterosexual Gender identity: Female Cognitive needs: No Hearing needs: No Vision needs: Yes Female Reproductive History Menstrual Age of Menarche: 12 Review of Systems Const All systems reviewed & are unremarkable except as noted in HPI and below Physical Exam Vital Signs: Last Vital Signs Pulse 82 01/16/24 14:02 BP 106/70 01/16/24 14:02 Pulse Ox 98 01/16/24 14:02 Oxygen Delivery Method Room Air 01/16/24 14:02 BMI result Body Mass Index 29.1 APPEARANCE: Patient in no acute distress, groomed, nourished EYES no redness, eyelids normal HEART:? Regular rhythm, S1-S2 heard, no murmurs, rubs or gallops. LUNG:? Clear to percussion and auscultation EXTREMITIES: No edema, no calf tenderness, normal peripheral pulses. SKIN: No inflammatory or neoplastic lesions. Normal color and turgor JOINT EXAM: Cervical Spine: Full range of motion with Mild pain at the extremes. There is some cervical muscle tenderness. Thoracic Spine:No scoliosis.? No tenderness on palpation. Lumbar Spine: Alignment normal.? mild pain with full flexion, tenderness to palpation of the lumbar spine. The Froilan test normal. Hands:? Normal range of motion with mild to moderate bony enlargement and moderate tenderness and swelling at the bases of the thumbs. Tenderness and redness at the 2nd and 3rd MCP R>L. There is some nontender thickening at the thumb IP and 2nd PIP on the right. In other joints there is no tenderness, swelling, increased warmth or erythema. There is no flexor tendon triggering, thenar atrophy or sensory loss. Wrists:? Normal pain-free range of motion without tenderness, swelling, increased warmth or erythema. Elbows: Normal pain-free range of motion without tenderness, swelling, increased warmth or erythema. Shoulders:?? right: There is pain with abduction at 120 degrees or with extremes of internal or external rotation. There is mild anterior tenderness without swelling. No abductor weakness or adenopathy. Left: Full range of motion with mild pains at the extremes of normal range of motion. There is some minimal anterior tenderness without adenopathy, weakness, increased warmth or erythema. Hips: Full range of motion without pain. Hip bursa: No tenderness. Knees: Normal pain-free range of motion without tenderness, swelling, increased warmth or erythema.? There is no effusion or crepitation Ankles:? Left: There is normal, pain-free range of motion but she does have some tenderness anteriorly along the tibia. No redness or swelling is appreciated. Right: Normal pain-free range of motion without tenderness, swelling, increased warmth or erythema. Feet: left: Mild 1st MTP and 2nd toe bony enlargement and mild to moderate tenderness, erythema and swelling. There is some tenderness in the instep with some bony prominence. No redness or warmth. The toes are not painful to pressure. Other MTP joints are not tender. Right: Normal pain-free range of motion without tenderness, swelling, increased warmth or erythema. Tender points: Tenderness to digital palpation at the occiput, trapezius, second rib,greater trochanter and gluteal area bilaterally. Results Reviewed Results Reviewed: 01/08/2021 XR/XR lumbar spine 2-3V IMPRESSION: Mild lower lumbar spine facet arthritis. 0.5 x 1.5 cm radiopaque soft tissue density in the left pelvis, question postsurgical. Clinical correlation to exclude foreign body recommended. 07/2023 RIGHT HAND: No fracture or dislocation. Degenerative changes of the hand and wrist worst involving the and wrist progressed from prior with advanced loss of first carpometacarpal joint space and bulky osteophytes and to a lesser extent involving the distal interphalangeal joints where there is minimal degenerative spurring progressed from prior. No cortical erosion. Soft tissues are unremarkable. LEFT HAND: No fracture or dislocation. Degenerative changes of the hand and wrist similar to prior worst involving the first carpometacarpal joint where there is advanced loss of joint space and bulky osteophytes and to a lesser extent involving the distal interphalangeal joints where there is minimal degenerative spurring progressed from prior. No cortical erosion. Soft tissues are unremarkable. XR/XR hand LT min 3V IMPRESSION: 1. Degenerative changes of the hands and wrists progressed from prior worst involving the first carpometacarpal joints bilaterally where it is advanced. XR/XR foot RT min 3V IMPRESSION: RIGHT FOOT: Mild degenerative changes of the first metatarsophalangeal joint with degenerative spurring. LEFT FOOT: Moderate degenerative changes of the first metacarpophalangeal joint with loss of joint space and degenerative spurring. I personally reviewed relevant 2022 Right Shoulder MRI images 1. Mild supraspinatus tendinosis with minimal insertional intrasubstance partial tearing. Subscapularis tendinosis with distal articular surface partial tearing measuring 2.3 cm in ML dimension. No full-thickness rotator cuff tendon tear. 2. Mild proximal long head biceps tenosynovitis without a measurable tendon tear. 3. Mild acromioclavicular osteoarthritis. Laboratory Tests 09/11/23 01/14/24 10:31 12:28 WBC 7.3 RBC 4.53 Hgb 13.4 Hct 40.3 ESR 12 Uric Acid 4.6 AST 14 ALT 12 C-Reactive Protein 0.10 Total Protein 7.4 Albumin 4.0 IgG Total 1304 IgA Total 302 IgM 81 Rheumatoid Factor < 13.0 Cycl Citrul Peptide IgG <16 Assessment & Plan Assessment & Plan (1) Right rotator cuff tendonitis: Code(s): M75.81 - Other shoulder lesions, right shoulder (2) Osteoarthritis of left foot: Code(s): M19.072 - Primary osteoarthritis, left ankle and foot Qualifiers: Osteoarthritis type: primary Qualified Code(s): M19.072 - Primary osteoarthritis, left ankle and foot (3) Osteoarthritis of hands, bilateral: Code(s): M19.041 - Primary osteoarthritis, right hand; M19.042 - Primary osteoarthritis, left hand Qualifiers: Osteoarthritis type: primary Qualified Code(s): M19.041 - Primary osteoarthritis, right hand; M19.042 - Primary osteoarthritis, left hand (4) Localized swelling of toe of left foot: Code(s): R22.42 - Localized swelling, mass and lump, left lower limb (5) Achilles tendinosis of both lower extremities: Code(s): M67.88 - Other specified disorders of synovium and tendon, other site Plan #Left Great Toe/OA/Right RC Tendonitis: Ms. Villalobos, 53 yoF is continues with pain and swelling to the left great toe MTP and 2nd toe. I had fall the patient may have gout in this area but it did not respond to the colchicine. I will try her on a course of prednisone and reassess. On PE, there are other areas of moderate tenderness and joint remodeling such as to her hands. We will see what colchicine will address. There is tendinopathy to her shoulders and a 07/30/2023 xray shows achilles enthesopthy. This picture of Tenidinitis and enthesopathy, swelling and tenderness to the DIP and CMC joints can be seen in the context of AxSpa which would require immunomodulator therapy. If the prednisone improves we may star a DMARD in light of these symptoms. She received 3 weeks' worth of prednisone-if initially improved with prednisone, patient should assess if return of symptoms of prednisone so we will return in 2 months. I spent 20 minutes reviewing chart, evaluating patient, discussing labs and plan and documenting f/u 2 month Medications: New prednisone orally daily; 3 tablets per day x 7 days 2 tablets per day x 7 day 1 tablets per day x 7 days 45 tabs 0RF M67.88 - Other specified disorders of synovium and tendon, other site, R22.42 - Localized swelling, mass and lump, left lower limb Discontinued colchicine Discontinued Reason: Doctor's Order 0.6 mg PO DAILY 10 tabs 0RF R22.42 - Localized swelling, mass and lump, left lower limb Coding Level of Care Code Est Pt Level 3 (78922) Diagnoses Right rotator cuff tendonitis M75.81 Primary osteoarthritis of left foot M19.072 Osteoarthritis type: primary Primary osteoarthritis of both hands M19.041; M19.042 Osteoarthritis type: primary Localized swelling of toe of left foot R22.42 Achilles tendinosis of both lower extremities M67.88
[2024-01-16 14:02] VITALS: BP 106/70; PULSE 82; O2SAT 98; BMI 29.1
== END 2024-01-16 14:16 | disposition home or self-care (01) ==
PROVIDERS: PCP Internal Medicine; Visit Provider Nurse Practitioner Family
DX: M75.81 Other shoulder lesions, right shoulder (principal); M19.072 Primary osteoarthritis, left ankle and foot; M19.041 Primary osteoarthritis, right hand; M19.042 Primary osteoarthritis, left hand; R22.42 Localized swelling, mass and lump, left lower limb; M67.88 Other specified disorders of synovium and tendon, other site
CPT/HCPCS: 99213

== ENCOUNTER → 2024-01-16 13:47 | Outpatient (BNVA) | payer OTHER, SELFPAY | PROVIDERS: PCP Internal Medicine; Visit Provider Nurse Practitioner Family | DX: M75.81 Other shoulder lesions, right shoulder (principal); M19.072 Primary osteoarthritis, left ankle and foot; M19.041 Primary osteoarthritis, right hand; M19.042 Primary osteoarthritis, left hand; M67.88 Other specified disorders of synovium and tendon, other site; R22.42 Localized swelling, mass and lump, left lower limb | CPT/HCPCS: 99212 ==

== ENCOUNTER 2024-02-26 07:22 | Outpatient (AMB) | payer MEDICAID, SELFPAY ==
[2024-02-26 07:31] VITALS: BP 110/70; BMI 29.8
--- NOTE | 2024-02-26 07:31 | MHC.PC.OV ---
Vital Signs 02/26/24 07:31 Height 5 ft 2 in Weight 163 lb BMI 29.8 BP 110/70 Blood Pressure Location Lt brachial Position Sitting Intake Visit Reasons: annual exam Intake Note: Patient here for a physical exam Assistant Counsel Required: No Accompanied by: Self / Same As Patient Allergies No Known Allergies Allergy (Verified 02/26/24 07:52) Medication List - Last Reconciled 02/26/24 by Fatmata Baca MD amitriptyline 25 mg PO BEDTIME 30 days buspirone 5 mg PO TID dicyclomine 10 mg PO TID duloxetine mg PO famotidine 40 mg PO BEDTIME 30 days gabapentin 300 mg PO BEDTIME 30 days hydrocortisone 2.5% (Proctosol HC) 1 appl [place] BID PRN hydroxyzine HCl 10 mg PO TID ibuprofen 800 mg PO TID PRN 90 days linaclotide (Linzess) 290 mcg PO DAILY losartan 100 mg PO DAILY 90 days meclizine 25 mg PO BID PRN 30 days metoclopramide HCl (Reglan) 10 mg PO .qacsupper and qhs mirabegron ER (Myrbetriq) 25 mg PO DAILY norethindrone acetate 5 mg PO DAILY pantoprazole 40 mg PO BID prednisone orally daily; 3 tablets per day x 7 days 2 tablets per day x 7 day 1 tablets per day x 7 days tramadol 50 mg PO Q8H PRN trazodone 50 mg PO BEDTIME varenicline 1 mg PO BID 30 days zolpidem 5 mg PO BEDTIME PRN Tobacco use date assessed: 02/26/24 Dental Screening Dental Screen Date: 02/26/24 Did you have a dental visit in the last 12 months?: Yes Did you have a dental problem in the last 6 months where you did not have access to dental care?: No Was dental information given to patient?: Patient has dentist HPI HPI Comments History of Present Illness Details This is a 53-year-old female that comes for her physical exam. Last mammogram was October 2023 and has to be repeated in April 2024. Had hysterectomy last month and complains of some pelvic pain. Ultrasound will be order. Last colonoscopy was 2022. Denies chest pain or shortness of breath. 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, bilateral Glucosuria HPV test positive At high risk for breast cancer Insomnia secondary to situational depression GERD (gastroesophageal reflux disease) Vitamin D deficiency Surgical History History of hysterectomy H/O excision of epidermal inclusion cyst (05/22/23) History of lumpectomy of left breast (08/23/22) History of lumpectomy of right breast Hx of tubal ligation History of bilateral breast biopsy (2017) History of section History of removal of cyst History of hemorrhoidectomy History of esophagogastroduodenoscopy (EGD) (08/26/19) Hx of colonoscopy Family History (Updated 02/26/24 @ 07:58 by Fatmata Baca MD) Mother Breast cancer, Onset Age: 50 Ovarian cancer Daughter Squamous cell carcinoma of uterus History of thyroid cancer Maternal Grandmother History of stomach cancer Maternal Uncle Family history of prostate cancer, Onset Age: 60 Father No problems noted. Social History Household Members: Children Housing: House Alcohol intake: current Alcohol intake frequency: holidays/special occasions only Alcohol type: beer and wine Patient Tobacco Use Status: Former Tobacco user Quit Date: December 2023 Tobacco use type: Cigarette e-Cigarette/Vaping Use: Never Used Second Hand Smoke Exposure: No service: No Current occupational status: employed Current occupational exposures/hazards: No Sexual orientation: Straight/Heterosexual Gender identity: Female Cognitive needs: No Hearing needs: No Vision needs: Yes Female Reproductive History Menstrual Age of Menarche: 12 Questionnaire PHQ-9 Over the last 2 weeks, how often have you been bothered by any of the following problems? 1. Little interest or pleasure in doing things: not at all 2. Feeling down, depressed, or hopeless: several days 3. Trouble falling or staying asleep, or sleeping too much: not at all 4. Feeling tired or having little energy: not at all 5. Poor appetite or overeating: not at all 6. Feeling bad about yourself - or that you are a failure or have let yourself or your family down: not at all 7. Trouble concentrating on things, such as reading the newspaper or watching television: not at all 8. Moving or speaking so slowly that other people could have noticed. Or the opposite - being so fidgety or restless that you have been moving around a lot more than usual: not at all 9. Thoughts that you would be better off or of hurting yourself in some way: not at all Total score: 1 Depression Screening Interpretation: Negative Depression Screening Done: Yes 49928 - PHQ-9 Billing: Yes Source: Developed by Drs. Elio Bruner, Erika Greene, Lc Trejo and colleagues, with an educational isi from [employer]. Thrive Questionnaire Date Thrive assessed: 02/26/24 I am a: Patient What is your living situation today?: I have a steady place to live Within the past 12 months, did the food you bought not last and you didn't have the money to get more?: Never true Within the past 12 months, did you worry whether your food would run out before you got money to buy more?: Never true Do you have trouble paying for medicines?: No Do you have trouble getting transportation to medical appointments?: No Do you have trouble paying your heating and electricity bill?: No Do you have trouble taking care of your child, family member or friend?: No Do you have trouble with day-to-day activities such as bathing, preparing meals, shopping, managing finances, etc.?: No Are you currently unemployed and looking for a job?: No Are you interested in more education?: No Please select the resources that you would like help with: None Currently or been in a relationship where the following occur: no concerns reported THRIVE Score: 0 AUDIT C Alcohol Use Questionnaire (AUDIT-C) 1. How often do you have a drink containing alcohol?: Never Total Score: 0 ED-7 AMB Questionnaire ED-7 Date ED - 7 assessed: 02/26/24 Feeling nervous, anxious, or on edge: 1 = Several days Not being able to stop or control worryin = Not at all Worrying too much about different things: 0 = Not at all Trouble relaxin = Not at all Being so restless that it is hard to sit still: 0 = Not at all Becoming easily annoyed or irritable: 0 = Not at all Feeling afraid as if something awful might happen: 0 = Not at all Total ED-7 score (0-4 normal; 5-9 mild; 10-14 moderate; 15-21 severe): 1 Source: Developed by Drs. Elio Bruner, Erika Greene, Lc Trejo and colleagues, with an educational isi from [employer]. ED-7 Assessment Billing ED-7 Assessment Tool: ED-7 Assessment 41437 Review of Systems Const All systems reviewed & are unremarkable except as noted in HPI and below Eyes Reports no additional complaints, Denies change in vision and Denies other visual disturbances Card Denies chest pain at rest, Denies chest pain with activity, Denies edema, Denies irregular heart rhythm, Denies claudication, Denies dyspnea, Denies dyspnea on exertion, Denies orthopnea, Denies paroxysmal nocturnal dyspnea and Denies slow heart rate Resp Denies cough, Denies dyspnea and Denies dyspnea on exertion GI Denies abdominal pain, Denies change in bowel habits, Denies excessive flatus, Denies nausea and Denies vomiting Denies urinary incontinence, Denies urinary hesitancy and Denies urinary urgency Physical exam (Primary Care) Vital Signs: Last Vital Signs BP 110/70 02/26/24 07:31 BMI result Body Mass Index 29.8 Tobacco/Smoking Status: Tobacco use Status Tobacco use date assessed 02/26/24 02/26/24 07:37 Patient Tobacco Use Status Former Tobacco user 02/26/24 07:37 Tobacco use type Cigarette 02/26/24 07:37 e-Cigarette/Vaping Use Never Used 02/26/24 07:37 PHQ-9: PHQ-9 Score PHQ-9: Total score 1 02/26/24 08:27 Depression Screening Interpretation: Negative Thrive Assessment: Date of Thrive Assessment Date Thrive assessed 02/26/24 02/26/24 07:37 Currently or been in a relationship where the following occur: no concerns reported HENMT Head: Yes normal to inspection, Yes normocephalic and Yes atraumatic Ears: external ears normal Eyes General: appearance normal, both eyes and all related structures Eyelids: Yes eyelids normal Conjunctivae: conjunctivae normal Neck Neck: Yes normal visual inspection and Yes supple Resp Effort & Inspection: normal respiratory effort Auscultation: clear to auscultation bilaterally Cardio Jugular venous distension: no JVD Rate: regular rate Rhythm: regular rhythm Heart sounds: S1 normal heart sound present and S2 normal heart sound present GI Inspection: Yes normal to inspection Palpation (GI): Soft to palpation and nontender Auscultation: normal bowel sounds Skin General skin exam: no rashes or lesions noted Neuro General: no focal motor deficits Extrem General: Yes full ROM Psych Appearance: grossly normal Assessment and Plan Assessment & Plan (1) Physical exam: Code(s): Z00.00 - Encounter for general adult medical examination without abnormal findings Plan: Repeat in a year. Orders: Orders US pelvic and transvaginal Today R10.2 - Pelvic and perineal pain Coding Level of Care Code Est Pt Prev Care 40-64y(29715) Diagnoses Physical exam Z00.00 Additional Codes ED-7 Assessment Billing - ED-7 Assessment Tool: ED-7 Assessment 09740 ([id number]) Time Spent (min) 31
== END 2024-02-26 08:04 | disposition home or self-care (01) ==
PROVIDERS: PCP Internal Medicine; Visit Provider Internal Medicine
DX: Z00.00 Encounter for general adult medical examination without abnormal findings (principal)
CPT/HCPCS: 99396

== ENCOUNTER 2024-02-28 11:43 | Outpatient (AMB) | payer OTHER, SELFPAY ==
--- NOTE | 2024-02-28 11:49 | MHC.OFFVIS ---
Vital Signs 02/28/24 11:56 Height 5 ft 2 in Weight 163 lb BMI 29.8 BP 117/68 Blood Pressure Location Lt brachial Position Sitting Pulse 90 Intake Visit Reasons: Left breast lump Intake Note: Patient is seen in office for follow up visit, following left breast lump. Pt c/o: new lump of the left breast, onset 2 wks, painful when laying on it, feels both breeast are swollen mm sched: 04/25/24 f/u: 05/06/24 Social Sciences Research Scientist Required: Yes Social Sciences Research Scientist Language: Bomb Technician Name: Adeola YUAN Information Interpreted: non-clinical & clinical Residential Worker: Residential Worker Present Accompanied by: Self / Same As Patient Allergies No Known Allergies Allergy (Verified 02/28/24 11:57) HPI Comments Details: 53-year-old female patient with a high risk for breast cancer, placed on high risk breast protocol due to a Emily model lifetime risk of breast cancer of 24%. A previous MR guided biopsy on 03/27/2019 revealed intraductal papilloma. Subsequent mammogram and ultrasound on 10/22/2019 revealed no suspicious changes only bilateral cysts. A follow-up MRI of 01/26/2020 revealed a non mass enhancement and 2 o'clock position of the right breast. She subsequently underwent ultrasound-guided core biopsy on 03/12/2020. Pathology revealed benign breast tissue with no evidence of malignancy. MRI of 03/25/2021 revealed a suspicious non-mass enhancement of the left breast at the 3 o'clock position felt to be suspicious for malignancy. An MR guided core biopsy on 04/20/2021 revealed benign breast tissue with no malignancy. Apocrine metaplasia, focal usual ductal hyperplasia and focal fibroadenomatoid change was identified. Her most recent Tyrer-Cuzick remaining lifetime risk of breast cancer was calculated 8%. Breast MRI obtained 05/21/2023 revealed a 12 mm left breast mass in the 3 o'clock position, 7.5 cm from the nipple. She subsequently underwent an ultrasound-guided core biopsy on 06/05/2023. Pathology revealed a fibroadenoma without evidence of atypia or malignancy. She reported a painful lump in the left breast in the region of the previous biopsy. Subsequent mammogram and ultrasound was performed on 10/25/2023 which revealed no findings suspicious for malignancy in either breast. Palpable focus of concern in the 11:00 o'clock axis of the left breast appeared consistent with 2 abutting cysts adjacent to the 12:00 o'clock scar. These were felt to be benign. Waxing and waning cysts were noted in the right breast as well. Findings were felt to be low suspicion for malignancy and a six-month follow-up left breast ultrasound was recommended (BI-RADS 3). Ultrasound of the right breast performed on 12/03/2023 revealed adjacent cysts at the site of a palpable focus felt to be benign in appearance (BI-RADS 2). Patient continues to report pain in the left chest with pain on deep inspiration. The pain is mainly on the left side. CT of the chest on 12/07/2023 revealed an unremarkable examination. Patient presents today with a new palpable and painful lump located in the upper outer quadrant of the left breast near the axilla. This is lateral to her previous incision in the upper inner quadrant of the left breast. She also reports swelling in bilateral breasts with breast pain. She is status post hysterectomy 1 month ago without oophorectomy. [facility] Medical History Candidiasis of mouth and esophagus Achilles tendinosis of both lower extremities CMC (carpometacarpal) synovitis Localized swelling of toe of left foot Breast mass, right Uterine fibroid Hemorrhoids Uterine fibroid Insomnia Essential hypertension Hematuria Calcific tendinitis of left shoulder Primary osteoarthritis of hands, bilateral Glucosuria HPV test positive At high risk for breast cancer Insomnia secondary to situational depression GERD (gastroesophageal reflux disease) Vitamin D deficiency Surgical History History of hysterectomy H/O excision of epidermal inclusion cyst (05/22/23) History of lumpectomy of left breast (08/23/22) History of lumpectomy of right breast Hx of tubal ligation History of bilateral breast biopsy (2017) History of section History of removal of cyst History of hemorrhoidectomy History of esophagogastroduodenoscopy (EGD) (08/26/19) Hx of colonoscopy Family History Mother Breast cancer, Onset Age: 50 Ovarian cancer Daughter Squamous cell carcinoma of uterus History of thyroid cancer Maternal Grandmother History of stomach cancer Maternal Uncle Family history of prostate cancer, Onset Age: 60 Father No problems noted. Social History Household Members: Children Housing: House Alcohol intake: current Alcohol intake frequency: holidays/special occasions only Alcohol type: beer and wine Patient Tobacco Use Status: Former Tobacco user Quit Date: December 2023 Tobacco use type: Cigarette e-Cigarette/Vaping Use: Never Used Second Hand Smoke Exposure: No service: No Current occupational status: employed Current occupational exposures/hazards: No Sexual orientation: Straight/Heterosexual Gender identity: Female Cognitive needs: No Hearing needs: No Vision needs: Yes Female Reproductive History Menstrual Age of Menarche: 12 Review of Systems Const All systems reviewed & are unremarkable except as noted in HPI and below Denies body aches, Denies chills, Denies fatigue and Denies fever(s) Eyes Denies change in vision Card Reports as per HPI, Denies chest pain, Reports chest pain with activity (Intermittent), Reports rapid heart rate (Intermittent), Denies leg edema, Denies lightheadedness and Denies dyspnea Resp Denies chest congestion, Denies cough, Reports pain on inspiration, Reports pain with cough, Denies dyspnea and Denies wheezing GI Denies abdominal pain, Denies constipation, Denies diarrhea, Reports nausea (Intermittent) and Denies vomiting Denies nipple discharge and Denies dysuria Musc Denies myalgias, Denies numbness and Denies tingling Skin/Breast Reports as per HPI, Denies breast swelling, Denies breast skin changes, Reports breast pain, Denies breast mass, Denies lesions, Denies nipple discharge and Denies rash Neuro Denies numbness and Denies tingling Endo Denies fatigue Aller/Immun Denies wheezing Physical Exam Vital Signs: Last Vital Signs Pulse 90 02/28/24 11:56 BP 117/68 02/28/24 11:56 BMI result Body Mass Index 29.8 Const General: no acute distress Nutritional Appearance: well nourished Orientation/consciousness: patient oriented x3 Limitations: no limitations Eyes Sclerae: sclerae normal EOM: EOMs intact bilaterally Chest Other: Left breast: Palpable mass noted in the upper outer quadrant, 02:00 o'clock approximately 7 cm from the nipple. Finding is very discrete from the surrounding breast tissue and tender to palpation. No overlying skin changes are appreciated. A well-healed transverse incision is noted in the upper inner quadrant left breast. Diffuse tenderness is noted throughout the left breast. No palpable lymphadenopathy. Right breast: Diffuse tenderness throughout the breast but no new skin change, nipple discharge, palpable mass or enlarged lymph nodes. Resp Effort & Inspection: normal respiratory effort Skin General skin exam: no rashes or lesions noted Neuro General: patient oriented x3 Extrem General: Yes no clubbing, cyanosis or edema Assessment & Plan Assessment & Plan (1) Breast mass, left: Code(s): N63.20 - Unspecified lump in the left breast, unspecified quadrant Category: Medical Qualifiers: Breast mass location: overlapping quadrants Qualified Code(s): N63.25 - Unspecified lump in the left breast, overlapping quadrants (2) At high risk for breast cancer: Code(s): Z91.89 - Other specified personal risk factors, not elsewhere classified Category: Medical Plan 53-year-old female patient at high risk for breast cancer presenting with a new palpable mass in the left breast at the upper outer quadrant, tender to palpation. This does appear to be quite discrete from the surrounding breast tissue and may represent a new breast cyst. I recommended further evaluation with ultrasound. She will return following the study to review the results and discuss treatment options. Orders: Orders US breast LT limited Today N63.25 - Unspecified lump in the left breast, overlapping quadrants Coding Level of Care Code Est Pt Level 3 (08663) Diagnoses Mass overlapping multiple quadrants of left breast N63.25 Breast mass location: overlapping quadrants At high risk for breast cancer Z91.89
[2024-02-28 11:56] VITALS: BP 117/68; PULSE 90; BMI 29.8
== END 2024-02-28 12:07 | disposition home or self-care (01) ==
PROVIDERS: PCP Internal Medicine; Visit Provider Surgery
DX: N63.25 Unspecified lump in the left breast, overlapping quadrants (principal); Z91.89 Other specified personal risk factors, not elsewhere classified
CPT/HCPCS: 99213

== ENCOUNTER 2024-02-28 12:51 | Outpatient (REF) | payer MEDICAID, SELFPAY ==
--- NOTE | ~2024-02-28 | US_ITS ---
EXAMINATION: US PELVIS CLINICAL INFORMATION: Pelvic pain, lower pelvis unknown last menstrual period. Partial hysterectomy January 2024. COMPARISON: 06/29/2023 Pelvic ultrasound. TECHNIQUE: Ultrasound of the pelvis is performed using both transabdominal and transvaginal transducers along with Doppler. Transvaginal imaging is performed due to inadequate visualization transabdominally. FINDINGS: The uterus is surgically absent. No significant free fluid. Right ovary measures 3.9 x 2.7 x 3.7 cm, volume 20.35 mL. A 3.2 x 2.5 x 3.4 cm cyst along the right ovary is mildly complex with low level internal echoes, possibly an exophytic right ovarian cyst versus paraovarian cyst. Small amount of free fluid identified adjacent to the right ovary. Left ovary was seen only on transabdominal ultrasound images and visualization is limited due to bowel gas. Left ovary measures 3.7 x 1.9 x 3.4 cm, volume 12.5 mL. A 0.3 cm echogenic focus within the left ovary is characteristic of a punctate calcification. US/US pelvic and transvaginal IMPRESSION: 1. Uterus surgically absent. 2. A 3.4 cm mildly complex right adnexal cyst may represent a right ovarian cyst versus paraovarian cyst, not identified on the prior exam. 3. Left ovarian 0.3 cm echogenic focus is characteristic of a punctate calcification and was not identified on the prior exam. 4. Recommend follow-up ultrasound in 6-8 weeks.
== END 2024-02-28 12:52 | disposition home or self-care (01) ==
LOC: HO.HMGCX 12:51
PROVIDERS: PCP Internal Medicine; Visit Provider Internal Medicine
DX: R10.2 Pelvic and perineal pain (principal); N63.25 Unspecified lump in the left breast, overlapping quadrants; Z91.89 Other specified personal risk factors, not elsewhere classified
CPT/HCPCS: 76830; 76856; 99212

== ENCOUNTER 2024-03-18 14:22 | Outpatient (AMB) | payer MEDICAID, SELFPAY ==
--- NOTE | 2024-03-18 14:40 | A.OFFVIS_ITS ---
Vital Signs 03/18/24 14:41 Height 5 ft 2 in Weight 164 lb 7.437 oz BMI 30.1 BP 126/80 Blood Pressure Location Rt brachial Position Sitting Pulse 72 Pulse Source Pulse Oximeter Pulse Oximetry (%) 97 Oxygen Delivery Method Room Air Intake Visit Reasons: Hand Pain/Foot Pain Intake Note: Patient last seen 01/16/24 by Ayesha, presents today for hand and foot pain follow up. Patient reports prednisone made her nauseous, no longer taking it. She states she feels orse than last visit.. reports pain after sifting/standing for long periods of time, leg swelling. Data Entry Clerk Required: Yes Data Entry Clerk Language: Cte Teacher Name: Sadiq [id number] Accompanied by: Self / Same As Patient Allergies No Known Allergies Allergy (Verified 03/18/24 14:52) HPI Comments Details: Ms. Stephani Tsang returns for follow-up of to assess if colchicine helped swelling in hand an feet. She did not feel improved on the Colchicine for 8 days. She says she did call to report but the message was not received She continues with hand IP and thumb and left ankle swelling. 01/16/2024 Ms. Stephani Tsang returns for follow-up of to assess if colchicine helped swelling in hand an feet. She did not feel improved on the Colchicine for 8 days. She says she did call to report but the message was not received She continues with hand IP and thumb and left ankle swelling. 12/14/2023: Ms. Stephani Tsang returns for follow-up of her joint pains, OA and FM. The visit is facilitated through the use of the [employer] translating system. She continues to complain of pain in the left foot and left 1st toe that has been bothering her for over 6 months. This is worse with more weight-bearing activities. She also continues with pain in the right shoulder. She had Right shoulder MRI done a few months ago which showed OA and Tendinitis with partial tear.. She does recall physical therapy for the shoulders in the past that was not helpful. Her other pains include the lower back, lateral hips, knees and hands. Prior Visit Assessment 07/2023 Dr. Mcgrath The patient has many areas of pain but the left foot and right shoulder seem to be the area of greatest concern. Radiographs of the left foot do document some osteoarthritis at the area where she is tender so I think mostly that is the cause of her pain there. There is some instep pain as well which could be a secondary symptom. I think we need further input from Podiatry about this. We will try to set up a consultation. I did today recheck some inflammatory markers, CBC and rheumatoid factor to try to evaluate for potential inflammatory disease but those remain normal. They were done years ago and were negative. The right shoulder pain continues. She has had physical therapy for it. The MRI shows a questionable partial tear. I think that should be further evaluated in Orthopedics and I will request a consultation. She was given the refill on the tramadol since it does seem to help her pain. She also takes the ibuprofen for the foot pain at times and that seems to be tolerable and she takes it intermittently. Follow-up in 3 months seems reasonable. Review of her old chart, today's history, the x-rays and lab work took 33 minutes [facility] Medical History (Updated 03/22/24 @ 21:43 by Claudette Hodge [facility]) assisted (current) use of immunomodulator Screening examination for infectious disease Seronegative inflammatory arthritis Candidiasis of mouth and esophagus Achilles tendinosis of both lower extremities CMC (carpometacarpal) synovitis Localized swelling of toe of left foot Breast mass, right Uterine fibroid Hemorrhoids Uterine fibroid Insomnia Essential hypertension Hematuria Calcific tendinitis of left shoulder Primary osteoarthritis of hands, bilateral Glucosuria HPV test positive At high risk for breast cancer Insomnia secondary to situational depression GERD (gastroesophageal reflux disease) Vitamin D deficiency Surgical History History of hysterectomy H/O excision of epidermal inclusion cyst (05/22/23) History of lumpectomy of left breast (08/23/22) History of lumpectomy of right breast Hx of tubal ligation History of bilateral breast biopsy (2018) History of section History of removal of cyst History of hemorrhoidectomy History of esophagogastroduodenoscopy (EGD) (08/26/19) Hx of colonoscopy Family History Mother Breast cancer, Onset Age: 50 Ovarian cancer Daughter Squamous cell carcinoma of uterus History of thyroid cancer Maternal Grandmother History of stomach cancer Maternal Uncle Family history of prostate cancer, Onset Age: 60 Father No problems noted. Social History Household Members: Children Housing: House Alcohol intake: current Alcohol intake frequency: holidays/special occasions only Alcohol type: beer and wine Patient Tobacco Use Status: Former Tobacco user Tobacco use type: Cigarette e-Cigarette/Vaping Use: Never Used Second Hand Smoke Exposure: No service: No Current occupational status: employed Current occupational exposures/hazards: No Sexual orientation: Straight/Heterosexual Gender identity: Female Cognitive needs: No Hearing needs: No Vision needs: Yes Female Reproductive History Menstrual Age of Menarche: 12 Physical Exam Vital Signs: Last Vital Signs Pulse 72 03/18/24 14:41 BP 126/80 03/18/24 14:41 Pulse Ox 97 03/18/24 14:41 Oxygen Delivery Method Room Air 03/18/24 14:41 BMI result Body Mass Index 30.1 Assessment & Plan Assessment & Plan (1) Right rotator cuff tendonitis: Code(s): M75.81 - Other shoulder lesions, right shoulder Category: Medical (2) Osteoarthritis of left foot: Code(s): M19.072 - Primary osteoarthritis, left ankle and foot Category: Medical Qualifiers: Osteoarthritis type: primary Qualified Code(s): M19.072 - Primary osteoarthritis, left ankle and foot (3) Osteoarthritis of hands, bilateral: Code(s): M19.041 - Primary osteoarthritis, right hand; M19.042 - Primary osteoarthritis, left hand Category: Medical Qualifiers: Osteoarthritis type: primary Qualified Code(s): M19.041 - Primary osteoarthritis, right hand; M19.042 - Primary osteoarthritis, left hand (4) Localized swelling of toe of left foot: Comment: not improved on colchicine Code(s): R22.42 - Localized swelling, mass and lump, left lower limb Category: Medical (5) Achilles tendinosis of both lower extremities: Code(s): M67.88 - Other specified disorders of synovium and tendon, other site Category: Medical (6) assisted (current) use of immunomodulator: Code(s): Z79.61 - assisted (current) use of immunomodulator Category: Medical Plan #Left Great Toe/OA/Right RC Tendonitis: Ms. Villalobos, 53 yoF is continues with pain and swelling to the left great toe MTP and 2nd toe. Improved on prednisone On PE, there are other areas of moderate tenderness and joint remodeling such as to her hands.There is tendinopathy to her shoulders and a 07/30/2023 xray shows achilles enthesopthy. This picture of Tenidinitis and enthesopathy, swelling and tenderness to the DIP and CMC joints can be seen in the context of AxSpa which would require immunomodulator therapy. The prednisone provided relief to her hands. We will start her on a sample trial of RINVOQ 15mg QD and assess for improvement in 1 month. #Use of Immunosuppressant: Discussed with patient - hold medication in the event of infections, fevers. non-healing wound, surgery. Obtain labs 1 week before n ext visit. I spent 20 minutes reviewing chart, evaluating patient, discussing labs and plan and documenting f/u 1 month Orders: Orders C Reactive Protein 03/18/24 M13.80 - Other specified arthritis, unspecified site, M67.88 - Other specified disorders of synovium and tendon, other site, M67.911 - Unspecified disorder of synovium and tendon, right shoulder Complete Blood Count Auto Diff 03/18/24 M13.80 - Other specified arthritis, unspecified site, M67.88 - Other specified disorders of synovium and tendon, other site, M67.911 - Unspecified disorder of synovium and tendon, right shoulder T Spot TB 03/18/24 Z11.9 - Encounter for screening for infectious and parasitic diseases, unspecified Lipid Panel 03/18/24 M13.80 - Other specified arthritis, unspecified site, M67.88 - Other specified disorders of synovium and tendon, other site, M67.911 - Unspecified disorder of synovium and tendon, right shoulder Erythrocyte Sedimentation Rate 03/18/24 M13.80 - Other specified arthritis, unspecified site, M67.88 - Other specified disorders of synovium and tendon, other site, M67.911 - Unspecified disorder of synovium and tendon, right shoulder Comprehensive Met. Panel 03/18/24 M13.80 - Other specified arthritis, unspecified site, M67.88 - Other specified disorders of synovium and tendon, other site, M67.911 - Unspecified disorder of synovium and tendon, right shoulder Hepatitis A,B,C Profile 03/18/24 Z11.9 - Encounter for screening for infectious and parasitic diseases, unspecified Medications: New upadacitinib ER (Rinvoq) Do not Dispense Sample Sample Sample Lot# [id number] Exp 06/29/2025 15 mg PO DAILY 28 tabs 0RF M13.80 - Other specified arthritis, unspecified site, M67.88 - Other specified disorders of synovium and tendon, other site, M75.81 - Other shoulder lesions, right shoulder Coding Level of Care Code Est Pt Level 4 (85307) Complex EM visit Add On G2211 Diagnoses Right rotator cuff tendonitis M75.81 Primary osteoarthritis of left foot M19.072 Osteoarthritis type: primary Primary osteoarthritis of both hands M19.041; M19.042 Osteoarthritis type: primary Localized swelling of toe of left foot R22.42 Achilles tendinosis of both lower extremities 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
[2024-03-18 14:41] VITALS: BP 126/80; PULSE 72; O2SAT 97; BMI 30.1
== END 2024-03-18 15:43 | disposition home or self-care (01) ==
PROVIDERS: PCP Internal Medicine; Visit Provider Nurse Practitioner Family
DX: M75.81 Other shoulder lesions, right shoulder (principal); M19.072 Primary osteoarthritis, left ankle and foot; M19.041 Primary osteoarthritis, right hand; M19.042 Primary osteoarthritis, left hand; R22.42 Localized swelling, mass and lump, left lower limb; M67.88 Other specified disorders of synovium and tendon, other site; Z79.61 Long term (current) use of immunomodulator
CPT/HCPCS: 99214; G2211

== ENCOUNTER 2024-03-18 14:22 | Outpatient (REF) | payer MEDICAID, SELFPAY ==
[2024-03-18 15:58] LABS: MANUAL DIFF FLAG NO
[2024-03-18 16:51] LABS: Basophils Percent Auto 0.5 % (0-2); Eosinophils Absolute Auto 0.1 X10*3/uL (0.0-0.4); Eosinophils Percent Auto 1.7 % (0-4); Hematocrit 39.4 % (37.0-47.0); Hemoglobin 13.3 g/dl (12.0-16.0); Imm Gran Abs Auto 0.02 X10*3/uL (0.00-0.03); Imm Gran Pct Auto 0.3 % (0.0-0.4); Lymphocytes Percent Auto 34.1 % (20-40); Mean Corpuscular HGB Conc 33.8 g/dl (31.0-35.0); Mean Corpuscular Hemoglobin 30.2 pg (27.0-33.0); Mean Corpuscular Volume 89.3 fL (80.0-98.0); Monocytes Absolute Auto 0.5 X10*3/uL (0.1-1.2); Monocytes Percent Auto 8.6 % (2-11); Neutrophils Absolute Auto 3.3 x10*3/uL (2.0-8.3); Neutrophils Percent Auto 54.8 % (45-73); Platelet Count 238 X10*3/uL (160-400); Red Blood Count 4.41 X10*6/uL (4.20-5.50); Red Cell Distribution Width 11.9 % (11.0-16.0)
[2024-03-18 17:02] LABS: Alanine Aminotransferase 16 U/L (0-31); Albumin Level 4.3 g/dL (3.5-5.0); Alkaline Phosphatase 78 U/L (39-117); Anion Gap 10 (12-20); Aspartate Amino Transferase 16 U/L (5-31); Bilirubin Total 0.3 mg/dL (0.0-1.0); Blood Urea Nitrogen 14 mg/dL (9-16); C Reactive Protein 0.11 mg/dL (< or = 0.50); Calcium 9.7 mg/dL (8.4-10.2); Carbon Dioxide 28 mmol/L (22-29); Chloride 107 mmol/L (96-108); Cholesterol 180 mg/dL (<200); Estimated Glomerular Filt Rate > 60; Glucose Random 87 mg/dL (60-115); HDL Cholesterol 65 mg/dL (>40); Sodium 141 mmol/L (135-145); Total Protein 7.8 g/dL (6.5-8.0)
[2024-03-18 17:31] LABS: LDL Cholesterol Calculated 106 mg/dL (<100); Triglycerides 47 mg/dL (<150)
[2024-03-18 17:50] LABS: Erythrocyte Sedimentation Rate 10 MM/HR (0-20)
[2024-03-19 08:29] LABS: HBS Num1 4.96 mIU/mL (0-7.99); HBc Num1 0.09 S/CO (0.00-0.79); HBsAGNum1 0.25 S/CO (0.00-0.99); Hepatitis A Antibody IgM 0.09 Index (0-0.79); Hepatitis B Core Antibody Nonreactive (Nonreactive); Hepatitis B Surface Antigen Negative (Negative); ~HepC Num1 0.08 S/CO (0.00-0.79); ~Hepatitis A Antibody IgM Nonreactive (Nonreactive); ~Hepatitis B Surface Antibody NONREACTIVE (Nonreactive); ~Hepatitis C Antibody Nonreactive (Nonreactive)
[2024-03-21 08:28] LABS: TS Negative Control Passed; TS Panel A 0; TS Panel B 0; TS Positive Control Passed; TSpotTB Negative (Negative)
== END 2024-03-18 14:23 | disposition home or self-care (01) ==
LOC: HO.LAB 14:22
PROVIDERS: PCP Internal Medicine; Visit Provider Nurse Practitioner Family
DX: M67.88 Other specified disorders of synovium and tendon, other site (principal); M67.911 Unspecified disorder of synovium and tendon, right shoulder; M75.81 Other shoulder lesions, right shoulder; M19.072 Primary osteoarthritis, left ankle and foot; M19.041 Primary osteoarthritis, right hand; M19.042 Primary osteoarthritis, left hand; R22.42 Localized swelling, mass and lump, left lower limb; Z79.61 Long term (current) use of immunomodulator; Z11.9 Encounter for screening for infectious and parasitic diseases, unspecified
CPT/HCPCS: 36415; 80053; 80061; 85025; 85652; 86140; 86481; 86704; 86706; 86709; 86803; 87340; 99212

== ENCOUNTER 2024-04-02 14:29 | Outpatient (AMB) | payer MEDICAID, SELFPAY ==
--- NOTE | 2024-04-02 14:33 | MHC.OFFVIS ---
Vital Signs 04/02/24 14:52 Height 5 ft 2 in Weight 167 lb 6 oz BMI 30.6 BP 144/96 H Blood Pressure Location Lt brachial Position Sitting Respiration 16 Pulse 75 Pulse Source Pulse Oximeter Pulse Oximetry (%) 98 Oxygen Delivery Method Room Air Intake Visit Reasons: Pain in thoracic spine Allergies No Known Allergies Allergy (Verified 04/02/24 14:53) HPI Comments Details: Nay is a very pleasant 53-year-old Kyrgyz-speaking female who presents the office today for evaluation management of her diffuse polyarthralgia and muscle pains. Visit was performed with Sruthi Crowe, interpreter and translator Endorses pain to neck, bilateral shoulders, entire back, hips, legs, knees, hands, ankles and feet. Patient elects to focus on neck and upper back pain today Reports greater than 1 year pain to midline cervical vertebrae, cervical paraspinal muscles and across her shoulders. Denies radiation down either upper extremity. Denies numbness, tingling, burning, weakness of either arm. Pain with all range of motion exercises. Significantly tender to palpation Pain is worse with movement, touch and with her current employment. Pain today is rated as a 7 on 10, constant and worse in the evenings. Patient currently taking Motrin and tramadol with some improvement. She uses gdrz-[id number] lidocaine patches with some improvement Has never attempted chiropractor, acupuncture, massage or previous attempts at injections. Completed physical therapy greater than 1 year ago, is willing to retry for targeted treatment of this area. She is never tried muscle relaxers. Denies recent imaging. In terms of muscle damage condition is described as pulsing, pressure, squeezing and spasming. Pain is negatively impacting patient's enjoyment of life, general activity, work, sleeping and ability to perform activities of daily living. [facility] Medical History (Updated 04/02/24 @ 15:16 by Chelsea Majano, WATCH ENGINE OPERATOR, HYPERBARIC TECH) halfway (current) use of immunomodulator Screening examination for infectious disease Seronegative inflammatory arthritis Candidiasis of mouth and esophagus Achilles tendinosis of both lower extremities CMC (carpometacarpal) synovitis Localized swelling of toe of left foot Breast mass, right Uterine fibroid Hemorrhoids Uterine fibroid Insomnia Essential hypertension Hematuria Calcific tendinitis of left shoulder Primary osteoarthritis of hands, bilateral Glucosuria HPV test positive At high risk for breast cancer Insomnia secondary to situational depression GERD (gastroesophageal reflux disease) Vitamin D deficiency Surgical History (Updated 03/28/24 @ 12:25 by Elisa Sow CNM) History of hysterectomy H/O excision of epidermal inclusion cyst (05/22/23) History of lumpectomy of left breast (08/23/22) History of lumpectomy of right breast Hx of tubal ligation History of bilateral breast biopsy (2018) History of section History of removal of cyst History of hemorrhoidectomy History of esophagogastroduodenoscopy (EGD) (08/26/19) Hx of colonoscopy Family History Mother Breast cancer, Onset Age: 50 Ovarian cancer Daughter Squamous cell carcinoma of uterus History of thyroid cancer Maternal Grandmother History of stomach cancer Maternal Uncle Family history of prostate cancer, Onset Age: 60 Father No problems noted. Social History Household Members: Children Housing: House Alcohol intake: current Alcohol intake frequency: holidays/special occasions only Alcohol type: beer and wine Patient Tobacco Use Status: Former Tobacco user Tobacco use type: Cigarette e-Cigarette/Vaping Use: Never Used Second Hand Smoke Exposure: No service: No Current occupational status: employed Current occupational exposures/hazards: No Sexual orientation: Straight/Heterosexual Gender identity: Female Cognitive needs: No Hearing needs: No Vision needs: Yes Female Reproductive History Menstrual Age of Menarche: 12 Review of Systems Const All systems reviewed & are unremarkable except as noted in HPI and below Physical Exam General: awake, alert, oriented. Answers questions appropriately. Fully engaged in examination. Skin: warm, dry, intact HEENT: Normocephalic. Hearing intact. Cardiac: External chest normal in appearance. Respiratory: No cough, audible wheezing or stridor. Abdomen: without gross distension. MS: Cervical: Limited range of motion in all planes. Tenderness to palpation midline cervical vertebrae and paraspinal muscles. Significantly tender across upper, middle and lower trapezius muscle Facet loading positive Bilateral upper extremity strength 5/5 Neurological: Oriented to person, place, time and situation. Thought process intact. No gait abnormalities appreciated. Psychiatric: Appropriate mood and affect. Good judgment and insight. Assessment & Plan Assessment & Plan (1) Cervical spondylosis: Code(s): M47.812 - Spondylosis without myelopathy or radiculopathy, cervical region Category: Medical (2) Lumbar spondylosis: Code(s): M47.816 - Spondylosis without myelopathy or radiculopathy, lumbar region Category: Medical (3) Trapezius muscle strain: Code(s): S46.819A - Strain of other muscles, fascia and tendons at shoulder and upper arm level, unspecified arm, initial encounter Category: Medical (4) Myofascial muscle pain: Code(s): M79.18 - Myalgia, other site Category: Medical (5) Cervical spondylosis: Code(s): M47.812 - Spondylosis without myelopathy or radiculopathy, cervical region Category: Medical (6) Lumbar spondylosis: Code(s): M47.816 - Spondylosis without myelopathy or radiculopathy, lumbar region Category: Medical (7) Trapezius muscle strain: Code(s): S46.819A - Strain of other muscles, fascia and tendons at shoulder and upper arm level, unspecified arm, initial encounter Category: Medical (8) Myofascial muscle pain: Code(s): M79.18 - Myalgia, other site Category: Medical Plan X-ray cervical spine ordered for evaluation X-ray lumbar spine ordered for evaluation Order placed for PT eval and treat Referral placed for massage therapy Tizanidine 2 mg p.o. t.i.d. as needed, patient advised on cautions for use. No driving while taking this medication. Do not take with other INSIDE SALES ACCOUNT MANAGER depressants. Take at least 1 hour apart from her prescribed tramadol All questions and concerns were answered, patient agrees with the plan. Follow up after PT, sooner if needed Orders: Orders XR cervical spine w flex/ext Today M47.812 - Spondylosis without myelopathy or radiculopathy, cervical region PT Evaluation and Treatment Today M47.812 - Spondylosis without myelopathy or radiculopathy, cervical region, M47.816 - Spondylosis without myelopathy or radiculopathy, lumbar region, M79.18 - Myalgia, other site, S46.819A - Strain of other muscles, fascia and tendons at shoulder and upper arm level, unspecified arm, initial encounter XR lumbar spine 4V min Today M47.816 - Spondylosis without myelopathy or radiculopathy, lumbar region Referrals Massage Therapy Referral M47.812 - Spondylosis without myelopathy or radiculopathy, cervical region, M47.816 - Spondylosis without myelopathy or radiculopathy, lumbar region, M79.18 - Myalgia, other site, S46.819A - Strain of other muscles, fascia and tendons at shoulder and upper arm level, unspecified arm, initial encounter Medications: New tizanidine May cause drowsiness, no driving while taking this medication. Do not take with other INSIDE SALES ACCOUNT MANAGER depressants. Take at least 1 hour apart from prescribed tramadol 2 mg PO TID PRN 90 tabs 0RF muscle spasticity Coding Level of Care Code New Pt Level 4 (93023) Diagnoses Cervical spondylosis M47.812 Lumbar spondylosis M47.816 Trapezius muscle strain S46.819A Myofascial muscle pain M79.18
[2024-04-02 14:52] VITALS: BP 144/96; PULSE 75; RESP 16; O2SAT 98; BMI 30.6
== END 2024-04-02 15:14 | disposition home or self-care (01) ==
PROVIDERS: PCP Internal Medicine; Referring Provider Nurse Practitioner; Visit Provider Registered Nurse Emergency
DX: M47.812 Spondylosis without myelopathy or radiculopathy, cervical region (principal); M47.816 Spondylosis without myelopathy or radiculopathy, lumbar region; S46.819A Strain of other muscles, fascia and tendons at shoulder and upper arm level, unspecified arm, initial encounter; M79.18 Myalgia, other site
CPT/HCPCS: 99204

== ENCOUNTER 2024-04-02 14:29 | Outpatient (REF) | payer MEDICAID, SELFPAY ==
--- NOTE | ~2024-04-02 | XR_ITS ---
EXAMINATION: XR CERVICAL SPINE XR LUMBAR SPINE CLINICAL INDICATION: Spondylosis without myelopathy or radiculopathy lumbar region and cervical region. COMPARISON: MR cervical spine 03/14/2019, CT cervical spine 02/16/2019, x-ray cervical spine 10/30/2014, lumbar spine x-ray 01/18/2021. TECHNIQUE: 7 views of the cervical spine. 5 views of the lumbar spine. FINDINGS: LUMBAR SPINE: Mild levoscoliosis of the lumbar spine. Clip in the right lower quadrant. Facet arthritis in the lower lumbar spine. Lumbar vertebral body heights are preserved. Facet arthritis in the lower lumbar spine. Mild degenerative changes in the bilateral sacroiliac joints. Mild multilevel lumbar spondylosis with mild loss of disc space height at L4-L5 and L5-S1. CERVICAL SPINE: Mild multilevel cervical spondylosis with mild loss of disc space height at C5-C6. Straightening of the normal cervical lordosis. Mild retrolisthesis of C4 on C5 with extension, reduces with flexion. Mild anterolisthesis of C2 on C3, and of C3 on C4 with flexion, reduces with extension. XR/XR cervical spine w flex/ext IMPRESSION: 1. Mild multilevel cervical spondylosis most notable at C5-C6. 2. Mild multilevel lumbar spondylosis most notable at L4-L5 and L5-S1.
--- NOTE | ~2024-04-02 | XR_ITS ---
EXAMINATION: XR CERVICAL SPINE XR LUMBAR SPINE CLINICAL INDICATION: Spondylosis without myelopathy or radiculopathy lumbar region and cervical region. COMPARISON: MR cervical spine 03/14/2019, CT cervical spine 02/16/2019, x-ray cervical spine 10/30/2014, lumbar spine x-ray 01/18/2021. TECHNIQUE: 7 views of the cervical spine. 5 views of the lumbar spine. FINDINGS: LUMBAR SPINE: Mild levoscoliosis of the lumbar spine. Clip in the right lower quadrant. Facet arthritis in the lower lumbar spine. Lumbar vertebral body heights are preserved. Facet arthritis in the lower lumbar spine. Mild degenerative changes in the bilateral sacroiliac joints. Mild multilevel lumbar spondylosis with mild loss of disc space height at L4-L5 and L5-S1. CERVICAL SPINE: Mild multilevel cervical spondylosis with mild loss of disc space height at C5-C6. Straightening of the normal cervical lordosis. Mild retrolisthesis of C4 on C5 with extension, reduces with flexion. Mild anterolisthesis of C2 on C3, and of C3 on C4 with flexion, reduces with extension. XR/XR lumbar spine 4V min IMPRESSION: 1. Mild multilevel cervical spondylosis most notable at C5-C6. 2. Mild multilevel lumbar spondylosis most notable at L4-L5 and L5-S1.
== END 2024-04-02 14:30 | disposition home or self-care (01) ==
LOC: HO.XRAY 14:29
PROVIDERS: PCP Internal Medicine; Referring Provider Nurse Practitioner; Visit Provider Registered Nurse Emergency
DX: M47.816 Spondylosis without myelopathy or radiculopathy, lumbar region (principal); M47.812 Spondylosis without myelopathy or radiculopathy, cervical region
CPT/HCPCS: 72052; 72110; 99212

== ENCOUNTER 2024-05-13 14:27 | Outpatient (REF) | payer MEDICAID, SELFPAY ==
--- NOTE | ~2024-05-13 | US_ITS ---
EXAMINATION: US DIAGNOSTIC ULTRASOUND BREAST, LEFT CLINICAL INFORMATION: 6 month follow-up for 12:00 oval mass abutting scar left breast. COMPARISON: 10/25/2023. TECHNIQUE: Ultrasound of the left breast is performed with real-time osei scale imaging and color Doppler. Attention was given to the 12:00 axis in the region of known oval mass. FINDINGS: There is a scar at the 12:00 axis, 2 cm from the nipple, with an abutting unchanged oval-shaped hypoechoic possible fibroadenoma medial to the scar measuring an unchanged 0.6 x 0.5 x 0.5 cm. This remains probably benign, and six-month interval follow-up targeted left breast ultrasound recommended to ensure stability. No additional changes. US/US breast LT limited mamm only IMPRESSION: Stable oval circumscribed mass 12:00 axis, abutting a scar within the left breast, measuring an unchanged 6 x 5 x 5 mm. This remains probably benign, six-month interval follow-up targeted left breast ultrasound recommended when the patient is due for bilateral mammographic screening. ASSESSMENT: BI-RADS 3 - Probably benign finding(s) - 6 month follow-up suggested RECOMMENDATION: 6 Month F/U This patient's information was entered into a reminder system with a target due date for their next mammogram.
== END 2024-05-13 14:28 | disposition home or self-care (01) ==
LOC: HO.MAMMO 14:27
PROVIDERS: PCP Internal Medicine; Visit Provider Surgery
DX: N63.25 Unspecified lump in the left breast, overlapping quadrants (principal)
CPT/HCPCS: 76642

== ENCOUNTER → 2024-05-13 14:30 | Outpatient (BNV) | payer MEDICAID, SELFPAY | PROVIDERS: PCP Internal Medicine; Visit Provider Radiology Diagnostic Radiology | DX: N63.25 Unspecified lump in the left breast, overlapping quadrants (principal) | CPT/HCPCS: 76642 ==

== ENCOUNTER 2024-05-27 14:43 | Outpatient (AMB) | payer MEDICAID, SELFPAY ==
[2024-05-27 14:50] VITALS: BP 151/85; PULSE 81; BMI 31.1
--- NOTE | 2024-05-27 14:50 | A.OFFVIS_ITS ---
Vital Signs 3 05/27/24 14:50 Height 5 ft 2 in Weight 170 lb BMI 31.1 BP 151/85 H Blood Pressure Location Lt brachial Position Sitting Pulse 81 Intake Visit Reasons: ultrasound results, following left breast mass Intake Note: Patient is seen in office for ultrasound results, following left breast mass. Pt c/o: continued breast discomfort, here for results us:05/13/24 Allergies No Known Allergies Allergy (Verified 04/02/24 14:53) Medication List - Last Reconciled 05/30/24 by Steve Cano MD amitriptyline 25 mg PO BEDTIME 30 days buspirone 5 mg PO TID dicyclomine 10 mg PO TID duloxetine mg PO famotidine 40 mg PO BEDTIME 30 days gabapentin 300 mg PO BEDTIME 30 days hydrocortisone 2.5% (Proctosol HC) 1 appl [place] BID PRN hydroxyzine HCl 10 mg PO TID ibuprofen 800 mg PO TID PRN 90 days linaclotide (Linzess) 290 mcg PO DAILY losartan 100 mg PO DAILY 90 days meclizine 25 mg PO BID PRN 30 days metoclopramide HCl (Reglan) 10 mg PO .qacsupper and qhs mirabegron ER (Myrbetriq) 25 mg PO DAILY nirmatrelvir-ritonavir 300 mg (150 mg x 2)-100 mg (Paxlovid) 3 ea PO PER PKG DIR 5 days norethindrone acetate 5 mg PO DAILY pantoprazole 40 mg PO BID tizanidine 2 mg PO TID PRN tramadol 50 mg PO Q8H PRN trazodone 50 mg PO BEDTIME upadacitinib ER (Rinvoq) 15 mg PO DAILY varenicline 1 mg PO BID 30 days zolpidem 5 mg PO BEDTIME PRN HPI Comments Details: 53-year-old female patient with a high risk for breast cancer, placed on high risk breast protocol due to a Emily model lifetime risk of breast cancer of 24%. A previous MR guided biopsy on 03/27/2019 revealed intraductal papilloma. Subsequent mammogram and ultrasound on 10/22/2019 revealed no suspicious changes only bilateral cysts. A follow-up MRI of 01/26/2020 revealed a non mass enhancement and 2 o'clock position of the right breast. She subsequently underwent ultrasound-guided core biopsy on 03/12/2020. Pathology revealed benign breast tissue with no evidence of malignancy. MRI of 03/25/2021 revealed a suspicious non-mass enhancement of the left breast at the 3 o'clock position felt to be suspicious for malignancy. An MR guided core biopsy on 04/20/2021 revealed benign breast tissue with no malignancy. Apocrine metaplasia, focal usual ductal hyperplasia and focal fibroadenomatoid change was identified. Her most recent Tyrer-Cuzick remaining lifetime risk of breast cancer was calculated 8%. Breast MRI obtained 05/21/2023 revealed a 12 mm left breast mass in the 3 o'clock position, 7.5 cm from the nipple. She subsequently underwent an ultrasound-guided core biopsy on 06/05/2023. Pathology revealed a fibroadenoma without evidence of atypia or malignancy. She reported a painful lump in the left breast in the region of the previous biopsy. Subsequent mammogram and ultrasound was performed on 10/25/2023 which revealed no findings suspicious for malignancy in either breast. Palpable focus of concern in the 11:00 o'clock axis of the left breast appeared consistent with 2 abutting cysts adjacent to the 12:00 o'clock scar. These were felt to be benign. Waxing and waning cysts were noted in the right breast as well. Findings were felt to be low suspicion for malignancy and a six-month follow-up left breast ultrasound was recommended (BI-RADS 3). Ultrasound of the right breast performed on 12/03/2023 revealed adjacent cysts at the site of a palpable focus felt to be benign in appearance (BI-RADS 2). Patient continues to report pain in the left chest with pain on deep inspiration. The pain is mainly on the left side. CT of the chest on 12/07/2023 revealed an unremarkable examination. A follow-up left breast ultrasound on 05/13/2024 revealed a stable oval well- circumscribed mass in the 12:00 o'clock access abutting a scar within the left breast measuring and unchanged 6 x 5 x 5 mm. This remains probably benign and six-month interval follow-up targeted left breast ultrasound is recommended when the patient is due for her bilateral mammographic screening. 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, bilateral Glucosuria HPV test positive At high risk for breast cancer Insomnia secondary to situational depression GERD (gastroesophageal reflux disease) Vitamin D deficiency Surgical History History of hysterectomy H/O excision of epidermal inclusion cyst (05/22/23) History of lumpectomy of left breast (08/23/22) History of lumpectomy of right breast Hx of tubal ligation History of bilateral breast biopsy (2017) History of section History of removal of cyst History of hemorrhoidectomy History of esophagogastroduodenoscopy (EGD) (08/26/19) Hx of colonoscopy Family History Mother Breast cancer, Onset Age: 50 Ovarian cancer Daughter Squamous cell carcinoma of uterus History of thyroid cancer Maternal Grandmother History of stomach cancer Maternal Uncle Family history of prostate cancer, Onset Age: 60 Father No problems noted. Social History Household Members: Children Housing: House Alcohol intake: current Alcohol intake frequency: holidays/special occasions only Alcohol type: beer and wine Patient Tobacco Use Status: Former Tobacco user Tobacco use type: Cigarette e-Cigarette/Vaping Use: Never Used Second Hand Smoke Exposure: No service: No Current occupational status: employed Current occupational exposures/hazards: No Sexual orientation: Straight/Heterosexual Gender identity: Female Cognitive needs: No Hearing needs: No Vision needs: Yes Female Reproductive History Menstrual Age of Menarche: 12 Review of Systems Const All systems reviewed & are unremarkable except as noted in HPI and below Denies body aches, Denies chills, Denies fatigue and Denies fever(s) Eyes Denies change in vision Card Reports as per HPI, Denies chest pain, Reports chest pain with activity (Intermittent), Reports rapid heart rate (Intermittent), Denies leg edema, Denies lightheadedness and Denies dyspnea Resp Denies chest congestion, Denies cough, Reports pain on inspiration, Reports pain with cough, Denies dyspnea and Denies wheezing GI Denies abdominal pain, Denies constipation, Denies diarrhea, Reports nausea (Intermittent) and Denies vomiting Denies nipple discharge and Denies dysuria Musc Denies myalgias, Denies numbness and Denies tingling Skin/Breast Reports as per HPI, Denies breast swelling, Denies breast skin changes, Reports breast pain, Denies breast mass, Denies lesions, Denies nipple discharge and Denies rash Neuro Denies numbness and Denies tingling Endo Denies fatigue Aller/Immun Denies wheezing Physical Exam Vital Signs: Last Vital Signs Pulse 81 05/27/24 14:50 BP 151/85 H 05/27/24 14:50 BMI result Body Mass Index 31.1 Const General: no acute distress Nutritional Appearance: well nourished Orientation/consciousness: patient oriented x3 Limitations: no limitations Eyes Sclerae: sclerae normal EOM: EOMs intact bilaterally Chest Other: Left breast: Well-healed transverse incision in the upper portion of the left breast. Palpable scar tissue noted around this incision but no discrete masses appreciated at this time. No new skin changes, nipple discharge, palpable mass or enlarged lymph nodes are appreciated. Right breast: Diffuse tenderness throughout the breast but no new skin change, nipple discharge, palpable mass or enlarged lymph nodes. Chest/axillae images: 2 1. Incision upper portion left breast Resp Effort & Inspection: normal respiratory effort Skin General skin exam: no rashes or lesions noted Neuro General: patient oriented x3 Extrem General: Yes no clubbing, cyanosis or edema Assessment & Plan Assessment & Plan (1) At high risk for breast cancer: Code(s): Z91.89 - Other specified personal risk factors, not elsewhere classified Category: Medical Plan Stable findings noted on the recent breast ultrasound and physical examination. Six-month follow-up ultrasound is recommended and has been ordered for November at the time of her next mammogram. She is also due for a follow-up breast MRI this month as part of the high risk screening. She should follow up in 6 months for routine high risk breast screening examination. She should continue self examinations on a monthly basis as well. Orders: Orders 2 MR breast BI wo/w con 05/27/24 Z91.89 - Other specified personal risk factors, not elsewhere classified US breast LT limited 11/13/24 R92.8 - Other abnormal and inconclusive findings on diagnostic imaging of breast Coding Level of Care Code Est Pt Level 3 (81389) Diagnoses At high risk for breast cancer Z91.89
== END 2024-05-27 15:01 | disposition home or self-care (01) ==
PROVIDERS: PCP Internal Medicine; Visit Provider Surgery
DX: Z91.89 Other specified personal risk factors, not elsewhere classified (principal); R92.8 Other abnormal and inconclusive findings on diagnostic imaging of breast
CPT/HCPCS: 99213

== ENCOUNTER → 2024-05-27 14:43 | Outpatient (BNVA) | payer MEDICAID, SELFPAY | PROVIDERS: PCP Internal Medicine; Visit Provider Surgery | DX: Z91.89 Other specified personal risk factors, not elsewhere classified (principal) | CPT/HCPCS: 99212 ==

== ENCOUNTER 2024-05-29 15:00 | Outpatient (RCR) | payer MEDICAID, SELFPAY ==
[2024-05-20 14:57] VITALS: BP 146/95; PULSE 60
--- NOTE | 2024-05-20 15:57 | MHC.PT.EP ---
[facility] [place] Office [place] Office [place] Office [address] [phone] F: [phone] F: [phone] F: [phone] F: [phone] Physical Therapy Plan of Care Date of Evaluation: 05/20/24 Date of Surgery: NA Diagnosis: Spondylosis without myelopathy or radiculopathy, lumbar region Spondylosis without myelopathy or radiculopathy, cervical region Assessment: Stephani is a 53 year old female who is referred to PT for Spondylosis without myelopathy or radiculopathy, lumbar region . She reports of having back pain for about 1 year. She denies any trauma or falls. On PT examination she presents with 7/10 pain across low back which is constant in nature and it gets worse with sit to stand, walking and standing, presented with decreased trunk ROM, decreased muscle strength, altered posture, and gait. She lives with her son and is independent with self care activities. She works in a [employer] all day. She would benefit from skilled PT to address the aforementioned impairments and improve tolerance to functional activities. Frequency and Duration: The patient will be seen 2/week for 4 weeks. Short Term Goals: 1. Pt will demonstrate good sitting posture and demonstrate ability to check and self correct every 30 minutes in 2 weeks. 2. Pt will be able to move her trunk through all planes of motion without pain which will enable her to dress her lower body without pain in 3 weeks. Skilled Nursing Goals: 1. Pt will demonstrate an increase in muscle strength by 1 grade which will enable her to tolerate standing and walking for 30 minutes without pain in 4 weeks. 2. Pt will be independent with all HEP for symptom management and maintenance following d/c in 4 weeks. Treatment Plan: Modalities to reduce pain, spasms and effusion. Manual therapy to restore motion and function. Therapeutic exercise to improve strength and flexibility. Neuromuscular re-education for posture and balance. Therapeutic activities to return to functional activities of daily living. Electronically signed by: Sierra Cortez PT DPT Please sign and return to therapist. Thank you for your referral.
--- NOTE | 2024-06-06 09:41 | MHC.PT.DC ---
[facility] [place] Office [place] Office [place] Office [address] Justice Bolanos [address] [facility] [phone] F: [phone] F: [phone] F: [phone] F: [phone] Physical Therapy Discharge Report Diagnosis: Spondylosis without myelopathy or radiculopathy, lumbar region Spondylosis without myelopathy or radiculopathy, cervical region Date of Surgery: NA Date of Evaluation: 05/20/24 Date of Discharge: 06/06/24 Treatments to Date: 4 Cancellations to Date: 0 No Shows to Date: 2 Discharge Status: Visit Non-compliance Discharge Summary: Stephani attended only 4 PT visits and no showed for her last 2. She is therefore being d/c from PT for non compliance. Electronically signed by: Sierra Cortez, PT DPT Please sign and return to therapist. Thank you for your referral.
== END 2024-11-11 08:59 | disposition home or self-care (01) ==
LOC: HO.PT 15:00
PROVIDERS: PCP Internal Medicine; Visit Provider Registered Nurse Emergency
DX: M47.816 Spondylosis without myelopathy or radiculopathy, lumbar region (principal); M47.812 Spondylosis without myelopathy or radiculopathy, cervical region; S46.819D Strain of other muscles, fascia and tendons at shoulder and upper arm level, unspecified arm, subsequent encounter
CPT/HCPCS: 97110; 97112; 97161

== ENCOUNTER 2024-07-17 14:33 | Outpatient (AMB) | payer MEDICAID, SELFPAY ==
--- NOTE | 2024-07-17 14:38 | MHC.OFFVIS ---
Vital Signs 07/17/24 14:49 Height 5 ft 2 in Weight 174 lb 6.17 oz BMI 31.9 BP 112/70 Blood Pressure Location Lt brachial Position Sitting Respiration 16 Pulse 78 Pulse Source Pulse Oximeter Pulse Oximetry (%) 98 Oxygen Delivery Method Room Air Intake Visit Reasons: Hand Pain/Foot Pain Intake Note: Patient presents for hand pain/foot pain. I feel constant pain on both shoulders, Lower back, both hands and both legs. I being feeling this pains for over three years now. Clerk Manager Required: Yes Clerk Manager Language: Principal Law Clerk Services: Clerk Manager Present Clerk Manager Name: [id number] Information Interpreted: non-clinical & clinical Allergies No Known Allergies Allergy (Verified 07/17/24 14:48) Medication List - Last Reconciled 07/17/24 by Joslyn Edmonds MD amitriptyline 25 mg PO BEDTIME 30 days buspirone 5 mg PO TID diclofenac sodium 1% 4 grams topical QID 90 days dicyclomine 10 mg PO TID duloxetine mg PO famotidine 40 mg PO BEDTIME 30 days gabapentin 300 mg PO BEDTIME 30 days hydrocortisone 2.5% (Proctosol HC) 1 appl [place] BID PRN hydroxyzine HCl 10 mg PO TID ibuprofen 800 mg PO TID PRN 90 days linaclotide (Linzess) 290 mcg PO DAILY losartan 100 mg PO DAILY 90 days meclizine 25 mg PO BID PRN 30 days metoclopramide HCl (Reglan) 10 mg PO .qacsupper and qhs mirabegron ER (Myrbetriq) 25 mg PO DAILY nirmatrelvir-ritonavir 300 mg (150 mg x 2)-100 mg (Paxlovid) 3 ea PO PER PKG DIR 5 days norethindrone acetate 5 mg PO DAILY pantoprazole 40 mg PO BID tizanidine 2 mg PO TID PRN tramadol 50 mg PO Q8H PRN trazodone 50 mg PO BEDTIME varenicline 1 mg PO BID 30 days zolpidem 5 mg PO BEDTIME PRN HPI Comments Details: Patient is a 53-year-old female with, reflux disease, overactive bladder Interval History: Patient last seen 03/18/2024 with Claudette Hodge. At that time was given a trial of Rinvoq for potential seronegative inflammatory arthritis. The patient states she feels the same. Tried the Rinvoq but states that she did not get much improvement from that. Not consistently taking it currently. Says she got the most relief taking Motrin and tramadol. Also got some relief from taking diclofenac topical gel. Right now she complains of pain at the base of the 1st CMC joint as well as PIPs and DIPs. Has morning stiffness which lasts about 30 minutes. Has back pain but denies any stiffness in her back. Still with shoulder issues. Rheumatologic History: Patient has been following rheumatology since at least 12/26/2019. Has a history of calcific tendonitis of the left shoulder and polyarticular osteoarthritis In the past she has tried colchicine with no relief. She had some improvement with steroids but not full remission. And also has tried Rinvoq. 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, bilateral Glucosuria HPV test positive At high risk for breast cancer Insomnia secondary to situational depression GERD (gastroesophageal reflux disease) Vitamin D deficiency Surgical History History of hysterectomy H/O excision of epidermal inclusion cyst (05/22/23) History of lumpectomy of left breast (08/23/22) History of lumpectomy of right breast Hx of tubal ligation History of bilateral breast biopsy (2018) History of section History of removal of cyst History of hemorrhoidectomy History of esophagogastroduodenoscopy (EGD) (08/26/19) Hx of colonoscopy Family History Mother Breast cancer, Onset Age: 50 Ovarian cancer Daughter Squamous cell carcinoma of uterus History of thyroid cancer Maternal Grandmother History of stomach cancer Maternal Uncle Family history of prostate cancer, Onset Age: 60 Father No problems noted. Social History Household Members: Children Housing: House Alcohol intake: current Alcohol intake frequency: holidays/special occasions only Alcohol type: beer and wine Patient Tobacco Use Status: Former Tobacco user Tobacco use type: Cigarette e-Cigarette/Vaping Use: Never Used Second Hand Smoke Exposure: No service: No Current occupational status: employed Current occupational exposures/hazards: No Sexual orientation: Straight/Heterosexual Gender identity: Female Cognitive needs: No Hearing needs: No Vision needs: Yes Female Reproductive History Menstrual Age of Menarche: 12 Review of Systems Const Details: Review of Systems Constitutional: Denies fever, chills, weight loss ENT: Denies vision changes, eye pain or eye redness, dental caries, dry mouth GI: Denies nausea, vomiting, diarrhea, abdominal pain, change in BM Pulm: Denies SOB, ALMAZAN, hemoptysis, wheezing Cards: Denies chest pain, palpitations Skin: Denies Raynaud's, rash, nail changes, photosensitivity, LEARNING AND DEVELOPMENT INTERN: Denies headaches, weakness, paresthesias, recurrent falls MSK: as per HPI All other systems reviewed and are unremarkable except noted above Physical Exam Const Other: Physical Examination Patient well appearing and in no apparent painful distress Able to rise from chair without support. ?Gait normal. Constitutional Mucous membranes pink and moist patient alert and cooperative HEENT Conjunctiva and sclera clear. ?Pupils equal round and reactive to light. ?No lymphadenopathy. ?Normal dentition. Respiratory System Normal respiratory effort and able to speak in complete sentences. ?Clear to auscultation bilaterally. ?No crackles, rales, rhonchi, wheezes heard. Cardiac System Regular rate and rhythm. ?S1 and S2 heard no murmurs. ?Radial pulses intact bilaterally MSK Heberden's nodes present bilaterally throughout hands. Positive grind test to CMC bilaterally. Tenderness to palpation of PIPs and DIPs. Able to make a fist. No active synovitis. Limited range of motion of shoulders secondary to pain positive impingement test. Results Reviewed Results Reviewed: Laboratory Tests 01/14/24 03/18/24 12:28 15:57 WBC 7.3 6.0 RBC 4.53 4.41 Hgb 13.4 13.3 Plt Count 242 238 ESR 12 10 Sodium 138 141 Potassium 4.3 4.0 Chloride 105 107 Carbon Dioxide 28 28 BUN 18 H 14 Creatinine 0.77 0.79 C-Reactive Protein 0.10 0.11 Hand x-ray 07/09/2023 FINDINGS: RIGHT HAND: No fracture or dislocation. Degenerative changes of the hand and wrist worst involving the and wrist progressed from prior with advanced loss of first carpometacarpal joint space and bulky osteophytes and to a lesser extent involving the distal interphalangeal joints where there is minimal degenerative spurring progressed from prior. No cortical erosion. Soft tissues are unremarkable. LEFT HAND: No fracture or dislocation. Degenerative changes of the hand and wrist similar to prior worst involving the first carpometacarpal joint where there is advanced loss of joint space and bulky osteophytes and to a lesser extent involving the distal interphalangeal joints where there is minimal degenerative spurring progressed from prior. No cortical erosion. Soft tissues are unremarkable. Shoulder MRI 07/23/23 FINDINGS: ROTATOR CUFF: Mild supraspinatus tendinosis with minimal insertional intrasubstance partial tearing measuring up to 0.3 cm. Subscapularis tendinosis with distal articular surface partial tearing measuring up to 2.3 cm in ML dimension. No full-thickness rotator cuff tendon tear. No muscle atrophy or fatty infiltration. BICEPS: Fluid within the proximal long head biceps tendon sheath, consistent with mild tenosynovitis. No transverse tendon tear or tendon retraction. CORACOACROMIAL ARCH: The undersurface of the acromion is flat with no subacromial spur. Mild acromioclavicular osteoarthritis. LABRUM/CAPSULE: No displaced labral tear. Intact inferior joint capsule. GLENOHUMERAL JOINT/MARROW: Unremarkable. Assessment & Plan Assessment & Plan (1) Osteoarthritis of hands, bilateral: Code(s): M19.041 - Primary osteoarthritis, right hand; M19.042 - Primary osteoarthritis, left hand Category: Medical Qualifiers: Osteoarthritis type: primary Qualified Code(s): M19.041 - Primary osteoarthritis, right hand; M19.042 - Primary osteoarthritis, left hand Plan: #Polyarticular OA Patient with polyarticular osteoarthritis mainly involving her hands especially the 1st CMC joint. 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 At this time I have very low suspicion for inflammatory disease. Especially given her lack of response to immunosuppression. We will stop Rinvoq and all other immunosuppressive. We will continue osteoarthritis management with topical diclofenac, ibuprofen 800 mg and tramadol. Also referred her to massage therapy hopefully this will also help. Plan I spent 20 minutes reviewing the record and labs, seeing the patient, discussing the treatment plan and documenting in the medical record Orders: Referrals Massage Therapy Referral M19.90 - Unspecified osteoarthritis, unspecified site Medications: New diclofenac sodium 1% apply to single knee, ankle, foot; for foot includes sole/toes/top of foot 4 grams topical QID 90 days 100 grams 2RF Refilled ibuprofen 800 mg PO TID 90 days PRN 270 tabs 3RF fever or pain tramadol 50 mg PO Q8H PRN 90 tabs 3RF pain M19.072 - Primary osteoarthritis, left ankle and foot Coding Level of Care Code Est Pt Level 3 (47573) Diagnoses Primary osteoarthritis of both hands M19.041; M19.042 Osteoarthritis type: primary
[2024-07-17 14:49] VITALS: BP 112/70; PULSE 78; RESP 16; O2SAT 98; BMI 31.9
== END 2024-07-17 15:31 | disposition home or self-care (01) ==
PROVIDERS: PCP Internal Medicine; Visit Provider Student in an Organized Health Care Education/Training Program
DX: M19.041 Primary osteoarthritis, right hand (principal); M19.042 Primary osteoarthritis, left hand
CPT/HCPCS: 99213

== ENCOUNTER → 2024-07-17 14:33 | Outpatient (BNVA) | payer MEDICAID, SELFPAY | PROVIDERS: PCP Internal Medicine; Visit Provider Student in an Organized Health Care Education/Training Program | DX: M19.041 Primary osteoarthritis, right hand (principal); M19.042 Primary osteoarthritis, left hand; M19.072 Primary osteoarthritis, left ankle and foot; M75.32 Calcific tendinitis of left shoulder | CPT/HCPCS: 99212 ==

== ENCOUNTER 2024-08-04 16:15 | Outpatient (REF) | payer MEDICAID, SELFPAY ==
--- NOTE | ~2024-08-04 | MR_ITS ---
EXAMINATION: MR BREAST WITHOUT AND WITH CONTRAST, BILATERAL CLINICAL INFORMATION: 53-year-old for high risk screening, family history breast cancer mother, bilateral excisional biopsies. Left breast benign biopsy. COMPARISON: 05/21/2023 and correlation to mammogram 10/25/2023. TECHNIQUE: Imaging was performed with a dedicated breast coil. Prior to the administration of contrast, bilateral axial T1 and bilateral axial T2 weighted sequences were obtained. After the uneventful administration of 7.5 mL of Gadavist, dynamic contrast-enhanced VIBRANT series through the breasts in the axial plane were performed. Subtracted images were performed and reviewed. A delayed sagittal sequence through both breasts was acquired. Additionally, CAD post-processing, including maximum intensity projections, 3-D reconstructions and kinetic analysis, were performed an independent workstation and reviewed by the interpreting radiologist is a portion of this exam. FINDINGS: Breast tissue is extremely dense. The patient's fibroglandular tissue demonstrates moderate background enhancement. There is extensive motion artifact which decreases the sensitivity of this examination. LEFT BREAST: There is an oval mildly enhancing mass at 2 o'clock with a susceptibility artifact consistent with a known fibroadenoma. There is architectural distortion from prior excisional biopsy. There are scattered foci of enhancement that appear stable when compared to prior studies. There are no new areas of mass or non-mass enhancement suspicious of malignancy. There are again noted to be oval T2 bright masses consistent with cysts. There are no additional findings on kinetic curve analysis. RIGHT BREAST: Scattered stable foci of enhancement are again noted. No new masses suspicious of malignancy. There are also oval T2 bright masses consistent with cysts. There are no additional findings on kinetic curve analysis. There is no suspicious internal mammary chain or axillary adenopathy. Limited views of the chest and abdomen are unremarkable. MR/MR breast BI wo/w con IMPRESSION: Study limited by motion artifact. Bilateral cysts. No new MR findings in either breast suspicious of malignancy. ASSESSMENT: LEFT BREAST: BI-RADS 2, benign RIGHT BREAST: BI-RADS 2, benign RECOMMENDATIONS: Routine mammographic imaging as per most recent study and MRI as per high risk imaging. Electronically signed by: Franck Osuna MD 08/29/2024 04:30 PM [facility]
[2024-08-04] MEDS: gadobutroL 7.5 ML VIAL IVPUSH (17:41)
== END 2024-08-04 16:16 | disposition home or self-care (01) ==
LOC: HO.MRI 16:15
PROVIDERS: PCP Internal Medicine; Visit Provider Surgery
DX: Z91.89 Other specified personal risk factors, not elsewhere classified (principal)
CPT/HCPCS: 77049; A9585

== ENCOUNTER 2024-08-14 15:02 | Outpatient (AMB) | payer MEDICAID, SELFPAY ==
--- NOTE | 2024-08-14 15:04 | MHC.OFFVIS ---
Vital Signs 08/14/24 15:19 Height 5 ft 2 in Weight 174 lb 2.643 oz BMI 31.9 Pulse 72 Intake Visit Reasons: left breast discomfort, redness/burning sensation Intake Note: Patient is seen in office for left breast discomfort, redness/burning sensation. Pt c/o: 2 wks itchy on both breast, inside burning sensation, warm to the touch, does not feel any lumps Electrician Station Assistant Required: Yes Electrician Station Assistant Language: Doll Surgeon Services: Electrician Station Assistant Present Electrician Station Assistant Name: Adeola YUAN Information Interpreted: non-clinical & clinical Coordinator Of Placement: Coordinator Of Placement Present Accompanied by: Self / Same As Patient Allergies No Known Allergies Allergy (Verified 08/14/24 15:18) Medication List - Last Reconciled 08/14/24 by Steve Cano MD amitriptyline 25 mg PO BEDTIME 30 days buspirone 5 mg PO TID diclofenac sodium 1% 4 grams topical QID 90 days dicyclomine 10 mg PO TID duloxetine mg PO famotidine 40 mg PO BEDTIME 30 days gabapentin 300 mg PO BEDTIME 30 days hydroxyzine HCl 10 mg PO TID ibuprofen 800 mg PO TID PRN 90 days linaclotide (Linzess) 290 mcg PO DAILY losartan 100 mg PO DAILY 90 days meclizine 25 mg PO BID PRN 30 days methylprednisolone (Medrol (Blair)) PO PER PKG DIR metoclopramide HCl (Reglan) 10 mg PO .qacsupper and qhs mirabegron ER (Myrbetriq) 25 mg PO DAILY nirmatrelvir-ritonavir 300 mg (150 mg x 2)-100 mg (Paxlovid) 3 ea PO PER PKG DIR 5 days norethindrone acetate 5 mg PO DAILY pantoprazole 40 mg PO BID tizanidine 2 mg PO TID PRN tramadol 50 mg PO Q8H PRN trazodone 50 mg PO BEDTIME varenicline 1 mg PO BID 30 days zolpidem 5 mg PO BEDTIME PRN HPI Comments Details: 53-year-old female patient with a high risk for breast cancer, placed on high risk breast protocol due to a Emily model lifetime risk of breast cancer of 24%. A previous MR guided biopsy on 03/27/2019 revealed intraductal papilloma. Subsequent mammogram and ultrasound on 10/22/2019 revealed no suspicious changes only bilateral cysts. A follow-up MRI of 01/26/2020 revealed a non mass enhancement and 2 o'clock position of the right breast. She subsequently underwent ultrasound-guided core biopsy on 03/12/2020. Pathology revealed benign breast tissue with no evidence of malignancy. MRI of 03/25/2021 revealed a suspicious non-mass enhancement of the left breast at the 3 o'clock position felt to be suspicious for malignancy. An MR guided core biopsy on 04/20/2021 revealed benign breast tissue with no malignancy. Apocrine metaplasia, focal usual ductal hyperplasia and focal fibroadenomatoid change was identified. Her most recent Tyrer-Cuzick remaining lifetime risk of breast cancer was calculated 8%. Breast MRI obtained 05/21/2023 revealed a 12 mm left breast mass in the 3 o'clock position, 7.5 cm from the nipple. She subsequently underwent an ultrasound-guided core biopsy on 06/05/2023. Pathology revealed a fibroadenoma without evidence of atypia or malignancy. She reported a painful lump in the left breast in the region of the previous biopsy. Subsequent mammogram and ultrasound was performed on 10/25/2023 which revealed no findings suspicious for malignancy in either breast. Palpable focus of concern in the 11:00 o'clock axis of the left breast appeared consistent with 2 abutting cysts adjacent to the 12:00 o'clock scar. These were felt to be benign. Waxing and waning cysts were noted in the right breast as well. Findings were felt to be low suspicion for malignancy and a six-month follow-up left breast ultrasound was recommended (BI-RADS 3). Ultrasound of the right breast performed on 12/03/2023 revealed adjacent cysts at the site of a palpable focus felt to be benign in appearance (BI-RADS 2). Patient continues to report pain in the left chest with pain on deep inspiration. The pain is mainly on the left side. CT of the chest on 12/07/2023 revealed an unremarkable examination. A follow-up left breast ultrasound on 05/13/2024 revealed a stable oval well-circumscribed mass in the 12:00 o'clock access abutting a scar within the left breast measuring and unchanged 6 x 5 x 5 mm. This remains probably benign and six-month interval follow-up targeted left breast ultrasound is recommended when the patient is due for her bilateral mammographic screening. She presents today with areas of redness in the left upper outer quadrant breast as well as bilateral breast itching. She denies any new medications or any new detergents. The itchiness is located only in the breast and no other parts of her body. Denies any fever or chills. She denies any discharge from the breast. [facility] Medical History Screening examination for infectious disease Candidiasis of mouth and esophagus Achilles tendinosis of both lower extremities CMC (carpometacarpal) synovitis Localized swelling of toe of left foot Breast mass, right Uterine fibroid Hemorrhoids Uterine fibroid Insomnia Essential hypertension Hematuria Calcific tendinitis of left shoulder Primary osteoarthritis of hands, bilateral Glucosuria HPV test positive At high risk for breast cancer Insomnia secondary to situational depression GERD (gastroesophageal reflux disease) Vitamin D deficiency Surgical History History of hysterectomy H/O excision of epidermal inclusion cyst (05/22/23) History of lumpectomy of left breast (08/23/22) History of lumpectomy of right breast Hx of tubal ligation History of bilateral breast biopsy (2018) History of section History of removal of cyst History of hemorrhoidectomy History of esophagogastroduodenoscopy (EGD) (08/26/19) Hx of colonoscopy Family History Mother Breast cancer, Onset Age: 50 Ovarian cancer Daughter Squamous cell carcinoma of uterus History of thyroid cancer Maternal Grandmother History of stomach cancer Maternal Uncle Family history of prostate cancer, Onset Age: 60 Father No problems noted. Social History Household Members: Children Housing: House Alcohol intake: current Alcohol intake frequency: holidays/special occasions only Alcohol type: beer and wine Patient Tobacco Use Status: Former Tobacco user Tobacco use type: Cigarette e-Cigarette/Vaping Use: Never Used Second Hand Smoke Exposure: No service: No Current occupational status: employed Current occupational exposures/hazards: No Sexual orientation: Straight/Heterosexual Gender identity: Female Cognitive needs: No Hearing needs: No Vision needs: Yes Female Reproductive History Menstrual Age of Menarche: 12 Review of Systems Const All systems reviewed & are unremarkable except as noted in HPI and below Denies body aches, Denies chills, Denies fatigue and Denies fever(s) Eyes Denies change in vision Card Reports as per HPI, Denies chest pain, Reports chest pain with activity (Intermittent), Reports rapid heart rate (Intermittent), Denies leg edema, Denies lightheadedness and Denies dyspnea Resp Denies chest congestion, Denies cough, Reports pain on inspiration, Reports pain with cough, Denies dyspnea and Denies wheezing GI Denies abdominal pain, Denies constipation, Denies diarrhea, Reports nausea (Intermittent) and Denies vomiting Denies nipple discharge and Denies dysuria Musc Denies myalgias, Denies numbness and Denies tingling Skin/Breast Reports as per HPI, Denies breast swelling, Denies breast skin changes, Reports breast pain, Denies breast mass, Denies lesions, Denies nipple discharge and Denies rash Neuro Denies numbness and Denies tingling Endo Denies fatigue Aller/Immun Denies wheezing Physical Exam Const General: no acute distress Nutritional Appearance: well nourished Orientation/consciousness: patient oriented x3 Limitations: no limitations Eyes Sclerae: sclerae normal EOM: EOMs intact bilaterally Chest Other: Left breast: Well-healed transverse incision in the upper portion of the left breast. Palpable scar tissue noted around this incision but no discrete masses appreciated at this time. The surrounding skin is red but no palpable mass or orange skin changes are identified. Redness is mainly in the upper outer quadrant and appears consistent with a dermatitis. No nipple discharge, palpable mass or enlarged lymph nodes are appreciated. Right breast: Diffuse tenderness throughout the breast but no new skin change, nipple discharge, palpable mass or enlarged lymph nodes. Chest/axillae images: 1. Area of apparent dermatitis Resp Effort & Inspection: normal respiratory effort Skin General skin exam: no rashes or lesions noted Neuro General: patient oriented x3 Extrem General: Yes no clubbing, cyanosis or edema Assessment & Plan Assessment & Plan (1) At high risk for breast cancer: Code(s): Z91.89 - Other specified personal risk factors, not elsewhere classified Category: Medical (2) Contact dermatitis: Code(s): L25.9 - Unspecified contact dermatitis, unspecified cause Category: Medical Qualifiers: Contact dermatitis type: allergic Contact dermatitis trigger: unspecified trigger Qualified Code(s): L23.9 - Allergic contact dermatitis, unspecified cause Plan Patient continues to have some tenderness in the upper outer quadrant of both breasts but no new palpable mass. She does complain of itching in the skin and appears to have a contact dermatitis of unknown etiology. No evidence of orange skin changes. I recommended a Medrol Dosepak and will have her return in 1 week for follow-up examination. Medications: New methylprednisolone (Medrol (Blair)) PO PER PKG DIR 21 ea 0RF Coding Level of Care Code Est Pt Level 3 (70444) Complex EM visit Add On G2211 Diagnoses At high risk for breast cancer Z91.89 Allergic contact dermatitis, unspecified trigger L23.9 Contact dermatitis type: allergic Contact dermatitis trigger: unspecified trigger
[2024-08-14 15:19] VITALS: PULSE 72; BMI 31.9
== END 2024-08-14 15:22 | disposition home or self-care (01) ==
PROVIDERS: PCP Internal Medicine; Visit Provider Surgery
DX: Z91.89 Other specified personal risk factors, not elsewhere classified (principal); L23.9 Allergic contact dermatitis, unspecified cause
CPT/HCPCS: 99213

== ENCOUNTER → 2024-08-14 15:02 | Outpatient (BNVA) | payer MEDICAID, SELFPAY | PROVIDERS: PCP Internal Medicine; Visit Provider Surgery | DX: Z91.89 Other specified personal risk factors, not elsewhere classified (principal); L23.9 Allergic contact dermatitis, unspecified cause | CPT/HCPCS: 99212 ==

== ENCOUNTER → 2024-11-13 14:00 | Outpatient (BNV) | payer MEDICAID, SELFPAY | PROVIDERS: Absent Provider Surgery; PCP Internal Medicine; Visit Provider Internal Medicine | DX: N60.02 Solitary cyst of left breast (principal); R92.333 Mammographic heterogeneous density, bilateral breasts | CPT/HCPCS: 76642; 77062; 77066 ==

== ENCOUNTER → 2024-11-13 14:07 | Outpatient (REF) | payer MEDICAID, SELFPAY ==
--- NOTE | ~2024-11-13 | MM_ITS ---
EXAMINATION: MM DIAGNOSTIC DIGITAL BREAST TOMOSYNTHESIS, BILATERAL Limited left breast ultrasound. CLINICAL INFORMATION: High risk strong family history of breast cancer including patient's mother. History of bilateral excisional biopsies. COMPARISON: Mammography: Comparison is made with relevant prior exams. TECHNIQUE: Digital breast mammography with tomosynthesis is performed in both the craniocaudal and mediolateral oblique views along with computer-aided detection (CAD). FINDINGS: The breasts are heterogeneously dense, which may obscure small masses (ACR BI-RADS breast composition Category c). Bilateral circumscribed oval masses which wax and wane some of which were demonstrated to be simple cyst on prior ultrasound. Bilateral marker clips. Post surgical changes in the left upper outer breast. There are no significant masses, abnormal calcifications, or other abnormalities. Targeted color Doppler ultrasound scanning in the area of the previously seen oval circumscribed mass at 12:00 2 cm from the nipple adjacent to the patient scar 6 x 4 x 4 mm. This is overall not significantly changed from prior ultrasounds dating back for one year. Results are provided to the patient at time of visit by the technologist. MM/MM tomosynthesis diagnostic BI IMPRESSION: Right: Simple cysts and postbiopsy changes. Benign. Left: Hypoechoic oval solid mass at 12:00 2 cm from the nipple not significantly changed in size from prior ultrasounds dating back for one year. Ultrasound guided core needle biopsy versus follow-up was offered to the patient. 12 month follow-up was chosen by the patient at this time. High risk patient recommend yearly breast MRI screening surveillance. ASSESSMENT: BI-RADS BI-RADS 3 - Probably benign finding(s) - 12 month follow-up suggested RECOMMENDATION: 12 month diagnostic follow up This patient's information was entered into a reminder system with a target due date for their next mammogram. Electronically signed by: Niya Henao DO 11/13/2024 02:54 PM [facility]
--- OUTSIDE RECORDS SUMMARY | 2024-11-13 14:10 | XMS_ITS | Encounter Summary ---
Author Organization [facility] Address [address] [place] [address] Phone Care Team Providers Care Director Of First Impressions Name Role Phone Fatmata Villalobos MD Primary Care Provider [phone] Encounter Details Date Type Department Care Team (Late st Contact Info) Description 02/20/2022 Telephone [facility] [address] [place] [address] Alfonso [address], [place] [address] Social History Tobacco Use Types Packs/Day Years Used Date Smoking Tobacco: Former Cigarettes Smokeless Tobacco: Never Comments:stopped 2 years ago Alcohol Use Standard Drinks/Week Comments Yes 1 (1 standard drink = 0.6 oz pur e alcohol) Comments Unknown Sex and Gender Information Value Date Recorded Sex Assigned at Not on file Legal Sex Female 10:21 AM EDT Gender Identity Not on file Sexual Orientation Not on file documented as of this encounter Miscellaneous Notes * Telephone Encounter - Paola Dick - 02/20/2022 3:29 PM EDT Pt called, she has burning in her urine and would like to know if its ok for her to take AZO UTI anit Bacterial med. It says not to take if you have high bp and her bp usually runs high. Please advise Thank you CB# [phone] documented in this encounter Plan of Treatment Not on file documented as of this encounter Visit Diagnoses Not on filedocumented in this encounter Care Teams Director Of First Impressions Relationship Specialty Start Date End Date Fatmata Villalobos MD [address] [place] PCP - General Internal Medicine 07/25/21 documented as of this encounter
--- OUTSIDE RECORDS SUMMARY | 2024-11-13 14:10 | XMS_ITS | Clinical Summary ---
Author Organization [facility] Address [address] [place] [address] Phone Care Team Providers Care Roll Wrapper Name Role Phone Fatmata Villalobos MD Primary Care Provider [phone] Allergies No known active allergies Medications DULoxetine (CYMBALTA) [address] capsule 06/30/2021 Activ e famotidine (PEPCID) 20 MG tablet 06/29/2021 Active ibuprofen (ADVIL,MOTRIN) 800 MG tablet 06/30/2021 Activ e Linzess 290 MCG capsule 07/04/2021 Active Myrbetriq 25 MG tablet sustained-relea se 24 hour 07/06/2021 Active ondansetron (ZOFRAN) 4 MG tablet 07/15/2021 Active solifenacin (VESICARE) 5 MG tablet 06/21/2021 Active traMADol (ULTRAM) 50 MG tablet 07/14/2021 Active diazePAM (VALIUM) 5 MG tablet Take 5 mg by mouth 04/05/2012 Active gabapentin (NEURONTIN) 100 MG capsule 1 twice a day and 2 at night 12/11/2011 Active phenazopyridine (PYRIDIUM) 100 MG tablet 08/11/2021 Active losartan (COZAAR) 50 MG tablet TOME ZACH TABLETA TODOS LOS KANG 90 tablet 1 01/31/2022 Active terbinafine (LamISIL) 250 MG tablet TOME ZACH TABLETA TODOS LOS D 03/29/2022 Active zolpidem (AMBIEN) 5 MG tablet 04/11/2022 Active traZODone (DESYREL) 100 MG tablet TAKE 1 TABLET BY MOUTH AT BEDTIME NEEDED *INCREASE FROM 50 MG FOR INSOMNIA 02/14/2022 Active Active Problems Problem Noted Date Diagnosed Date Chronic kidney disease, stage 2 (mild) Hypertension 07/29/2021 Resolved Problems Problem Noted Date Diagnosed Date Resolved Date Recurrent and persistent hem aturia with minimal change lesion 07/29/2021 10/19/2021 Cervical high risk human pap illomavirus (HPV) DNA test positive 01/23/2012 10/19/2021 Overview (08/23/2021): Colposcopy performed 01/23/12 with ECC - neg. Repeat Pap 6 months. Pap 06/11/12 - Fibromyalgia 02/06/2011 10/19/2021 Back pain 11/29/2010 10/19/2021 Mixed anxiety and depressive disorder 11/29/2010 10/19/2021 Tinea versicolor 09/25/2007 10/19/2021 Tobacco user 09/25/2007 10/19/2021 Immunizations Name Administration Dates Next Due Influenza TIV (IM) 09/25/2007 Tdap 09/25/2007 Family History Medical History Relation Comments Leukemia Cousin Cancer Daughter throat cancer Kidney cancer Daughter Stomach cancer Maternal Grandmother Cancer Mother Heart disease Mother Hypertension Mother Prostate cancer Mother's Brother Relation Status Comments Cousin Alive Daughter Maternal Grandmother Mother Alive Mother's Brother Social History Tobacco Use Types Packs/Day Years Used Date Smoking Tobacco: Former Cigarettes Smokeless Tobacco: Never Tobacco Cessation:Counseling Given: No Comments:stopped 2 years ago Alcohol Use Standard Drinks/Week Comments Yes 1 (1 standard drink = 0.6 oz pur e alcohol) Comments Unknown Sex and Gender Information Value Date Recorded Sex Assigned at Not on file Legal Sex Female 10:21 AM EDT Gender Identity Not on file Sexual Orientation Not on file Last Filed Vital Signs Vital Sign Reading Time Taken Comments Blood Pressure 116/72 04/13/2022 4:22 PM EDT Pulse 78 04/13/2022 4:22 PM EDT Temperature - - Respiratory Rate - - Oxygen Saturation 99% 04/13/2022 4:22 PM EDT Inhaled Oxygen Concentration - - Weight 76.2 kg (168 lb) 04/13/2022 4:22 PM EDT Height - - Body Mass Index - - Plan of Treatment Health Maintenance Due Date Last Done Comments Breast Cancer Screening 1970 Pneumococcal Vaccine: Pediat rics (0 to 5 Years) and At-Risk Patients (6 to 64 Years) (1 of 2 - PCV) 1976 Hepatitis B Vaccine (1 of 3 - 19+ 3-dose series) 11/16 Colorectal Cancer Screening: Annual FOBT 2019 Colorectal Cancer Screening: Colonoscopy 2019 Colorectal Cancer Screening: Sigmoidoscopy 2019 Influenza Vaccine (#1) 2024 09/25/2007 Insurance ([id number]) ([id number]) Care Teams Roll Wrapper Relationship Specialty Start Date End Date Fatmata Villalobos MD [address] [place] [address] PCP - General Internal Medicine 07/25/21
== END | disposition home or self-care (01) ==
LOC: HO.MAMMO 14:07
PROVIDERS: PCP Internal Medicine; Visit Provider Internal Medicine
DX: N60.02 Solitary cyst of left breast (principal)

== ENCOUNTER → 2025-02-03 16:14 | Outpatient (BNVA) | payer MEDICAID, SELFPAY | PROVIDERS: PCP Internal Medicine; Visit Provider Student in an Organized Health Care Education/Training Program | DX: M79.7 Fibromyalgia (principal); M19.041 Primary osteoarthritis, right hand; M19.042 Primary osteoarthritis, left hand; M72.2 Plantar fascial fibromatosis | CPT/HCPCS: 99212 ==

== ENCOUNTER → 2025-02-03 16:14 | Outpatient (AMB) | payer MEDICAID, SELFPAY ==
[2025-02-03 16:17] VITALS: BP 122/68; PULSE 89; O2SAT 97; BMI 34.2
--- NOTE | 2025-02-03 16:17 | A.OFFVIS_ITS ---
Vital Signs 02/03/25 16:17 Height 5 ft 2 in Weight 187 lb BMI 34.2 BP 122/68 Blood Pressure Location Lt brachial Position Sitting Pulse 89 Pulse Source Pulse Oximeter Pulse Oximetry (%) 97 Oxygen Delivery Method Room Air Intake Visit Reasons: Hand Pain/Foot Pain Intake Note: Patient presents today with hand and foot pain osteoarthritis. She also complains of neck and back pain, every morning, difficulty getting out of bed. Pain on the sole of her foot when she is sitting and standing up. When she goes to stand up from sitting, she loses her balance because of the pain in her foot. She states it has been going on for around 7 months, getting worse each day. 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 Allergies No Known Allergies Allergy (Verified 02/03/25 16:25) Medication List - Last Reconciled 02/03/25 by Joslyn Edmonds MD amitriptyline 25 mg PO BEDTIME 30 days buspirone 5 mg PO TID diclofenac sodium 1% 4 grams topical QID 90 days dicyclomine 10 mg PO TID duloxetine mg PO famotidine 40 mg PO BEDTIME 30 days gabapentin 300 mg PO BEDTIME 30 days hydroxyzine HCl 10 mg PO TID ibuprofen 800 mg PO TID PRN 90 days linaclotide (Linzess) 290 mcg PO DAILY losartan 100 mg PO DAILY 90 days meclizine 25 mg PO BID PRN 30 days metoclopramide HCl (Reglan) 10 mg PO .qacsupper and qhs mirabegron ER (Myrbetriq) 25 mg PO DAILY pantoprazole 40 mg PO BID 90 days tizanidine 2 mg PO TID PRN tramadol 50 mg PO Q8H PRN trazodone 50 mg PO BEDTIME HPI Comments Details: Patient is a 53-year-old female with hypertension, GERD, overactive bladder, polyarticular arthritis and fibromyalgia Interval History: Patient last seen 07/17/2024 with me. At that time she was following up for her polyarticular joint pains. She tried Rinvoq without any improvement in her pain. Her most improvement is from taking Motrin and tramadol. Based on this as well as the exam it was likely that she has polyarticular osteoarthritis as well as fibromyalgia and lifestyle modifications were recommended including massage therapy. Today Patient is complaining of pain to her back, neck, legs Takes amitryptyline, duloxetine, gabapentin and tramadol with some help to the pain but does not fully alleviate it Also complaining of foot pain Rheumatologic History: Patient has been following rheumatology since at least 12/26/2019. Has a history of calcific tendonitis of the left shoulder and polyarticular osteoarthritis In the past she has tried colchicine with no relief. She had some improvement with steroids but not full remission. And also has tried Rinvoq. Current Rheumatology Medication(s): Tramadol 50mg q8h prn Ibuprofen 800mg TID prn PFSH Medical History Screening examination for infectious disease Candidiasis of mouth and esophagus Achilles tendinosis of both lower extremities CMC (carpometacarpal) synovitis Localized swelling of toe of left foot Breast mass, right Uterine fibroid Hemorrhoids Uterine fibroid Insomnia Essential hypertension Hematuria Calcific tendinitis of left shoulder Primary osteoarthritis of hands, bilateral Glucosuria HPV test positive At high risk for breast cancer Insomnia secondary to situational depression GERD (gastroesophageal reflux disease) Vitamin D deficiency Surgical History History of hysterectomy H/O excision of epidermal inclusion cyst (05/22/23) History of lumpectomy of left breast (08/23/22) History of lumpectomy of right breast Hx of tubal ligation History of bilateral breast biopsy (2017) History of section History of removal of cyst History of hemorrhoidectomy History of esophagogastroduodenoscopy (EGD) (08/26/19) Hx of colonoscopy Family History Mother Breast cancer, Onset Age: 50 Ovarian cancer Daughter Squamous cell carcinoma of uterus History of thyroid cancer Maternal Grandmother History of stomach cancer Maternal Uncle Family history of prostate cancer, Onset Age: 60 Father No problems noted. Social History Household Members: Children Housing: House Alcohol intake: current Alcohol intake frequency: holidays/special occasions only Alcohol type: beer and wine Patient Tobacco Use Status: Former Tobacco user Tobacco use type: Cigarette e-Cigarette/Vaping Use: Never Used Second Hand Smoke Exposure: No service: No Current occupational status: employed Current occupational exposures/hazards: No Sexual orientation: Straight/Heterosexual Gender identity: Female Cognitive needs: No Hearing needs: No Vision needs: Yes Female Reproductive History Menstrual Age of Menarche: 12 Review of Systems Const Details: Review of Systems Constitutional: Denies fever, chills, weight loss ENT: Denies vision changes, eye pain or eye redness, dental caries, dry mouth GI: Denies nausea, vomiting, diarrhea, abdominal pain, change in BM Pulm: Denies SOB, ALMAZAN, hemoptysis, wheezing Cards: Denies chest pain, palpitations Skin: Denies Raynaud's, rash, nail changes, photosensitivity, COST ACCOUNTANT: Denies headaches, weakness, paresthesias, recurrent falls MSK: as per HPI All other systems reviewed and are unremarkable except noted above Physical Exam Vital Signs: Last Vital Signs Pulse 89 02/03/25 16:17 BP 122/68 02/03/25 16:17 Pulse Ox 97 02/03/25 16:17 Oxygen Delivery Method Room Air 02/03/25 16:17 BMI result Body Mass Index 34.2 Vital signs reviewed Physical Examination CONSTITUITIONAL Patient alert and cooperative. Well appearing and in no apparent painful distress HEENT Conjunctiva and sclera clear. ?Pupils equal round and reactive to light. ?No lymphadenopathy. ? CHEST/RESPIRATORY SYSTEM Normal respiratory effort and able to speak in complete sentences. ?Clear to auscultation bilaterally. ?No crackles, rales, rhonchi, wheezes heard. CARDIAC SYSTEM Regular rate and rhythm. ?S1 and S2 heard no murmurs. ?Radial pulses intact bilaterally MSK Hands: ?Able to make a fist. No synovitis noted to the MCPs, PIPs or DIPs. ?No tenderness to palpation of these joints. No deformities noted. ? Wrists: ?Full range of motion at the wrists without pain. ?No tenderness to palpation or synovitis noted to the wrists. Elbows: Full range of motion without pain. No tenderness, weakness, swelling, increased warmth or erythema. Shoulders: Full range of active range of motion without pain. No tenderness, weakness, swelling, increased warmth or erythema. Knees: ?Full range of motion. ?No tenderness, swelling, increased warmth or erythema.?crepitations Ankles: Full range of motion. ?No tenderness, swelling, increased warmth or erythema.? Feet: ?Negative squeeze test. ?No tenderness to palpation or swelling of the MTPs. Plantar tenderness to palpation of the left heel Tender points:?Tenderness to palpation of the bilateral trapezius, supraspinatus, greater trochanters, anterior costochondral junctions, bilateral gluteal areas, bilateral pes anserine bursa, bilateral suboccipital muscle insertions SKIN Skin intact without rashes. Results Reviewed Results Reviewed: Laboratory Tests 01/14/24 03/18/24 12:28 15:57 WBC 7.3 6.0 RBC 4.53 4.41 Hgb 13.4 13.3 Plt Count 242 238 ESR 12 10 Sodium 138 141 Potassium 4.3 4.0 Chloride 105 107 Carbon Dioxide 28 28 BUN 18 H 14 Creatinine 0.77 0.79 C-Reactive Protein 0.10 0.11 Hand x-ray 07/09/2023 FINDINGS: RIGHT HAND: No fracture or dislocation. Degenerative changes of the hand and wrist worst involving the and wrist progressed from prior with advanced loss of first carpometacarpal joint space and bulky osteophytes and to a lesser extent involving the distal interphalangeal joints where there is minimal degenerative spurring progressed from prior. No cortical erosion. Soft tissues are unremarkable. LEFT HAND: No fracture or dislocation. Degenerative changes of the hand and wrist similar to prior worst involving the first carpometacarpal joint where there is advanced loss of joint space and bulky osteophytes and to a lesser extent involving the distal interphalangeal joints where there is minimal degenerative spurring progressed from prior. No cortical erosion. Soft tissues are unremarkable. Shoulder MRI 07/23/23 FINDINGS: ROTATOR CUFF: Mild supraspinatus tendinosis with minimal insertional intrasubstance partial tearing measuring up to 0.3 cm. Subscapularis tendinosis with distal articular surface partial tearing measuring up to 2.3 cm in ML dimension. No full-thickness rotator cuff tendon tear. No muscle atrophy or fatty infiltration. BICEPS: Fluid within the proximal long head biceps tendon sheath, consistent with mild tenosynovitis. No transverse tendon tear or tendon retraction. CORACOACROMIAL ARCH: The undersurface of the acromion is flat with no subacromial spur. Mild acromioclavicular osteoarthritis. LABRUM/CAPSULE: No displaced labral tear. Intact inferior joint capsule. GLENOHUMERAL JOINT/MARROW: Unremarkable. Assessment & Plan Assessment & Plan (1) Fibromyalgia: Code(s): M79.7 - Fibromyalgia Category: Medical Plan: #Fibromyalgia Patient is a 54 y.o. female with fibromyalgia. Discussed with patient the diagnosis of fibromyalgia and the difficulties in treatment since it is not a primary joint issue but a central desensitization disorder. Encouraged light exercise and stretching to reduce muscle tension which will reduce her pain Tramadol and gabapentin help Will increase tramadol Plan - Tramadol 100mg q8hr - Stop amitriptyline due to its interaction with tramadol - Continue duloxetine and gabapentin as per her primary - RTC 1 year or sooner (2) Osteoarthritis of hands, bilateral: Code(s): M19.041 - Primary osteoarthritis, right hand; M19.042 - Primary osteoarthritis, left hand Category: Medical Qualifiers: Osteoarthritis type: primary Qualified Code(s): M19.041 - Primary osteoarthritis, right hand; M19.042 - Primary osteoarthritis, left hand Plan: #Polyarticular OA Patient with polyarticular osteoarthritis mainly involving her hands especially the 1st CMC joint. 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 At this time I have very low suspicion for inflammatory disease. Especially given her lack of response to immunosuppression. We will continue osteoarthritis management with topical diclofenac, ibuprofen 800 mg and tramadol. (3) Plantar fasciitis of left foot: Code(s): M72.2 - Plantar fascial fibromatosis Plan: #Plantar fasciitis Patient's foot pain is consistent with plantar fasciitis. Exercises given Plan I spent 20 minutes reviewing the record and labs, seeing the patient, discussing the treatment plan and documenting in the medical record Orders: Referrals Dinkey Operator Nutrition Referral E66.9 - Obesity, unspecified Medications: Changed From tramadol 50 mg PO Q8H PRN 90 tabs 3RF pain M19.072 - Primary osteoarthritis, left ankle and foot To tramadol 100 mg (2 x 50 mg) PO Q8H PRN 180 tabs 5RF pain M19.072 - Primary osteoarthritis, left ankle and foot Discontinued amitriptyline Discontinued Reason: Doctor's Order 25 mg PO BEDTIME 30 days 30 tabs 3RF N30.10 - Interstitial cystitis (chronic) without hematuria Coding Level of Care Code Est Pt Level 3 (50111) Diagnoses Fibromyalgia M79.7 Primary osteoarthritis of both hands M19.041; M19.042 Osteoarthritis type: primary Plantar fasciitis of left foot M72.2
--- OUTSIDE RECORDS SUMMARY | 2025-02-03 18:24 | XMS_ITS | Encounter Summary ---
Author Organization [facility] Address [address] [place] [address] Phone Care Team Providers Care Avionics Shop Supervisor Name Role Phone Fatmata Villalobos MD Primary Care Provider [phone] Encounter Details Date Type Department Care Team (Late st Contact Info) Description 02/20/2022 Telephone [facility] [address] [place] [address] [address]fon[address], [place] [address] Social History Tobacco Use Types Packs/Day Years [...] runs high. Please advise Thank you CB# [phone] documented in this encounter Plan of Treatment Not on file documented as of this encounter Visit Diagnoses Not on filedocumented in this encounter Care Teams Avionics Shop Supervisor Relationship Specialty Start Date End Date Fatmata Villalobos MD [address] [place] PCP - General Internal Medicine 07/25/21 documented as of this encounter
--- OUTSIDE RECORDS SUMMARY | 2025-02-03 18:24 | XMS_ITS | Clinical Summary ---
Author Organization [facility] Address [address] [place] [address] Phone Care Team Providers Care Service Tester Name Role Phone Fatmata Villalobos MD Primary Care Provider [phone] Allergies No known active allergies Medications DULoxetine [...] 09/25/2007 10/19/2021 Tobacco user 09/25/2007 10/19/2021 Immunizations Immunization Administration Dates Next Due Influenza TIV (IM) [...] Last Done Comments Breast Cancer Screening 1970 Hepatitis B Vaccine (1 of 3 - 19+ 3-dose series) 11/16 Pneumococcal Vaccine: 50+ Years (1 of 2 - PCV) 990 Colorectal Cancer Screening: Annual FOBT 2019 Colorectal Cancer Screening: Colonoscopy 2019 Colorectal Cancer Screening: Sigmoidoscopy 2019 Influenza Vaccine (Season Ended) 2025 09/25/20 07 Insurance ([id number]) ([id number]) Care Teams Service Tester Relationship Specialty Start Date End Date Fatmata Villalobos MD [address] [place] [address] PCP - General Internal Medicine 07/25/21
== END ==
LOC: HO.RHE 16:15
PROVIDERS: PCP Internal Medicine; Visit Provider Student in an Organized Health Care Education/Training Program
DX: M79.7 Fibromyalgia (principal); M19.041 Primary osteoarthritis, right hand; M19.042 Primary osteoarthritis, left hand; M72.2 Plantar fascial fibromatosis
CPT/HCPCS: 99213

== ENCOUNTER 2025-03-03 07:36 | Outpatient (AMB) | payer MEDICAID, SELFPAY ==
[2025-03-03 07:38] VITALS: BP 136/82; BMI 33.8
--- NOTE | 2025-03-03 07:38 | A.OFFPC_ITS ---
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 Accompanied by: Self / Same As Patient Allergies No Known Allergies Allergy (Verified 03/03/25 07:53) Medication List - Last Reconciled 03/03/25 by Fatmata Baca MD buspirone 5 mg PO TID diclofenac sodium 1% 4 grams topical QID 90 days dicyclomine 10 mg PO TID duloxetine mg PO famotidine 40 mg PO BEDTIME 30 days gabapentin 300 mg PO BEDTIME 30 days hydroxyzine HCl 10 mg PO TID ibuprofen 800 mg PO TID PRN 90 days linaclotide (Linzess) 290 mcg PO DAILY losartan 100 mg PO DAILY 90 days meclizine 25 mg PO BID PRN 30 days metoclopramide HCl 10 mg PO BID mirabegron ER (Myrbetriq) 25 mg PO DAILY pantoprazole 40 mg PO BID 90 days tizanidine 2 mg PO TID PRN tramadol 100 mg (2 x 50 mg) PO Q8H PRN trazodone 50 mg PO BEDTIME Tobacco use date assessed: 03/03/25 Dental Screening Dental Screen Date: 03/03/25 Did you have a dental visit in the last 12 months?: Yes Did you have a dental problem in the last 6 months where you did not have access to dental care?: No Was dental information given to patient?: Patient has dentist HPI HPI Comments History of Present Illness Details The patient is a 54-year-old female presenting for her physical exam with symptoms of tachycardia and nausea. She reports recent episodes of feeling tachycardic and describes significant nausea noticeably disrupting daily life. Shortness of breath accompanies the cardiac symptoms, while nasuea remains prominent without historical episodes of fever. Abdominal discomfort localized towards the ovarian area persists despite past hysterectomy. The ovaries were retained, and previous assessments included ultrasound and further examination due to sharp discomfort and bulge sensations. Additionally, back pain with radiating symptoms down the left thigh is reported, exacerbated upon standing and aggravated by ambulation. These suggest left-sided sciatica, also manifesting as numbness and episodic sharp pains under the thigh. The patient's medical background includes a notable historical profile of hysterectomy, left breast lumpectomy, , hemorrhoidectomy, and endoscopic evaluations. She follows gastroenterology concerning GERD, using medications like pantoprazole, diciclomine, and famotidine. Her psychiatric history involves managed anxiety and minor depression, with oversight from psychiatric services. Family history is notable for maternal breast and ovarian cancer and paternal renal complications and pulmonary conditions. Therapeutically, she utilizes a range of medications addressing fibromyalgia, hypertension, anxiety, and constipation management, asserting no known drug allergies, while noting occasi onal alcohol use. - Tetanus vaccine administered in 2015; next due in 2025. - Mammography completed in November 2022 , with high-risk factors regarding breast cancer. - Colonoscopy done in 2022; recommended interval is every 5 years, next due in 2027. [facility] Medical History (Updated 03/03/25 @ 08:09 by Fatmata Baca MD) Screening examination for infectious disease Candidiasis of mouth and esophagus Achilles tendinosis of both lower extremities CMC (carpometacarpal) synovitis Localized swelling of toe of left foot Breast mass, right Uterine fibroid Hemorrhoids Uterine fibroid Insomnia Essential hypertension Hematuria Calcific tendinitis of left shoulder Primary osteoarthritis of hands, bilateral Glucosuria HPV test positive At high risk for breast cancer Insomnia secondary to situational depression GERD (gastroesophageal reflux disease) Vitamin D deficiency Surgical History History of hysterectomy H/O excision of epidermal inclusion cyst (05/22/23) History of lumpectomy of left breast (08/23/22) History of lumpectomy of right breast Hx of tubal ligation History of bilateral breast biopsy (2017) History of section History of removal of cyst History of hemorrhoidectomy History of esophagogastroduodenoscopy (EGD) (08/26/19) Hx of colonoscopy Family History Mother Breast cancer, Onset Age: 50 Ovarian cancer Daughter Squamous cell carcinoma of uterus History of thyroid cancer Maternal Grandmother History of stomach cancer Maternal Uncle Family history of prostate cancer, Onset Age: 60 Father No problems noted. Social History Household Members: Children Housing: House Alcohol intake: current Alcohol intake frequency: holidays/special occasions only Alcohol type: beer and wine Patient Tobacco Use Status: Former Tobacco user Tobacco use type: Cigarette e-Cigarette/Vaping Use: Never Used Second Hand Smoke Exposure: No service: No Current occupational status: employed Current occupational exposures/hazards: No Sexual orientation: Straight/Heterosexual Gender identity: Female Cognitive needs: No Hearing needs: No Vision needs: Yes Female Reproductive History Menstrual Age of Menarche: 12 Questionnaire PHQ-9 Over the last 2 weeks, how often have you been bothered by any of the following problems? 1. Little interest or pleasure in doing things: several days 2. Feeling down, depressed, or hopeless: more than half the days 3. Trouble falling or staying asleep, or sleeping too much: more than half the days 4. Feeling tired or having little energy: more than half the days 5. Poor appetite or overeating: not at all 6. Feeling bad about yourself - or that you are a failure or have let yourself or your family down: not at all 7. Trouble concentrating on things, such as reading the newspaper or watching television: not at all 8. Moving or speaking so slowly that other people could have noticed. Or the opposite - being so fidgety or restless that you have been moving around a lot more than usual: not at all 9. 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 Elio Bruner, Erika Greene, Lc Trejo and colleagues, with an educational isi from [employer]. Thrive Questionnaire Date Thrive assessed: 03/03/25 I am a: Patient What is your living situation today?: I have a steady place to live Within the past 12 months, did the food you bought not last and you didn't have the money to get more?: Never true Within the past 12 months, did you worry whether your food would run out before you got money to buy more?: Never true Do you have trouble paying for medicines?: No Do you have trouble getting transportation to medical appointments?: No Do you have trouble paying your heating and electricity bill?: No Do you have trouble taking care of your child, family member or friend?: No Do you have trouble with day-to-day activities such as bathing, preparing meals, shopping, managing finances, etc.?: No Are you currently unemployed and looking for a job?: No Are you interested in more education?: No Please select the resources that you would like help with: None Currently or been in a relationship where the following occur: No concerns reported THRIVE Score: 0 AUDIT C Alcohol Use Questionnaire (AUDIT-C) 1. How often do you have a drink containing alcohol?: Never Total Score: 0 Score Reviewed/Action Taken: No ED-7 AMB Questionnaire ED-7 Date ED - 7 assessed: 03/03/25 Feeling nervous, anxious, or on edge: 2 = More than half the days Not being able to stop or control worryin = Not at all Worrying too much about different things: 1 = Several days Trouble relaxin = Several days Being so restless that it is hard to sit still: 0 = Not at all Becoming easily annoyed or irritable: 1 = Several days Feeling afraid as if something awful might happen: 0 = Not at all Total ED-7 score (0-4 normal; 5-9 mild; 10-14 moderate; 15-21 severe): 5 Source: Developed by Drs. Elio Bruner, Erika Greene, Lc Trejo and colleagues, with an educational isi from [employer]. ED-7 Assessment Billing ED-7 Assessment Tool: ED-7 Assessment 32100 Review of Systems Const All systems reviewed & are unremarkable except as noted in HPI and below Card Denies chest pain at rest, Denies chest pain with activity, Denies edema, Denies irregular heart rhythm, Denies claudication, Denies dyspnea, Denies dyspnea on exertion, Denies orthopnea, Denies paroxysmal nocturnal dyspnea and Denies slow heart rate Resp Denies cough, Denies dyspnea and Denies dyspnea on exertion GI Denies abdominal pain, Denies change in bowel habits, Denies excessive flatus, Denies nausea and Denies vomiting Denies urinary incontinence, Denies urinary hesitancy and Denies urinary urgency Musc Denies abnormal gait, Denies atrophy, Denies deformity and Denies limited range of motion Skin/Breast Denies bleeding lesions, Denies changing lesions and Denies rash Neuro Denies abnormal gait, Denies behavioral changes, Denies confusion and Denies lack of coordination Psych Denies behavioral changes and Denies confusion Physical exam (Primary Care) Vital Signs: Last Vital Signs BP 136/82 03/03/25 07:38 BMI result Body Mass Index 33.8 Tobacco/Smoking Status: Tobacco use Status Tobacco use date assessed 03/03/25 03/03/25 07:47 Patient Tobacco Use Status Former Tobacco user 03/03/25 07:47 Tobacco use type Cigarette 03/03/25 07:47 e-Cigarette/Vaping Use Never Used 03/03/25 07:47 PHQ-9: PHQ-9 Score PHQ-9: Total score 7 03/03/25 08:00 Depression Screening Interpretation: Positive Depression Screening Follow-up: Existing condition, In treatment, 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 and Follow- up Visit Requested Thrive Assessment: Date of Thrive Assessment Date Thrive assessed 03/03/25 03/03/25 07:47 Currently or been in a relationship where the following occur: No concerns reported Const General: No confusion Orientation/consciousness: patient oriented x3 and No confusion HENMT Head: Yes normal to inspection, Yes normocephalic and Yes atraumatic Ears: external ears normal Eyes General: appearance normal, both eyes and all related structures Eyelids: Yes eyelids normal Conjunctivae: conjunctivae normal Neck Neck: Yes normal visual inspection and Yes supple Resp Effort & Inspection: normal respiratory effort Auscultation: clear to auscultation bilaterally Cardio Jugular venous distension: no JVD Rate: regular rate Rhythm: regular rhythm Heart sounds: S1 normal heart sound present and S2 normal heart sound present GI Inspection: Yes normal to inspection Palpation (GI): Soft to palpation and nontender Auscultation: normal bowel sounds Skin General skin exam: no rashes or lesions noted Neuro General: patient oriented x3, no focal motor deficits and No confusion Extrem General: Yes full ROM Psych Appearance: grossly normal Coding Level of Care Code Est Pt Level 4 (23195) Est Pt Prev Care 40-64y(60597) Diagnoses Physical exam Z00.00 Screen for STD (sexually transmitted disease) Z11.3 Obese E66.9 Left sided sciatica M54.32 Tachycardia R00.0 Additional Codes ED-7 Assessment Billing - ED-7 Assessment Tool: ED-7 Assessment 72806 ([id number]) PHQ-9 - 46477 - PHQ-9 Billing: Yes ([id number]) Time Spent (min) 38 Assessment & Plan Assessment & Plan (1) Physical exam: Code(s): Z00.00 - Encounter for general adult medical examination without abnormal findings Category: Medical (2) Screen for STD (sexually transmitted disease): Code(s): Z11.3 - Encounter for screening for infections with a predominantly sexual mode of transmission Category: Medical (3) Obese: Code(s): E66.9 - Obesity, unspecified Category: Medical (4) Left sided sciatica: Code(s): M54.32 - Sciatica, left side Category: Medical (5) Tachycardia: Code(s): R00.0 - Tachycardia, unspecified Category: Medical Plan The patient's management includes addressing tachycardia through ECG and Holter monitoring. Gastroesophageal symptoms will continue to be managed with pantoprazole, assessing the need for further gastroenterology referral. The sc iatica, presenting with radiated pain, will be managed with a possible referral to pain specialists, considering past ineffective physical therapy. Psychiatric follow-ups continue for anxiety and depression with medications. We will evaluate thyroid and diabetes panels owing to her interests in weight concerns. Nutritional guidance focusing on lifestyle modifications is recommended to bolster chronic condition management. Patient was informed and verbally consented to the use of an ambient scribe for clinic note documentation during this visit. I discussed with the patient the likely diagnoses, management options, and further evaluations needed. ECG and Holter monitoring for her tachycardia were advised, while for GERD, escalation of care with gastroenterology was considered if current management remains insufficient. Addressing the musculoskeletal complaint with a possibility of pain management consult was elaborated, given previous ineffective outcomes with therapy. We reviewed her psychiatric care coordination amid medication efficacy, especially for anxiety and minimal depression, with existing psychiatric oversight. Lab evaluations to include thyroid function and diabetes screenings were recommended. Nutritional counseling around dietary intake and management was imparted, stressing on chronic condition support. Orders: Orders ECG holter monitor 24 hour Today R00.0 - Tachycardia, unspecified Lipid Panel Today E78.5 - Hyperlipidemia, unspecified, Z00.00 - Encounter for general adult medical examination without abnormal findings Vitamin B12 and Folate Today E53.8 - Deficiency of other specified B group vitamins Vitamin D 25-OH Total Today E55.9 - Vitamin D deficiency, unspecified Complete Blood Count Auto Diff Today D64.9 - Anemia, unspecified IRON PROFILE Today D64.9 - Anemia, unspecified HIV Ab/Ag Today Z11.3 - Encounter for screening for infections with a predominantly sexual mode of transmission ECG 12 lead EKG Today R00.0 - Tachycardia, unspecified Comprehensive Swain. Panel Fast Today Z00.00 - Encounter for general adult medic al examination without abnormal findings Thyroid Stimulating Hormone Today E66.9 - Obesity, unspecified CT NG by PCR Today Z11.3 - Encounter for screening for infections with a predominantly sexual mode of transmission Syphilis Screen Today Z11.3 - Encounter for screening for infections with a predominantly sexual mode of transmission Referrals Pain Management Referral M54.32 - Sciatica, left side
== END 2025-03-03 08:10 | disposition home or self-care (01) ==
LOC: HO.HMCH 07:37
PROVIDERS: PCP Internal Medicine; Visit Provider Internal Medicine
DX: Z00.00 Encounter for general adult medical examination without abnormal findings (principal); R00.0 Tachycardia, unspecified; E66.9 Obesity, unspecified; Z68.33 Body mass index [BMI] 33.0-33.9, adult; Z11.3 Encounter for screening for infections with a predominantly sexual mode of transmission; M54.32 Sciatica, left side

== ENCOUNTER → 2025-03-03 07:36 | Outpatient (BNVA) | payer MEDICAID, SELFPAY | PROVIDERS: PCP Internal Medicine; Visit Provider Internal Medicine | DX: Z00.00 Encounter for general adult medical examination without abnormal findings (principal); R00.0 Tachycardia, unspecified; R11.0 Nausea; R10.9 Unspecified abdominal pain; M54.9 Dorsalgia, unspecified; K21.9 Gastro-esophageal reflux disease without esophagitis; E66.9 Obesity, unspecified; M54.32 Sciatica, left side; E78.5 Hyperlipidemia, unspecified; E53.8 Deficiency of other specified B group vitamins; E55.9 Vitamin D deficiency, unspecified; D64.9 Anemia, unspecified; Z90.710 Acquired absence of both cervix and uterus; Z68.33 Body mass index [BMI] 33.0-33.9, adult; Z79.899 Other long term (current) drug therapy | CPT/HCPCS: 96127; 99212; 99396 ==

== ENCOUNTER 2025-03-12 15:56 | Outpatient (REF) | payer MEDICARE, MEDICAID, SELFPAY ==
[2025-03-12 17:07] LABS: MANUAL DIFF FLAG NO
[2025-03-12 17:24] LABS: Basophils Percent Auto 0.3 % (0-2); Eosinophils Absolute Auto 0.1 X10*3/uL (0.0-0.4); Eosinophils Percent Auto 0.9 % (0-4); Hemoglobin 12.6 g/dl (12.0-16.0); Imm Gran Abs Auto 0.03 X10*3/uL (0.00-0.03); Imm Gran Pct Auto 0.4 % (0.0-0.4); Lymphocytes Absolute Auto 2.1 X10*3/uL (1.2-4.9); Lymphocytes Percent Auto 27.9 % (20-40); Mean Corpuscular HGB Conc 34.1 g/dl (31.0-35.0); Mean Corpuscular Hemoglobin 29.4 pg (27.0-33.0); Mean Corpuscular Volume 86.2 fL (80.0-98.0); Mean Platelet Volume 10.8 fL (9.4-12.3); Monocytes Absolute Auto 0.5 X10*3/uL (0.1-1.2); Monocytes Percent Auto 6.7 % (2-11); Neutrophils Absolute Auto 4.7 x10*3/uL (2.0-8.3); Neutrophils Percent Auto 63.8 % (45-73); Platelet Count 223 X10*3/uL (160-400); Red Blood Count 4.29 X10*6/uL (4.20-5.50); Red Cell Distribution Width 11.9 % (11.0-16.0); White Blood Count 7.4 X10*3/uL (4.8-10.8)
[2025-03-12 17:55] LABS: Anion Gap 12 (12-20)
[2025-03-12 18:03] LABS: Alanine Aminotransferase 13 U/L (0-31); Albumin Level 4.2 g/dL (3.5-5.0); Aspartate Amino Transferase 20 U/L (5-31); Bilirubin Total 0.3 mg/dL (0.0-1.0); Blood Urea Nitrogen 14 mg/dL (9-16); Calcium 9.5 mg/dL (8.4-10.2); Carbon Dioxide 25 mmol/L (22-29); Chloride 106 mmol/L (96-108); Cholesterol 157 mg/dL (<200); Estimated Glomerular Filt Rate > 60; Glucose Fasting 81 mg/dL (60-99); Glucose Random 81 mg/dL (60-115); HDL Cholesterol 47 mg/dL (>40); Iron 61 mcg/dL (30-160); LDL Cholesterol Calculated 96 mg/dL (<100); Percent Iron Saturation 20 % (15-50); Potassium 3.5 mmol/L (3.3-5.1); Sodium 139 mmol/L (135-145); Total Iron Binding Capacity 301 mcg/dL (228-428); Total Protein 7.2 g/dL (6.5-8.0); Triglycerides 70 mg/dL (<150); Unsaturated Iron Binding 240 ug/dL
[2025-03-12 18:16] LABS: Vitamin D 25-OH Total 41.3 ng/mL (>30)
[2025-03-12 18:19] LABS: Alkaline Phosphatase 94 U/L (39-117); TSH reflex Free T4 1.32 uIU/mL (0.32-4.0); Thyroid Stimulating Hormone 1.32 uIU/mL (0.32-4.0)
--- OUTSIDE RECORDS SUMMARY | 2025-03-12 18:23 | XMS_ITS | Clinical Summary ---
Author Organization [facility] Address [address] [facility] [address] [place] [address] Phone Care Team Providers Care Compression Molding Machine Setter Name Role Phone Fatmata Villalobos MD Primary Care Provider [phone] Allergies No known active allergies Medications DULoxetine [...] 09/25/20 07 Insurance ([id number]) ([id number]) Care Teams Compression Molding Machine Setter Relationship Specialty Start Date End Date Fatmata Villalobos MD [address] [place] [address] PCP - General Internal Medicine 07/25/21
[2025-03-12 18:31] LABS: Folate 12.8 ng/mL (> or = 4.0); Vitamin B12 747 pg/mL (200-900)
[2025-03-12 22:16] LABS: CT PCR NOT DETECTED (Not Detect.); NG PCR NOT DETECTED (Not Detect.)
[2025-03-13 05:12] LABS: Syphilis Screen Nonreactive (Nonreactive)
[2025-03-13 05:41] LABS: HIV AB/AG Nonreactive (Nonreactive); HIV Num 1 0.06 S/CO (0.00-0.99)
== END 2025-03-12 15:57 | disposition home or self-care (01) ==
LOC: HO.LAB 15:56
PROVIDERS: PCP Internal Medicine; Visit Provider Nurse Practitioner
DX: Z00.00 Encounter for general adult medical examination without abnormal findings (principal); E66.9 Obesity, unspecified; D64.9 Anemia, unspecified; E55.9 Vitamin D deficiency, unspecified; E53.8 Deficiency of other specified B group vitamins; E78.5 Hyperlipidemia, unspecified; K59.04 Chronic idiopathic constipation; R10.30 Lower abdominal pain, unspecified; K21.9 Gastro-esophageal reflux disease without esophagitis
CPT/HCPCS: 36415; 80053; 80061; 82306; 82607; 82746; 83540; 84443; 85025; 86780; 87389; 87491; 87591; 99212

== ENCOUNTER 2025-03-12 15:56 | Outpatient (AMB) | payer MEDICARE, MEDICAID, SELFPAY ==
--- NOTE | 2025-03-12 16:07 | A.OFFVIS_ITS ---
Vital Signs 03/12/25 16:18 Height 5 ft 2 in Weight 185 lb BMI 33.8 BP 128/80 Blood Pressure Location Rt brachial Position Sitting Pulse 78 Pulse Source Pulse Oximeter Pulse Oximetry (%) 97 Oxygen Delivery Method Room Air Intake Visit Reasons: CIC GERD Intake Note: Established patient for mgmt of GERD + CIC. CC; C.O. lower abd pain, nausea + vomiting (worse in the morning). Pt comments that her SLIDE FASTENER CHAIN ASSEMBLER and PCP both wanted her to follow up with GI prior to having any reproductive problems evaluated or diagnosed. US done via [facility]. Haulage Engine Operator Required: Yes Haulage Engine Operator Services: Haulage Engine Operator Present Haulage Engine Operator Name: Julio [id number] Information Interpreted: clinical only Accompanied by: Self / Same As Patient Allergies No Known Allergies Allergy (Verified 03/12/25 16:18) HPI HPI CIC GERD: Details: Assessment & Plan (1) GERD (gastroesophageal reflux disease): Code(s): K21.9 - Gastro-esophageal reflux disease without esophagitis (2) Chronic idiopathic constipation: Code(s): K59.04 - Chronic idiopathic constipation (3) Thoracic back pain: Comment: multi level OA on xray Code(s): M54.6 - Pain in thoracic spine (4) Tendinopathy of right shoulder: Code(s): M67.911 - Unspecified disorder of synovium and tendon, right shoulder (5) Supraspinatus syndrome of right shoulder: Code(s): M75.101 - Unspecified rotator cuff tear or rupture of right shoulder, not specified as traumatic Plan KAZAKH #[id number] She continues on her Reglan, Linzess, and pantoprazole and is now satisfied with her GI regimen. I go over the MRI of her shoulder which does show tendinopathy of the supraspinatus with some minor tearing so I am going to refer her to pain management. I still think that her abdominal pain that has been unexplained by any GI tests and workup is likely related to thoracic spine pathology. I am going to leave it to pain management to see if they can get an MRI thoracic spine ordered since I really do not know what would be required to get this study. I already did an x-ray which did show significant osteoarthritis of the thoracic spine. Return office visit in 6 months. Orders: Referrals Pain Management Referral M54.6 - Pain in thoracic spine, M67.911 - Unspecified disorder of synovium and tendon, right shoulder, M75.101 - Unspecified rotator cuff tear or rupture of right shoulder, not specified as traumatic TODAYS VISIT KAZAKH #[id number] Sarah cobos She continues on her Reglan, Linzess, and pantoprazole and is now satisfied with her GI regimen. BUT she ran out of he medications. She has been having pain in the lower abd for 6-7 mos that is 8/10 and starts towards the lateral abd and radiates to the center. It is worse when she is standing for too long. She describes it a a throbbing pain. It is not r/t eating or moving her bowels. AT times she will not have it at all, but she will have it 4-5 days a week. It will last anywhere from a couple of hours to all day. It is relieved somewhat by laying down. When it is severe she feels quite desperate. She says her RECRUITING MANAGER and her PCP sent her to me because all their tests came out normal. She is quite constipated and admits she is out of her Linzess 290mcg. ROV 3 weeks. [facility] Medical History (Updated 03/12/25 @ 16:37 by KELLI Feliz) Myoma Abnormal ultrasound of breast Localized swelling of toe of left foot Abnormal MRI, breast Vaginal irritation Potential exposure to STD Pelvic pain Pleuritic chest pain Right rotator cuff tendonitis Left foot pain Screening examination for infectious disease Screen for STD (sexually transmitted disease) Epidermal inclusion cyst Medication monitoring encounter Screen for STD (sexually transmitted disease) Physical exam Candidiasis of mouth and esophagus Achilles tendinosis of both lower extremities CMC (carpometacarpal) synovitis Breast mass, right Uterine fibroid Hemorrhoids Uterine fibroid Insomnia Essential hypertension Hematuria Calcific tendinitis of left shoulder Primary osteoarthritis of hands, bilateral Glucosuria HPV test positive At high risk for breast cancer Insomnia secondary to situational depression GERD (gastroesophageal reflux disease) Vitamin D deficiency Surgical History History of hysterectomy H/O excision of epidermal inclusion cyst (05/22/23) History of lumpectomy of left breast (08/23/22) History of lumpectomy of right breast Hx of tubal ligation History of bilateral breast biopsy (2018) History of section History of removal of cyst History of hemorrhoidectomy History of esophagogastroduodenoscopy (EGD) (08/26/19) Hx of colonoscopy Family History Mother Breast cancer, Onset Age: 50 Ovarian cancer Daughter Squamous cell carcinoma of uterus History of thyroid cancer Maternal Grandmother History of stomach cancer Maternal Uncle Family history of prostate cancer, Onset Age: 60 Father No problems noted. Social History Household Members: Children Housing: House Alcohol intake: current Alcohol intake frequency: holidays/special occasions only Alcohol type: beer and wine Patient Tobacco Use Status: Former Tobacco user Tobacco use type: Cigarette e-Cigarette/Vaping Use: Never Used Second Hand Smoke Exposure: No service: No Current occupational status: employed Current occupational exposures/hazards: No Sexual orientation: Straight/Heterosexual Gender identity: Female Cognitive needs: No Hearing needs: No Vision needs: Yes Female Reproductive History Menstrual Age of Menarche: 12 Review of Systems Const Denies fatigue, Denies fever(s), Denies night sweats, Denies poor appetite and Denies weight loss ENT Reports Normal hearing present, Denies dental pain, Denies dysphagia, Denies hearing loss, Denies mouth pain, Denies odynophagia, Denies throat swelling, Denies tongue swelling and Reports other (Dentition adequate) Card Reports no additional complaints Resp Reports no additional complaints GI Details: Reports abdominal pain, Denies melena, Denies bloating, Denies hematochezia, Reports constipation, Denies GI cramping, Denies dysphagia, Denies excessive flatus, Denies early satiety, Reports heartburn, Denies diarrhea, Denies nausea, Denies odynophagia, Denies vomiting and Denies hematemesis Musc Reports back pain and Reports myalgias Skin/Breast Denies pruritus, Denies lesions, Denies rash and Denies jaundice Neuro Reports Normal hearing present and Denies Abnormal speech present Endo Denies fatigue Aller/Immun Denies throat swelling and Denies tongue swelling Physical Exam Vital Signs: Last Vital Signs Pulse 78 06/05/25 16:18 BP 128/80 03/12/25 16:18 Pulse Ox 97 03/12/25 16:18 Oxygen Delivery Method Room Air 03/12/25 16:18 BMI result Body Mass Index 33.8 Const General: cooperative, no acute distress, well developed and well groomed Nutritional Appearance: well nourished and obese Orientation/consciousness: oriented to person, oriented to place and oriented to time Limitations: language barrier HEENT Head: Yes normocephalic and Yes atraumatic Eyes General: appearance normal, both eyes and all related structures Pupils: Equal, round and reactive pupils present Neck Neck: Yes normal visual inspection and Yes no lymphadenopathy Thyroid: Thyroid normal Resp Effort & Inspection: normal respiratory effort and able to speak in complete sentences Auscultation: clear to auscultation bilaterally Cardio Rate: regular rate Rhythm: regular rhythm Heart sounds: Normal, physiologic split S2 sound present Peripheral pulses: radial pulses present and posterior tibial pulses present GI Inspection: No distended, Yes Abdominal panniculus present and Yes obesity Palpation (GI): Soft to palpation, nontender, no guarding, not rigid and No hepatosplenomegaly present Percussion: Yes normal to percussion Auscultation: normal bowel sounds Rectal Exam - Female: deferred Skin General skin exam: no rashes or lesions noted, turgor normal, skin not dry, no jaundice, No spider nevi and no striae Rashes: no rashes Nails: normal Neuro General: oriented to person, oriented to place and oriented to time Cranial nerves: Yes Equal, round and reactive pupils present and Yes Normal hearing present Speech: No Abnormal speech present Extrem General: Yes normal to inspection, No clubbing, No cyanosis and No edema Psych Appearance: grossly normal and well kempt Mental Status: mental status grossly normal Speech and movement: Normal speech and movement present Affect: normal affect Attitude: cooperative Thought process: Circumstantial thought process present and not confabulating Thought content: Normal thought content present Insight: Limited insight present (Psych) Judgement: Limited judgement present (Psych) Assessment & Plan Assessment & Plan (1) Lower abdominal pain: Code(s): R10.30 - Lower abdominal pain, unspecified Category: Medical (2) GERD (gastroesophageal reflux disease): Code(s): K21.9 - Gastro-esophageal reflux disease without esophagitis Category: Medical (3) Chronic idiopathic constipation: Code(s): K59.04 - Chronic idiopathic constipation Category: Medical Plan KAZAKH #[id number] Sarah cobos She continues on her Reglan, Linzess, and pantoprazole and is now satisfied with her GI regimen. BUT she ran out of he medications. She has been having pain in the lower abd for 6-7 mos that is 8/10 and starts to wards the lateral abd and radiates to the center. It is worse when she is standing for too long. She describes it a a throbbing pain. It is not r/t eating or moving her bowels. AT times she will not have it at all, but she will have it 4-5 days a week. It will last anywhere from a couple of hours to all day. It is relieved somewhat by laying down. When it is severe she feels quite desperate. She says her RECRUITING MANAGER and her PCP sent her to me because all their tests came out normal. She is quite constipated and admits she is out of her Linzess 290mcg. ROV 3 weeks. Orders: Orders Complete Blood Count Auto Diff 03/12/25 R10.30 - Lower abdominal pain, unspecified, K59.04 - Chronic idiopathic constipation XR lumbar spine 2-3V 03/18/25 R10.30 - Lower abdominal pain, unspecified, K59.04 - Chronic idiopathic constipation UA CC w/rflx Micro + Cult 03/18/25 R10.30 - Lower abdominal pain, unspecified, K59.04 - Chronic idiopathic constipation Comprehensive Met. Panel 03/12/25 R10.30 - Lower abdominal pain, unspecified, K59.04 - Chronic idiopathic constipation TSH reflex Free T4 03/12/25 R10.30 - Lower abdominal pain, unspecified, K59.04 - Chronic idiopathic constipation XR abdomen w decubitus 03/18/25 R10.30 - Lower abdominal pain, unspecified, K59.04 - Chronic idiopathic constipation Medications: Refilled pantoprazole 40 mg PO BID 180 tabs 1RF 90 days K59.04 - Chronic idiopathic constipation, R11.2 - Nausea with vomiting, unspecified linaclotide (Linzess) 290 mcg PO DAILY 30 caps 6RF K59.00 - Constipation, unspecified metoclopramide HCl 10 mg PO BID 60 tabs 6RF dicyclomine 10 mg PO TID 60 caps 6RF R10.33 - Periumbilical pain Discontinued famotidine Discontinued Reason: Doctor's Order 40 mg PO BEDTIME 30 days 90 tabs 3RF N30.10 - Interstitial cystitis (chronic) without hematuria, R39.15 - Urgency of urination Coding Level of Care Code Est Pt Level 3 (32583) Diagnoses Lower abdominal pain R10.30 GERD (gastroesophageal reflux disease) K21.9 Chronic idiopathic constipation K59.04
[2025-03-12 16:18] VITALS: BP 128/80; PULSE 78; O2SAT 97; BMI 33.8
== END 2025-03-12 16:41 | disposition home or self-care (01) ==
LOC: HO.HGI 15:57
PROVIDERS: PCP Internal Medicine; Visit Provider Nurse Practitioner
DX: R10.30 Lower abdominal pain, unspecified (principal); K21.9 Gastro-esophageal reflux disease without esophagitis; K59.04 Chronic idiopathic constipation
CPT/HCPCS: 99213

== ENCOUNTER 2025-03-18 14:27 | Outpatient (REF) | payer MEDICARE, MEDICAID, SELFPAY ==
--- NOTE | ~2025-03-18 | XR_ITS ---
EXAMINATION: XR ABDOMEN DECUBITUS LATERAL HISTORY: R10.30 - Lower abdominal pain, unspecified COMPARISON: There are no prior studies available for comparison. FINDINGS: Supine and left lateral decubitus views of the abdomen are submitted. The bowel gas pattern is unremarkable, without evidence of mechanical obstruction. There is no free intraperitoneal gas. There is a moderate amount of stool in the ascending and transverse colon. There are two rounded calcifications to the right of the L4 vertebral body measuring up to 4 mm in size. Exclusion from the urinary tract is not possible on the basis of this examination. There are multiple phleboliths in the pelvis. A clip is seen in the right midabdomen, likely in the ascending colon. There are no abnormal soft tissue masses. The bones are intact. XR/XR abdomen w decubitus IMPRESSION: 1. Moderate amount of stool in the ascending and transverse colon. 2. Two rounded calcifications to the right of the L4 vertebral body. Exclusion from the urinary tract is not possible on the basis of this examination. If there is clinical concern for ureteral calculi, unenhanced CT could be performed. Electronically signed by: Elio Wilkins MD 03/19/2025 07:31 AM EDT
--- NOTE | ~2025-03-18 | XR_ITS ---
EXAMINATION: XR LUMBAR SPINE 2-3 VIEWS HISTORY: R10.30 - Lower abdominal pain, unspecified COMPARISON: Comparison is made with the prior examination dated 04/02/2024. FINDINGS: AP, lateral, and coned down views of the lumbar spine are submitted. Osseous mineralization is normal. Five nonrib-bearing lumbar vertebral bodies are identified, maintaining normal height and alignment without evidence of fracture or spondylolisthesis. The intervertebral disc spaces are preserved. There is minimal anterior spurring at both levels.. The posterior elements are intact. There is a clip in the region of the ascending colon. XR/XR lumbar spine 2-3V IMPRESSION: Minimal degenerative changes. Electronically signed by: Elio Wilkins MD 03/19/2025 07:32 AM EDT
--- NOTE | 2025-03-18 15:34 | ECG_ITS ---
Test Reason : tachycardia Blood Pressure : */* mmHG Vent. Rate : 68 BPM Atrial Rate : 68 BPM P-R Int : 122 ms QRS Dur : 88 ms QT Int : 376 ms P-R-T Axes : 14 16 11 degrees QTcB Int : 399 ms Normal sinus rhythm Normal ECG When compared with ECG of 27-Nov-2022 06:45, No significant change was found Referred By: Fatmata Baca Electronically Signed By: LEON MUÑOZ MD
[2025-03-18 15:44] LABS: Appearance Urine Clear; Color Urine Yellow; Glucose Urine UA Negative (Negative); Leukocyte Esterase Urine Negative (Negative); Nitrite Urine Negative (Negative); PH 5.5 (5.0-9.0); Specific Gravity - Urine >= 1.030 (1.005-1.025); Urine Blood Negative (Negative); Urine Ketones Trace mg/dL (Negative); Urine Protein Negative (Neg-Trace)
--- OUTSIDE RECORDS SUMMARY | 2025-03-18 16:39 | XMS_ITS | Clinical Summary ---
Author Organization [facility] Address [address] [facility] [address] [place] [address] Phone Care Team Providers Care Set Up Operator Tool Name Role Phone Fatmata Villalobos MD Primary Care Provider [phone] Allergies No known active allergies Medications DULoxetine [...] 09/25/20 07 Insurance ([id number]) ([id number]) Care Teams Set Up Operator Tool Relationship Specialty Start Date End Date Fatmata Villalobos MD [address] [facility] [address] [place] [address] PCP - General Internal Medicine 07/25/21
== END 2025-03-18 14:28 | disposition home or self-care (01) ==
LOC: HO.XRAY 14:27
PROVIDERS: Absent Provider Nurse Practitioner; PCP Internal Medicine; Visit Provider Internal Medicine
DX: R10.30 Lower abdominal pain, unspecified (principal); R00.0 Tachycardia, unspecified; K59.04 Chronic idiopathic constipation
CPT/HCPCS: 72100; 74021; 81003; 93005

== ENCOUNTER → 2025-03-18 14:35 | Outpatient (BNV) | payer MEDICARE, MEDICAID, SELFPAY | PROVIDERS: Absent Provider Nurse Practitioner; PCP Internal Medicine; Visit Provider Radiology Diagnostic Radiology | DX: K56.41 Fecal impaction (principal); M51.360 Other intervertebral disc degeneration, lumbar region with discogenic back pain only | CPT/HCPCS: 72100; 74021 ==

== ENCOUNTER → 2025-03-18 15:34 | Outpatient (BNV) | payer MEDICARE, MEDICAID, SELFPAY | PROVIDERS: Absent Provider Nurse Practitioner; PCP Internal Medicine; Visit Provider Internal Medicine Cardiovascular Disease | DX: R00.0 Tachycardia, unspecified (principal) | CPT/HCPCS: 93010 ==

== ENCOUNTER 2025-03-26 11:09 | Outpatient (AMB) | payer MEDICARE, MEDICAID, SELFPAY ==
--- NOTE | 2025-03-26 11:04 | A.OFFVIS_ITS ---
Vital Signs 03/26/25 11:25 Height 5 ft 2 in Weight 184 lb 4 oz BMI 33.7 BP 156/95 H Blood Pressure Location Lt brachial Position Sitting Pulse 76 Intake Visit Reasons: pain in (L) breast Intake Note: Patient is seen in office for breast exam, following breast pain. Pt c/o; bilateral breast pain, left side towards axilla & right side all over the breast us/mm:11/13/24 Pmo Business Analyst Required: Yes Pmo Business Analyst Language: Rolled Seat Trimmer Services: Pmo Business Analyst Present Pmo Business Analyst Name: Adeola YUAN Information Interpreted: non-clinical & clinical Service Station Attendant: Service Station Attendant Present Accompanied by: Self / Same As Patient Allergies No Known Allergies Allergy (Verified 03/26/25 11:06) HPI Comments Details: 54-year-old female patient returning for high risk breast examination, complaining of bilateral breast pain which seems to be increasing in the left side. She was determined to be at high risk for breast cancer with the Emily model lifetime risk of breast cancer of 24%. She has had several bilateral breasts biopsies, MR guided biopsies all of which were benign. Her most recent mammogram and ultrasound performed on 11/13/2024 revealed a left breast hypoechoic oval solid mass in the 12 o'clock position, 2 cm from the nipple which is unchanged over the past year and felt to be benign. Follow-up diagnostic mammogram in 1 year is recommended (BI-RADS 3). Breast MRI of 08/04/2024 revealed no MR specific evidence of malignancy on either breast (BI-RADS 2 bilaterally). Her pain is mainly located in the left breast at the upper outer quadrant near her previous incision. She has pain in the right breast diffusely. She denies any redness or discharge in the breast. She has not identified any palpable masses. [facility] Medical History Myoma Abnormal ultrasound of breast Localized swelling of toe of left foot Abnormal MRI, breast Vaginal irritation Potential exposure to STD Pelvic pain Pleuritic chest pain Right rotator cuff tendonitis Left foot pain Screening examination for infectious disease Screen for STD (sexually transmitted disease) Epidermal inclusion cyst Medication monitoring encounter Screen for STD (sexually transmitted disease) Physical exam Candidiasis of mouth and esophagus Achilles tendinosis of both lower extremities CMC (carpometacarpal) synovitis Breast mass, right Uterine fibroid Hemorrhoids Uterine fibroid Insomnia Essential hypertension Hematuria Calcific tendinitis of left shoulder Primary osteoarthritis of hands, bilateral Glucosuria HPV test positive At high risk for breast cancer Insomnia secondary to situational depression GERD (gastroesophageal reflux disease) Vitamin D deficiency Surgical History History of hysterectomy H/O excision of epidermal inclusion cyst (05/22/23) History of lumpectomy of left breast (08/23/22) History of lumpectomy of right breast Hx of tubal ligation History of bilateral breast biopsy (2018) History of section History of removal of cyst History of hemorrhoidectomy History of esophagogastroduodenoscopy (EGD) (08/26/19) Hx of colonoscopy Family History Mother Breast cancer, Onset Age: 50 Ovarian cancer Daughter Squamous cell carcinoma of uterus History of thyroid cancer Maternal Grandmother History of stomach cancer Maternal Uncle Family history of prostate cancer, Onset Age: 60 Father No problems noted. Social History Household Members: Children Housing: House Alcohol intake: current Alcohol intake frequency: holidays/special occasions only Alcohol type: beer and wine Patient Tobacco Use Status: Former Tobacco user Tobacco use type: Cigarette e-Cigarette/Vaping Use: Never Used Second Hand Smoke Exposure: No service: No Current occupational status: employed Current occupational exposures/hazards: No Sexual orientation: Straight/Heterosexual Gender identity: Female Cognitive needs: No Hearing needs: No Vision needs: Yes Female Reproductive History Menstrual Age of Menarche: 12 Review of Systems Const All systems reviewed & are unremarkable except as noted in HPI and below Reports body aches, Denies chills, Denies fatigue and Denies fever(s) Eyes Denies change in vision Card Reports as per HPI, Denies chest pain, Reports chest pain with activity (Intermittent), Reports rapid heart rate (Intermittent), Denies leg edema, Denies lightheadedness and Denies dyspnea Resp Denies chest congestion, Denies cough, Reports pain on inspiration, Reports pain with cough, Denies dyspnea and Denies wheezing GI Denies abdominal pain, Denies constipation, Denies diarrhea, Reports nausea (Intermittent) and Denies vomiting Denies nipple discharge and Denies dysuria Musc Reports myalgias, Denies numbness and Denies tingling Skin/Breast Reports as per HPI, Denies breast swelling, Denies breast skin changes, Reports breast pain, Denies breast mass, Denies lesions, Denies nipple discharge and Denies rash Neuro Denies numbness and Denies tingling Endo Denies fatigue Aller/Immun Denies wheezing Physical Exam Vital Signs: Last Vital Signs Pulse 76 03/26/25 11:25 BP 156/95 H 03/26/25 11:25 BMI result Body Mass Index 33.7 Const General: no acute distress Nutritional Appearance: well nourished Orientation/consciousness: patient oriented x3 Limitations: no limitations Eyes Sclerae: sclerae normal EOM: EOMs intact bilaterally Chest Other: Left breast: Well-healed transverse incision in the upper portion of the left breast. Palpable scar tissue noted around this incision but no discrete masses appreciated at this time. No further redness is noted in the skin. No nipple discharge, palpable mass or enlarged lymph nodes are appreciated. There is tenderness around the incision in the upper outer quadrant. Right breast: Diffuse tenderness throughout the breast but no new skin change, nipple discharge, palpable mass or enlarged lymph nodes. Resp Effort & Inspection: normal respiratory effort Skin General skin exam: no rashes or lesions noted Neuro General: patient oriented x3 Extrem General: Yes no clubbing, cyanosis or edema Assessment & Plan Assessment & Plan (1) Mastodynia of right breast: Code(s): N64.4 - Mastodynia Category: Medical (2) At high risk for breast cancer: Code(s): Z91.89 - Other specified personal risk factors, not elsewhere classified Category: Medical (3) Mastodynia of left breast: Code(s): N64.4 - Mastodynia Category: Medical Plan 54-year-old female patient felt to be at high risk for breast cancer with complaints of bilateral breast pain which seems to be worsening. I discussed the option of short term low-dose tamoxifen which may help with her breast pain. I reviewed the risks and benefits of the medication and she wishes to try to see if it will help. I recommended tamoxifen 10 mg p.o. q.day for 30 days after which should be stopped. She will be due for her annual breast MRI in 08/05/2025 in an order has been placed. Her next mammogram is planned for November 2025. Orders: Orders MR breast BI wo/w con 08/05/25 N64.4 - Mastodynia, Z91.89 - Other specified personal risk factors, not elsewhere classified Medications: New tamoxifen 10 mg PO DAILY 30 tabs 0RF N64.4 - Mastodynia Coding Level of Care Code Est Pt Level 3 (29458) Diagnoses Mastodynia of right breast N64.4 At high risk for breast cancer Z91.89 Mastodynia of left breast N64.4
[2025-03-26 11:25] VITALS: BP 156/95; PULSE 76; BMI 33.7
--- OUTSIDE RECORDS SUMMARY | 2025-03-26 12:41 | XMS_ITS | Clinical Summary ---
Author Organization [facility] Address [address] [facility] [address] [place] [address] Phone Care Team Providers Care Financial Adviser Name Role Phone Fatmata Villalobos MD Primary Care Provider [phone] Allergies No known active allergies Medications DULoxetine [...] 09/25/20 07 Insurance ([id number]) ([id number]) Care Teams Financial Adviser Relationship Specialty Start Date End Date Fatmata Villalobos MD [address] [facility] [place] [address] PCP - General Internal Medicine 07/25/21
== END 2025-03-26 11:28 | disposition home or self-care (01) ==
PROVIDERS: PCP Internal Medicine; Visit Provider Surgery
DX: N64.4 Mastodynia (principal); Z91.89 Other specified personal risk factors, not elsewhere classified
CPT/HCPCS: 99213

== ENCOUNTER → 2025-03-26 11:09 | Outpatient (BNVA) | payer MEDICARE, MEDICAID, SELFPAY | PROVIDERS: PCP Internal Medicine; Visit Provider Surgery | DX: N64.4 Mastodynia (principal); Z91.89 Other specified personal risk factors, not elsewhere classified | CPT/HCPCS: 99212 ==

== ENCOUNTER 2025-03-31 14:29 | Outpatient (AMB) | payer MEDICARE, MEDICAID, SELFPAY ==
--- NOTE | 2025-03-31 14:31 | A.OFFVIS_ITS ---
Vital Signs 03/31/25 14:42 Height 5 ft 2 in Weight 184 lb BMI 33.7 BP 130/92 H Blood Pressure Location Rt brachial Position Sitting Pulse 86 Pulse Source Pulse Oximeter Pulse Oximetry (%) 99 Oxygen Delivery Method Room Air Intake Visit Reasons: 3 wks Intake Note: Established patient for mgmt of GERD + CIC. Labs done. CC; C.O. lower abd pain B/L. Pt denies any additional sx but is having a hard time describing their sx. Pt states that the pain is in the lower abd / pelvis and radiates into her legs B/L. Envelope Folding Machine Operator Required: Yes Envelope Folding Machine Operator Services: Envelope Folding Machine Operator Present Accompanied by: Self / Same As Patient Allergies No Known Allergies Allergy (Verified 03/31/25 14:33) HPI HPI 3 wks: Details: Assessment & Plan (1) Lower abdominal pain: Code(s): R10.30 - Lower abdominal pain, unspecified Category: Medical (2) GERD (gastroesophageal reflux disease): Code(s): K21.9 - Gastro-esophageal reflux disease without esophagitis Category: Medical (3) Chronic idiopathic constipation: Code(s): K59.04 - Chronic idiopathic constipation Category: Medical Plan [facility] #[id number] Sarah cobos She continues on her Reglan, Linzess, and pantoprazole and is now satisfied with her GI regimen. BUT she ran out of he medications. She has been having pain in the lower abd for 6-7 mos that is 8/10 and starts towards the lateral abd and radiates to the center. It is worse when she is standing for too long. She describes it a a throbbing pain. It is not r/t eating or moving her bowels. AT times she will not have it at all, but she will have it 4-5 days a week. It will last anywhere from a couple of hours to all day. It is relieved somewhat by laying down. When it is severe she feels quite desperate. She says her SNACK STEWARD and her PCP sent her to me because all their tests came out normal. She is quite constipated and admits she is out of her Linzess 290mcg. ROV 3 weeks. Orders: Orders Complete Blood Count Auto Diff 03/12/25 R10.30 - Lower abdominal pain, unspecified, K59.04 - Chronic idiopathic constipation XR lumbar spine 2-3V 03/18/25 R10.30 - Lower abdominal pain, unspecified, K59.04 - Chronic idiopathic con stipation UA CC w/rflx Micro + Cult 03/18/25 R10.30 - Lower abdominal pain, unspecified, K59.04 - Chronic idiopathic constipation Comprehensive Met. Panel 03/12/25 R10.30 - Lower abdominal pain, unspecified, K59.04 - Chronic idiopathic constipation TSH reflex Free T4 03/12/25 R10.30 - Lower abdominal pain, unspecified, K59.04 - Chronic idiopathic constipation XR abdomen w decubitus 03/18/25 R10.30 - Lower abdominal pain, unspecified, K59.04 - Chronic idiopathic constipation Medications: Refilled pantoprazole 40 mg PO BID 180 tabs 1RF 90 days K59.04 - Chronic idiopathic constipation, R11.2 - Nausea with vomiting, unspecified linaclotide (Linzess) 290 mcg PO DAILY 30 caps 6RF K59.00 - Constipation, unspecified metoclopramide HCl 10 mg PO BID 60 tabs 6RF dicyclomine 10 mg PO TID 60 caps 6RF R10.33 - Periumbilical pain Discontinued famotidine Discontinued Reason: Doctor's Order 40 mg PO BEDTIME 30 days 90 tabs 3RF N30.10 - Interstitial cystitis (chronic) without hematuria, R39.15 - Urgency of urination TODAY'S VISIT [facility] #[id number] She continues on her Reglan, Linzess, and pantoprazole and is now satisfied with her GI regimen. This has not made a difference in her pain which she describes as like menses pain and sometimes burning. There is definitely a pattern or radiation down the legs, mostly the front but at times in the back. The pain seems to originate just over the pelvis. It is worse both with standing and prolonged sitting, no relief with laying. 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 She has IC and FMS of uncertain contribution. I don't think this is GI since there is no correlation to her BM's or eating. Will get CT of pelvis to aid in dx. She had a colonoscopy in 2022 with moderate sigmoid tics, a normal GES and US w/o any gallstones. No recent imaging except a pelvic US and multiple back xr's. ROV after CT [facility] Medical History Myoma Abnormal ultrasound of breast Localized swelling of toe of left foot Abnormal MRI, breast Vaginal irritation Potential exposure to STD Pelvic pain Pleuritic chest pain Right rotator cuff tendonitis Left foot pain Screening examination for infectious disease Screen for STD (sexually transmitted disease) Epidermal inclusion cyst Medication monitoring encounter Screen for STD (sexually transmitted disease) Physical exam Candidiasis of mouth and esophagus Achilles tendinosis of both lower extremities CMC (carpometacarpal) synovitis Breast mass, right Uterine fibroid Hemorrhoids Uterine fibroid Insomnia Essential hypertension Hematuria Calcific tendinitis of left shoulder Primary osteoarthritis of hands, bilateral Glucosuria HPV test positive At high risk for breast cancer Insomnia secondary to situational depression GERD (gastroesophageal reflux disease) Vitamin D deficiency Surgical History History of hysterectomy H/O excision of epidermal inclusion cyst (05/22/23) History of lumpectomy of left breast (08/23/22) History of lumpectomy of right breast Hx of tubal ligation History of bilateral breast biopsy (2017) History of section History of removal of cyst History of hemorrhoidectomy History of esophagogastroduodenoscopy (EGD) (08/26/19) Hx of colonoscopy Family History Mother Breast cancer, Onset Age: 50 Ovarian cancer Daughter Squamous cell carcinoma of uterus History of thyroid cancer Maternal Grandmother History of stomach cancer Maternal Uncle Family history of prostate cancer, Onset Age: 60 Father No problems noted. Social History Household Members: Children Housing: House Alcohol intake: current Alcohol intake frequency: holidays/special occasions only Alcohol type: beer and wine Patient Tobacco Use Status: Former Tobacco user Tobacco use type: Cigarette e-Cigarette/Vaping Use: Never Used Second Hand Smoke Exposure: No service: No Current occupational status: employed Current occupational exposures/hazards: No Sexual orientation: Straight/Heterosexual Gender identity: Female Cognitive needs: No Hearing needs: No Vision needs: Yes Female Reproductive History Menstrual Age of Menarche: 12 Review of Systems Const Denies fatigue, Denies fever(s), Denies night sweats, Denies poor appetite and Denies weight loss Eyes Details: glasses Reports requires corrective lenses ENT Reports Normal hearing present, Denies dental pain, Denies dysphagia, Denies hearing loss, Denies mouth pain, Denies odynophagia, Denies throat swelling, Denies tongue swelling and Reports other (Dentition adequate) Card Reports no additional complaints Resp Reports no additional complaints GI Details: Reports abdominal pain, Denies melena, Denies bloating, Denies hematochezia, Reports constipation, Denies GI cramping, Denies dysphagia, Denies excessive flatus, Denies early satiety, Reports heartburn, Denies diarrhea, Denies nausea, Denies odynophagia, Denies vomiting and Denies hematemesis Reports pelvic pain Musc Reports back pain and Reports radiating pain into limb Skin/Breast Denies pruritus, Denies lesions, Denies rash and Denies jaundice Neuro Reports Normal hearing present and Denies Abnormal speech present Endo Denies fatigue Aller/Immun Denies throat swelling and Denies tongue swelling Physical Exam Const General: cooperative, no acute distress, well developed and well groomed Nutritional Appearance: well nourished and obese Orientation/consciousness: oriented to person, oriented to place and oriented to time Limitations: language barrier HEENT Head: Yes normocephalic and Yes atraumatic Eyes General: appearance normal, both eyes and all related structures Pupils: Equal, round and reactive pupils present Neck Neck: Yes normal visual inspection and Yes no lymphadenopathy Thyroid: Thyroid normal Resp Effort & Inspection: normal respiratory effort and able to speak in complete sentences Auscultation: clear to auscultation bilaterally Cardio Rate: regular rate Rhythm: regular rhythm Heart sounds: Normal, physiologic split S2 sound present Peripheral pulses: radial pulses present and posterior tibial pulses present GI Inspection: No distended, Yes Abdominal panniculus present and Yes obesity Palpation (GI): Soft to palpation, nontender, no guarding, not rigid and No hepatosplenomegaly present Percussion: Yes normal to percussion Auscultation: normal bowel sounds Rectal Exam - Female: deferred General: Yes no CVA tenderness Back/Spine/Pelvis Back: no CVA tenderness Pelvis: no pain with anterior-posterior compression and tenderness over symphysis pubis Sacroiliac joints: bilaterally nontender and by passive hyperextension of lower ext Skin General skin exam: no rashes or lesions noted, turgor normal, skin not dry, no jaundice, No spider nevi and no striae Rashes: no rashes Nails: normal Neuro General: oriented to person, oriented to place and oriented to time Cranial nerves: Yes Equal, round and reactive pupils present and Yes Normal hearing present Speech: No Abnormal speech present Extrem General: Yes normal to inspection, No clubbing, No cyanosis and No edema Psych Appearance: grossly normal and well kempt Mental Status: mental status grossly normal Speech and movement: Normal speech and movement present Affect: normal affect Attitude: cooperative Thought process: Normal thought process present and not confabulating Thought content: Normal thought content present Insight: Limited insight present (Psych) Judgement: Limited judgement present (Psych) Assessment & Plan Assessment & Plan (1) GERD (gastroesophageal reflux disease): Code(s): K21.9 - Gastro-esophageal reflux disease without esophagitis Category: Medical (2) Chronic idiopathic constipation: Code(s): K59.04 - Chronic idiopathic constipation Category: Medical (3) Lower abdominal pain: Code(s): R10.30 - Lower abdominal pain, unspecified Category: Medical Plan [facility] #[id number] She continues on her Reglan, Linzess, and pantoprazole and is now satisfied with her GI regimen. This has not made a difference in her pain which she describes as like menses pain and sometimes burning. There is definitely a pattern or radiation down the legs, mostly the front but at times in the back. The pain seems to originate just over the pelvis. It is worse both with standing and prolonged sitting, no relief with laying. 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 She has IC and FMS of uncertain contribution. I don't think this is GI since there is no correlation to her BM's or eating. Will get CT of pelvis to aid in dx. She had a colonoscopy in 2022 with moderate sigmoid tics, a normal GES and US w/o any gallstones. No recent imaging except a pelvic US and multiple back xr's. ROV after CT Orders: Orders CT abdomen pelvis wo/w IV con Today R10.30 - Lower abdominal pain, unspecified Coding Level of Care Code Est Pt Level 4 (90152) Diagnoses GERD (gastroesophageal reflux disease) K21.9 Chronic idiopathic constipation K59.04 Lower abdominal pain R10.30 Time Spent (min) 38
[2025-03-31 14:42] VITALS: BP 130/92; PULSE 86; O2SAT 99; BMI 33.7
--- OUTSIDE RECORDS SUMMARY | 2025-03-31 17:42 | XMS_ITS | Clinical Summary ---
Author Organization [facility] Address [address] [facility] [address] [place] [address] Phone Care Team Providers Care Career Resource Specialist Name Role Phone Fatmata Villalobos MD Primary Care Provider [phone] Allergies No known active allergies Medications DULoxetine [...] 09/25/20 07 Insurance ([id number]) ([id number]) Care Teams Career Resource Specialist Relationship Specialty Start Date End Date Fatmata Villalobos MD [address] [place] [address] PCP - General Internal Medicine 07/25/21
== END 2025-03-31 15:09 | disposition home or self-care (01) ==
LOC: HO.HGI 14:30
PROVIDERS: PCP Internal Medicine; Visit Provider Nurse Practitioner
DX: K21.9 Gastro-esophageal reflux disease without esophagitis (principal); K59.04 Chronic idiopathic constipation; R10.30 Lower abdominal pain, unspecified
CPT/HCPCS: 99214

== ENCOUNTER → 2025-03-31 14:29 | Outpatient (BNVA) | payer MEDICARE, MEDICAID, SELFPAY | PROVIDERS: PCP Internal Medicine; Visit Provider Nurse Practitioner | DX: K21.9 Gastro-esophageal reflux disease without esophagitis (principal); K59.04 Chronic idiopathic constipation; R10.30 Lower abdominal pain, unspecified | CPT/HCPCS: 99212 ==

== ENCOUNTER 2025-04-06 14:29 | Outpatient (AMB) | payer MEDICARE, MEDICAID, SELFPAY ==
[2025-04-06 14:50] VITALS: BMI 33.8
--- NOTE | 2025-04-06 14:50 | A.OFFVIS_ITS ---
VS Expanded 04/06/25 14:50 04/06/25 15:10 Height 5 ft 2 in 5 ft 2 in Weight 184 lb 11.958 oz 185 lb BMI 33.8 33.8 Intake Visit Reasons: Obesity, unspecified Allergies No Known Allergies Allergy (Verified 04/14/25 09:05) Nutrition Presentation Details: Pt presents for MNT for obesity Typical meal intake 8:15 am oatmeal or cornflake, milk lactose free whole milkl 11:30 -12:40 chocolate and sneaker 7pm rice/carne fried or baked lactose free yogurt or cottage cheese food frequency fish : 0/wk fruit: 0-1/d ve/wk dairy: 3 /d beverages: water, milk , juices physical activity : ADL etoh/smoking---- ELW-Bctcqcy-Bx.Jeor Equation Height: 5 ft 2 in Weight: 185 lb Resting Metabolic Rate: 1395.88 Calculated Activity Level: Sedentary Calories Needed to Maintain Weight: 1675.06 Diagnosis Nutrition problem #1: excessive energy intake As related to (etiology) #1: diagnosis As evidenced by (sign/symptom) #1: high BMI (33.8 (04/01)) [facility] Medical History Myoma Abnormal ultrasound of breast Localized swelling of toe of left foot Abnormal MRI, breast Vaginal irritation Potential exposure to STD Pelvic pain Pleuritic chest pain Right rotator cuff tendonitis Left foot pain Screening examination for infectious disease Screen for STD (sexually transmitted disease) Epidermal inclusion cyst Medication monitoring encounter Screen for STD (sexually transmitted disease) Physical exam Candidiasis of mouth and esophagus Achilles tendinosis of both lower extremities CMC (carpometacarpal) synovitis Breast mass, right Uterine fibroid Hemorrhoids Uterine fibroid Insomnia Essential hypertension Hematuria Calcific tendinitis of left shoulder Primary osteoarthritis of hands, bilateral Glucosuria HPV test positive At high risk for breast cancer Insomnia secondary to situational depression GERD (gastroesophageal reflux disease) Vitamin D deficiency Surgical History History of hysterectomy H/O excision of epidermal inclusion cyst (05/22/23) History of lumpectomy of left breast (08/23/22) History of lumpectomy of right breast Hx of tubal ligation History of bilateral breast biopsy (2018) History of section History of removal of cyst History of hemorrhoidectomy History of esophagogastroduodenoscopy (EGD) (08/26/19) Hx of colonoscopy Family History Mother Breast cancer, Onset Age: 50 Ovarian cancer Daughter Squamous cell carcinoma of uterus History of thyroid cancer Maternal Grandmother History of stomach cancer Maternal Uncle Family history of prostate cancer, Onset Age: 60 Father No problems noted. Social History Household Members: Children Housing: House Alcohol intake: current Alcohol intake frequency: holidays/special occasions only Alcohol type: beer and wine Patient Tobacco Use Status: Former Tobacco user Tobacco use type: Cigarette e-Cigarette/Vaping Use: Never Used Second Hand Smoke Exposure: No service: No Current occupational status: employed Current occupational exposures/hazards: No Sexual orientation: Straight/Heterosexual Gender identity: Female Cognitive needs: No Hearing needs: No Vision needs: Yes Female Reproductive History Menstrual Age of Menarche: 12 Assessment & Plan Assessment & Plan (1) Obesity (BMI 30.0-34.9): Code(s): E66.811 - Obesity, class 1 Category: Medical Plan: Wt: 84 Kg ( 04/01 ) Est kcal needs as per MSJ: 1700 (40% carb, 30% protein/fat) Est fluid needs as per 25-30 ml/d: 2500 Est prot per day as per 1 g/kg bw: 80 Recommend fiber intake : 8-10 g per day and gradually increase to 25-28 g per day for women and 35-38 g for men or as tolerated Recommend sodium intake per day : less than 2000 mg Educated patient on: ( R = reviewed V = verbalizes understanding N/R = needs review N/A = not applicable * Food sources of carbohydrate, adequate serving sizes and its role in various health conditions: R * Differences between complex carbohydrates a simple carbohydrates, role of fiber in diet: R * Lean protein sources of foods: R * Differences between types of fats and role in diet (mono on saturated fat fatty acids, saturated fatty acids, trans fats): R V N/R * Food sources of sodium in salt and healthy modifications for heart health in kidney health: R V R/V * Vitamins and minerals: R V N/R * Healthy plate method concept: R * Physical activity: Benefits a precaution: R V N/R * Patient Instructions: Practice mindful eating Work on choosing complex carbohydrates (whole fruits, legumes, whole grain, vegetables Work on reducing carbohydrates to 45 g or less per meal and including 3 oz of lean protein in each meal (3 /day) and 0-20 g carb and 1-2 oz of protein as snack (2 snacks/day see meal ideas as examples Coding Level of Care Code Nutr Indiv Intake (63836) Diagnoses Obesity (BMI 30.0-34.9) E66.811 Time Spent (min) 30
--- OUTSIDE RECORDS SUMMARY | 2025-04-06 15:00 | XMS_ITS | Clinical Summary ---
Author Organization [facility] Address [address] [facility] [address] [place] [address] Phone Care Team Providers Care District Loss Prevention Manager Name Role Phone Fatmata Villalobos MD Primary Care Provider [phone] Allergies No known active allergies Medications DULoxetine [...] 09/25/20 07 Insurance ([id number]) ([id number]) Care Teams District Loss Prevention Manager Relationship Specialty Start Date End Date Fatmata Villalobos MD [address] [place] [address] PCP - General Internal Medicine 07/25/21
[2025-04-15 13:58] VITALS: BMI 33.8
== END 2025-04-06 15:22 | disposition home or self-care (01) ==
LOC: HO.ENCR 14:29
PROVIDERS: PCP Internal Medicine; Visit Provider Dietitian, Registered
DX: E66.811 Obesity, class 1 (principal)

== ENCOUNTER → 2025-04-06 14:29 | Outpatient (BNVA) | payer MEDICARE, MEDICAID, SELFPAY | PROVIDERS: PCP Internal Medicine; Visit Provider Dietitian, Registered | DX: E66.811 Obesity, class 1 (principal); Z68.33 Body mass index [BMI] 33.0-33.9, adult | CPT/HCPCS: 97802 ==

== ENCOUNTER 2025-04-08 14:28 | Outpatient (AMB) | payer MEDICARE, MEDICAID, SELFPAY ==
[2025-04-08 14:31] VITALS: BP 146/86; PULSE 77; RESP 16; O2SAT 78; BMI 33.8
--- NOTE | 2025-04-08 14:31 | MHC.OFFVIS ---
Vital Signs 04/08/25 14:31 Height 5 ft 2 in Weight 185 lb BMI 33.8 BP 146/86 H Blood Pressure Location Rt brachial Position Sitting Respiration 16 Pulse 77 Pulse Source Pulse Oximeter Pulse Oximetry (%) 78 L Oxygen Delivery Method Room Air Intake Visit Reasons: Sciatica Left Side JUAN 04/02/24 Administrative Support Technician Required: Yes Administrative Support Technician Name: Catracho Haskins [id number] Accompanied by: Self / Same As Patient Allergies No Known Allergies Allergy (Verified 04/08/25 14:34) HPI Comments Details: The patient is a 54-year-old female presenting with chronic low back pain. The pain began more than four months ago without any specific inciting event such as an injury or fall. The pain is described as persistent and is exacerbated by standing and sitting, with radiation to the hips and thighs. The patient reports that the pain is severe enough to require her to pause before walking after standing up. She has previously attended physical therapy for her lower back pain last year, but the condition has since worsened. The patient has been using Motrin 800 mg for pain relief but has not tried other medications or therapies such as Tylenol, ice, heat, or lidocaine patches. The patient has undergone an X-ray and is scheduled for a CT scan to further evaluate her condition. She describes the pain as similar to menstrual cramps, although she has had a hysterectomy and no longer menstruates. - Onset: More than four months ago - Quality: Persistent, severe, stabbing pain - Location: Lower back, bilateral hips, radiating to thighs - Exacerbating factors: Standing, sitting, twisting - Relieving factors: None reported - Interference: Requires pause before walking after standing - Affect: Pain impacts mobility, requiring pauses before walking - Analgesia: Currently using Motrin 800 mg, no other medications tried - Adverse Effects: None reported - Activities of Daily Living: Pain present at all times, affecting standing, sitting, and walking - Aberrant Drug Related Behaviors: None reported [facility] Medical History Myoma Abnormal ultrasound of breast Localized swelling of toe of left foot Abnormal MRI, breast Vaginal irritation Potential exposure to STD Pelvic pain Pleuritic chest pain Right rotator cuff tendonitis Left foot pain Screening examination for infectious disease Screen for STD (sexually transmitted disease) Epidermal inclusion cyst Medication monitoring encounter Screen for STD (sexually transmitted disease) Physical exam Candidiasis of mouth and esophagus Achilles tendinosis of both lower extremities CMC (carpometacarpal) synovitis Breast mass, right Uterine fibroid Hemorrhoids Uterine fibroid Insomnia Essential hypertension Hematuria Calcific tendinitis of left shoulder Primary osteoarthritis of hands, bilateral Glucosuria HPV test positive At high risk for breast cancer Insomnia secondary to situational depression GERD (gastroesophageal reflux disease) Vitamin D deficiency Surgical History History of hysterectomy H/O excision of epidermal inclusion cyst (05/22/23) History of lumpectomy of left breast (08/23/22) History of lumpectomy of right breast Hx of tubal ligation History of bilateral breast biopsy (2017) History of section History of removal of cyst History of hemorrhoidectomy History of esophagogastroduodenoscopy (EGD) (08/26/19) Hx of colonoscopy Family History Mother Breast cancer, Onset Age: 50 Ovarian cancer Daughter Squamous cell carcinoma of uterus History of thyroid cancer Maternal Grandmother History of stomach cancer Maternal Uncle Family history of prostate cancer, Onset Age: 60 Father No problems noted. Social History Household Members: Children Housing: House Alcohol intake: current Alcohol intake frequency: holidays/special occasions only Alcohol type: beer and wine Patient Tobacco Use Status: Former Tobacco user Tobacco use type: Cigarette e-Cigarette/Vaping Use: Never Used Second Hand Smoke Exposure: No service: No Current occupational status: employed Current occupational exposures/hazards: No Sexual orientation: Straight/Heterosexual Gender identity: Female Cognitive needs: No Hearing needs: No Vision needs: Yes Female Reproductive History Menstrual Age of Menarche: 12 Review of Systems Const Details: - Musculoskeletal: Reports chronic low back pain, bilateral hip pain, pain radiating to thighs - Neurological: Denies numbness or tingling Physical Exam Vital Signs: Last Vital Signs Pulse 77 04/08/25 14:31 Resp 16 04/08/25 14:31 BP 146/86 H 04/08/25 14:31 Pulse Ox 78 L 04/08/25 14:31 Oxygen Delivery Method Room Air 04/08/25 14:31 BMI result Body Mass Index 33.8 General: awake, alert, oriented. Answers questions appropriately. Fully engaged in examination. Skin: warm, dry, intact HEENT: Normocephalic. Hearing intact. Cardiac: External chest normal in appearance. Respiratory: No cough, audible wheezing or stridor. Abdomen: without gross distension. MS: Tenderness to palpation midline lumbar vertebrae and paraspinal muscles. Facet loading positive Bilateral lower extremity strength 5/5 SLR neg bilaterally Valsalva neg bilaterally Neurological: Oriented to person, place, time and situation. Thought process intact. No gait abnormalities appreciated. Psychiatric: Appropriate mood and affect. Good judgment and insight. Results Reviewed Results Reviewed: 03/18/25 x-ray lumbar spine FINDINGS: AP, lateral, and coned down views of the lumbar spine are submitted. Osseous mineralization is normal. Five nonrib-bearing lumbar vertebral bodies are identified, maintaining normal height and alignment without evidence of fracture or spondylolisthesis. The intervertebral disc spaces are preserved. There is minimal anterior spurring at both levels.. The posterior elements are intact. There is a clip in the region of the ascending colon. IMPRESSION: Minimal degenerative changes. Assessment & Plan Assessment & Plan (1) Myofascial muscle pain: Code(s): M79.18 - Myalgia, other site Category: Medical (2) Fibromyalgia: Code(s): M79.7 - Fibromyalgia Category: Medical (3) Lumbar spondylosis: Code(s): M47.816 - Spondylosis without myelopathy or radiculopathy, lumbar region Category: Medical Plan The patient will continue with Motrin 800 mg for pain management and is advised to try additional therapies such as Tylenol, ice, heat, and lidocaine patches. A muscle relaxant will be prescribed to be taken in the afternoon to avoid drowsiness during work hours. The option of diagnostic injections is discussed, which involves six injections under x-ray guidance to assess the source of pain. The patient is advised to maintain a pain diary and follow up after the injections to evaluate their effectiveness. Patient declines injections at this time. She will call the office when she wishes to proceed. Patient was informed and verbally consented to the use of an ambient scribe for clinic note documentation during this visit. Medications: Refilled tizanidine May cause drowsiness, no driving while taking this medication. Do not take with other SPLICER APPRENTICE depressants. Take at least 1 hour apart from prescribed tramadol 2 mg PO TID PRN 90 tabs 0RF muscle spasticity Patient Instructions: - Continue taking Motrin 800 mg as prescribed. - Try Tylenol, ice, heat, and lidocaine patches for additional pain relief. - Take the prescribed muscle relaxant in the afternoon to avoid drowsiness during work. - Consider diagnostic injections and maintain a pain diary to track pain levels. - Engage in light stretching and exercises at home. Coding Level of Care Code Est Pt Level 3 (95817) Complex EM visit Add On G2211 Diagnoses Myofascial muscle pain M79.18 Fibromyalgia M79.7 Lumbar spondylosis M47.816
--- OUTSIDE RECORDS SUMMARY | 2025-04-08 15:00 | XMS_ITS | Clinical Summary ---
Author Organization [facility] Address [address] [facility] [address] [place] [address] Phone Care Team Providers Care Programmer Developer Name Role Phone Fatmata Villalobos MD Primary Care Provider [phone] Allergies No known active allergies Medications DULoxetine [...] 09/25/20 07 Insurance ([id number]) ([id number]) Care Teams Programmer Developer Relationship Specialty Start Date End Date Fatmata Villalobos MD [address] [place] [address] PCP - General Internal Medicine 07/25/21
== END 2025-04-08 15:05 | disposition home or self-care (01) ==
LOC: HO.PMC 14:29
PROVIDERS: PCP Internal Medicine; Referring Provider Internal Medicine; Visit Provider Registered Nurse Emergency
DX: M79.18 Myalgia, other site (principal); M79.7 Fibromyalgia; M47.816 Spondylosis without myelopathy or radiculopathy, lumbar region
CPT/HCPCS: 99213; G2211

== ENCOUNTER → 2025-04-08 14:28 | Outpatient (BNVA) | payer MEDICARE, MEDICAID, SELFPAY | PROVIDERS: PCP Internal Medicine; Referring Provider Internal Medicine; Visit Provider Registered Nurse Emergency | DX: M54.32 Sciatica, left side (principal); M79.7 Fibromyalgia; M47.816 Spondylosis without myelopathy or radiculopathy, lumbar region; G89.29 Other chronic pain; Z79.1 Long term (current) use of non-steroidal anti-inflammatories (NSAID) | CPT/HCPCS: 99212 ==

== ENCOUNTER 2025-04-14 07:29 | Outpatient (AMB) | payer MEDICARE, MEDICAID, SELFPAY ==
--- OUTSIDE RECORDS SUMMARY | 2025-04-14 07:32 | XMS_ITS | Clinical Summary ---
Author Organization [facility] Address [address] [facility] [address] [place] [address] Phone Care Team Providers Care Logging Crew Supervisor Name Role Phone Fatmata Villalobos MD Primary Care Provider [phone] Allergies No known active allergies Medications DULoxetine [...] Cancer Screening: Sigmoidoscopy 2019 Influenza Vaccine (#1) 2025 09/25/2007 Insurance ([id number]) ([id number]) Care Teams Logging Crew Supervisor Relationship Specialty Start Date End Date Fatmata Villaloobs MD [address] [place] [address] PCP - General Internal Medicine 07/25/21
--- NOTE | 2025-04-14 07:36 | MHC.OFFVIS ---
Intake Visit Reasons: 3 month f/u with PVR Intake Note: Patient presents for follow up interstitial cystitis, urinary frequency Urology Medications: myrbetriq Blood Thinner: none PVR: 55ml's Automotive Lube Technician Required: Yes Automotive Lube Technician Services: Automotive Lube Technician Present Automotive Lube Technician Name: Cherry Accompanied by: Self / Same As Patient Allergies No Known Allergies Allergy (Verified 04/14/25 09:05) Medication List - Last Reconciled 04/14/25 by DEYSI CarreonP- buspirone 5 mg PO TID diclofenac sodium 1% 4 grams topical QID 90 days dicyclomine 10 mg PO TID duloxetine mg PO gabapentin 300 mg PO BEDTIME 30 days hydroxyzine HCl 10 mg PO TID ibuprofen 800 mg PO TID PRN 90 days linaclotide (Linzess) 290 mcg PO DAILY losartan 100 mg PO DAILY 90 days meclizine 25 mg PO BID PRN 30 days metoclopramide HCl 10 mg PO BID mirabegron ER (Myrbetriq) 25 mg PO DAILY pantoprazole 40 mg PO BID 90 days solifenacin (Vesicare) 5 mg PO DAILY 30 days tamoxifen 10 mg PO DAILY tizanidine 2 mg PO TID PRN tramadol 100 mg (2 x 50 mg) PO Q8H PRN trazodone 50 mg PO BEDTIME HPI Comments Details: Stephani is a very pleasant 54 year old Australian-speaking female patient of Dr. Espinosa. She has a past medical history of hypertension, GERD, hematuria, hemorrhoids, insomnia, uterine fibroids, fibromyalgia, myoma, osteoarthritis, depression, at high risk for breast cancer, and vitamin-D deficiency. She presents to the office today for follow-up of her interstitial cystitis in lower urinary tract symptoms. In discussion with the patient today she discusses since her last office visit here July 2023 she had been doing well urologically and felt Myrbetriq had been helpful in episodes of bladder pressure and nocturia she had been experiencing. She reports most recently she has been experiencing ongoing issues with her constipation in his been having abdominal discomfort. She reports having followed up with her bridges and buildings supervisor recently and has a CT of the abdomen scheduled for further assessment evaluation. In office urinalysis results reviewed with the patient today. PVR 55 mL. We did discussed potential causes of lower urinary tract symptoms patient is experiencing as patient does have a longstanding history of interstitial cystitis. We discussed further treatment options and risks and benefits of these treatment options. She has previously trialed low-dose Cialis with no improvement in these lower urinary tract symptoms. We discussed bladder triggers and irritants. She denies hematuria, dysuria, foul smelling urine, changes to urinary stream, flank pain, fever, and or chills. PREVIOUS OFFICE NOTE: Hematuria evaluation Renal ultrasound performed with no abnormality detected Vaginal ultrasound with fibroids Background of fibromyalgia Persistent microscopic hematuria today 1+ but has ranged up to 3+ Prior evaluation 2014 in [place] with cystoscopy Cystoscopy previously normal 2019 [facility] Medical History Myoma Abnormal ultrasound of breast Localized swelling of toe of left foot Abnormal MRI, breast Vaginal irritation Potential exposure to STD Pelvic pain Pleuritic chest pain Right rotator cuff tendonitis Left foot pain Screening examination for infectious disease Screen for STD (sexually transmitted disease) Epidermal inclusion cyst Medication monitoring encounter Screen for STD (sexually transmitted disease) Physical exam Candidiasis of mouth and esophagus Achilles tendinosis of both lower extremities CMC (carpometacarpal) synovitis Breast mass, right Uterine fibroid Hemorrhoids Uterine fibroid Insomnia Essential hypertension Hematuria Calcific tendinitis of left shoulder Primary osteoarthritis of hands, bilateral Glucosuria HPV test positive At high risk for breast cancer Insomnia secondary to situational depression GERD (gastroesophageal reflux disease) Vitamin D deficiency Surgical History History of hysterectomy H/O excision of epidermal inclusion cyst (05/22/23) History of lumpectomy of left breast (08/23/22) History of lumpectomy of right breast Hx of tubal ligation History of bilateral breast biopsy (2017) History of section History of removal of cyst History of hemorrhoidectomy History of esophagogastroduodenoscopy (EGD) (08/26/19) Hx of colonoscopy Family History Mother Breast cancer, Onset Age: 50 Ovarian cancer Daughter Squamous cell carcinoma of uterus History of thyroid cancer Maternal Grandmother History of stomach cancer Maternal Uncle Family history of prostate cancer, Onset Age: 60 Father No problems noted. Social History Household Members: Children Housing: House Alcohol intake: current Alcohol intake frequency: holidays/special occasions only Alcohol type: beer and wine Patient Tobacco Use Status: Former Tobacco user Tobacco use type: Cigarette e-Cigarette/Vaping Use: Never Used Second Hand Smoke Exposure: No service: No Current occupational status: employed Current occupational exposures/hazards: No Sexual orientation: Straight/Heterosexual Gender identity: Female Cognitive needs: No Hearing needs: No Vision needs: Yes Female Reproductive History Menstrual Age of Menarche: 12 Review of Systems Const Reports as per [facility] Eyes Reports no additional complaints ENT Reports no additional complaints Card Reports as per [facility] Resp Reports no additional complaints GI Reports as per HPI Reports as per [facility] Musc Reports as per [facility] Skin/Breast Reports as per [facility] Neuro Reports no additional complaints Psych Reports as per HPI Physical Exam Const General: cooperative, healthy appearing, comfortable, no acute distress, well developed, alert, awake and tired appearing Orientation/consciousness: patient oriented x3 Limitations: no limitations HEENT Head: Yes normal to inspection, Yes normocephalic and Yes atraumatic Ears: hearing grossly normal bilaterally Eyes General: appearance normal, both eyes and all related structures Neck Neck: Yes normal visual inspection and Yes trachea midline Chest Chest palpation & inspection: normal inspection of the chest Resp Effort & Inspection: normal respiratory effort and able to speak in complete sentences Cardio Rate: regular rate GI Inspection: Yes normal to inspection General: Yes no CVA tenderness Back/Spine/Pelvis Back: no CVA tenderness Skin General skin exam: no rashes or lesions noted Neuro General: patient oriented x3 Extrem General: Yes normal to inspection Psych Appearance: grossly normal and well kempt Mental Status: mental status grossly normal Speech and movement: Normal speech and movement present and Clear speech present Affect: normal affect Attitude: cooperative Thought process: Normal thought process present Thought content: Normal thought content present Insight: Fair insight present (Psych) Judgement: Fair judgement present (Psych) Office Procedures Post Void Residual Post Residual Void Post Void Residual (PVR): 55 [id number] Void Residual by ultrasound Results AMB Urinalysis, Automated UA Leukoctes 0 Venita/uL Last Edit by AWA Salguero on 04/14/25 07:50 UA Nitrite Last Edit by AWA Salguero on 04/14/25 07:50 UA Urobilinogen 0.2 mg/dL Last Edit by Christopherrakel Durbinalla, [facility] on 04/14/25 07:50 UA Protein 0 mg/dL Last Edit by Andrew Durbin, [facility] on 04/14/25 07:50 UA pH 6.0 Last Edit by Andrew Durbin, [facility] on 04/14/25 07:50 UA Blood 0 Vernon/uL Last Edit by Gunnerrakel Durbin, [facility] on 04/14/25 07:50 UA Specific [place] 1.020 Last Edit by Andrew Gifty, [facility] on 04/14/25 07:50 UA Ketone Last Edit by Andrew Gifty, [facility] on 04/14/25 07:50 UA Bilirubin 0 mg/dL Last Edit by Andrew Solorio, [facility] on 04/14/25 07:50 UA Glucose 0 mg/dL Last Edit by Andrew Durbin, [facility] on 04/14/25 07:50 Results Reviewed Results Reviewed: Laboratory Last Values Urine pH (Auto) 6.0 04/14/25 07:41 Specific [place] (Auto) 1.020 04/14/25 07:41 Urine Protein (Auto) 0 mg/dL 04/14/25 07:41 Glucose (UA)(Auto) 0 mg/dL 04/14/25 07:41 Urine Blood (Auto) 0 Vernon/uL 04/14/25 07:41 Urine Bilirubin (Auto) 0 mg/dL 04/14/25 07:41 Urine Urobilinogen (Auto) 0.2 mg/dL 04/14/25 07:41 Leukocyte Esterase (Auto) 0 Venita/uL 04/14/25 07:41 Assessment & Plan Assessment & Plan (1) Lower urinary tract symptoms (LUTS): Code(s): R39.9 - Unspecified symptoms and signs involving the genitourinary system Category: Medical (2) Interstitial cystitis: Code(s): N30.10 - Interstitial cystitis (chronic) without hematuria Category: Medical (3) Microscopic hematuria: Code(s): R31.29 - Other microscopic hematuria Category: Medical Plan In office urinalysis results reviewed with the patient today; as noted above. PVR 55 mL. Will trial VESIcare 5 mg. We discussed the importance of following up as planned/scheduled appointments for continuity of care. We did discussed potential causes of lower urinary tract symptoms patient is experiencing as well as further treatment options and risks and benefits of these treatment options. We discussed bladder triggers/irritants. We discussed the importance of adequate hydration relation to lower urinary tract symptoms as well as overall health and well-being. Will await results of CT for further assessment evaluation. We discussed potential cystoscopy for further assessment evaluation. Follow-up in 1-3 months with PVR; or sooner with any issues, concerns, and or questions. Orders: Orders AMB Urinalysis Automated Today Z13.9 - Encounter for screening, unspecified AMB Post Void Residual by ultrasound Today N30.10 - Interstitial cystitis (chronic) without hematuria Medications: New solifenacin (Vesicare) 5 mg PO DAILY 30 tabs 3RF 30 days Discontinued mirabegron ER (Myrbetriq) Discontinued Reason: Patient Completed Course 25 mg PO DAILY gabapentin Discontinued Reason: Doctor's Order 300 mg PO BEDTIME 30 days 30 caps 0RF R23.2 - [place], T50.905A - Adverse effect of unspecified drugs, medicaments and biological substances, initial encounter Patient Instructions: The patient had an opportunity to ask questions regarding the treatment plan. All questions were answered. Physical exam, labs, and imaging were discussed and reviewed in detail. As well as risks, benefits, and discussion of treatment choices. No major barriers to understanding were identified. The patient expressed understanding and agreement with the above treatment plan. The patient was made aware they should contact our office by phone for worsening of their current condition, the appearance of new symptoms, or with any questions or concerns. Compliance is encouraged with any medications and follow up testing that is ordered. It is a privilege to be allowed the opportunity to participate in? your urological care.? Again, if you have any questions or concerns If you have any questions or concerns please do not hesitate to contact me. The office is [phone]. This note is constructed using voice recognition software. While every effort has been made to ensure accuracy despatch clerk errors may have been included. Yours sincerely, CRISTELA Carreon Coding Level of Care Code Est Pt Level 4 (90460) Complex EM visit Add On G2211 Diagnoses Lower urinary tract symptoms (LUTS) R39.9 Interstitial cystitis N30.10 Microscopic hematuria R31.29 CPT Codes Post Residual Void - PVR CPT Code: 82223-Tuab Void Residual by ultrasound ([id number])
== END 2025-04-14 08:24 | disposition home or self-care (01) ==
LOC: HO.HUSH 07:30
PROVIDERS: PCP Internal Medicine; Visit Provider Nurse Practitioner Family
DX: R39.9 Unspecified symptoms and signs involving the genitourinary system (principal); N30.10 Interstitial cystitis (chronic) without hematuria; R31.29 Other microscopic hematuria; Z13.9 Encounter for screening, unspecified
CPT/HCPCS: 99214; G2211

== ENCOUNTER → 2025-04-14 07:29 | Outpatient (BNVA) | payer MEDICARE, MEDICAID, SELFPAY | PROVIDERS: PCP Internal Medicine; Visit Provider Nurse Practitioner Family | DX: N30.81 Other cystitis with hematuria (principal); R39.9 Unspecified symptoms and signs involving the genitourinary system | CPT/HCPCS: 51798; 81003; 99212 ==

== ENCOUNTER 2025-04-30 16:28 | Outpatient (REF) | payer MEDICARE, MEDICAID, SELFPAY ==
[2025-04-30 17:29] LABS: Anion Gap 14 (12-20); Blood Urea Nitrogen 22 mg/dL (9-16); Calcium 9.8 mg/dL (8.4-10.2); Carbon Dioxide 23 mmol/L (22-29); Chloride 106 mmol/L (96-108); Estimated Glomerular Filt Rate > 60; Potassium 4.0 mmol/L (3.3-5.1); Sodium 139 mmol/L (135-145)
== END 2025-04-30 16:29 | disposition home or self-care (01) ==
LOC: HO.LAB 16:28
PROVIDERS: Absent Provider Internal Medicine Gastroenterology; PCP Internal Medicine; Visit Provider Internal Medicine
DX: N18.30 Chronic kidney disease, stage 3 unspecified (principal)
CPT/HCPCS: 36415; 80048

== ENCOUNTER 2025-05-04 07:36 | Outpatient (REF) | payer MEDICARE, MEDICAID, SELFPAY ==
--- NOTE | ~2025-05-04 | CT_ITS ---
EXAMINATION: CT ABDOMEN PELVIS WITHOUT THEN WITH IV CONTRAST HISTORY: R10.30 - Lower abdominal pain, unspecified COMPARISON: There are no prior studies available for comparison. TECHNIQUE: CT scan of the abdomen and pelvis was performed before and after the intravenous administration of 85 mL Omnipaque 350. Coronal and sagittal reformatted images were generated and reviewed. Oral contrast material was not administered. This CT exam was performed with one or more of the following dose reduction techniques: automated exposure control, adjustment of the mA and/or kV according to patient size, use of iterative reconstruction technique. DLP: 881 mGy-cm ABDOMEN: LOWER CHEST: The visualized lung bases are clear. There is no pleural effusion. CARDIOVASCULATURE: The heart is normal in size. There is no pericardial effusion. LIVER: The liver is normal in size and contour. No liver mass is identified. The hepatic and portal veins are patent. GALLBLADDER / BILE DUCTS: The gallbladder is unremarkable. There is no intra or extrahepatic biliary ductal dilatation. SPLEEN: The spleen is normal in size. No focal splenic lesion is identified. PANCREAS: The pancreas is unremarkable in appearance. ADRENAL GLANDS: Within normal limits. KIDNEYS/RETROPERITONEUM: The right kidney is malrotated. No renal or ureteral calculi are identified. There is no hydronephrosis or hydroureter. No renal masses are identified. The intrarenal collecting systems are unremarkable in appearance. The ureters are normal in caliber. The proximal ureters are well opacified. The distal ureters are not opacified. LYMPH NODES: No abdominal or pelvic lymphadenopathy. VASCULATURE: The abdominal aorta is normal in caliber. MESENTERY/PERITONEUM: No free fluid. No masses. There is no free intraperitoneal gas. STOMACH: The stomach is collapsed, limiting evaluation. SMALL BOWEL: The small bowel is normal in caliber. COLON: The colon is unremarkable. APPENDIX: Normal. URINARY BLADDER/PELVIC ORGANS: The urinary bladder is unremarkable. The patient is status post hysterectomy. There is a 2.5 cm left adnexal cyst. BONES / SOFT TISSUES: No suspicious bony or soft tissue abnormalities. CT/CT abdomen pelvis wo/w IV con IMPRESSION: 1. Malrotated right kidney. No evidence of nephrolithiasis or ureteral obstruction. 2. 2.5 cm left adnexal cyst. This could be further evaluated with pelvic ultrasound. Electronically signed by: Elio Wilkins MD 05/04/2025 09:21 AM EDT
--- OUTSIDE RECORDS SUMMARY | 2025-05-04 07:38 | XMS_ITS | Clinical Summary ---
Author Organization [facility] Address [address] [facility] [address] [place] [address] Phone Care Team Providers Care Communications Supervisor Name Role Phone Fatmata Villalobos MD Primary Care Provider [phone] Allergies No known active allergies Medications DULoxetine [...] 2025 09/25/2007 Insurance ([id number]) ([id number]) Care Teams Communications Supervisor Relationship Specialty Start Date End Date Fatmata Villalobos MD [address] [place] [address] PCP - General Internal Medicine 07/25/21
[2025-05-04] MEDS: iohexoL 350 MG/ML 100 ML INFUS..BTL IV (08:47)
== END 2025-05-04 07:37 | disposition home or self-care (01) ==
LOC: HO.CT 07:36
PROVIDERS: PCP Internal Medicine; Visit Provider Nurse Practitioner
DX: R10.30 Lower abdominal pain, unspecified (principal)
CPT/HCPCS: 74178; Q9967

== ENCOUNTER → 2025-05-04 07:38 | Outpatient (BNV) | payer MEDICARE, MEDICAID, SELFPAY | PROVIDERS: PCP Internal Medicine; Visit Provider Radiology Diagnostic Radiology | DX: N83.292 Other ovarian cyst, left side (principal) | CPT/HCPCS: 74178 ==

== ENCOUNTER 2025-05-28 14:01 | Outpatient (AMB) | payer MEDICARE, MEDICAID, SELFPAY ==
[2025-05-28 14:10] VITALS: BMI 33.2
--- NOTE | 2025-05-28 14:10 | A.OFFVIS_ITS ---
VS Expanded 05/28/25 14:10 Height 5 ft 2 in Weight 181 lb 10.574 oz BMI 33.2 Intake Visit Reasons: Obesity Allergies No Known Allergies Allergy (Verified 06/05/25 15:19) Nutrition Presentation Details: Pt presents for MNT f/u for obesity Pt reports working on diet modifications, doing well, for the first couple of weeks and recently starting to increase on empty calorie foods food frequency fluids: 26 oz/d fruits: 0-1/d vex/wk fish: 0-1/wk dairy: 3+/d lately inc on fried foods and empty ibrahima foods physical activity: ADL etoh/smoking--- daily mvi BS Monitoring Most Recent Diabetes Results: Creatinine, (0.5-1.4) 0.85 mg/dL 04/30/25 BUN, (9-16) 22 mg/dL H 04/30/25 Sodium, (135-145) 139 mmol/L 04/30/25 Potassium, (3.3-5.1) 4.0 mmol/L 04/30/25 Chloride, (96-108) 106 mmol/L 04/30/25 Carbon Dioxide, (22-29) 23 mmol/L 04/30/25 Calcium, (8.4-10.2) 9.8 mg/dL 04/30/25 SII-Yivnvlq-Tl.Jeor Equation Height: 5 ft 2 in Weight: 182 lb Resting Metabolic Rate: 1382.28 Calculated Activity Level: Sedentary Calories Needed to Maintain Weight: 1658.74 Diagnosis Nutrition problem #1: overweight/obesity As related to (etiology) #1: diagnosis As evidenced by (sign/symptom) #1: high BMI (33.2 (06/01)) [facility] Medical History Myoma Abnormal ultrasound of breast Localized swelling of toe of left foot Abnormal MRI, breast Vaginal irritation Potential exposure to STD Pelvic pain Pleuritic chest pain Right rotator cuff tendonitis Left foot pain Screening examination for infectious disease Screen for STD (sexually transmitted disease) Epidermal inclusion cyst Medication monitoring encounter Screen for STD (sexually transmitted disease) Physical exam Candidiasis of mouth and esophagus Achilles tendinosis of both lower extremities CMC (carpometacarpal) synovitis Breast mass, right Uterine fibroid Hemorrhoids Uterine fibroid Insomnia Essential hypertension Hematuria Calcific tendinitis of left shoulder Primary osteoarthritis of hands, bilateral Glucosuria HPV test positive At high risk for breast cancer Insomnia secondary to situational depression GERD (gastroesophageal reflux disease) Vitamin D deficiency Surgical History History of hysterectomy H/O excision of epidermal inclusion cyst (05/22/23) History of lumpectomy of left breast (08/23/22) History of lumpectomy of right breast Hx of tubal ligation History of bilateral breast biopsy (2017) History of section History of removal of cyst History of hemorrhoidectomy History of esophagogastroduodenoscopy (EGD) (08/26/19) Hx of colonoscopy Family History Mother Breast cancer, Onset Age: 50 Ovarian cancer Daughter Squamous cell carcinoma of uterus History of thyroid cancer Maternal Grandmother History of stomach cancer Maternal Uncle Family history of prostate cancer, Onset Age: 60 Father No problems noted. Social History Household Members: Children Housing: House Alcohol intake: current Alcohol intake frequency: holidays/special occasions only Alcohol type: beer and wine Patient Tobacco Use Status: Former Tobacco user Tobacco use type: Cigarette e-Cigarette/Vaping Use: Never Used Second Hand Smoke Exposure: No service: No Current occupational status: employed Current occupational exposures/hazards: No Sexual orientation: Straight/Heterosexual Gender identity: Female Cognitive needs: No Hearing needs: No Vision needs: Yes Female Reproductive History Menstrual Age of Menarche: 12 Assessment & Plan Assessment & Plan (1) Obesity (BMI 30.0-34.9): Code(s): E66.811 - Obesity, class 1 Category: Medical Plan: Wt: 84 Kg ( 04/01 ) Est kcal needs as per MSJ: 1700 (40% carb, 30% protein/fat) Est fluid needs as per 25-30 ml/d: 2500 Est prot per day as per 1 g/kg bw: 80 Recommend fiber intake : 8-10 g per day and gradually increase to 25-28 g per day for women and 35-38 g for men or as tolerated Recommend sodium intake per day : less than 2000 mg Educated patient on: ( R = reviewed V = verbalizes understanding N/R = needs review N/A = not applicable * Food sources of carbohydrate, adequate serving sizes and its role in various health conditions: R * Differences between complex carbohydrates a simple carbohydrates, role of fiber in diet: R * Lean protein sources of foods: R * Differences between types of fats and role in diet (mono on saturated fat fatty acids, saturated fatty acids, trans fats): R V N/R * Food sources of sodium in salt and healthy modifications for heart health in kidney health: R V R/V * Vitamins and minerals: R V N/R * Healthy plate method concept: R * Physical activity: Benefits a precaution: R V N/R * Patient Instructions: Increase fluids to 8 cups /day (water, low sugar beverages ) Include non starchy vegetables at dinner: (green pérez, broccoli - see list of non starchy vegetables) limit rice to 1 cup serving twice a week Coding Level of Care Code Nutr Indiv Subseq (38026) Diagnoses Obesity (BMI 30.0-34.9) E66.811 Time Spent (min) 30
--- OUTSIDE RECORDS SUMMARY | 2025-05-28 14:10 | XMS_ITS | Clinical Summary ---
Author Organization [facility] Address [address] [facility] [address] [place] [address] Phone Care Team Providers Care Comb Winder Name Role Phone Fatmata Villalobos MD Primary Care Provider Allergies No known active allergies Medications DULoxetine [...] 2025 09/25/2007 Insurance ([id number]) ([id number]) Care Teams Comb Winder Relationship Specialty Start Date End Date Fatmata Villalobos MD [address] [place] [address] PCP - General Internal Medicine 07/25/21
[2025-06-09 13:50] VITALS: BMI 33.3
== END 2025-05-28 14:39 | disposition home or self-care (01) ==
LOC: HO.ENCR 14:02
PROVIDERS: PCP Internal Medicine; Visit Provider Dietitian, Registered
DX: E66.811 Obesity, class 1 (principal)

== ENCOUNTER → 2025-05-28 14:01 | Outpatient (BNVA) | payer MEDICARE, MEDICAID, SELFPAY | PROVIDERS: PCP Internal Medicine; Visit Provider Dietitian, Registered | DX: E66.811 Obesity, class 1 (principal); Z71.3 Dietary counseling and surveillance | CPT/HCPCS: 97803 ==

== ENCOUNTER → 2025-06-03 15:58 | Outpatient (BNV) | payer MEDICARE, MEDICAID, SELFPAY | PROVIDERS: PCP Internal Medicine; Visit Provider Internal Medicine | DX: D24.1 Benign neoplasm of right breast (principal); R92.8 Other abnormal and inconclusive findings on diagnostic imaging of breast; Z80.3 Family history of malignant neoplasm of breast | CPT/HCPCS: 77049 ==

== ENCOUNTER 2025-06-03 16:03 | Outpatient (REF) | payer MEDICARE, MEDICAID, SELFPAY ==
--- NOTE | ~2025-06-03 | MR_ITS ---
EXAMINATION: MR BREAST WITHOUT AND WITH CONTRAST, BILATERAL CLINICAL INFORMATION: Strong family history of breast cancer. History of bilateral excisional biopsies. History of benign left breast needle core biopsies. Patient is recommended for a 1 year follow-up for a left breast probably benign hypoechoic solid mass at 12:00 near the excisional biopsy scar. COMPARISON: Comparison is made with relevant prior imaging. Mammogram and ultrasound November 13, 2024 MR July 2024 ultrasound May 13, 2024 December 03, 2023 October 25, 2023 MRI breast May 21, 2023. TECHNIQUE: MR imaging of the breast was performed using T1, T2 and fat saturated techniques. Dynamic multiphase imaging was also performed after the administration of intravenous gadolinium contrast agent. Computer generated 3D reconstruction and enhancement kinetic analysis was ulitized by the radiologist in the interpretation of this examination. FINDINGS: Breast composition: Scattered fibroglandular breast tissue. Background parenchymal enhancement: Moderate LEFT BREAST: Status post excisional biopsy. Multiple T2 hyperintense nonenhancing cysts. 5 mm enhancing foci retroareolar region middle depth series 1042 image 67/126 stable for one year on prior MRI. 5 mm enhancing foci retroareolar region series 1042 image 65/126 probably represents background enhancing foci. Otherwise no suspicious enhancing masses or areas of nonmass enhancement. No axillary or internal mammary adenopathy. RIGHT BREAST: 1 status post excisional biopsy. T2 hyperintense nonenhancing cysts. No suspicious enhancing masses or areas of non mass enhancement. No axillary or internal mammary adenopathy. Limited views of the chest and abdomen are unremarkable. MR/MR breast BI wo/w con IMPRESSION: Right: Benign. Left: 2 enhancing foci in the retroareolar region of the left breast which are probably benign and represent background enhancing foci recommend six-month follow-up MRI for further evaluation of stability. ASSESSMENT: LEFT BREAST: BI-RADS 3-Probably Benign RIGHT BREAST: BI-RADS 2-Benign RECOMMENDATIONS: 1 year follow-up left breast ultrasound to demonstrate stability of left breast mass at 12:00. 6 month follow-up MRI breast. Electronically signed by: Niya Henao DO 06/04/2025 08:08 PM EDT
--- OUTSIDE RECORDS SUMMARY | 2025-06-03 17:06 | XMS_ITS | Clinical Summary ---
Author Organization [facility] Address [address] [facility] [address] [place] [address] Phone Care Team Providers Care Mounter Clarinets Name Role Phone Fatmata Villalobos MD Primary Care Provider [phone] Allergies No known active allergies Medications DULoxetine [...] 2025 09/25/2007 Insurance ([id number]) ([id number]) Care Teams Mounter Clarinets Relationship Specialty Start Date End Date Fatmata Villalobos MD [address] [place] [address] PCP - General Internal Medicine 07/25/21
--- OUTSIDE RECORDS SUMMARY | 2025-06-03 17:06 | XMS_ITS | Encounter Summary ---
Author Organization [facility] Address [address] [place] [address] Phone Care Team Providers Care Fitter Placer Name Role Phone Fatmata Villalobos MD Primary Care Provider [phone] Encounter Details Date Type Department Care Team (Late st Contact Info) Description 02/20/2022 Telephone [facility] [address] [place] [address] Alfonso Carl[place], [place] [address] Social History Tobacco Use Types Packs/Day Years [...] runs high. Please advise Thank you CB# [phone] documented in this encounter Plan of Treatment Not on file documented as of this encounter Visit Diagnoses Not on filedocumented in this encounter Care Teams Fitter Placer Relationship Specialty Start Date End Date Fatmata Villalobos MD [address] [place] PCP - General Internal Medicine 07/25/21 documented as of this encounter
== END 2025-06-03 16:04 | disposition home or self-care (01) ==
LOC: HO.MRI 16:03
PROVIDERS: PCP Internal Medicine; Visit Provider Surgery
DX: N64.4 Mastodynia (principal); Z91.89 Other specified personal risk factors, not elsewhere classified
CPT/HCPCS: 77049; A9585; C8937

== ENCOUNTER 2025-06-05 14:54 | Outpatient (AMB) | payer MEDICARE, MEDICAID, SELFPAY ==
--- OUTSIDE RECORDS SUMMARY | 2025-06-05 14:58 | XMS_ITS | Clinical Summary ---
Author Organization [facility] Address [address] [facility] [address] [place] [address] Phone Care Team Providers Care Improvement Director Name Role Phone Fatmata Villalobos MD Primary Care Provider [phone] Allergies No known active allergies Medications DULoxetine [...] 2025 09/25/2007 Insurance ([id number]) ([id number]) Care Teams Improvement Director Relationship Specialty Start Date End Date Fatmata Villalobos MD [address] [place] [address] PCP - General Internal Medicine 07/25/21
--- OUTSIDE RECORDS SUMMARY | 2025-06-05 14:58 | XMS_ITS | Encounter Summary ---
Author Organization [facility] Address [address] [place] [address] Phone Care Team Providers Care Woodwind Reeds Cutter Name Role Phone Fatmata Villalobos MD Primary Care Provider [phone] Encounter Details Date Type Department Care Team (Late st Contact Info) Description 02/20/2022 Telephone [facility] [address] [place] [address] Alfonso [place], [place] [address] Social History Tobacco Use Types Packs/Day Years [...] runs high. Please advise Thank you CB# [phone] documented in this encounter Plan of Treatment Not on file documented as of this encounter Visit Diagnoses Not on filedocumented in this encounter Care Teams Woodwind Reeds Cutter Relationship Specialty Start Date End Date Fatmata Villalobos MD [address] [place] PCP - General Internal Medicine 07/25/21 documented as of this encounter
--- NOTE | 2025-06-05 15:07 | A.OFFVIS_ITS ---
Vital Signs 06/05/25 15:13 Height 5 ft 2 in Weight 180 lb BMI 32.9 BP 142/80 H Blood Pressure Location Lt brachial Position Sitting Intake Visit Reasons: ct f/u Senior Nuclear Medicine Technologist Required: Yes Senior Nuclear Medicine Technologist Language: Career Development Coordinator Services: Senior Nuclear Medicine Technologist Present (in person) Accompanied by: Self / Same As Patient Allergies No Known Allergies Allergy (Verified 07/07/25 14:53) HPI HPI ct f/u: Details: Assessment & Plan (1) GERD (gastroesophageal reflux disease): Code(s): K21.9 - Gastro-esophageal reflux disease without esophagitis Category: Medical (2) Chronic idiopathic constipation: Code(s): K59.04 - Chronic idiopathic constipation Category: Medical (3) Lower abdominal pain: Code(s): R10.30 - Lower abdominal pain, unspecified Category: Medical Plan [place] #[id number] She continues on her Reglan, Linzess, and pantoprazole and is now satisfied with her GI regimen. This has not made a difference in her pain which she describes as like menses pain and sometimes burning. There is definitely a pattern or radiation down the legs, mostly the front but at times in the back. The pain seems to originate just over the pelvis. It is worse both with standing and prolonged sitting, no relief with laying. 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 She has IC and FMS of uncertain contribution. I don't think this is GI since there is no correlation to her BM's or eating. Will get CT of pelvis to aid in dx. She had a colonoscopy in 2022 with moderate sigmoid tics, a normal GES and US w/o any gallstones. No recent imaging except a pelvic US and multiple back xr's. ROV after CT Orders: Orders CT abdomen pelvis wo/w IV con Today R10.30 - Lower abdominal pain, unspecified CT ABD AND PELVIS K 05/04/2025 ABDOMEN: LOWER CHEST: The visualized lung bases are clear. There is no pleural effusion. CARDIOVASCULATURE: The heart is normal in size. There is no pericardial effusion. LIVER: The liver is normal in size and contour. No liver mass is identified. The hepatic and portal veins are patent. GALLBLADDER / BILE DUCTS: The gallbladder is unremarkable. There is no intra or extrahepatic biliary ductal dilatation. SPLEEN: The spleen is normal in size. No focal splenic lesion is identified. PANCREAS: The pancreas is unremarkable in appearance. ADRENAL GLANDS: Within normal limits. KIDNEYS/RETROPERITONEUM: The right kidney is malrotated. No renal or ureteral calculi are identified. There is no hydronephrosis or hydroureter. No renal masses are identified. The intrarenal collecting systems are unremarkable in appearance. The ureters are normal in caliber. The proximal ureters are well opacified. The distal ureters are not opacified. LYMPH NODES: No abdominal or pelvic lymphadenopathy. VASCULATURE: The abdominal aorta is normal in caliber. MESENTERY/PERITONEUM: No free fluid. No masses. There is no free intraperitoneal gas. STOMACH: The stomach is collapsed, limiting evaluation. SMALL BOWEL: The small bowel is normal in caliber. COLON: The colon is unremarkable. APPENDIX: Normal. URINARY BLADDER/PELVIC ORGANS: The urinary bladder is unremarkable. The patient is status post hysterectomy. There is a 2.5 cm left adnexal cyst. BONES / SOFT TISSUES: No suspicious bony or soft tissue abnormalities. CT/CT abdomen pelvis wo/w IV con IMPRESSION: 1. Malrotated right kidney. No evidence of nephrolithiasis or ureteral obstruction. 2. 2.5 cm left adnexal cyst. This could be further evaluated with pelvic ultrasound. TODAYS VISIT [place] #Rosalind Spicer [facility] Medical History Myoma Abnormal ultrasound of breast Localized swelling of toe of left foot Abnormal MRI, breast Vaginal irritation Potential exposure to STD Pelvic pain Pleuritic chest pain Right rotator cuff tendonitis Left foot pain Screening examination for infectious disease Screen for STD (sexually transmitted disease) Epidermal inclusion cyst Medication monitoring encounter Screen for STD (sexually transmitted disease) Physical exam Candidiasis of mouth and esophagus Achilles tendinosis of both lower extremities CMC (carpometacarpal) synovitis Breast mass, right Uterine fibroid Hemorrhoids Uterine fibroid Insomnia Essential hypertension Hematuria Calcific tendinitis of left shoulder Primary osteoarthritis of hands, bilateral Glucosuria HPV test positive At high risk for breast cancer Insomnia secondary to situational depression GERD (gastroesophageal reflux disease) Vitamin D deficiency Surgical History History of hysterectomy H/O excision of epidermal inclusion cyst (05/22/23) History of lumpectomy of left breast (08/23/22) History of lumpectomy of right breast Hx of tubal ligation History of bilateral breast biopsy (2017) History of section History of removal of cyst History of hemorrhoidectomy History of esophagogastroduodenoscopy (EGD) (08/26/19) Hx of colonoscopy Family History Mother Breast cancer, Onset Age: 50 Ovarian cancer Daughter Squamous cell carcinoma of uterus History of thyroid cancer Maternal Grandmother History of stomach cancer Maternal Uncle Family history of prostate cancer, Onset Age: 60 Father No problems noted. Social History Household Members: Children Housing: House Alcohol intake: current Alcohol intake frequency: holidays/special occasions only Alcohol type: beer and wine Patient Tobacco Use Status: Former Tobacco user Tobacco use type: Cigarette e-Cigarette/Vaping Use: Never Used Second Hand Smoke Exposure: No service: No Current occupational status: employed Current occupational exposures/hazards: No Sexual orientation: Straight/Heterosexual Gender identity: Female Cognitive needs: No Hearing needs: No Vision needs: Yes Female Reproductive History Menstrual Age of Menarche: 12 Review of Systems Const Denies fatigue, Denies fever(s), Denies night sweats, Denies poor appetite and Denies weight loss Eyes Details: glasses Reports requires corrective lenses ENT Reports Normal hearing present, Denies dental pain, Denies dysphagia, Denies hearing loss, Denies mouth pain, Denies odynophagia, Denies throat swelling, Denies tongue swelling and Reports other (Dentition adequate) Card Reports no additional complaints Resp Reports no additional complaints GI Details: Denies abdominal pain, Denies melena, Denies bloating, Denies hematochezia, Reports constipation, Reports GI cramping, Denies dysphagia, Denies excessive flatus, Reports early satiety, Reports heartburn, Denies diarrhea, Denies nausea, Denies odynophagia, Denies vomiting and Denies hematemesis Details: Suprapubic pain Musc Details: Tailbone and back pain Skin/Breast Denies pruritus, Denies lesions, Denies rash and Denies jaundice Neuro Reports Normal hearing present and Denies Abnormal speech present Endo Denies fatigue Aller/Immun Denies throat swelling and Denies tongue swelling Physical Exam Vital Signs: Last Vital Signs BP 142/80 H 06/05/25 15:13 BMI result Body Mass Index 32.9 Const General: cooperative, no acute distress, well developed and well groomed Nutritional Appearance: well nourished and obese Orientation/consciousness: oriented to person, oriented to place and oriented to time Limitations: language barrier HEENT Head: Yes normocephalic and Yes atraumatic Eyes General: appearance normal, both eyes and all related structures Pupils: Equal, round and reactive pupils present Neck Neck: Yes normal visual inspection and Yes no lymphadenopathy Thyroid: Thyroid normal Resp Effort & Inspection: normal respiratory effort and able to speak in complete sentences Auscultation: clear to auscultation bilaterally Cardio Rate: regular rate Rhythm: regular rhythm Heart sounds: Normal, physiologic split S2 sound present Peripheral pulses: radial pulses present and posterior tibial pulses present GI Inspection: No distended, Yes Abdominal panniculus present and Yes obesity Palpation (GI): Soft to palpation, nontender, no guarding, not rigid and No hepatosplenomegaly present Percussion: Yes normal to percussion Auscultation: normal bowel sounds Rectal Exam - Female: deferred Back/Spine/Pelvis Sacroiliac joints: bilaterally Coccyx: Coccyx tenderness present on direct palpation Skin General skin exam: no rashes or lesions noted, turgor normal, skin not dry, no jaundice, No spider nevi and no striae Rashes: no rashes Nails: normal Neuro General: oriented to person, oriented to place and oriented to time Cranial nerves: Yes Equal, round and reactive pupils present and Yes Normal hearing present Speech: No Abnormal speech present Extrem General: Yes normal to inspection, No clubbing, No cyanosis and No edema Psych Appearance: grossly normal and well kempt Mental Status: mental status grossly normal Speech and movement: Normal speech and movement present Affect: normal affect Attitude: cooperative Thought process: Normal thought process present and not confabulating Thought content: Normal thought content present Insight: Fair insight present (Psych) Judgement: Fair judgement present (Psych) Results Reviewed Results Reviewed: CT ABD AND PELVIS K 05/04/2025 ABDOMEN: LOWER CHEST: The visualized lung bases are clear. There is no pleural effusion. CARDIOVASCULATURE: The heart is normal in size. There is no pericardial effusion. LIVER: The liver is normal in size and contour. No liver mass is identified. The hepatic and portal veins are patent. GALLBLADDER / BILE DUCTS: The gallbladder is unremarkable. There is no intra or extrahepatic biliary ductal dilatation. SPLEEN: The spleen is normal in size. No focal splenic lesion is identified. PANCREAS: The pancreas is unremarkable in appearance. ADRENAL GLANDS: Within normal limits. KIDNEYS/RETROPERITONEUM: The right kidney is malrotated. No renal or ureteral calculi are identified. There is no hydronephrosis or hydroureter. No renal masses are identified. The intrarenal collecting systems are unremarkable in appearance. The ureters are normal in caliber. The proximal ureters are well opacified. The distal ureters are not opacified. LYMPH NODES: No abdominal or pelvic lymphadenopathy. VASCULATURE: The abdominal aorta is normal in caliber. MESENTERY/PERITONEUM: No free fluid. No masses. There is no free intraperitoneal gas. STOMACH: The stomach is collapsed, limiting evaluation. SMALL BOWEL: The small bowel is normal in caliber. COLON: The colon is unremarkable. APPENDIX: Normal. URINARY BLADDER/PELVIC ORGANS: The urinary bladder is unremarkable. The patient is status post hysterectomy. There is a 2.5 cm left adnexal cyst. BONES / SOFT TISSUES: No suspicious bony or soft tissue abnormalities. CT/CT abdomen pelvis wo/w IV con IMPRESSION: 1. Malrotated right kidney. No evidence of nephrolithiasis or ureteral obstruction. 2. 2.5 cm left adnexal cyst. This could be further evaluated with pelvic ultrasound. Assessment & Plan Assessment & Plan (1) Suprapubic pain: Code(s): R10.2 - Pelvic and perineal pain Category: Medical (2) Coccygeal pain: Code(s): M53.3 - Sacrococcygeal disorders, not elsewhere classified Category: Medical (3) GERD (gastroesophageal reflux disease): Code(s): K21.9 - Gastro-esophageal reflux disease without esophagitis Category: Medical (4) Chronic idiopathic constipation: Code(s): K59.04 - Chronic idiopathic constipation Category: Medical (5) Bleeding hemorrhoids: Code(s): K64.9 - Unspecified hemorrhoids Category: Medical Plan Her usual GI regimen consists of pantoprazole twice a day, Linzess 290 micro g, dicyclomine, and metoclopramide 10 mg twice a day. - The patient is a 54-year-old female presenting with abdominal pain and a follow-up on a CAT scan. - She reports suprapubic pain that intensifies with driving or sitting, extending into the back. - Previously diagnosed with a malrotated kidney and an ovarian cyst on the left side. I doubt that this is causing her pain. - Presence of internal hemorrhoids noted from a colonoscopy; moderate in size, but not considered a pain source. - History of hysterectomy performed by a page makeup system operator. - Regular bowel movements with Linzess and uses metoclopramide twice daily. - Pantoprazole for reflux and concerns of medication-induced drowsiness. - History of precancerous polyps managed with regular colonoscopy screenings. At this time I am not finding a GI cause for her pain. Because of this I am going to extend the search and get some x-rays of her sacroiliac joints and her sacrum/coccyx because the pain seems to be more musculoskeletal on examination today. She is agreeable to having these tests. Return office visit in 4 weeks Orders: Orders XR sacroiliac joint 1-2V 06/05/25 R10.2 - Pelvic and perineal pain, M53.3 - Sacrococcygeal disorders, not elsewhere classified XR sacrum coccyx min 2V 06/05/25 R10.2 - Pelvic and perineal pain, M53.3 - Sacrococcygeal disorders, not elsewhere classified Medications: Refilled pantoprazole 40 mg PO BID 180 tabs 1RF 90 days K59.04 - Chronic idiopathic constipation, R11.2 - Nausea with vomiting, unspecified linaclotide (Linzess) 290 mcg PO DAILY 30 caps 6RF K59.00 - Constipation, unspecified dicyclomine 10 mg PO TID 60 caps 6RF R10.33 - Periumbilical pain metoclopramide HCl 10 mg PO BID 60 tabs 6RF Coding Level of Care Code Est Pt Level 4 (93478) Diagnoses Suprapubic pain R10.2 Coccygeal pain M53.3 GERD (gastroesophageal reflux disease) K21.9 Chronic idiopathic constipation K59.04 Bleeding hemorrhoids K64.9 Time Spent (min) 37
[2025-06-05 15:13] VITALS: BP 142/80; BMI 32.9
== END 2025-06-05 15:37 | disposition home or self-care (01) ==
LOC: HO.HGI 14:55
PROVIDERS: PCP Internal Medicine; Visit Provider Nurse Practitioner
DX: R10.2 Pelvic and perineal pain (principal); M53.3 Sacrococcygeal disorders, not elsewhere classified; K21.9 Gastro-esophageal reflux disease without esophagitis; K59.04 Chronic idiopathic constipation; K64.9 Unspecified hemorrhoids
CPT/HCPCS: 99214

== ENCOUNTER → 2025-06-05 14:54 | Outpatient (BNVA) | payer MEDICARE, MEDICAID, SELFPAY | PROVIDERS: PCP Internal Medicine; Visit Provider Nurse Practitioner | DX: R10.2 Pelvic and perineal pain (principal); M53.3 Sacrococcygeal disorders, not elsewhere classified; K21.9 Gastro-esophageal reflux disease without esophagitis; K59.04 Chronic idiopathic constipation; K64.9 Unspecified hemorrhoids | CPT/HCPCS: 99212 ==

== ENCOUNTER 2025-06-24 15:00 | Outpatient (REF) | payer MEDICARE, MEDICAID, SELFPAY ==
--- NOTE | ~2025-06-24 | XR_ITS ---
EXAMINATION: XR SACRUM AND COCCYX CLINICAL INFORMATION: R10.2 - Pelvic and perineal pain COMPARISON: None available. TECHNIQUE: 2 views of the sacrum and 2 views of the coccyx were obtained. FINDINGS: SI joints are unremarkable. There is no visible fracture or cortical offset. There is moderate degeneration involving pubic symphysis joint with osteophytes, sclerosis, and minimal degenerative cystic change. XR/XR sacrum coccyx min 2V IMPRESSION: Unremarkable sacrum and coccyx. Moderate degenerative changes in the pubic symphysis joint. Electronically signed by: Marcial Padilla MD 06/24/2025 03:29 PM EDT
--- NOTE | ~2025-06-24 | US_ITS ---
EXAMINATION: US RETROPERITONEAL COMPLETE (RENAL) CLINICAL INFORMATION: Hematuria. COMPARISON: Ultrasound abdomen 01/12/2023 TECHNIQUE: Real-time imaging of the kidneys and bladder. FINDINGS: RIGHT KIDNEY: 11.7 x 3.8 x 3.9 cm (SAG x AP x TRV). The kidney is normal in size, contour, and echogenicity. Renal cortical thickness is normal. No calculi or focal parenchymal lesions. No hydronephrosis. LEFT KIDNEY: 10.8 x 4.9 x 4.3 cm (SAG x AP x TRV). The kidney is normal in size, contour, and echogenicity. Renal cortical thickness is normal. No calculi or focal parenchymal lesions. No hydronephrosis. BLADDER: Well distended and normal. Bilateral ureteral jets are demonstrated. Prevoid bladder volume is 212.7 mL. Postvoid bladder volume is 0.8 mL. US/US retroperitoneal comp IMPRESSION: Normal renal ultrasound. Normal bladder ultrasound.. Electronically signed by: Waylon Barnett MD 06/25/2025 06:55 AM EDT
--- NOTE | ~2025-06-24 | XR_ITS ---
EXAMINATION: XR SACROILIAC JOINTS CLINICAL INFORMATION: R10.2 - Pelvic and perineal pain COMPARISON: None available. TECHNIQUE: 3 views of the sacroiliac joints FINDINGS: Minimal osteophyte formation is present at the inferior right SI joint. SI joints are otherwise symmetrical without narrowing, erosion, or erosions. XR/XR sacroiliac joint 1-2V IMPRESSION: Mild degenerative changes in the inferior right SI joint Electronically signed by: Marcial Padilla MD 06/24/2025 03:31 PM EDT
--- OUTSIDE RECORDS SUMMARY | 2025-06-25 16:15 | XMS_ITS | Encounter Summary ---
Author Organization [facility] Address [address] [place] [address] Phone Care Team Providers Care Armhole Feller Handstitching Machine Name Role Phone Fatmata Villalobos MD Primary Care Provider [phone] Encounter Details Date Type Department Care Team (Late st Contact Info) Description 02/20/2022 Telephone [facility] [address] [place] [address] Alfonso Carlisle, [place] [address] Social History Tobacco Use Types Packs/Day Years [...] runs high. Please advise Thank you CB# [phone] documented in this encounter Plan of Treatment Not on file documented as of this encounter Visit Diagnoses Not on filedocumented in this encounter Care Teams Armhole Feller Handstitching Machine Relationship Specialty Start Date End Date Fatmata Villalobos MD [address] [place] PCP - General Internal Medicine 07/25/21 documented as of this encounter
--- OUTSIDE RECORDS SUMMARY | 2025-06-25 16:15 | XMS_ITS | Clinical Summary ---
Author Organization [facility] Address [address] [facility] [address] [place] [address] Phone Care Team Providers Care Field Ring Assembler Name Role Phone Fatmata Villalobos MD Primary Care Provider [phone] Allergies No known active allergies Medications DULoxetine [...] 2025 09/25/2007 Insurance ([id number]) ([id number]) Care Teams Field Ring Assembler Relationship Specialty Start Date End Date Fatmata Villalobos MD [address] [place] [address] PCP - General Internal Medicine 07/25/21
== END 2025-06-24 15:01 | disposition home or self-care (01) ==
LOC: HO.US 15:00
PROVIDERS: Absent Provider Nurse Practitioner; PCP Internal Medicine; Visit Provider Nurse Practitioner Family
DX: N30.91 Cystitis, unspecified with hematuria (principal); M53.3 Sacrococcygeal disorders, not elsewhere classified; R10.2 Pelvic and perineal pain; R39.9 Unspecified symptoms and signs involving the genitourinary system
CPT/HCPCS: 72200; 72220; 76770

== ENCOUNTER → 2025-06-24 15:01 | Outpatient (BNV) | payer MEDICARE, MEDICAID, SELFPAY | PROVIDERS: Absent Provider Nurse Practitioner; PCP Internal Medicine; Visit Provider Radiology Diagnostic Radiology | DX: R31.0 Gross hematuria (principal) | CPT/HCPCS: 76770 ==

== ENCOUNTER 2025-07-07 14:40 | Outpatient (AMB) | payer MEDICARE, MEDICAID, SELFPAY ==
[2025-07-07 14:49] VITALS: BP 133/86; PULSE 81; BMI 33.9
--- NOTE | 2025-07-07 14:49 | A.OFFVIS_ITS ---
Vital Signs 07/07/25 14:49 Height 5 ft 2 in Weight 185 lb 10.067 oz BMI 33.9 BP 133/86 Blood Pressure Location Lt brachial Position Sitting Pulse 81 Intake Visit Reasons: 4 weeks suprapubic and tailbone pain Intake Note: Stephani returns in follow up of X-Rays. CC: Patient c/o nausea, dizziness sometimes, rectal bleeding, and GERD. 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 Language: Danish Accompanied by: Self / Same As Patient Allergies No Known Allergies Allergy (Verified 07/07/25 14:53) HPI HPI 4 weeks suprapubic and tailbone pain: Details: Assessment & Plan (1) Suprapubic pain: Code(s): R10.2 - Pelvic and perineal pain Category: Medical (2) Coccygeal pain: Code(s): M53.3 - Sacrococcygeal disorders, not elsewhere classified Category: Medical (3) GERD (gastroesophageal reflux disease): Code(s): K21.9 - Gastro-esophageal reflux disease without esophagitis Category: Medical (4) Chronic idiopathic constipation: Code(s): K59.04 - Chronic idiopathic constipation Category: Medical (5) Bleeding hemorrhoids: Code(s): K64.9 - Unspecified hemorrhoids Category: Medical Orders: Orders XR sacroiliac joint 1-2V Today M53.3 - Sacrococcygeal disorders, not elsewhere classified, R10.2 - Pelvic and perineal pain XR sacrum coccyx min 2V Today M53.3 - Sacrococcygeal disorders, not elsewhere classified, R10.2 - Pelvic and perineal pain Medications: Refilled pantoprazole 40 mg PO BID 180 tabs 1RF 90 days K59.04 - Chronic idiopathic constipation, R11.2 - Nausea with vomiting, unspecified linaclotide (Linzess) 290 mcg PO DAILY 30 caps 6RF K59.00 - Constipation, unspecified dicyclomine 10 mg PO TID 60 caps 6RF R10.33 - Periumbilical pain metoclopramide HCl 10 mg PO BID 60 tabs 6RF - The patient is a 54-year-old female presenting with abdominal pain and a follow-up on a CAT scan. - She reports lower abdominal pain that intensifies with driving or sitting, extending into the back. - Previously diagnosed with a malrotated kidney and an ovarian cyst on the left side. - Presence of internal hemorrhoids noted from a colonoscopy; moderate in size, but not considered a pain source. 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 - Regular bowel movements with lenses and uses metoclopramide twice daily. - Pantoprazole for reflux and concerns of medication-induced drowsiness. - History of precancerous polyps managed with regular colonoscopy screenings. X-ray of the sacroiliac joints and coccyx 06/24/2025 FINDINGS: Minimal osteophyte formation is present at the inferior right SI joint. SI joints are otherwise symmetrical without narrowing, erosion, or erosions. XR/XR sacroiliac joint 1-2V IMPRESSION: Mild degenerative changes in the inferior right SI joint FINDINGS: SI joints are unremarkable. There is no visible fracture or cortical offset. There is moderate degeneration involving pubic symphysis joint with osteophytes, sclerosis, and minimal degenerative cystic change. XR/XR sacrum coccyx min 2V IMPRESSION: Unremarkable sacrum and coccyx. Moderate degenerative changes in the pubic symphysis joint. TODAY'S VISIT Danish #[facility] Medical History Myoma Abnormal ultrasound of breast Localized swelling of toe of left foot Abnormal MRI, breast Vaginal irritation Potential exposure to STD Pelvic pain Pleuritic chest pain Right rotator cuff tendonitis Left foot pain Screening examination for infectious disease Screen for STD (sexually transmitted disease) Epidermal inclusion cyst Medication monitoring encounter Screen for STD (sexually transmitted disease) Physical exam Candidiasis of mouth and esophagus Achilles tendinosis of both lower extremities CMC (carpometacarpal) synovitis Breast mass, right Uterine fibroid Hemorrhoids Uterine fibroid Insomnia Essential hypertension Hematuria Calcific tendinitis of left shoulder Primary osteoarthritis of hands, bilateral Glucosuria HPV test positive At high risk for breast cancer Insomnia secondary to situational depression GERD (gastroesophageal reflux disease) Vitamin D deficiency Surgical History History of hysterectomy H/O excision of epidermal inclusion cyst (05/22/23) History of lumpectomy of left breast (08/23/22) History of lumpectomy of right breast Hx of tubal ligation History of bilateral breast biopsy (2017) History of section History of removal of cyst History of hemorrhoidectomy History of esophagogastroduodenoscopy (EGD) (08/26/19) Hx of colonoscopy Family History Mother Breast cancer, Onset Age: 50 Ovarian cancer Daughter Squamous cell carcinoma of uterus History of thyroid cancer Maternal Grandmother History of stomach cancer Maternal Uncle Family history of prostate cancer, Onset Age: 60 Father No problems noted. Social History Household Members: Children Housing: House Alcohol intake: current Alcohol intake frequency: holidays/special occasions only Alcohol type: beer and wine Patient Tobacco Use Status: Former Tobacco user Tobacco use type: Cigarette e-Cigarette/Vaping Use: Never Used Second Hand Smoke Exposure: No service: No Current occupational status: employed Current occupational exposures/hazards: No Sexual orientation: Straight/Heterosexual Gender identity: Female Cognitive needs: No Hearing needs: No Vision needs: Yes Female Reproductive History Menstrual Age of Menarche: 12 Review of Systems Const Denies fatigue, Denies fever(s), Denies night sweats, Denies poor appetite and Denies weight loss ENT Reports Normal hearing present, Denies dental pain, Denies dysphagia, Denies hearing loss, Denies mouth pain, Denies odynophagia, Denies throat swelling, Denies tongue swelling and Reports other (Dentition adequate) Card Reports no additional complaints Resp Reports no additional complaints GI Details: Reports abdominal pain, Denies melena, Denies bloating, Denies hematochezia, Reports constipation, Denies GI cramping, Denies dysphagia, Denies excessive flatus, Denies early satiety, Reports heartburn, Denies diarrhea, Denies nausea, Denies odynophagia, Denies vomiting and Denies hematemesis Musc Reports back pain and Reports myalgias Skin/Breast Denies pruritus, Denies lesions, Denies rash and Denies jaundice Neuro Reports Normal hearing present and Denies Abnormal speech present Endo Denies fatigue Aller/Immun Denies throat swelling and Denies tongue swelling Physical Exam Vital Signs: Last Vital Signs Pulse 81 07/07/25 14:49 BP 133/86 07/07/25 14:49 BMI result Body Mass Index 33.9 Const General: cooperative, no acute distress, well developed and well groomed Nutritional Appearance: well nourished and obese Orientation/consciousness: oriented to person, oriented to place and oriented to time Limitations: language barrier HEENT Head: Yes normocephalic and Yes atraumatic Eyes General: appearance normal, both eyes and all related structures Pupils: Equal, round and reactive pupils present Neck Neck: Yes normal visual inspection and Yes no lymphadenopathy Thyroid: Thyroid normal Resp Effort & Inspection: normal respiratory effort and able to speak in complete sentences Auscultation: clear to auscultation bilaterally Cardio Rate: regular rate Rhythm: regular rhythm Heart sounds: Normal, physiologic split S2 sound present Peripheral pulses: radial pulses present and posterior tibial pulses present GI Inspection: No distended, No Abdominal panniculus present and Yes obesity Palpation (GI): Soft to palpation, nontender, no guarding, not rigid and No hepatosplenomegaly present Percussion: Yes normal to percussion Auscultation: normal bowel sounds Rectal Exam - Female: deferred Skin General skin exam: no rashes or lesions noted, turgor normal, skin not dry, no jaundice, No spider nevi and no striae Rashes: no rashes Nails: normal Neuro General: oriented to person, oriented to place and oriented to time Cranial nerves: Yes Equal, round and reactive pupils present and Yes Normal h earing present Speech: No Abnormal speech present Extrem General: Yes normal to inspection, No clubbing, No cyanosis and No edema Psych Appearance: grossly normal and well kempt Mental Status: mental status grossly normal Speech and movement: Normal speech and movement present Affect: normal affect Attitude: cooperative Thought process: Normal thought process present and not confabulating Thought content: Normal thought content present Insight: Fair insight present (Psych) and Limited insight present (Psych) Judgement: Fair judgement present (Psych) and Limited judgement present (Psych) Assessment & Plan Assessment & Plan (1) Bilateral sacroiliitis: Code(s): M46.1 - Sacroiliitis, not elsewhere classified Category: Medical (2) Osteitis of symphysis pubis: Code(s): M86.9 - Osteomyelitis, unspecified Category: Medical (3) GERD (gastroesophageal reflux disease): Code(s): K21.9 - Gastro-esophageal reflux disease without esophagitis Category: Medical (4) Chronic idiopathic constipation: Code(s): K59.04 - Chronic idiopathic constipation Category: Medical Plan Danish # She continues on her pantoprazole, Linzess, dicyclomine and Reglan. She feels satisfied with the GI regimen. Because she complained of musculoskeletal pain mostly tailbone pain when sitting I did some x-rays. It does show significant arthritis of the bilateral sacroiliac joints and of the pubis symphysis. I think this most likely is the source of her pain. She has seen pain management in the past but since she has declined physical therapy (she thinks it makes her pain worse) and because she fears injections I do not know that there is any definitive treatment for her symptoms. 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 She tries to take breaks to go to the bathroom and to stand and walk. At any rate, she would really need a different specialist to try to address this. Return office visit in 6 months Coding Level of Care Code Est Pt Level 3 (43765) Diagnoses Bilateral sacroiliitis M46.1 Osteitis of symphysis pubis M86.9 GERD (gastroesophageal reflux disease) K21.9 Chronic idiopathic constipation K59.04
--- OUTSIDE RECORDS SUMMARY | 2025-07-07 16:05 | XMS_ITS | Encounter Summary ---
Author Organization [facility] Address [address] [place] [address] Phone Care Team Providers Care High [employer] Agriculture Teacher Name Role Phone Fatmata Villalobos MD Primary Care Provider [phone] Encounter Details Date Type Department Care Team (Late st Contact Info) Description 02/20/2022 Telephone [facility] [address] [place] [address] Alfonso [place], [place] [address] Social History Tobacco Use Types Packs/Day Years [...] runs high. Please advise Thank you CB# [phone] documented in this encounter Plan of Treatment Not on file documented as of this encounter Visit Diagnoses Not on filedocumented in this encounter Care Teams High School Agriculture Teacher Relationship Specialty Start Date End Date Fatmata Villalobos MD [address] [place] PCP - General Internal Medicine 07/25/21 documented as of this encounter
--- OUTSIDE RECORDS SUMMARY | 2025-07-07 16:05 | XMS_ITS | Clinical Summary ---
Author Organization [facility] Address [address] [place] [address] Phone Care Team Providers Care Nuclear Physics Teacher Name Role Phone Fatmata Villalobos MD Primary Care Provider [phone] Allergies No known active allergies Medications DULoxetine [...] 2025 09/25/2007 Insurance ([id number]) ([id number]) Care Teams Nuclear Physics Teacher Relationship Specialty Start Date End Date Fatmata Villalobos MD [address] [place] [address] PCP - General Internal Medicine 07/25/21
== END 2025-07-07 16:59 | disposition home or self-care (01) ==
LOC: HO.HGI 14:41
PROVIDERS: PCP Internal Medicine; Visit Provider Nurse Practitioner
DX: M46.1 Sacroiliitis, not elsewhere classified (principal); M86.9 Osteomyelitis, unspecified; K21.9 Gastro-esophageal reflux disease without esophagitis; K59.04 Chronic idiopathic constipation
CPT/HCPCS: 99213

== ENCOUNTER → 2025-07-07 14:40 | Outpatient (BNVA) | payer MEDICARE, MEDICAID, SELFPAY | PROVIDERS: PCP Internal Medicine; Visit Provider Nurse Practitioner | DX: R10.2 Pelvic and perineal pain (principal); M53.3 Sacrococcygeal disorders, not elsewhere classified; K59.04 Chronic idiopathic constipation; R11.2 Nausea with vomiting, unspecified; R10.33 Periumbilical pain | CPT/HCPCS: 99212 ==

== ENCOUNTER 2025-08-04 14:39 | Outpatient (AMB) | payer MEDICARE, MEDICAID, SELFPAY ==
--- NOTE | 2025-08-04 14:42 | A.OFFVIS_ITS ---
VS Expanded 08/04/25 14:43 Height 5 ft 2 in Weight 184 lb 8.43 oz BMI 33.7 Intake Visit Reasons: obesity Allergies No Known Allergies Allergy (Verified 07/07/25 14:53) Nutrition Presentation Details: Pt presents for MNT f/u obesity Patient reports working on meal planning however not seen results [facility] Medical History Myoma Abnormal ultrasound of breast Localized swelling of toe of left foot Abnormal MRI, breast Vaginal irritation Potential exposure to STD Pelvic pain Pleuritic chest pain Right rotator cuff tendonitis Left foot pain Screening examination for infectious disease Screen for STD (sexually transmitted disease) Epidermal inclusion cyst Medication monitoring encounter Screen for STD (sexually transmitted disease) Physical exam Candidiasis of mouth and esophagus Achilles tendinosis of both lower extremities CMC (carpometacarpal) synovitis Breast mass, right Uterine fibroid Hemorrhoids Uterine fibroid Insomnia Essential hypertension Hematuria Calcific tendinitis of left shoulder Primary osteoarthritis of hands, bilateral Glucosuria HPV test positive At high risk for breast cancer Insomnia secondary to situational depression GERD (gastroesophageal reflux disease) Vitamin D deficiency Surgical History History of hysterectomy H/O excision of epidermal inclusion cyst (05/22/23) History of lumpectomy of left breast (08/23/22) History of lumpectomy of right breast Hx of tubal ligation History of bilateral breast biopsy (2017) History of section History of removal of cyst History of hemorrhoidectomy History of esophagogastroduodenoscopy (EGD) (08/26/19) Hx of colonoscopy Family History Mother Breast cancer, Onset Age: 50 Ovarian cancer Daughter Squamous cell carcinoma of uterus History of thyroid cancer Maternal Grandmother History of stomach cancer Maternal Uncle Family history of prostate cancer, Onset Age: 60 Father No problems noted. Social History Household Members: Children Housing: House Alcohol intake: current Alcohol intake frequency: holidays/special occasions only Alcohol type: beer and wine Patient Tobacco Use Status: Former Tobacco user Tobacco use type: Cigarette e-Cigarette/Vaping Use: Never Used Second Hand Smoke Exposure: No service: No Current occupational status: employed Current occupational exposures/hazards: No Sexual orientation: Straight/Heterosexual Gender identity: Female Cognitive needs: No Hearing needs: No Vision needs: Yes Female Reproductive History Menstrual Age of Menarche: 12 Assessment & Plan Assessment & Plan (1) Obesity (BMI 30.0-34.9): Code(s): E66.811 - Obesity, class 1 Category: Medical Plan: Wt: 84 Kg ( 04/01 ), 08/01 Est kcal needs as per MSJ: 1700 (40% carb, 30% protein/fat) Est fluid needs as per 25-30 ml/d: 2500 Est prot per day as per 1 g/kg bw: 80 Recommend fiber intake : 8-10 g per day and gradually increase to 25-28 g per day for women and 35-38 g for men or as tolerated Recommend sodium intake per day : less than 2000 mg Educated patient on: ( R = reviewed V = verbalizes understanding N/R = needs review N/A = not applicable * Food sources of carbohydrate, adequate serving sizes and its role in various health conditions: R * Differences between complex carbohydrates a simple carbohydrates, role of fiber in diet: R * Lean protein sources of foods: R * Differences between types of fats and role in diet (mono on saturated fat fatty acids, saturated fatty acids, trans fats): R V N/R * Food sources of sodium in salt and healthy modifications for heart health in kidney health: R V R/V * Vitamins and minerals: R V N/R * Healthy plate method concept: R * Physical activity: Benefits a precaution: R V N/R * Patient Instructions: Substitute one meal a day with (fairlife protein shake or ensure max protein) Continue working on mindful eating in the evening Coding Level of Care Code Nutr Indiv Subseq (98579) Diagnoses Obesity (BMI 30.0-34.9) E66.811 Time Spent (min) 30
[2025-08-04 14:43] VITALS: BMI 33.7
--- OUTSIDE RECORDS SUMMARY | 2025-08-04 19:07 | XMS_ITS | Clinical Summary ---
Author Organization [facility] Address [address] [facility] [address] [place] [address] Phone Care Team Providers Care Institutional Nutrition Consultant Name Role Phone Fatmata Villalobos MD Primary Care Provider [phone] Allergies No known active allergies Medications DULoxetine [...] 2025 09/25/2007 Insurance ([id number]) ([id number]) Care Teams Institutional Nutrition Consultant Relationship Specialty Start Date End Date Fatmata Villalobos MD [address] [place] [address] PCP - General Internal Medicine 07/25/21
--- OUTSIDE RECORDS SUMMARY | 2025-08-04 19:07 | XMS_ITS | Encounter Summary ---
Author Organization [facility] Address [address] [place] [address] Phone Care Team Providers Care Linux Support Engineer Name Role Phone Fatmata Villalobos MD Primary Care Provider Encounter Details Date Type Department Care Team (Late st Contact Info) Description 02/20/2022 Telephone [facility] [address] [place] [address] Alfonso [place], [place] [address] Social History Tobacco Use Types Packs/Day Years [...] runs high. Please advise Thank you CB# [phone] documented in this encounter Plan of Treatment Not on file documented as of this encounter Visit Diagnoses Not on filedocumented in this encounter Care Teams Linux Support Engineer Relationship Specialty Start Date End Date Fatmata Villalobos MD [address] [place] PCP - General Internal Medicine 07/25/21 documented as of this encounter
== END 2025-08-04 15:11 | disposition home or self-care (01) ==
LOC: HO.ENCR 14:40
PROVIDERS: PCP Internal Medicine; Visit Provider Dietitian, Registered
DX: E66.811 Obesity, class 1 (principal)

== ENCOUNTER → 2025-08-04 14:39 | Outpatient (BNVA) | payer MEDICARE, MEDICAID, SELFPAY | PROVIDERS: PCP Internal Medicine; Visit Provider Dietitian, Registered | DX: E66.811 Obesity, class 1 (principal); Z68.33 Body mass index [BMI] 33.0-33.9, adult; Z71.3 Dietary counseling and surveillance | CPT/HCPCS: 97803 ==

== ENCOUNTER 2025-08-17 14:52 | Outpatient (REF) | payer MEDICARE, MEDICAID, SELFPAY | END 2025-08-17 14:53 | disposition home or self-care (01) | LOC: HO.LAB 14:52 | PROVIDERS: PCP Internal Medicine; Visit Provider Nurse Practitioner Family | DX: N30.10 Interstitial cystitis (chronic) without hematuria (principal); R39.9 Unspecified symptoms and signs involving the genitourinary system; R31.29 Other microscopic hematuria | CPT/HCPCS: 51798; 88112; 99212 ==

== ENCOUNTER 2025-08-17 14:52 | Outpatient (AMB) | payer MEDICARE, MEDICAID, SELFPAY ==
--- NOTE | 2025-08-17 14:54 | A.OFFVIS_ITS ---
Intake Visit Reasons: US F/U Intake Note: Patient presents for follow up interstitial cystitis, c/o bladder spasm Urology Medications: Vesicare Blood Thinner: none Imaging CT 05/04/25/ Ultrasound 06/24/25 PVR: 0ml's Can Filling And Closing Machine Tender Required: Yes Can Filling And Closing Machine Tender Services: Can Filling And Closing Machine Tender Present Can Filling And Closing Machine Tender Name: Yamilet [id number] Accompanied by: Self / Same As Patient Allergies No Known Allergies Allergy (Verified 08/17/25 15:36) Medication List - Last Reconciled 08/17/25 by JOHNNIE Carreon buspirone 5 mg PO TID diclofenac sodium 1% 4 grams topical QID 90 days dicyclomine 10 mg PO TID duloxetine mg PO ibuprofen 800 mg PO TID PRN 90 days linaclotide (Linzess) 290 mcg PO DAILY losartan 100 mg PO DAILY 90 days meclizine 25 mg PO BID PRN 30 days metoclopramide HCl 10 mg PO BID pantoprazole 40 mg PO BID 90 days solifenacin (Vesicare) 5 mg PO DAILY 30 days tamoxifen 10 mg PO DAILY tizanidine 2 mg PO TID PRN trazodone 50 mg PO BEDTIME HPI Comments Details: Stephani is a very pleasant 54 year old Malaysian-speaking female patient of Dr. Espinosa. She has a past medical history of hypertension, GERD, hematuria, hemorrhoids, insomnia, uterine fibroids, fibromyalgia, myoma, osteoarthritis, depression, at high risk for breast cancer, and vitamin-D deficiency. She presents to the office today for follow-up of her interstitial cystitis and lower urinary tract symptoms. In discussion with the patient today she reports somewhat improvement in bladder pressure and episodes of nocturia she had been experiencing with 5 mg of VESIcare daily. Patient with a previous history of microscopic hematuria and underwent prior workup in 2014 and again in 2019. We did discuss repeat in office cystoscopy. Recent retroperitoneal ultrasound results reviewed with the patient today 07/02 bilateral kidneys are normal in size, contour, and echogenicity. No hydronephrosis, renal lesions, and or calculi noted bilaterally. The bladder is well distended and normal. Postvoid bladder volume 10 mL. Normal renal and bladder ultrasound per radiology report. In office urinalysis results reviewed with the patient today 1+ microscopic hematuria. She does report a previous history of nicotine dependence however quit many years ago. She denies gross/visible hematuria, dysuria, foul smelling urine, changes to urinary stream, flank pain, fever, and or chills. Patient also with a previous history of interstitial cystitis. She has previously trialed low- dose Cialis without improvement in these lower urinary tract symptoms. We did review again bladder triggers and irritants. All questions were answered. She otherwise offers no other issues or concerns at this time. PREVIOUS OFFICE NOTE: Hematuria evaluation Renal ultrasound performed with no abnormality detected Vaginal ultrasound with fibroids Background of fibromyalgia Persistent microscopic hematuria today 1+ but has ranged up to 3+ Prior evaluation 2014 in [place] with cystoscopy Cystoscopy previously normal 2019 [facility] Medical History Myoma Abnormal ultrasound of breast Localized swelling of toe of left foot Abnormal MRI, breast Vaginal irritation Potential exposure to STD Pelvic pain Pleuritic chest pain Right rotator cuff tendonitis Left foot pain Screening examination for infectious disease Screen for STD (sexually transmitted disease) Epidermal inclusion cyst Medication monitoring encounter Screen for STD (sexually transmitted disease) Physical exam Candidiasis of mouth and esophagus Achilles tendinosis of both lower extremities CMC (carpometacarpal) synovitis Breast mass, right Uterine fibroid Hemorrhoids Uterine fibroid Insomnia Essential hypertension Hematuria Calcific tendinitis of left shoulder Primary osteoarthritis of hands, bilateral Glucosuria HPV test positive At high risk for breast cancer Insomnia secondary to situational depression GERD (gastroesophageal reflux disease) Vitamin D deficiency Surgical History History of hysterectomy H/O excision of epidermal inclusion cyst (05/22/23) History of lumpectomy of left breast (08/23/22) History of lumpectomy of right breast Hx of tubal ligation History of bilateral breast biopsy (2017) History of section History of removal of cyst History of hemorrhoidectomy History of esophagogastroduodenoscopy (EGD) (08/26/19) Hx of colonoscopy Family History Mother Breast cancer, Onset Age: 50 Ovarian cancer Daughter Squamous cell carcinoma of uterus History of thyroid cancer Maternal Grandmother History of stomach cancer Maternal Uncle Family history of prostate cancer, Onset Age: 60 Father No problems noted. Social History Household Members: Children Housing: House Alcohol intake: current Alcohol intake frequency: holidays/special occasions only Alcohol type: beer and wine Patient Tobacco Use Status: Former Tobacco user Tobacco use type: Cigarette e-Cigarette/Vaping Use: Never Used Second Hand Smoke Exposure: No service: No Current occupational status: employed Current occupational exposures/hazards: No Sexual orientation: Straight/Heterosexual Gender identity: Female Cognitive needs: No Hearing needs: No Vision needs: Yes Female Reproductive History Menstrual Age of Menarche: 12 Review of Systems Const Reports as per HPI Eyes Reports no additional complaints ENT Reports no additional complaints Card Reports as per HPI Resp Reports no additional complaints GI Reports as per HPI Reports as per HPI Musc Reports as per HPI Skin/Breast Reports as per HPI Neuro Reports no additional complaints Psych Reports as per HPI Physical Exam Const General: cooperative, healthy appearing, comfortable, no acute distress, well developed, alert, awake and tired appearing Orientation/consciousness: patient oriented x3 Limitations: language barrier HEENT Head: Yes normal to inspection, Yes normocephalic and Yes atraumatic Ears: hearing grossly normal bilaterally Eyes General: appearance normal, both eyes and all related structures Neck Neck: Yes normal visual inspection and Yes trachea midline Chest Chest palpation & inspection: normal inspection of the chest Resp Effort & Inspection: normal respiratory effort and able to speak in complete sentences Cardio Rate: regular rate GI Inspection: Yes normal to inspection General: Yes no CVA tenderness Back/Spine/Pelvis Back: no CVA tenderness Skin General skin exam: no rashes or lesions noted Neuro General: patient oriented x3 Extrem General: Yes normal to inspection Psych Appearance: grossly normal and well kempt Mental Status: mental status grossly normal Speech and movement: Normal speech and movement present and Clear speech present Affect: normal affect Attitude: cooperative Thought process: Normal thought process present Thought content: Normal thought content present Insight: Fair insight present (Psych) Judgement: Fair judgement present (Psych) Office Procedures Post Void Residual Post Residual Void Post Void Residual (PVR): 0 52022-Eyht Void Residual by ultrasound Results AMB Urinalysis, Automated UA Leukoctes 0 Venita/uL Last Edit by Jammie Colon, [facility] on 08/17/25 15:08 UA Nitrite Negative Last Edit by Jammie Colon, [facility] on 08/17/25 15:08 UA Urobilinogen 0.2 mg/dL Last Edit by Jammie Colon, [facility] on 08/17/25 15:08 UA Protein 0 mg/dL Last Edit by Jammie Colon, [facility] on 08/17/25 15:08 UA pH 6.0 Last Edit by Jammie Colon, [facility] on 08/17/25 15:08 UA Blood 25 Vernon/uL Last Edit by Jammie Colon, [facility] on 08/17/25 15:08 UA Specific Ashby 1.015 Last Edit by Jammie Colon, [facility] on 08/17/25 15:0 8 UA Ketone Negative Last Edit by Jammie Colon, [facility] on 08/17/25 15:08 UA Bilirubin 0 mg/dL Last Edit by Jammie Colon, [facility] on 08/17/25 15:08 UA Glucose 0 mg/dL Last Edit by Jammie Colon, [facility] on 08/17/25 15:08 Results Reviewed Results Reviewed: Laboratory Last Values Urine pH (Auto) 6.0 08/17/25 15:07 Specific Ashby (Auto) 1.015 08/17/25 15:07 Urine Protein (Auto) 0 mg/dL 08/17/25 15:07 Glucose (UA)(Auto) 0 mg/dL 08/17/25 15:07 Urine Ketones (Auto) Negative 08/17/25 15:07 Urine Blood (Auto) 25 Vernon/uL 08/17/25 15:07 Urine Nitrite (Auto) Negative 08/17/25 15:07 Urine Bilirubin (Auto) 0 mg/dL 08/17/25 15:07 Urine Urobilinogen (Auto) 0.2 mg/dL 08/17/25 15:07 Leukocyte Esterase (Auto) 0 Venita/uL 08/17/25 15:07 Date of Service: 06/24/25 Procedure(s): US retroperitoneal comp FINDINGS: RIGHT KIDNEY: 11.7 x 3.8 x 3.9 cm (SAG x AP x TRV). The kidney is normal in size, contour, and echogenicity. Renal cortical thickness is normal. No calculi or focal parenchymal lesions. No hydronephrosis. LEFT KIDNEY: 10.8 x 4.9 x 4.3 cm (SAG x AP x TRV). The kidney is normal in size, contour, and echogenicity. Renal cortical thickness is normal. No calculi or focal parenchymal lesions. No hydronephrosis. BLADDER: Well distended and normal. Bilateral ureteral jets are demonstrated. Prevoid bladder volume is 212.7 mL. Postvoid bladder volume is 0.8 mL. IMPRESSION: Normal renal ultrasound. Normal bladder ultrasound.. Assessment & Plan Assessment & Plan (1) Lower urinary tract symptoms (LUTS): Code(s): R39.9 - Unspecified symptoms and signs involving the genitourinary system Category: Medical (2) Interstitial cystitis: Code(s): N30.10 - Interstitial cystitis (chronic) without hematuria Category: Medical (3) Microscopic hematuria: Code(s): R31.29 - Other microscopic hematuria Category: Medical Plan In office urinalysis results reviewed with the patient today; as noted above; will send for urine cytology PVR 0 Continue VESIcare however will increase to 10 mg daily. We did discussed potential causes of lower urinary tract symptoms patient is experiencing as well as further treatment options and risks and benefits of these treatment options. We discussed bladder triggers/irritants. We discussed the importance of adequate hydration relation to lower urinary tract symptoms as well as overall health and well-being. Recent retroperitoneal ultrasound results reviewed with the patient today We discussed potential repeat cystoscopy for further assessment evaluation. We also discussed potential near future in office urodynamics for further assessment evaluation. Follow-up in 3 months with PVR; or sooner with any issues, concerns, and or questions. Orders: Orders Urine Cytology Today R31.29 - Other microscopic hematuria Medications: Changed From solifenacin (Vesicare) 5 mg PO DAILY 30 days 30 tabs 3RF To solifenacin (Vesicare) 10 mg (2 x 5 mg) PO DAILY 180 tabs 1RF 90 days Patient Instructions: The patient had an opportunity to ask questions regarding the treatment plan. All questions were answered. Physical exam, labs, and imaging were discussed and reviewed in detail. As well as risks, benefits, and discussion of treatment choices. No major barriers to understanding were identified. The patient expressed understanding and agreement with the above treatment plan. The patient was made aware they should contact our office by phone for worsening of their current condition, the appearance of new symptoms, or with any questions or concerns. Compliance is encouraged with any medications and follow up testing that is ordered. It is a privilege to be allowed the opportunity to participate in? your urological care.? Again, if you have any questions or concerns If you have any questions or concerns please do not hesitate to contact me. The office is [phone]. This note is constructed using voice recognition software. While every effort has been made to ensure accuracy infant nanny errors may have been included. Yours sincerely, CRISTELA Carreon Coding Level of Care Code Est Pt Level 3 (04983) Complex EM visit Add On G2211 Diagnoses Lower urinary tract symptoms (LUTS) R39.9 Interstitial cystitis N30.10 Microscopic hematuria R31.29 CPT Codes Post Residual Void - PVR CPT Code: 11520-Kouv Void Residual by ultrasound ([id number])
--- OUTSIDE RECORDS SUMMARY | 2025-08-17 17:07 | XMS_ITS | Clinical Summary ---
Author Organization [facility] Address [address] [place] [address] Phone Care Team Providers Care Pin Maker Name Role Phone Fatmata Villalobos MD Primary Care Provider [phone] Allergies No known active allergies Medications DULoxetine [...] 2025 09/25/2007 Insurance ([id number]) ([id number]) Care Teams Pin Maker Relationship Specialty Start Date End Date Fatmata Villalobos MD [address] [place] [address] PCP - General Internal Medicine 07/25/21
--- OUTSIDE RECORDS SUMMARY | 2025-08-17 17:07 | XMS_ITS | Encounter Summary ---
Author Organization [facility] Address [address] [place] [address] Phone Care Team Providers Care Heat Treater Apprentice Name Role Phone Fatmata Villalobos MD Primary Care Provider [phone] Encounter Details Date Type Department Care Team (Late st Contact Info) Description 02/20/2022 Telephone [facility] [address] [place] [address] Alfonso [address], [place] [address] Social History Tobacco Use Types Packs/Day Years [...] runs high. Please advise Thank you CB# [phone] documented in this encounter Plan of Treatment Not on file documented as of this encounter Visit Diagnoses Not on filedocumented in this encounter Care Teams Heat Treater Apprentice Relationship Specialty Start Date End Date Fatmata Villalobos MD [address] [place] PCP - General Internal Medicine 07/25/21 documented as of this encounter
== END 2025-08-17 15:30 | disposition home or self-care (01) ==
LOC: HO.HUSH 14:53
PROVIDERS: PCP Internal Medicine; Visit Provider Nurse Practitioner Family
DX: R39.9 Unspecified symptoms and signs involving the genitourinary system (principal); N30.10 Interstitial cystitis (chronic) without hematuria; R31.29 Other microscopic hematuria
CPT/HCPCS: 99213; G2211